=== PATIENT | female | born 1985 | race African-American/Black ===

== ENCOUNTER 2017-05-08 10:54 | Inpatient (IN) | payer OTHER ==
[2017-05-08] MEDS ORDERED: PEPCID 20 MG IV PREMIX* 20 MG/50 ML BAG IV PRN (12:32)
[2017-05-08 13:01] VITALS: BMI 29.4
[2017-05-08] MEDS: NS 1000 ML 1,000 ML IV SCH ×2 (13:01→23:57)
[2017-05-08] MEDS: DILAUDID INJ IVP PRN ×3 (13:02→21:11)
[2017-05-08] MEDS: PHENERGAN INJ 25 MG IVP PRN ×2 (13:03→23:53)
[2017-05-08 13:16] LABS: BASOPHILS # (AUTO) 0.1 X10^3/uL (0.0-0.1); BASOPHILS % (AUTO) 0.4 % (0.2-1.0); EOSINOPHILS # (AUTO) 0.1 x10^3/uL (0.0-0.2); EOSINOPHILS % (AUTO) 0.9 % (0.9-2.9); HEMATOCRIT 30.3 % (36.0-47.0); HEMOGLOBIN 9.7 g/dL (12.0-16.0); LYMPHOCYTES # (AUTO) 1.9 X10^3/uL (1.3-2.9); LYMPHOCYTES % (AUTO) 13.8 % (21.0-51.0); MEAN CORPUSCULAR HEMOGLOBIN 24.9 pg (27.0-34.0); MEAN CORPUSCULAR HGB CONC 32.1 g/dL (33.0-35.0); MEAN CORPUSCULAR VOLUME 77.5 fL (80.0-100.0); MEAN PLATELET VOLUME 8.8 fL (7.4-11.0); MONOCYTES # (AUTO) 1.8 x10^3/uL (0.3-0.8); MONOCYTES % (AUTO) 13.1 % (0.0-13.0); NEUTROPHILS # (AUTO) 9.8 x10^3/uL (2.2-4.8); NEUTROPHILS % (AUTO) 71.8 % (42.0-75.0); PLATELET COUNT 314 X10^3/uL (150.0-450.0); RED BLOOD COUNT 3.91 X10^6/uL (3.5-5.4); RED CELL DISTRIBUTION WIDTH 16.2 % (11.6-16.5); WHITE BLOOD COUNT 13.6 X10^3/uL (3.6-10.0)
[2017-05-08 13:24] LABS: ALBUMIN 1.8 g/dL (3.4-5.0); CALCIUM 8.5 mg/dL (8.5-10.1); COR CA(FOR HYPOALB) 10.3 mg/dL (8.5-10.1); CREATININE 1.39 mg/dL (0.55-1.02); TOTAL PROTEIN 7.1 g/dL (6.4-8.2)
[2017-05-08 14:06] LABS: PLATELET MORPHOLOGY COMMENT NORMAL (NORMAL)
[2017-05-08] MEDS ORDERED: K-DUR TAB 20 MEQ PO PRN (15:37)
[2017-05-08] MEDS ORDERED: K-RIDER 10 MEQ/NS 100 ML 10 MEQ/100 ML BAG IV PRN (15:37)
[2017-05-08] MEDS ORDERED: POTASSIUM CHLORIDE LIQ 20 MEQ UDC PO PRN (15:37)
[2017-05-08] MEDS ORDERED: K-LYTE EFFERVESCENT PO PRN (15:37)
[2017-05-08] MEDS ORDERED: NS 100 ML IV 100 ML IV ONE (16:06)
[2017-05-08] MEDS ORDERED: LEVSIN/MAALOX/LIDOC VISC PO PRN (16:22)
[2017-05-08] MEDS ORDERED: ZOFRAN TAB 4 MG PO PRN (16:22)
[2017-05-08] MEDS ORDERED: APRESOLINE INJ 20 MG VIAL IVP PRN (16:22)
[2017-05-08] MEDS ORDERED: VISTARIL PO PRN (16:22)
[2017-05-08] MEDS ORDERED: CATAPRES TAB 0.1 MG PO PRN (16:22)
[2017-05-08] MEDS ORDERED: IMITREX TAB PO PRN (16:22)
[2017-05-08] MEDS ORDERED: ELAVIL ONE (17:14)
[2017-05-08] MEDS: ZOFRAN INJ 4 MG VIAL IVP PRN (17:20)
[2017-05-08] MEDS: ATIVAN TAB 0.5 MG PO PRN (17:21)
[2017-05-08] MEDS: COREG TAB 12.5 MG PO SCH (17:22)
[2017-05-08] MEDS: CARAFATE SUSP 1 GM/10 ML PO SCH ×2 (18:20→21:10)
[2017-05-08] MEDS: REGLAN TAB 10 MG PO SCH ×2 (18:20→21:10)
--- NOTE | 2017-05-08 18:42 | CT ---
CT abdomen without and with contrast Indication: Epigastric pain, pancreatitis Comparison: None Technique: CT images of the abdomen and pelvis were obtained before and after IV contrast administrat ion; arterial, portal venous, and delayed phases were obtained. Oral contrast was also given. Automat ic exposure control was utilized. Findings: There is small left pleural effusion with minimal bibasilar atelectasis. No dense infiltrat e or large pleural effusion. No acute skeletal abnormality is seen. Precontrast images demonstrate no evidence for renal or ureteral stone. The gallbladder is absent. There is marked peripancreatic common diffusely, although most significantly adjacent to the pancreat ic body. The pancreas enhances fairly homogeneously. No discrete peripancreatic or pancreatic collect ion or hemorrhage identified. The splenic vein and artery appear grossly patent. The liver, spleen, stomach, duodenum, adrenals, and kidneys are unremarkable. Shotty periaortic and m esenteric lymph nodes are noted, possibly reactive. No bulky adenopathy. The visualized lower GI trac t is unremarkable. Impression: Acute pancreatitis without evidence for necrosis, hemorrhage, or acute pancreatic collection. Small left pleural effusion. Reported By:
[2017-05-08] MEDS ORDERED: MAALOX or MYLANTA PO PRN (20:51)
[2017-05-08] MEDS ORDERED: ZANTAC PO SCH (21:00)
[2017-05-08] MEDS: FLEXERIL TAB 10 MG PO SCH (21:10)
[2017-05-08] MEDS: ELAVIL PO SCH (21:10)
[2017-05-08] MEDS: COMPAZINE PO SCH (21:10)
[2017-05-08] MEDS: PROTONIX TAB 40 MG PO SCH (21:10)
[2017-05-08] MEDS: HumuLIN R SUBCUT PRN (22:06)
[2017-05-09 00:29] LABS: BILIRUBIN,URINE NEGATIVE (NEGATIVE); BLOOD/HEMOGLOBIN,URINE 3+ (NEGATIVE); GLUCOSE, URINE 4+ (NEGATIVE); KETONES,URINE NEGATIVE (NEGATIVE); LEUKOCYTE ESTERASE ,URINE NEGATIVE (NEGATIVE); NITRITES,URINE NEGATIVE (NEGATIVE); PROTEIN,URINE 4+ (NEGATIVE); UROBILINOGEN,URINE NORMAL (NORMAL)
[2017-05-09 00:37] LABS: APPEARANCE,URINE CLEAR (CLEAR); BACTERIA,URINE TRACE /HPF (NEGATIVE); COLOR,URINE YELLOW (YELLOW); SQUAMOUS EPITHELIAL CELL,UR RARE /HPF (NEGATIVE)
[2017-05-09] MEDS: DILAUDID INJ IVP PRN ×4 (04:12→20:38)
[2017-05-09] MEDS: ZOFRAN INJ 4 MG VIAL IVP PRN (04:13)
[2017-05-09] MEDS: COMPAZINE PO SCH ×3 (05:44→21:16)
[2017-05-09] MEDS: CARAFATE SUSP 1 GM/10 ML PO SCH ×4 (05:45→20:38)
[2017-05-09] MEDS: FLEXERIL TAB 10 MG PO SCH ×3 (05:45→21:16)
[2017-05-09] MEDS: REGLAN TAB 10 MG PO SCH ×4 (05:45→20:38)
[2017-05-09] MEDS: HumuLIN R SUBCUT PRN ×2 (05:45→12:26)
[2017-05-09 06:14] LABS: BASOPHILS # (AUTO) 0.1 X10^3/uL (0.0-0.1); BASOPHILS % (AUTO) 0.6 % (0.2-1.0); EOSINOPHILS # (AUTO) 0.1 x10^3/uL (0.0-0.2); EOSINOPHILS % (AUTO) 1.2 % (0.9-2.9); HEMATOCRIT 31.4 % (36.0-47.0); HEMOGLOBIN 10.1 g/dL (12.0-16.0); LYMPHOCYTES % (AUTO) 18.6 % (21.0-51.0); MEAN CORPUSCULAR HEMOGLOBIN 24.9 pg (27.0-34.0); MEAN CORPUSCULAR HGB CONC 32.3 g/dL (33.0-35.0); MEAN CORPUSCULAR VOLUME 77.2 fL (80.0-100.0); MEAN PLATELET VOLUME 8.3 fL (7.4-11.0); MONOCYTES # (AUTO) 1.5 x10^3/uL (0.3-0.8); MONOCYTES % (AUTO) 14.1 % (0.0-13.0); NEUTROPHILS % (AUTO) 65.5 % (42.0-75.0); PLATELET COUNT 170 X10^3/uL (150.0-450.0); RED BLOOD COUNT 4.07 X10^6/uL (3.5-5.4); RED CELL DISTRIBUTION WIDTH 16.5 % (11.6-16.5); WHITE BLOOD COUNT 10.7 X10^3/uL (3.6-10.0)
[2017-05-09 06:23] LABS: ALANINE AMINOTRANSFERASE 16 Units/L (12-78); ALBUMIN 1.6 g/dL (3.4-5.0); ALKALINE PHOSPHATASE 124 Units/L (46-116); AMYLASE 36 Units/L (25-115); ASPARTATE AMINO TRANSFERASE 26 Units/L (15-37); BLOOD UREA NITROGEN 5 mg/dL (7-18); CALCIUM 8.1 mg/dL (8.5-10.1); CARBON DIOXIDE 29.4 mmol/L (21-32); CHLORIDE 104 mmol/L (98-107); COR NA(FOR HYPERGLY) 143 mmol/L (136-145); CREATININE 1.15 mg/dL (0.55-1.02); GLUCOSE 267 mg/dL (65-99); LIPASE 400 Units/L (73-393); PLATELET MORPHOLOGY COMMENT NORMAL (NORMAL); SODIUM 139 mmol/L (136-145); TOTAL PROTEIN 6.7 g/dL (6.4-8.2); eGFR BLACK RACES > 60 (>60); eGFR NON BLACK RACES 58 (>60)
[2017-05-09] MEDS: PROTONIX TAB 40 MG PO SCH ×2 (08:14→20:38)
[2017-05-09] MEDS: COREG TAB 12.5 MG PO SCH ×2 (08:14→17:18)
[2017-05-09] MEDS: PHENERGAN TAB 25 MG PO PRN (08:14)
[2017-05-09] MEDS: NORVASC TAB 10 MG PO SCH (08:15)
[2017-05-09] MEDS: CELEXA PO SCH (08:15)
[2017-05-09] MEDS: AMARYL TAB 4 MG PO SCH (08:15)
[2017-05-09] MEDS: ZESTRIL TAB 40 MG PO SCH (08:15)
[2017-05-09] MEDS: PEPCID 20 MG IV PREMIX* 20 MG/50 ML BAG IV SCH (08:17)
[2017-05-09] MEDS: NS 1000 ML 1,000 ML IV SCH ×2 (08:17→21:16)
[2017-05-09] MEDS: PRAVACHOL PO SCH (08:54)
--- NOTE | 2017-05-09 09:20 | DR.H&P ---
H&P - History & Physical for Day of: H&P Date: 05/08/17 - Chief Complaint Chief Complaint: luq and llq abdominal pain, n/v - Allergies Allergies/Adverse Reactions: Allergies Allergy/AdvReac Type Severity Reaction Status Date / Time Penicillins Allergy Verified 05/08/17 11:41 morphine AdvReac Verified 05/08/17 11:41 - History of Present Illness History of Present Illness: Ms. Delaney is a 31-year-old black female who was a direct admit from Dr. Wynne's [place] office. Her complaints were upper abdominal pain, left upper quadrant and left lower quadrant. With the nausea and vomiting. Patient had a CT scan of her abdomen one week ago without contrast with similar complaints. Patient has a history of noncompliant diabetes as well as gastroparesis. Patient states her last EGD was less than 1 year ago. Patient admitted for further evaluation of abdominal pain. CT with contrast ordered on admission as well as admission labs CBC CMP amylase and lipase we will keep patient nothing by mouth and continue blood sugar control. - Past Medical History Past Medical History: Diabetes, GERD, Hypertension - Past Surgical History Surgical History: , Cholecystectomy, Hysterectomy - Family History Family Medical History: Diabetes Mellitus, Cancer, Hypertension - Social History Does patient currently use any type of tobacco product: Yes Have you used tobacco products in the last 12 months: Yes Type of Tobacco Use: Cigarettes How many years tobacco product used: 12 Does any household member use tobacco: Yes Alcohol Use: None Drug Use: Prescription Drugs - Medications Home Medications: Amitriptyline HCl 50 mg PO HS 05/08/17 [History Confirmed 05/08/17] Amlodipine Besylate 10 mg PO DAILY 05/08/17 [History Confirmed 05/08/17] Carvedilol 12.5 mg PO BIDWM 05/08/17 [History Confirmed 05/08/17] Citalopram Hydrobromide [Citalopram HBr] 20 mg PO DAILY 05/08/17 [History Confirmed 05/08/17] Clonidine HCl [Catapres Tab 0.1 mg] 0.1 mg PO QID PRN 05/08/17 [History Confirmed 05/08/17] Cyclobenzaprine HCl 10 mg PO TID 05/08/17 [History Confirmed 05/08/17] Fentanyl 50 Mcg/Hr [DURAGESIC 50 mcg/HR PATCH] 1 each TD Q72H 05/08/17 [History Confirmed 05/08/17] Gi Cocktail [Levsin/Maalox/Lidoc Visc] 30 ml PO QID PRN 05/08/17 [History Confirmed 05/08/17] Glimepiride [Amaryl Tab 4 mg] 8 mg PO DAILYWB 05/08/17 [History Confirmed ] Hydrocodone/Acetaminophen [Hydrocodone/Acetaminophen 5-325 mg] 1 tab PO BID PRN 05/08/17 [History Confirmed 05/08/17] Hydroxyzine Pamoate [Vistaril] 25 mg PO Q8H PRN 05/08/17 [History Confirmed ] Insulin Aspart Protamine & Asp [Novolog Mix 70/30] 10 units SC BIDWM PRN [History Confirmed 05/08/17] Lisinopril [ZESTRIL *] 40 mg PO DAILY 05/08/17 [History Confirmed 05/08/17] Lorazepam [Ativan Tab 0.5 mg] 0.5 tab PO BID PRN 05/08/17 [History Confirmed ] Metformin HCl [Glucophage] 1,000 mg PO BIDWM 05/08/17 [History Confirmed ] Metoclopramide HCl 10 mg PO ACHS 05/08/17 [History Confirmed 05/08/17] Ondansetron HCl [Zofran Tab 4 mg] 4 mg PO Q6HR PRN 05/08/17 [History Confirmed 05/08/17] Pantoprazole Sodium 40 mg [Protonix Tab 40 mg] 40 mg PO BID 05/08/17 [History Confirmed 05/08/17] Pravastatin Sodium 20 mg PO DAILY 05/08/17 [History Confirmed 05/08/17] Prochlorperazine Maleate [Compazine] 10 mg PO TID 05/08/17 [History Confirmed ] Promethazine HCl 25 mg PO Q6H PRN 05/08/17 [History Confirmed 05/08/17] Ranitidine HCl [Ranitidine [address]] 150 mg PO BID 05/08/17 [History Confirmed 05/08/17] Sucralfate [Carafate Susp 1 gm/10 ml] 1 gm PO ACHS 05/08/17 [History Confirmed 05/08/17] Sumatriptan Succinate 100 mg PO BID PRN 05/08/17 [History Confirmed 05/08/17] - Review of Systems Constitutional: denies: Fever Eyes: No Symptoms Reported, Vision Change Respiratory: No Symptoms Reported Cardiovascular: No Symptoms Reported Gastrointestinal: Nausea, Vomiting, Abdominal Pain Genitourinary: No Symptoms Reported Musculoskeletal: No Symptoms Reported Skin: No Symptoms Reported Neurological: No Symptoms Reported - Physical Exam Vital Signs: Temperature 98.1 F Pulse Rate [Left Brachial] 95 Pulse Rate [Right Brachial] 94 Respiratory Rate 18 Blood Pressure [Right Arm] 127/76 O2 Sat by Pulse Oximetry 94 Oriented: Normal Eyes: Normal Ear: Normal Nose: Normal Throat: Normal Respiratory: RLL Exp. Wheeze (mild), LLL Exp. Wheeze Cardiovascular: Normal : Normal Auscultation: Bowel Sounds: Normal Palpation: Normal Tenderness: LUQ, LLQ, Epigastric Skin: Normal Musculoskeletal: Normal Psychiatric: Normal Speech Pattern: Clear, Appropriate - Assessment/Plan (1) Abdominal pain Status: Acute Plan: admit, CT abdomen and pelvis with contrast, nausea and pain control, PPI therapy, blood sugar controlled, admission labs including amylase and lipase, npo (2) Uncontrolled diabetes mellitus Status: Acute (3) Gastroparesis due to DM Status: Acute
--- NOTE | 2017-05-09 09:21 | DR.H&P ---
H&P - History & Physical for Day of: H&P Date: 05/08/17 - Chief Complaint Chief Complaint: LUQ abd pain - Allergies Allergies/Adverse Reactions: Allergies Allergy/AdvReac Type Severity Reaction Status Date / Time Penicillins Allergy Verified 05/08/17 11:41 morphine AdvReac Verified 05/08/17 11:41 - History of Present Illness History of Present Illness: The patient is a 31-year-old black female who presents to the clinic with complaint of left upper quadrant abdominal pain. States that she was discharged on Sunday from [facility] secondary to pancreatitis. Patient states that she was in the unit on insulin drip. Patient is diabetes mellitus type 1. Patient states that she was unable to tolerate food prior to discharge. Patient states she is not shaded that has not been eating or drinking. Denies any diarrhea. Does have a history of cholecystectomy. - Past Medical History Past Medical History: Anxiety, Diabetes, Dyslipidemia, GERD Additional Medical History: Pancreatitis, Gastroparesis - Past Surgical History Surgical History: , Cholecystectomy, Hysterectomy - Family History Family Medical History: Diabetes Mellitus, Cancer, Hypertension - Social History Does patient currently use any type of tobacco product: Yes Have you used tobacco products in the last 12 months: Yes Type of Tobacco Use: Cigarettes How many years tobacco product used: 12 Does any household member use tobacco: Yes Alcohol Use: None Drug Use: Prescription Drugs - Medications Home Medications: Amitriptyline HCl 50 mg PO HS 05/08/17 [History Confirmed 05/08/17] Amlodipine Besylate 10 mg PO DAILY 05/08/17 [History Confirmed 05/08/17] Carvedilol 12.5 mg PO BIDWM 05/08/17 [History Confirmed 05/08/17] Citalopram Hydrobromide [Citalopram HBr] 20 mg PO DAILY 05/08/17 [History Confirmed 05/08/17] Clonidine HCl [Catapres Tab 0.1 mg] 0.1 mg PO QID PRN 05/08/17 [History Confirmed 05/08/17] Cyclobenzaprine HCl 10 mg PO TID 05/08/17 [History Confirmed 05/08/17] Fentanyl 50 Mcg/Hr [DURAGESIC 50 mcg/HR PATCH] 1 each TD Q72H 05/08/17 [History Confirmed 05/08/17] Gi Cocktail [Levsin/Maalox/Lidoc Visc] 30 ml PO QID PRN 05/08/17 [History Confirmed 05/08/17] Glimepiride [Amaryl Tab 4 mg] 8 mg PO DAILYWB 05/08/17 [History Confirmed ] Hydrocodone/Acetaminophen [Hydrocodone/Acetaminophen 5-325 mg] 1 tab PO BID PRN 05/08/17 [History Confirmed 05/08/17] Hydroxyzine Pamoate [Vistaril] 25 mg PO Q8H PRN 05/08/17 [History Confirmed ] Insulin Aspart Protamine & Asp [Novolog Mix 70/30] 10 units SC BIDWM PRN [History Confirmed 05/08/17] Lisinopril [ZESTRIL *] 40 mg PO DAILY 05/08/17 [History Confirmed 05/08/17] Lorazepam [Ativan Tab 0.5 mg] 0.5 tab PO BID PRN 05/08/17 [History Confirmed ] Metformin HCl [Glucophage] 1,000 mg PO BIDWM 05/08/17 [History Confirmed ] Metoclopramide HCl 10 mg PO ACHS 05/08/17 [History Confirmed 05/08/17] Ondansetron HCl [Zofran Tab 4 mg] 4 mg PO Q6HR PRN 05/08/17 [History Confirmed 05/08/17] Pantoprazole Sodium 40 mg [Protonix Tab 40 mg] 40 mg PO BID 05/08/17 [History Confirmed 05/08/17] Pravastatin Sodium 20 mg PO DAILY 05/08/17 [History Confirmed 05/08/17] Prochlorperazine Maleate [Compazine] 10 mg PO TID 05/08/17 [History Confirmed ] Promethazine HCl 25 mg PO Q6H PRN 05/08/17 [History Confirmed 05/08/17] Ranitidine HCl [Ranitidine [address]] 150 mg PO BID 05/08/17 [History Confirmed 05/08/17] Sucralfate [Carafate Susp 1 gm/10 ml] 1 gm PO ACHS 05/08/17 [History Confirmed 05/08/17] Sumatriptan Succinate 100 mg PO BID PRN 05/08/17 [History Confirmed 05/08/17] - Review of Systems Constitutional: Weakness, Malaise Eyes: No Symptoms Reported ENT: No Symptoms Reported Respiratory: No Symptoms Reported Cardiovascular: No Symptoms Reported Gastrointestinal: Nausea, Abdominal Pain Genitourinary: No Symptoms Reported Musculoskeletal: No Symptoms Reported Skin: No Symptoms Reported Neurological: No Symptoms Reported - Physical Exam Vital Signs: Temperature 98.1 F Pulse Rate [Left Brachial] 95 Pulse Rate [Right Brachial] 94 Respiratory Rate 18 Blood Pressure [Right Arm] 127/76 O2 Sat by Pulse Oximetry 94 Oriented: Normal Eyes: Normal Ear: Normal Nose: Normal Throat: Normal Respiratory: Clear Throughout Cardiovascular: Normal : Normal Auscultation: Bowel Sounds: Normal Palpation: Normal Tenderness: LUQ, Moderate Skin: Normal Musculoskeletal: Normal Psychiatric: Normal Mood Description: Calm Affect: Normal Speech Pattern: Clear
[2017-05-09] MEDS: NORCO 5/325 MG TAB PO PRN (12:26)
[2017-05-09] MEDS: ELAVIL PO SCH (20:37)
[2017-05-09] MEDS: ATIVAN TAB 0.5 MG PO PRN (20:38)
[2017-05-09] MEDS: SNACK - Diabetic Appropriate PO SCH (21:16)
[2017-05-10] MEDS: NORCO 5/325 MG TAB PO PRN ×5 (00:14→18:59)
[2017-05-10] MEDS: PHENERGAN TAB 25 MG PO PRN (00:14)
[2017-05-10] MEDS: NS 1000 ML 1,000 ML IV SCH ×4 (00:14→21:46)
[2017-05-10] MEDS: ZOFRAN INJ 4 MG VIAL IVP PRN (03:52)
[2017-05-10] MEDS: DILAUDID INJ IVP PRN (03:52)
[2017-05-10 05:32] LABS: BASOPHILS % (AUTO) 0.4 % (0.2-1.0); EOSINOPHILS # (AUTO) 0.1 x10^3/uL (0.0-0.2); EOSINOPHILS % (AUTO) 1.4 % (0.9-2.9); HEMOGLOBIN 8.9 g/dL (12.0-16.0); LYMPHOCYTES # (AUTO) 2.5 X10^3/uL (1.3-2.9); LYMPHOCYTES % (AUTO) 22.9 % (21.0-51.0); MEAN CORPUSCULAR HEMOGLOBIN 24.9 pg (27.0-34.0); MEAN CORPUSCULAR HGB CONC 31.9 g/dL (33.0-35.0); MEAN CORPUSCULAR VOLUME 78.1 fL (80.0-100.0); MEAN PLATELET VOLUME 8.8 fL (7.4-11.0); MONOCYTES % (AUTO) 8.8 % (0.0-13.0); NEUTROPHILS # (AUTO) 7.2 x10^3/uL (2.2-4.8); NEUTROPHILS % (AUTO) 66.5 % (42.0-75.0); PLATELET COUNT 285 X10^3/uL (150.0-450.0); RED BLOOD COUNT 3.59 X10^6/uL (3.5-5.4); RED CELL DISTRIBUTION WIDTH 15.9 % (11.6-16.5); WHITE BLOOD COUNT 10.8 X10^3/uL (3.6-10.0)
[2017-05-10] MEDS: CARAFATE SUSP 1 GM/10 ML PO SCH ×4 (05:38→21:08)
[2017-05-10] MEDS: REGLAN TAB 10 MG PO SCH ×4 (05:38→21:09)
[2017-05-10 05:39] LABS: ALANINE AMINOTRANSFERASE 20 Units/L (12-78); ALBUMIN 1.5 g/dL (3.4-5.0); ALKALINE PHOSPHATASE 121 Units/L (46-116); AMYLASE 35 Units/L (25-115); ASPARTATE AMINO TRANSFERASE 39 Units/L (15-37); BLOOD UREA NITROGEN 6 mg/dL (7-18); CALCIUM 8.1 mg/dL (8.5-10.1); CARBON DIOXIDE 26.4 mmol/L (21-32); CHLORIDE 104 mmol/L (98-107); COR CA(FOR HYPOALB) 10.1 mg/dL (8.5-10.1); COR NA(FOR HYPERGLY) 139 mmol/L (136-145); CREATININE 1.18 mg/dL (0.55-1.02); GLUCOSE 203 mg/dL (65-99); LIPASE 375 Units/L (73-393); SODIUM 137 mmol/L (136-145); TOTAL PROTEIN 6.1 g/dL (6.4-8.2); eGFR BLACK RACES > 60 (>60); eGFR NON BLACK RACES 56 (>60)
[2017-05-10] MEDS: COMPAZINE PO SCH ×3 (05:39→21:09)
[2017-05-10] MEDS: FLEXERIL TAB 10 MG PO SCH ×3 (05:39→21:09)
[2017-05-10 05:54] LABS: PLATELET MORPHOLOGY COMMENT NORMAL (NORMAL)
[2017-05-10] MEDS: CELEXA PO SCH (08:28)
[2017-05-10] MEDS: COREG TAB 12.5 MG PO SCH ×2 (08:28→16:17)
[2017-05-10] MEDS: AMARYL TAB 4 MG PO SCH (08:28)
[2017-05-10] MEDS: PEPCID 20 MG IV PREMIX* 20 MG/50 ML BAG IV SCH (08:29)
[2017-05-10] MEDS: PRAVACHOL PO SCH (08:29)
[2017-05-10] MEDS: NORVASC TAB 10 MG PO SCH (08:29)
[2017-05-10] MEDS: ZESTRIL TAB 40 MG PO SCH (08:29)
[2017-05-10] MEDS: PROTONIX TAB 40 MG PO SCH ×2 (08:29→21:09)
[2017-05-10] MEDS: PHENERGAN INJ 25 MG IVP PRN (09:08)
[2017-05-10] MEDS: ATIVAN TAB 0.5 MG PO PRN (21:08)
[2017-05-10] MEDS: SNACK - Diabetic Appropriate PO SCH (21:08)
[2017-05-10] MEDS: ELAVIL PO SCH (21:09)
[2017-05-10] MEDS: HumuLIN R SUBCUT PRN (21:56)
[2017-05-11] MEDS: ZOFRAN INJ 4 MG VIAL IVP PRN (03:42)
[2017-05-11] MEDS: NORCO 5/325 MG TAB PO PRN ×2 (03:42→10:23)
[2017-05-11] MEDS: CARAFATE SUSP 1 GM/10 ML PO SCH ×2 (05:33→11:52)
[2017-05-11] MEDS: COMPAZINE PO SCH (05:33)
[2017-05-11] MEDS: REGLAN TAB 10 MG PO SCH ×2 (05:33→11:51)
[2017-05-11] MEDS: FLEXERIL TAB 10 MG PO SCH (05:33)
[2017-05-11 05:47] LABS: BASOPHILS % (AUTO) 0.4 % (0.2-1.0); EOSINOPHILS # (AUTO) 0.2 x10^3/uL (0.0-0.2); EOSINOPHILS % (AUTO) 1.8 % (0.9-2.9); HEMATOCRIT 27.1 % (36.0-47.0); HEMOGLOBIN 8.7 g/dL (12.0-16.0); LYMPHOCYTES # (AUTO) 2.4 X10^3/uL (1.3-2.9); MEAN CORPUSCULAR HEMOGLOBIN 24.5 pg (27.0-34.0); MEAN CORPUSCULAR VOLUME 76.7 fL (80.0-100.0); MEAN PLATELET VOLUME 8.5 fL (7.4-11.0); MONOCYTES # (AUTO) 0.9 x10^3/uL (0.3-0.8); MONOCYTES % (AUTO) 8.1 % (0.0-13.0); NEUTROPHILS # (AUTO) 7.8 x10^3/uL (2.2-4.8); NEUTROPHILS % (AUTO) 68.7 % (42.0-75.0); PLATELET COUNT 345 X10^3/uL (150.0-450.0); RED BLOOD COUNT 3.53 X10^6/uL (3.5-5.4); RED CELL DISTRIBUTION WIDTH 16.1 % (11.6-16.5); WHITE BLOOD COUNT 11.3 X10^3/uL (3.6-10.0)
[2017-05-11 05:59] LABS: ALANINE AMINOTRANSFERASE 18 Units/L (12-78); ALBUMIN 1.5 g/dL (3.4-5.0); ALKALINE PHOSPHATASE 123 Units/L (46-116); ASPARTATE AMINO TRANSFERASE 28 Units/L (15-37); BLOOD UREA NITROGEN 5 mg/dL (7-18); CALCIUM 8.1 mg/dL (8.5-10.1); CARBON DIOXIDE 27.5 mmol/L (21-32); CHLORIDE 107 mmol/L (98-107); COR CA(FOR HYPOALB) 10.1 mg/dL (8.5-10.1); COR NA(FOR HYPERGLY) 140 mmol/L (136-145); CREATININE 1.04 mg/dL (0.55-1.02); GLUCOSE 160 mg/dL (65-99); SODIUM 139 mmol/L (136-145); TOTAL PROTEIN 6.3 g/dL (6.4-8.2); eGFR BLACK RACES > 60 (>60); eGFR NON BLACK RACES > 60 (>60)
[2017-05-11] MEDS: COREG TAB 12.5 MG PO SCH (06:24)
[2017-05-11] MEDS: NS 1000 ML 1,000 ML IV SCH (06:24)
[2017-05-11] MEDS: AMARYL TAB 4 MG PO SCH (06:24)
[2017-05-11 06:45] LABS: HYPOCHROMASIA 1+; PLATELET MORPHOLOGY COMMENT NORMAL (NORMAL)
[2017-05-11] MEDS: CELEXA PO SCH (09:56)
[2017-05-11] MEDS: ZESTRIL TAB 40 MG PO SCH (09:56)
[2017-05-11] MEDS: NORVASC TAB 10 MG PO SCH (09:57)
[2017-05-11] MEDS: PRAVACHOL PO SCH (09:57)
[2017-05-11] MEDS: PEPCID 20 MG IV PREMIX* 20 MG/50 ML BAG IV SCH (09:57)
[2017-05-11] MEDS: PROTONIX TAB 40 MG PO SCH (09:57)
[2017-05-11] MEDS: PHENERGAN TAB 25 MG PO PRN (10:23)
[2017-05-11 11:53] VITALS: BP 156/87
== END 2017-05-11 12:00 | disposition home or self-care (01) | DRG 440 ==
LOC: OBSVTOIN 10:54 → MED/SURG 10:54
PROVIDERS: ADMIT Internal Medicine; ATTEND Internal Medicine
DX: K85.80 Other acute pancreatitis without necrosis or infection (principal); R10.32 Left lower quadrant pain; R10.12 Left upper quadrant pain; R11.2 Nausea with vomiting, unspecified; E10.65 Type 1 diabetes mellitus with hyperglycemia; K21.9 Gastro-esophageal reflux disease without esophagitis; I10 Essential (primary) hypertension; K31.84 Gastroparesis; F41.8 Other specified anxiety disorders; F17.210 Nicotine dependence, cigarettes, uncomplicated; E66.01 Morbid (severe) obesity due to excess calories; E78.2 Mixed hyperlipidemia; F45.42 Pain disorder with related psychological factors
CPT/HCPCS: 36415; 74022; 74170; 80053; 81001; 82150; 82947; 83690; 84132; 85025; A4222; Q0169; S0028; S0181; J1170; J1815; J2405; J2550

== ENCOUNTER 2017-07-09 10:18 | Inpatient (IN) | payer OTHER ==
[2017-07-09] MEDS ORDERED: ATIVAN INJ 2 MG VIAL IVP PRN (11:02)
[2017-07-09] MEDS ORDERED: PEPCID 20 MG IV PREMIX* 20 MG/50 ML BAG IV PRN (12:20)
[2017-07-09] MEDS: DILAUDID INJ IVP PRN ×3 (13:04→21:17)
[2017-07-09] MEDS: NS 1000 ML 1,000 ML IV SCH (13:04)
[2017-07-09] MEDS: PHENERGAN INJ 25 MG IVP PRN ×2 (13:04→21:18)
[2017-07-09 13:12] VITALS: BMI 37.5
[2017-07-09 13:16] LABS: BASOPHILS # (AUTO) 0.1 X10^3/uL (0.0-0.1); BASOPHILS % (AUTO) 0.9 % (0.2-1.0); EOSINOPHILS # (AUTO) 0.1 x10^3/uL (0.0-0.2); EOSINOPHILS % (AUTO) 0.6 % (0.9-2.9); HEMATOCRIT 34.2 % (36.0-47.0); HEMOGLOBIN 10.8 g/dL (12.0-16.0); LYMPHOCYTES # (AUTO) 2.5 X10^3/uL (1.3-2.9); LYMPHOCYTES % (AUTO) 24.9 % (21.0-51.0); MEAN CORPUSCULAR HEMOGLOBIN 24.5 pg (27.0-34.0); MEAN CORPUSCULAR HGB CONC 31.7 g/dL (33.0-35.0); MEAN CORPUSCULAR VOLUME 77.4 fL (80.0-100.0); MEAN PLATELET VOLUME 9.2 fL (7.4-11.0); MONOCYTES # (AUTO) 0.7 x10^3/uL (0.3-0.8); MONOCYTES % (AUTO) 7.1 % (0.0-13.0); NEUTROPHILS # (AUTO) 6.6 x10^3/uL (2.2-4.8); NEUTROPHILS % (AUTO) 66.5 % (42.0-75.0); PLATELET COUNT 288 X10^3/uL (150.0-450.0); RED BLOOD COUNT 4.42 X10^6/uL (3.5-5.4); WHITE BLOOD COUNT 9.9 X10^3/uL (3.6-10.0)
[2017-07-09 13:26] LABS: SERUM ACETONE NEGATIVE (NEGATIVE)
[2017-07-09 13:31] LABS: BLOOD UREA NITROGEN 9 mg/dL (7-18); CARBON DIOXIDE 28.1 mmol/L (21-32); CHLORIDE 102 mmol/L (98-107); COR NA(FOR HYPERGLY) 140 mmol/L (136-145); CREATININE 1.37 mg/dL (0.55-1.02); SODIUM 137 mmol/L (136-145); eGFR BLACK RACES 57 (>60); eGFR NON BLACK RACES 47 (>60)
[2017-07-09 13:32] LABS: ALANINE AMINOTRANSFERASE 11 Units/L (12-78); ALBUMIN 2.4 g/dL (3.4-5.0); ALKALINE PHOSPHATASE 89 Units/L (46-116); AMYLASE 35 Units/L (25-115); ASPARTATE AMINO TRANSFERASE 16 Units/L (15-37); COR CA(FOR HYPOALB) 10.3 mg/dL (8.5-10.1); LIPASE 79 Units/L (73-393); TOTAL PROTEIN 7.5 g/dL (6.4-8.2)
[2017-07-09 13:42] LABS: HYPOCHROMASIA SLIGHT; MICROCYTOSIS SLIGHT; PLATELET MORPHOLOGY COMMENT NORMAL (NORMAL)
--- NOTE | 2017-07-09 15:48 | CT ---
History: Acute gastroparesis Study: CT of the abdomen without contrast. Comparison: None Findings: The stomach is nondistended and unremarkable without wall thickening. The gallbladder surgi cesar absent. There is no biliary dilatation. The liver and spleen and pancreas and kidneys and adren al glands are unremarkable. There is no ascites or adenopathy or bowel distention. The visualized pasha g bases are clear. Impression: Negative Reported By:
--- NOTE | 2017-07-09 18:07 | DR.H&P ---
H&P - History & Physical for Day of: H&P Date: 07/09/17 - Chief Complaint Chief Complaint: Abd pain with nausea and vomiting - Allergies Allergies/Adverse Reactions: Allergies Allergy/AdvReac Type Severity Reaction Status Date / Time Penicillins Allergy Verified 05/08/17 11:41 morphine AdvReac Verified 05/08/17 11:41 - History of Present Illness History of Present Illness: The patient is a 32-year-old black female who presents to the clinic with a three-day history of abdominal pain with nausea vomiting. Patient does have diabetes mellitus and gastroparesis. Patient denies diarrhea. Days that she's not been able to keep anything down of the last several days and is progressing in nature. States she has taken anti- emetics without improvement. States blood sugar has been in the 200 range. States blood pressure has been elevated. States she is having difficulty keeping her medications down. - Past Medical History Past Medical History: Anxiety, Diabetes, Dyslipidemia, GERD Additional Medical History: Pancreatitis, Gastroparesis - Past Surgical History Surgical History: , Cholecystectomy, Hysterectomy - Family History Family Medical History: Diabetes Mellitus, Cancer, Hypertension - Social History Does patient currently use any type of tobacco product: Yes Have you used tobacco products in the last 12 months: Yes Type of Tobacco Use: Cigarettes How many years tobacco product used: 12 Does any household member use tobacco: Yes Alcohol Use: None Drug Use: Prescription Drugs - Review of Systems Constitutional: Weakness Eyes: No Symptoms Reported ENT: No Symptoms Reported Respiratory: No Symptoms Reported Cardiovascular: No Symptoms Reported Gastrointestinal: See HPI, Nausea, Vomiting, Abdominal Pain Genitourinary: No Symptoms Reported Musculoskeletal: No Symptoms Reported Skin: No Symptoms Reported Neurological: No Symptoms Reported - Physical Exam Vital Signs: Temperature 98.1 F Pulse Rate [Left] 92 Respiratory Rate 18 Blood Pressure [Right Arm] 200/100 Blood Pressure 156/87 O2 Sat by Pulse Oximetry 98 Oriented: Normal Eyes: Normal Ear: Normal Nose: Normal Throat: Normal Respiratory: Clear Throughout Cardiovascular: Normal : Normal Auscultation: Bowel Sounds: Normal Palpation: Normal Tenderness: RUQ, LUQ, Epigastric Skin: Normal Musculoskeletal: Normal Psychiatric: Normal Mood Description: Calm Affect: Quiet Speech Pattern: Clear - Assessment/Plan (1) Hypertension Qualifiers: Hypertension type: essential hypertension Qualified Code(s): I10 - Essential (primary) hypertension Status: Acute Plan: monitor blood pressure and administer antihypertensives as needed (2) Abdominal pain Qualifiers: Abdominal location: epigastric Qualified Code(s): R10.13 - Epigastric pain Status: Acute Plan: Pepcid IV, anti-emetics, IV Dilaudid (3) Gastroparesis due to DM Status: Acute Plan: IV anti-emetics, Pepcid, Ativan, Dilaudid, CBC, CMP (4) Uncontrolled diabetes mellitus Qualifiers: Diabetes mellitus type: type 1 Status: Acute Plan: fingerstick blood sugars with sliding scale regular insulin, Acetone, NS IV
[2017-07-09] MEDS: CATAPRES TAB 0.1 MG PO PRN (21:17)
[2017-07-09 23:07] LABS: BILIRUBIN,URINE NEGATIVE (NEGATIVE); BLOOD/HEMOGLOBIN,URINE 2+ (NEGATIVE); GLUCOSE, URINE NEGATIVE (NEGATIVE); KETONES,URINE NEGATIVE (NEGATIVE); LEUKOCYTE ESTERASE ,URINE NEGATIVE (NEGATIVE); NITRITES,URINE NEGATIVE (NEGATIVE); PROTEIN,URINE 4+ (NEGATIVE); UROBILINOGEN,URINE NORMAL (NORMAL)
[2017-07-09 23:15] LABS: APPEARANCE,URINE CLEAR (CLEAR); BACTERIA,URINE TRACE /HPF (NEGATIVE); COLOR,URINE YELLOW (YELLOW); SQUAMOUS EPITHELIAL CELL,UR RARE /HPF (NEGATIVE)
[2017-07-10] MEDS: NS 1000 ML 1,000 ML IV SCH ×3 (02:30→23:17)
[2017-07-10] MEDS: DILAUDID INJ IVP PRN ×6 (02:34→23:17)
[2017-07-10] MEDS: PHENERGAN INJ 25 MG IVP PRN ×2 (04:06→10:37)
[2017-07-10 05:34] LABS: ALANINE AMINOTRANSFERASE 9 Units/L (12-78); ALKALINE PHOSPHATASE 77 Units/L (46-116); ASPARTATE AMINO TRANSFERASE 18 Units/L (15-37); BLOOD UREA NITROGEN 6 mg/dL (7-18); CALCIUM 8.6 mg/dL (8.5-10.1); CHLORIDE 105 mmol/L (98-107); COR CA(FOR HYPOALB) 10.2 mg/dL (8.5-10.1); COR NA(FOR HYPERGLY) 141 mmol/L (136-145); CREATININE 1.04 mg/dL (0.55-1.02); SODIUM 139 mmol/L (136-145); TOTAL PROTEIN 6.4 g/dL (6.4-8.2); eGFR BLACK RACES > 60 (>60); eGFR NON BLACK RACES > 60 (>60)
[2017-07-10 06:19] LABS: BASOPHILS % (AUTO) 0.2 % (0.2-1.0); EOSINOPHILS # (AUTO) 0.1 x10^3/uL (0.0-0.2); EOSINOPHILS % (AUTO) 2.1 % (0.9-2.9); HEMATOCRIT 31.3 % (36.0-47.0); HEMOGLOBIN 9.7 g/dL (12.0-16.0); LYMPHOCYTES # (AUTO) 2.8 X10^3/uL (1.3-2.9); LYMPHOCYTES % (AUTO) 42.3 % (21.0-51.0); MEAN CORPUSCULAR HEMOGLOBIN 24.5 pg (27.0-34.0); MEAN CORPUSCULAR HGB CONC 31.2 g/dL (33.0-35.0); MEAN CORPUSCULAR VOLUME 78.6 fL (80.0-100.0); MEAN PLATELET VOLUME 9.3 fL (7.4-11.0); MONOCYTES # (AUTO) 0.6 x10^3/uL (0.3-0.8); MONOCYTES % (AUTO) 8.3 % (0.0-13.0); NEUTROPHILS # (AUTO) 3.1 x10^3/uL (2.2-4.8); NEUTROPHILS % (AUTO) 47.1 % (42.0-75.0); PLATELET COUNT 279 X10^3/uL (150.0-450.0); RED BLOOD COUNT 3.98 X10^6/uL (3.5-5.4); WHITE BLOOD COUNT 6.7 X10^3/uL (3.6-10.0)
[2017-07-10] MEDS: HumuLIN R SUBCUT PRN (06:40)
[2017-07-10 07:21] LABS: PLATELET MORPHOLOGY COMMENT NORMAL (NORMAL)
[2017-07-10] MEDS: CATAPRES TAB 0.1 MG PO PRN (09:17)
[2017-07-10] MEDS: ZOFRAN INJ 4 MG VIAL IVP PRN ×2 (09:18→15:12)
[2017-07-10] MEDS: SNACK - Diabetic Appropriate PO SCH ×2 (11:48→22:40)
[2017-07-10] MEDS: ATIVAN INJ 2 MG VIAL IVP PRN (15:12)
[2017-07-10] MEDS: REGLAN TAB 10 MG PO SCH ×2 (21:37→22:40)
[2017-07-11] MEDS: CATAPRES TAB 0.1 MG PO PRN ×2 (00:02→12:34)
[2017-07-11] MEDS: DILAUDID INJ IVP PRN ×4 (04:06→20:18)
[2017-07-11] MEDS: ATIVAN INJ 2 MG VIAL IVP PRN ×2 (04:07→12:44)
[2017-07-11] MEDS: ZOFRAN INJ 4 MG VIAL IVP PRN (04:07)
[2017-07-11 05:53] LABS: BASOPHILS % (AUTO) 0.5 % (0.2-1.0); EOSINOPHILS # (AUTO) 0.1 x10^3/uL (0.0-0.2); EOSINOPHILS % (AUTO) 2.1 % (0.9-2.9); HEMATOCRIT 31.1 % (36.0-47.0); LYMPHOCYTES # (AUTO) 2.6 X10^3/uL (1.3-2.9); LYMPHOCYTES % (AUTO) 36.4 % (21.0-51.0); MEAN CORPUSCULAR HGB CONC 32.2 g/dL (33.0-35.0); MEAN CORPUSCULAR VOLUME 77.6 fL (80.0-100.0); MEAN PLATELET VOLUME 9.2 fL (7.4-11.0); MONOCYTES # (AUTO) 0.6 x10^3/uL (0.3-0.8); MONOCYTES % (AUTO) 8.2 % (0.0-13.0); NEUTROPHILS # (AUTO) 3.8 x10^3/uL (2.2-4.8); NEUTROPHILS % (AUTO) 52.8 % (42.0-75.0); PLATELET COUNT 253 X10^3/uL (150.0-450.0); RED BLOOD COUNT 4.02 X10^6/uL (3.5-5.4); RED CELL DISTRIBUTION WIDTH 15.7 % (11.6-16.5); WHITE BLOOD COUNT 7.1 X10^3/uL (3.6-10.0)
[2017-07-11] MEDS: REGLAN TAB 10 MG PO SCH ×4 (06:14→20:11)
[2017-07-11 06:17] LABS: ALANINE AMINOTRANSFERASE 12 Units/L (12-78); ALBUMIN 1.9 g/dL (3.4-5.0); ALKALINE PHOSPHATASE 73 Units/L (46-116); ASPARTATE AMINO TRANSFERASE 18 Units/L (15-37); BLOOD UREA NITROGEN 4 mg/dL (7-18); CALCIUM 8.4 mg/dL (8.5-10.1); CARBON DIOXIDE 28.6 mmol/L (21-32); CHLORIDE 106 mmol/L (98-107); COR CA(FOR HYPOALB) 10.1 mg/dL (8.5-10.1); COR NA(FOR HYPERGLY) 142 mmol/L (136-145); CREATININE 0.99 mg/dL (0.55-1.02); SODIUM 140 mmol/L (136-145); TOTAL PROTEIN 6.2 g/dL (6.4-8.2); eGFR BLACK RACES > 60 (>60); eGFR NON BLACK RACES > 60 (>60)
[2017-07-11 06:48] LABS: PLATELET MORPHOLOGY COMMENT NORMAL (NORMAL)
[2017-07-11] MEDS: NORVASC TAB 10 MG PO SCH (09:30)
[2017-07-11] MEDS: ZESTRIL TAB 40 MG PO SCH (09:30)
[2017-07-11] MEDS: CELEXA PO SCH (09:30)
[2017-07-11] MEDS: PHENERGAN INJ 25 MG IVP PRN (09:30)
[2017-07-11] MEDS: ZITHROMAX INJ 500 MG VIAL 500 MG in NS 250 ML IV 250 ML IV SCH (10:09)
--- NOTE | 2017-07-11 11:19 | RAD ---
Examination: Abdomen series with PA chest History: Pain and constipation Findings: PA chest: The heart is normal in size and the lungs are clear. There is no evidence for pne umoperitoneum or pleural fluid. A right subclavian injection port is present, the tip near the juncti on of the subclavian vein and SVC. Abdomen: Supine and upright views demonstrate normal gas pattern. There is no evidence for obstructio n, ascites or mass formation. A single gas distended loop of jejunum is present in the epigastric are a. There are surgical clips in the right upper quadrant. Impression: 1. Nonspecific isolated loop of distended jejunum in upper abdomen. No obstruction or perforation stanley ntified. 2. Postsurgical findings right upper abdomen. 3. No acute abnormality on PA chest. See above description of injection port catheter position. Reported By:
[2017-07-11] MEDS: HumuLIN R SUBCUT PRN ×2 (11:46→20:30)
[2017-07-11] MEDS: NS 1000 ML 1,000 ML IV SCH (12:45)
[2017-07-11] MEDS ORDERED: GLUCOPHAGE ONE (16:32)
[2017-07-11] MEDS: GLUCOPHAGE PO SCH (16:39)
[2017-07-11] MEDS: COREG TAB 12.5 MG PO SCH (16:39)
[2017-07-11] MEDS ORDERED: METFORMIN HCL 1000 MG PO SCH (17:00)
[2017-07-11] MEDS ORDERED: FLEXERIL TAB 10 MG PO PRN (17:31)
[2017-07-11] MEDS ORDERED: VISTARIL PO PRN (17:31)
[2017-07-11] MEDS ORDERED: CATAPRES TAB 0.1 MG PO PRN (17:31)
[2017-07-11] MEDS ORDERED: ZOFRAN TAB 4 MG PO PRN (17:31)
[2017-07-11] MEDS: NORCO 5/325 MG TAB PO PRN (17:45)
[2017-07-11] MEDS: SNACK - Diabetic Appropriate PO SCH (20:10)
[2017-07-11] MEDS: CARAFATE SUSP 1 GM/10 ML PO SCH (20:10)
[2017-07-11] MEDS: ZANTAC PO SCH (20:11)
[2017-07-11] MEDS: ELAVIL PO SCH (20:11)
[2017-07-11] MEDS: ATIVAN TAB 0.5 MG PO PRN (20:30)
[2017-07-11] MEDS ORDERED: REGLAN TAB 10 MG PO SCH (21:00)
[2017-07-11] MEDS ORDERED: AMITRIPTYLINE HCL 50 MG PO SCH (21:00)
[2017-07-12] MEDS: DILAUDID INJ IVP PRN ×5 (00:24→20:08)
[2017-07-12] MEDS: PHENERGAN INJ 25 MG IVP PRN ×3 (00:24→20:08)
[2017-07-12] MEDS: NS 1000 ML 1,000 ML IV SCH ×2 (00:30→21:46)
[2017-07-12] MEDS: ZOFRAN INJ 4 MG VIAL IVP PRN (03:31)
[2017-07-12] MEDS: NORCO 5/325 MG TAB PO PRN ×2 (03:32→08:47)
[2017-07-12 05:24] LABS: BASOPHILS % (AUTO) 0.5 % (0.2-1.0); EOSINOPHILS # (AUTO) 0.2 x10^3/uL (0.0-0.2); EOSINOPHILS % (AUTO) 2.8 % (0.9-2.9); HEMATOCRIT 31.6 % (36.0-47.0); LYMPHOCYTES # (AUTO) 2.6 X10^3/uL (1.3-2.9); LYMPHOCYTES % (AUTO) 39.3 % (21.0-51.0); MEAN CORPUSCULAR HEMOGLOBIN 24.5 pg (27.0-34.0); MEAN CORPUSCULAR HGB CONC 31.7 g/dL (33.0-35.0); MEAN CORPUSCULAR VOLUME 77.3 fL (80.0-100.0); MEAN PLATELET VOLUME 9.4 fL (7.4-11.0); MONOCYTES # (AUTO) 0.7 x10^3/uL (0.3-0.8); MONOCYTES % (AUTO) 10.1 % (0.0-13.0); NEUTROPHILS # (AUTO) 3.1 x10^3/uL (2.2-4.8); NEUTROPHILS % (AUTO) 47.3 % (42.0-75.0); PLATELET COUNT 277 X10^3/uL (150.0-450.0); RED BLOOD COUNT 4.09 X10^6/uL (3.5-5.4); RED CELL DISTRIBUTION WIDTH 15.4 % (11.6-16.5); WHITE BLOOD COUNT 6.6 X10^3/uL (3.6-10.0)
[2017-07-12] MEDS: REGLAN TAB 10 MG PO SCH ×4 (05:31→20:08)
[2017-07-12] MEDS: CARAFATE SUSP 1 GM/10 ML PO SCH ×4 (05:31→20:08)
[2017-07-12 05:41] LABS: ALANINE AMINOTRANSFERASE 8 Units/L (12-78); ALKALINE PHOSPHATASE 73 Units/L (46-116); ASPARTATE AMINO TRANSFERASE 18 Units/L (15-37); BLOOD UREA NITROGEN 4 mg/dL (7-18); CALCIUM 8.6 mg/dL (8.5-10.1); CARBON DIOXIDE 27.6 mmol/L (21-32); CHLORIDE 107 mmol/L (98-107); COR CA(FOR HYPOALB) 10.2 mg/dL (8.5-10.1); SODIUM 141 mmol/L (136-145); TOTAL PROTEIN 6.4 g/dL (6.4-8.2); eGFR BLACK RACES > 60 (>60); eGFR NON BLACK RACES > 60 (>60)
[2017-07-12 06:45] LABS: HYPOCHROMASIA SLIGHT; PLATELET MORPHOLOGY COMMENT NORMAL (NORMAL)
[2017-07-12] MEDS ORDERED: AMARYL TAB 4 MG PO SCH (07:00)
[2017-07-12] MEDS ORDERED: GLUCOPHAGE ONE ×2 (08:08→15:57)
[2017-07-12] MEDS: ZITHROMAX INJ 500 MG VIAL 500 MG in NS 250 ML IV 250 ML IV SCH (08:45)
[2017-07-12] MEDS: PRAVACHOL PO SCH (08:45)
[2017-07-12] MEDS: GLUCOPHAGE PO SCH ×2 (08:46→16:05)
[2017-07-12] MEDS: COREG TAB 12.5 MG PO SCH ×2 (08:46→16:05)
[2017-07-12] MEDS: ZANTAC PO SCH ×2 (08:46→20:07)
[2017-07-12] MEDS: NORVASC TAB 10 MG PO SCH (08:46)
[2017-07-12] MEDS: ZESTRIL TAB 40 MG PO SCH (08:46)
[2017-07-12] MEDS: CELEXA PO SCH (08:46)
[2017-07-12] MEDS: ATIVAN TAB 0.5 MG PO PRN (16:14)
[2017-07-12] MEDS: SNACK - Diabetic Appropriate PO SCH (20:07)
[2017-07-12] MEDS: ELAVIL PO SCH (20:08)
[2017-07-12] MEDS: HumuLIN R SUBCUT PRN (21:46)
[2017-07-13] MEDS: DILAUDID INJ IVP PRN ×4 (00:38→13:50)
[2017-07-13] MEDS: CATAPRES TAB 0.1 MG PO PRN (00:38)
[2017-07-13] MEDS: PHENERGAN INJ 25 MG IVP PRN (03:40)
[2017-07-13] MEDS: CARAFATE SUSP 1 GM/10 ML PO SCH ×2 (05:56→12:32)
[2017-07-13] MEDS: REGLAN TAB 10 MG PO SCH ×2 (05:56→12:32)
[2017-07-13] MEDS ORDERED: GLUCOPHAGE ONE (08:04)
[2017-07-13] MEDS: PRAVACHOL PO SCH (08:26)
[2017-07-13] MEDS: NORVASC TAB 10 MG PO SCH (08:27)
[2017-07-13] MEDS: ZESTRIL TAB 40 MG PO SCH (08:27)
[2017-07-13] MEDS: ZITHROMAX INJ 500 MG VIAL 500 MG in NS 250 ML IV 250 ML IV SCH (08:28)
[2017-07-13] MEDS: CELEXA PO SCH (08:28)
[2017-07-13] MEDS: ZANTAC PO SCH (08:28)
[2017-07-13] MEDS: COREG TAB 12.5 MG PO SCH (08:28)
[2017-07-13] MEDS: GLUCOPHAGE PO SCH (08:35)
[2017-07-13 13:52] VITALS: BP 125/82
== END 2017-07-13 14:40 | disposition home or self-care (01) | DRG 74 ==
LOC: MED/SURG 10:18 → UNDOADMIN 10:18 → MED/SURG 11:53
PROVIDERS: ADMIT Internal Medicine; ATTEND Internal Medicine
DX: E10.43 Type 1 diabetes mellitus with diabetic autonomic (poly)neuropathy (principal); K31.84 Gastroparesis; E10.65 Type 1 diabetes mellitus with hyperglycemia; R10.12 Left upper quadrant pain; R11.2 Nausea with vomiting, unspecified; F41.8 Other specified anxiety disorders; E78.2 Mixed hyperlipidemia; K21.9 Gastro-esophageal reflux disease without esophagitis; R10.13 Epigastric pain; I10 Essential (primary) hypertension; Z91.14 Patient's other noncompliance with medication regimen; E66.01 Morbid (severe) obesity due to excess calories; M19.90 Unspecified osteoarthritis, unspecified site
CPT/HCPCS: 36415; 74022; 74150; 74176; 80048; 80053; 81001; 82009; 82150; 83690; 84703; 85025; 87070; 87205; 94640; 96365; 96374; 96375; 99284; A4216; A4222; S0028; S0181; G0378; J0456; J1170; J1200; J1815; J1885; J1956; J2060; J2405; J2550; J2765; J3490; J7620

== ENCOUNTER 2017-07-14 14:27 | Observation (INO) | payer OTHER ==
[2017-07-14] MEDS ORDERED: NS 1000 ML 1,000 ML ONE (14:34)
[2017-07-14] MEDS ORDERED: ZOFRAN INJ 4 MG VIAL IVP ONE (15:04)
[2017-07-14] MEDS ORDERED: ZOFRAN INJ 4 MG VIAL ONE (15:05)
[2017-07-14] MEDS ORDERED: NS 1000 ML 1,000 ML IV ONE (15:09)
[2017-07-14] MEDS ORDERED: TORADOL 30 MG VIAL IVP STA (15:11)
[2017-07-14] MEDS ORDERED: BENADRYL INJ 50 MG VIAL IVP STA (15:11)
[2017-07-14] MEDS ORDERED: REGLAN INJ 10 MG VIAL IVP STA (15:11)
[2017-07-14 15:12] LABS: BILIRUBIN,URINE NEGATIVE (NEGATIVE); BLOOD/HEMOGLOBIN,URINE 3+ (NEGATIVE); GLUCOSE, URINE 1+ (NEGATIVE); KETONES,URINE 1+ (NEGATIVE); LEUKOCYTE ESTERASE ,URINE 1+ (NEGATIVE); NITRITES,URINE NEGATIVE (NEGATIVE); PROTEIN,URINE 4+ (NEGATIVE); UROBILINOGEN,URINE NORMAL (NORMAL)
[2017-07-14 15:16] LABS: BASOPHILS # (AUTO) 0.1 X10^3/uL (0.0-0.1); BASOPHILS % (AUTO) 0.9 % (0.2-1.0); EOSINOPHILS # (AUTO) 0.1 x10^3/uL (0.0-0.2); EOSINOPHILS % (AUTO) 0.8 % (0.9-2.9); HEMATOCRIT 37.1 % (36.0-47.0); LYMPHOCYTES # (AUTO) 1.4 X10^3/uL (1.3-2.9); LYMPHOCYTES % (AUTO) 13.5 % (21.0-51.0); MEAN CORPUSCULAR HEMOGLOBIN 24.7 pg (27.0-34.0); MEAN CORPUSCULAR HGB CONC 32.3 g/dL (33.0-35.0); MEAN CORPUSCULAR VOLUME 76.6 fL (80.0-100.0); MONOCYTES # (AUTO) 0.4 x10^3/uL (0.3-0.8); MONOCYTES % (AUTO) 4.2 % (0.0-13.0); NEUTROPHILS # (AUTO) 8.5 x10^3/uL (2.2-4.8); NEUTROPHILS % (AUTO) 80.6 % (42.0-75.0); PLATELET COUNT 340 X10^3/uL (150.0-450.0); RED BLOOD COUNT 4.84 X10^6/uL (3.5-5.4); RED CELL DISTRIBUTION WIDTH 15.5 % (11.6-16.5); WHITE BLOOD COUNT 10.5 X10^3/uL (3.6-10.0)
[2017-07-14] MEDS ORDERED: BENADRYL INJ 50 MG VIAL ONE (15:16)
[2017-07-14] MEDS ORDERED: TORADOL 30 MG VIAL ONE (15:16)
[2017-07-14] MEDS ORDERED: REGLAN INJ 10 MG VIAL ONE (15:16)
--- NOTE | 2017-07-14 15:16 | DR.GENAD ---
HPI - PCP Primary Care Physician: kevin - Complaint/Symptoms Chief Complaint Doctors Comments: Patiet is complaining of LUQ abdominal pain with persistent vomiting for the past 24 hours and not being able to keep medicine or liquids down. Patient states she was recently dismissed from the hospital and has not been able to keep anything down or take her blood pressure pills today. States the pain is 10 of 10. She denies diarrhea, hematuria, fever or chills. States she is a patient of Dr. Wynne. She denies chest pain or SOB. Chief Complaint:: patient stated she has had upper left abd pain since last night. patient stated she vomited 7 times since last night Self Treatment fo Chief Complaint: she has a fentyal patch that dr rouse gives her for her abd pain - Nurses notes reviewed Nurses Notes Review: Yes - Source History Provided: Patient, Friend - Mode of Arrival Mode of Arrival: Ambulatory - Timing Onset of Chief Complaint: 07/13/17 Came on: Gradually - Duration Duration: Constant How lon Duration: Days - Location Location: LUQ - Severity Severity: Severe - Modifying Factors Worsens:: nothing Improves:: nothing PMH - PMH Past Medical History: Yes Past Medical History: Anxiety, Diabetes, Dyslipidemia, GERD Past Medical History Comment: gastropherisis Past Surgical History: Yes Surgical History: , Cholecystectomy, Hysterectomy - Family History History of Family Medical Conditions: Yes Family Medical History: Diabetes Mellitus, Cancer, Hypertension - Social History Does patient currently use any type of tobacco product: Yes Have you used tobacco products in the last 12 months: Yes Type of Tobacco Use: Cigarettes How many years tobacco product used: 4 Does any household member use tobacco: Yes Alcohol Use: None Do you use any recreational Drugs:: No Lives With: Family Lives Where: Home - infectious screening In the last 2 months have you had wt loss of >10#?: NO Have you had fever, night sweats or hemotysis?: No Have you traveled outside the country in the last 6 months?: No Isolation: Standard ROS - Review of Systems Constitutional: No Symptoms Reported, Loss of Appetite. negative: See HPI, Chills, Diaphoresis, Fever, Malaise, Weakness, Irritable, Fatigue, Other Eyes: No Symptoms Reported. negative: See HPI, Eye Pain, Blurred Vision, Tearing, Discharge, Photophobia, Diplopia, Other ENTM: No Symptoms Reported. negative: See HPI, Ear Pain, Ear Discharge, Pulling on Ears, Hearing Loss, Nose Pain, Nose Discharge, Epistaxis, Nose Congestion, Mouth Pain, Mouth Swelling, Loose Teeth, Drooling, Throat Pain, Throat Swelling, Ear Foreign Body Respiratoy: No Symptoms Reported. negative: See HPI, Productive Cough, Non- Productive Cough, Moist Cough, Dry Cough, Hacking Cough, Barking Cough, Brassy Cough, Orthopnea, Short of Breath, Stridor, Wheezing, Hemoptysis, Other Cardiovascular: No Symptoms Reported. negative: See HPI, Chest Pain, Edema, Palpitations, Syncope, Cyanosis, Skin Mottling, Other Gastrointestinal/Abdominal: No Symptoms Reported, Abdominal Pain, Nausea, Vomiting. negative: See HPI, Constipation, Diarrhea, Food Intolerance, Other Genitourinary: No Symptoms Reported. negative: See HPI, Discharge, Dysuria, Frequency, Hematuria, Pain, Bleeding, Other Neurological: No Symptoms Reported Musculoskeletal: No Symptoms Reported Integumentary: No Symptoms Reported. negative: See HPI, Change in Color, Change in Hair/Nails, Dryness, Lesions, Lumps, Rash, Itching, Wound, Bruises, Juandice, Other Hematologic/Lymphatic: No Symptoms Reported. negative: See HPI, Anemia, Blood Clots, Easy Bleeding, Easy Bruising, Swollen Glands, Lymphadenopathy, Other Endocrine: No Symptoms Reported Psychiatric: No Symptoms Reported PE - Vital Signs Vitals: Temperature 98.9 F Pulse Rate [Left Brachial] 90 Pulse Rate 109 Respiratory Rate 22 Blood Pressure [Left Arm] 208/105 Blood Pressure [Right Arm] 139/71 Blood Pressure 164/111 O2 Sat by Pulse Oximetry 94 - General Limitations: No Limitations General Appearance: Alert, In Distress (severe) - Head Head Exam: Normal Inspection, Atraumatic, Normocephalic - Eyes Eye exam: Normal Appearance, PERRL, EOMI. negative: Scleral Icterus, Conjunctival Injection, Nystagmus, Miosis, Mydrasis, Periorbital Swelling, Periorbital Tenderness, Other - ENT ENT Exam: Normal Exam, Normal Oropharynx, Normal External Ear Exam, Mucous Membranes Moist, TM's Normal Bilaterally External Ear Exam: Normal External Inspection TM/Canal Exam: Bilateral Normal Nose Exam: Normal Nose Exam Mouth Exam: Normal Inspection. negative: Drooling, Trismus, Lip Swelling, Tongue Elevation, Tongue Swelling, Laceration, Other Throat Exam: Normal Inspection - Neck Neck Exam: Normal Inspection, Full ROM, Trachea Midline. negative: Tenderness, Meningismus, Lymphadenopathy, Thyromegaly, Other - Chest Chest Inspection: Normal Inspection, Symmetric Chest Wall Rise. negative: Tenderness, Rash, Abscess, Other - Respiratory Respiratory Exam: Normal Lung Sounds Bilat Respiratory Exam: Bilateral Clear to Auscultation - Cardiovascular Cardiovascular Exam: Regular Rate, Normal Rhythm, Normal Heart Sounds. negative : Bradycardia, Tachycardia, Irregular Rhythm, Systolic Murmur, Diastolic Murmur , Rubs, Gallop, Clicks, JVD, +S1, +S2, +S3, +S4, Other - Abdominal Exam Abdominal Exam: Normal Inspection, Normal Bowel Sounds, Soft, Tenderness, Guarding, Dimnished Bowel Sounds Abdominal Tenderness: LUQ, Epigastrium, Moderate, Severe - Extremities Extremities Exam: Normal Inspection, Full ROM, Normal Capillary Refill. negative: Tenderness, Edema, Joint Swelling, Calf Tenderness, Other - Back Back Exam: Normal Inspection, Full ROM - Neurologic Neurological Exam: Alert, Oriented X3, CN II-XII Intact, Normal Gait, Reflexes Normal - Psychiatric Psychiatric Exam: Normal Affect, Normal Mood - Skin Skin Exam: Warm, Dry, Intact, Normal Color Course - Consultation Called: 18:39 Call Returned: 18:39 (Dr. Wynne to admit) - Education/Counseling Education/Counseling: Patient, Family Educated On: Treatment, Diagnosis, Needs for Follow Up ROR - Labs Reviewed Laboratory Results Reviewed?: Yes (all labs and x-ray results reviewed and discussed with patient) Result Diagrams: 07/14/17 15:11 07/14/17 15:11 Laboratory: WBC 10.5 X10^3/uL (3.6-10.0) H 07/14/17 15:11 RBC 4.84 X10^6/uL (3.5-5.4) 07/14/17 15:11 Hgb 12.0 g/dL (12.0-16.0) D 07/14/17 15:11 Hct 37.1 % (36.0-47.0) 07/14/17 15:11 MCV 76.6 fL (80.0-100.0) L 07/14/17 15:11 MCH 24.7 pg (27.0-34.0) L 07/14/17 15:11 MCHC 32.3 g/dL (33.0-35.0) L 07/14/17 15:11 RDW 15.5 % (11.6-16.5) 07/14/17 15:11 Plt Count 340 X10^3/uL (150.0-450.0) 07/14/17 15:11 Plt Count Comment Adequate (ADEQUATE) 07/14/17 15:11 MPV 9.0 fL (7.4-11.0) 07/14/17 15:11 Neut % 80.6 % (42.0-75.0) H 07/14/17 15:11 Lymph % 13.5 % (21.0-51.0) L 07/14/17 15:11 [place] % 4.2 % (0.0-13.0) 07/14/17 15:11 Eos % 0.8 % (0.9-2.9) L 07/14/17 15:11 Baso % 0.9 % (0.2-1.0) 07/14/17 15:11 Neut # 8.5 x10^3/uL (2.2-4.8) H 07/14/17 15:11 Lymph # 1.4 X10^3/uL (1.3-2.9) 07/14/17 15:11 [place] # 0.4 x10^3/uL (0.3-0.8) 07/14/17 15:11 Eos # 0.1 x10^3/uL (0.0-0.2) 07/14/17 15:11 Baso # 0.1 X10^3/uL (0.0-0.1) 07/14/17 15:11 Absolute Nucleated RBC 0.0 /100WBC 07/14/17 15:11 Plt Morphology Comment Normal (NORMAL) 07/14/17 15:11 RBC Morphology Normal (NORMAL) 07/14/17 15:11 Sodium 141 mmol/L (136-145) 07/14/17 15:11 Corrected Sodium 143 mmol/L (136-145) 07/14/17 15:11 Potassium 4.5 mmol/L (3.5-5.1) 07/14/17 15:11 Chloride 104 mmol/L (98-107) 07/14/17 15:11 Carbon Dioxide 27.0 mmol/L (21-32) 07/14/17 15:11 BUN 7 mg/dL (7-18) 07/14/17 15:11 Creatinine 1.18 mg/dL (0.55-1.02) H 07/14/17 15:11 Est GFR (MDRD) Af Amer > 60 (>60) 07/14/17 15:11 Est GFR (MDRD) Non-Af 56 (>60) L 07/14/17 15:11 Glucose 201 mg/dL (65-99) H 07/14/17 15:11 Calcium 9.7 mg/dL (8.5-10.1) 07/14/17 15:11 Corrected Calcium 10.8 mg/dL (8.5-10.1) H 07/14/17 15:11 Total Bilirubin 0.40 mg/dL (0.2-1.0) 07/14/17 15:11 AST 22 Units/L (15-37) 07/14/17 15:11 ALT 10 Units/L (12-78) L 07/14/17 15:11 Alkaline Phosphatase 92 Units/L (46-116) 07/14/17 15:11 Total Protein 8.2 g/dL (6.4-8.2) 07/14/17 15:11 Albumin 2.6 g/dL (3.4-5.0) L 07/14/17 15:11 Globulin 5.6 g/dL (2.5-4.5) H 07/14/17 15:11 Albumin/Globulin Ratio 0.5 Ratio (1.1-2.1) L 07/14/17 15:11 Amylase 34 Units/L (25-115) 07/14/17 15:11 Lipase 81 Units/L (73-393) 07/14/17 15:11 HCG, Qual Negative <10 mIU/mL 07/14/17 15:11 Specimen Type Clean catch urine 07/14/17 14:45 Urine Color Yellow (YELLOW) 07/14/17 14:45 Urine Appearance Slightly hazy (CLEAR) 07/14/17 14:45 Urine pH 7.0 (5.0 - 8.0) 07/14/17 14:45 Ur Specific [place] 1.010 (1.000-1.030) 07/14/17 14:45 Urine Protein 4+ (NEGATIVE) 07/14/17 14:45 Urine Glucose (UA) 1+ (NEGATIVE) 07/14/17 14:45 Urine Ketones 1+ (NEGATIVE) 07/14/17 14:45 Urine Occult Blood 3+ (NEGATIVE) 07/14/17 14:45 Urine Nitrite Negative (NEGATIVE) 07/14/17 14:45 Urine Bilirubin Negative (NEGATIVE) 07/14/17 14:45 Urine Urobilinogen Normal (NORMAL) 07/14/17 14:45 Ur Leukocyte Esterase 1+ (NEGATIVE) 07/14/17 14:45 Urine RBC 05 - 10 /HPF (NEGATIVE) 07/14/17 14:45 Urine WBC 03 - 06 /HPF (NEGATIVE) 07/14/17 14:45 Ur Squamous Epith Cells Moderate /HPF (NEGATIVE) 07/14/17 14:45 Amorphous Sediment Trace /HPF (NEGATIVE) 07/14/17 14:45 Urine Bacteria 1+ /HPF (NEGATIVE) 07/14/17 14:45 Urine Mucus Moderate /HPF (NEGATIVE) 07/14/17 14:45 Ur Culture Indicated? No/not indicated 07/14/17 14:45 - XRAY XRAY Interpreted by: Radiologist (CT abdomen: Haziness peripancreatic fat suggest mild acute pancreatitis.Ground-glass right lowe lobe ) - Diagnosis Discharge Problem: Intractable abdominal pain, Possible acute pancreatitis, Hypercalcemia, Diabetes mellitus, Accelerated hypertension, Chronic kidney disease, stage 3 - Discharge Plan Disposition: ADMITTED INPATIENT Condition: Stable - Follow ups/Referrals Follow ups/Referrals: SUE WYNNE [Primary Care Provider] - 3 days - Instructions
[2017-07-14 15:17] LABS: APPEARANCE,URINE SLIGHTLY HAZY (CLEAR); COLOR,URINE YELLOW (YELLOW)
[2017-07-14 15:27] LABS: SERUM PREGNANCY TEST, QUAL NEGATIVE <10 mIU/mL
[2017-07-14 15:27] LABS: AMORPHOUS SEDIMENT,UR TRACE /HPF (NEGATIVE); BACTERIA,URINE 1+ /HPF (NEGATIVE); MUCUS,URINE MODERATE /HPF (NEGATIVE); SQUAMOUS EPITHELIAL CELL,UR MODERATE /HPF (NEGATIVE)
[2017-07-14 15:29] LABS: ALANINE AMINOTRANSFERASE 10 Units/L (12-78); ALBUMIN 2.6 g/dL (3.4-5.0); ALKALINE PHOSPHATASE 92 Units/L (46-116); AMYLASE 34 Units/L (25-115); BLOOD UREA NITROGEN 7 mg/dL (7-18); CALCIUM 9.7 mg/dL (8.5-10.1); CHLORIDE 104 mmol/L (98-107); COR CA(FOR HYPOALB) 10.8 mg/dL (8.5-10.1); COR NA(FOR HYPERGLY) 143 mmol/L (136-145); CREATININE 1.18 mg/dL (0.55-1.02); LIPASE 81 Units/L (73-393); PLATELET MORPHOLOGY COMMENT NORMAL (NORMAL); SODIUM 141 mmol/L (136-145); TOTAL PROTEIN 8.2 g/dL (6.4-8.2); eGFR BLACK RACES > 60 (>60); eGFR NON BLACK RACES 56 (>60)
[2017-07-14 15:32] LABS: ASPARTATE AMINO TRANSFERASE 22 Units/L (15-37)
[2017-07-14] MEDS ORDERED: DILAUDID INJ IVP STA (15:34)
[2017-07-14] MEDS ORDERED: DILAUDID INJ ONE (15:36)
[2017-07-14] MEDS ORDERED: NORMODYNE INJ 100 MG VIAL IVP ONE (15:43)
[2017-07-14] MEDS ORDERED: NORMODYNE INJ 100 MG VIAL ONE (15:51)
[2017-07-14] MEDS ORDERED: CATAPRES TAB 0.2 MG PO ONE (16:16)
[2017-07-14] MEDS ORDERED: ATIVAN INJ 2 MG VIAL IVP STA (16:17)
[2017-07-14] MEDS ORDERED: ATIVAN INJ 2 MG VIAL ONE (16:19)
--- NOTE | 2017-07-14 18:09 | CT ---
HISTORY: Left upper quadrant abdominal pain with nausea and vomiting. Study: CT abdomen and pelvis without contrast Comparison: CT of the abdomen dated 07/09/2017 Technique: Multiple axial images of the abdomen and pelvis were obtained from the lung bases to the pubic symphy sis without the administration of IV contrast. Automated exposure control (AEC) was utilized to adju st the MA and/or kV according to patient size. Findings: Since previous CT there has been development of focal ground-glass opacification in the right lower l obe. Abdomen: Please note that the lack of intravenous contrast limits sensitivity for detection of parenchymal les ions. The liver appears homogeneous without contour deforming masses. Status post cholecystectomy. There i s no bile duct dilatation.. Spleen appears unremarkable. There is subtle haziness of the peripancrea tic fat near the tail of the pancreas. Correlation with pain times recommended to exclude pancreatiti s. Bilateral adrenal glands appear normal. Both kidneys are homogenous without contour deforming masses. No radiopaque calculi are noted. No hydronephrosis or perinephric fluid collection. The stomach is unremarkable. The small bowel and colon are nondistended. The appendix is of normal caliber without adjacent inflammatory changes. There is mild diverticulosis of the descending colon without adjacent inflammatory changes to suggest acute diverticulitis. The abdominal aorta is of normal caliber. There is no free fluid or free intraperitoneal air. Pelvis: The urinary bladder is grossly unremarkable. The rectum and sigmoid colon appear unremarkable. There is no free fluid in the pelvis. No acute osseous abnormalities are identified. IMPRESSION: 1. Subtle haziness of the peripancreatic fat adjacent to the tail of the pancreas. Mild acute pancre atitis cannot be excluded and correlation with pancreatic enzymes is recommended. No adjacent organiz ed fluid collections are seen. 2. Interval development of focal ground-glass opacity within the right lower lobe which is nonspecifi c. Considerations include focal pneumonitis/atypical pneumonia or dependent atelectatic changes. Clin ical correlation is required. A follow-up chest CT is recommended in 6 8 weeks to ensure resolution. 3. Other findings as above. Reported By:
[2017-07-14] MEDS ORDERED: PEPCID TAB 20 MG PO PRN (18:41)
[2017-07-14] MEDS: SNACK - Diabetic Appropriate PO SCH (20:00)
[2017-07-14] MEDS: DILAUDID INJ IVP PRN (20:45)
[2017-07-14] MEDS: PHENERGAN INJ 25 MG IVP PRN (20:46)
[2017-07-14 21:52] VITALS: BMI 38.0
[2017-07-15] MEDS: DILAUDID INJ IVP PRN ×5 (01:32→20:01)
[2017-07-15 06:17] LABS: BASOPHILS % (AUTO) 0.5 % (0.2-1.0); EOSINOPHILS # (AUTO) 0.1 x10^3/uL (0.0-0.2); EOSINOPHILS % (AUTO) 1.7 % (0.9-2.9); HEMATOCRIT 30.8 % (36.0-47.0); HEMOGLOBIN 9.9 g/dL (12.0-16.0); LYMPHOCYTES # (AUTO) 1.9 X10^3/uL (1.3-2.9); LYMPHOCYTES % (AUTO) 28.8 % (21.0-51.0); MEAN CORPUSCULAR HEMOGLOBIN 24.6 pg (27.0-34.0); MEAN CORPUSCULAR HGB CONC 32.1 g/dL (33.0-35.0); MEAN CORPUSCULAR VOLUME 76.6 fL (80.0-100.0); MEAN PLATELET VOLUME 9.2 fL (7.4-11.0); MONOCYTES # (AUTO) 0.6 x10^3/uL (0.3-0.8); MONOCYTES % (AUTO) 9.7 % (0.0-13.0); NEUTROPHILS # (AUTO) 3.9 x10^3/uL (2.2-4.8); NEUTROPHILS % (AUTO) 59.3 % (42.0-75.0); PLATELET COUNT 281 X10^3/uL (150.0-450.0); RED BLOOD COUNT 4.02 X10^6/uL (3.5-5.4); RED CELL DISTRIBUTION WIDTH 15.7 % (11.6-16.5); WHITE BLOOD COUNT 6.5 X10^3/uL (3.6-10.0)
[2017-07-15 06:32] LABS: AMYLASE 21 Units/L (25-115); BLOOD UREA NITROGEN 8 mg/dL (7-18); CALCIUM 8.6 mg/dL (8.5-10.1); CARBON DIOXIDE 28.6 mmol/L (21-32); CHLORIDE 107 mmol/L (98-107); CREATININE 1.15 mg/dL (0.55-1.02); LIPASE 62 Units/L (73-393); SODIUM 142 mmol/L (136-145); eGFR BLACK RACES > 60 (>60); eGFR NON BLACK RACES 58 (>60)
[2017-07-15] MEDS: ZOFRAN INJ 4 MG VIAL IVP PRN ×2 (06:35→16:53)
[2017-07-15 06:50] LABS: HYPOCHROMASIA SLIGHT; MICROCYTOSIS SLIGHT; PLATELET MORPHOLOGY COMMENT NORMAL (NORMAL)
[2017-07-15 07:03] LABS: BILIRUBIN,URINE NEGATIVE (NEGATIVE); BLOOD/HEMOGLOBIN,URINE 3+ (NEGATIVE); GLUCOSE, URINE 2+ (NEGATIVE); KETONES,URINE 1+ (NEGATIVE); LEUKOCYTE ESTERASE ,URINE 1+ (NEGATIVE); NITRITES,URINE NEGATIVE (NEGATIVE); PH,URINE 6.5 (5.0 - 8.0); PROTEIN,URINE 4+ (NEGATIVE); UROBILINOGEN,URINE NORMAL (NORMAL)
[2017-07-15 07:38] LABS: AMORPHOUS SEDIMENT,UR TRACE /HPF (NEGATIVE); APPEARANCE,URINE CLEAR (CLEAR); BACTERIA,URINE NEGATIVE /HPF (NEGATIVE); COLOR,URINE YELLOW (YELLOW); SQUAMOUS EPITHELIAL CELL,UR MODERATE /HPF (NEGATIVE)
[2017-07-15] MEDS: LEVAQUIN PREMIX IV 500 MG 500 MG/100 ML BAG IV SCH (09:06)
[2017-07-15] MEDS ORDERED: NS 500 ML IV 500 ML IV ONE (09:08)
[2017-07-15] MEDS: SNACK - Diabetic Appropriate PO SCH (20:00)
[2017-07-15] MEDS: PHENERGAN INJ 25 MG IVP PRN (20:01)
[2017-07-15] MEDS ORDERED: ATIVAN TAB 0.5 MG PO PRN (23:16)
[2017-07-15] MEDS ORDERED: CATAPRES TAB 0.1 MG PO PRN (23:16)
[2017-07-15] MEDS: ELAVIL PO SCH (23:45)
[2017-07-15] MEDS: NORVASC TAB 10 MG PO SCH (23:46)
[2017-07-15] MEDS: PRAVACHOL PO SCH (23:46)
[2017-07-15] MEDS: ZESTRIL TAB 40 MG PO SCH (23:46)
[2017-07-16] MEDS: ZOFRAN INJ 4 MG VIAL IVP PRN ×3 (01:42→18:31)
[2017-07-16] MEDS: DILAUDID INJ IVP PRN ×3 (01:42→10:29)
[2017-07-16 06:17] LABS: BASOPHILS # (AUTO) 0.1 X10^3/uL (0.0-0.1); BASOPHILS % (AUTO) 0.9 % (0.2-1.0); EOSINOPHILS # (AUTO) 0.1 x10^3/uL (0.0-0.2); EOSINOPHILS % (AUTO) 2.1 % (0.9-2.9); HEMATOCRIT 33.4 % (36.0-47.0); HEMOGLOBIN 10.7 g/dL (12.0-16.0); LYMPHOCYTES # (AUTO) 2.1 X10^3/uL (1.3-2.9); LYMPHOCYTES % (AUTO) 33.3 % (21.0-51.0); MEAN CORPUSCULAR HEMOGLOBIN 24.7 pg (27.0-34.0); MEAN CORPUSCULAR HGB CONC 32.1 g/dL (33.0-35.0); MEAN CORPUSCULAR VOLUME 76.8 fL (80.0-100.0); MEAN PLATELET VOLUME 9.1 fL (7.4-11.0); MONOCYTES # (AUTO) 0.7 x10^3/uL (0.3-0.8); MONOCYTES % (AUTO) 11.9 % (0.0-13.0); NEUTROPHILS # (AUTO) 3.2 x10^3/uL (2.2-4.8); NEUTROPHILS % (AUTO) 51.8 % (42.0-75.0); PLATELET COUNT 280 X10^3/uL (150.0-450.0); RED BLOOD COUNT 4.34 X10^6/uL (3.5-5.4); RED CELL DISTRIBUTION WIDTH 15.9 % (11.6-16.5); WHITE BLOOD COUNT 6.3 X10^3/uL (3.6-10.0)
[2017-07-16] MEDS: COREG TAB 12.5 MG PO SCH ×2 (06:25→16:06)
[2017-07-16] MEDS: CARAFATE SUSP 1 GM/10 ML PO SCH ×4 (06:25→20:56)
[2017-07-16] MEDS: REGLAN TAB 10 MG PO SCH ×4 (06:26→20:59)
[2017-07-16 06:39] LABS: ALANINE AMINOTRANSFERASE 13 Units/L (12-78); ALKALINE PHOSPHATASE 69 Units/L (46-116); ASPARTATE AMINO TRANSFERASE 28 Units/L (15-37); BLOOD UREA NITROGEN 5 mg/dL (7-18); CALCIUM 8.7 mg/dL (8.5-10.1); CARBON DIOXIDE 29.5 mmol/L (21-32); CHLORIDE 105 mmol/L (98-107); COR CA(FOR HYPOALB) 10.3 mg/dL (8.5-10.1); CREATININE 1.05 mg/dL (0.55-1.02); SODIUM 141 mmol/L (136-145); TOTAL PROTEIN 6.6 g/dL (6.4-8.2); eGFR BLACK RACES > 60 (>60); eGFR NON BLACK RACES > 60 (>60)
[2017-07-16 07:09] LABS: PLATELET MORPHOLOGY COMMENT NORMAL (NORMAL)
[2017-07-16] MEDS: CELEXA PO SCH (09:32)
[2017-07-16] MEDS: LEVAQUIN PREMIX IV 500 MG 500 MG/100 ML BAG IV SCH (09:32)
[2017-07-16] MEDS: ZESTRIL TAB 40 MG PO SCH (09:33)
[2017-07-16] MEDS: ZANTAC PO SCH ×3 (09:33→21:00)
[2017-07-16] MEDS: NORVASC TAB 10 MG PO SCH (09:33)
[2017-07-16] MEDS: PROTONIX TAB 40 MG PO SCH ×2 (09:33→20:57)
[2017-07-16] MEDS ORDERED: SALINE 3% 15 ML NEB TX NEB ONE (09:56)
[2017-07-16] MEDS: HumuLIN R SUBCUT PRN ×2 (11:21→21:07)
[2017-07-16] MEDS: DUONEB 0.5 MG/3 MG NEB SCH ×2 (11:59→16:54)
[2017-07-16] MEDS: PHENERGAN INJ 25 MG IVP PRN (13:41)
[2017-07-16] MEDS: ZITHROMAX INJ 500 MG VIAL 500 MG in NS 250 ML IV 250 ML IV SCH (14:07)
[2017-07-16] MEDS: NORCO 10/325 TAB PO PRN ×2 (15:50→21:01)
[2017-07-16] MEDS ORDERED: ATIVAN TAB 0.5 MG PO PRN (19:51)
[2017-07-16] MEDS: COLACE CAP 100 MG PO SCH ×2 (20:00→20:59)
[2017-07-16 20:43] LABS: AMYLASE 26 Units/L (25-115); LIPASE 71 Units/L (73-393)
[2017-07-16] MEDS: CHECK PATCH XX SCH (20:54)
[2017-07-16] MEDS: PRAVACHOL PO SCH (20:58)
[2017-07-16] MEDS ORDERED: REGLAN TAB 10 MG PO SCH (21:00)
[2017-07-16] MEDS ORDERED: LIPITOR TAB 10 MG PO SCH (21:00)
[2017-07-16] MEDS: ELAVIL PO SCH (21:00)
[2017-07-16] MEDS ORDERED: ELAVIL PO SCH (21:00)
[2017-07-16] MEDS ORDERED: PROTONIX TAB 40 MG PO SCH (21:00)
[2017-07-16] MEDS ORDERED: PRAVACHOL PO SCH (21:00)
[2017-07-16] MEDS: SNACK - Diabetic Appropriate PO SCH (21:20)
[2017-07-17] MEDS: ZOFRAN INJ 4 MG VIAL IVP PRN ×2 (00:45→09:25)
[2017-07-17] MEDS: NORCO 10/325 TAB PO PRN ×3 (03:37→14:56)
[2017-07-17] MEDS ORDERED: GLUCOPHAGE ONE (05:29)
[2017-07-17] MEDS: REGLAN TAB 10 MG PO SCH ×2 (06:17→10:44)
[2017-07-17] MEDS: CARAFATE SUSP 1 GM/10 ML PO SCH ×2 (06:17→10:44)
[2017-07-17] MEDS: COREG TAB 12.5 MG PO SCH (06:18)
[2017-07-17 06:28] LABS: AMYLASE 40 Units/L (25-115); LIPASE 68 Units/L (73-393)
[2017-07-17] MEDS ORDERED: GLUCOPHAGE PO SCH (07:00)
[2017-07-17] MEDS ORDERED: AMARYL TAB 4 MG PO SCH (07:00)
[2017-07-17] MEDS ORDERED: COREG TAB 12.5 MG PO SCH (07:00)
[2017-07-17 08:23] LABS: BASOPHILS % (AUTO) 0.4 % (0.2-1.0); EOSINOPHILS # (AUTO) 0.1 x10^3/uL (0.0-0.2); EOSINOPHILS % (AUTO) 2.5 % (0.9-2.9); HEMATOCRIT 32.6 % (36.0-47.0); HEMOGLOBIN 10.4 g/dL (12.0-16.0); LYMPHOCYTES % (AUTO) 38.8 % (21.0-51.0); MEAN CORPUSCULAR HEMOGLOBIN 24.7 pg (27.0-34.0); MEAN CORPUSCULAR VOLUME 77.2 fL (80.0-100.0); MEAN PLATELET VOLUME 8.8 fL (7.4-11.0); MONOCYTES # (AUTO) 0.6 x10^3/uL (0.3-0.8); MONOCYTES % (AUTO) 11.5 % (0.0-13.0); NEUTROPHILS # (AUTO) 2.4 x10^3/uL (2.2-4.8); NEUTROPHILS % (AUTO) 46.8 % (42.0-75.0); PLATELET COUNT 235 X10^3/uL (150.0-450.0); RED BLOOD COUNT 4.22 X10^6/uL (3.5-5.4); RED CELL DISTRIBUTION WIDTH 15.6 % (11.6-16.5); WHITE BLOOD COUNT 5.1 X10^3/uL (3.6-10.0)
[2017-07-17 08:30] LABS: ALANINE AMINOTRANSFERASE 12 Units/L (12-78); ALBUMIN 1.9 g/dL (3.4-5.0); ALKALINE PHOSPHATASE 71 Units/L (46-116); ASPARTATE AMINO TRANSFERASE 28 Units/L (15-37); BLOOD UREA NITROGEN 4 mg/dL (7-18); CALCIUM 8.7 mg/dL (8.5-10.1); CARBON DIOXIDE 26.3 mmol/L (21-32); CHLORIDE 106 mmol/L (98-107); COR CA(FOR HYPOALB) 10.4 mg/dL (8.5-10.1); CREATININE 1.08 mg/dL (0.55-1.02); SODIUM 141 mmol/L (136-145); TOTAL PROTEIN 6.7 g/dL (6.4-8.2); eGFR BLACK RACES > 60 (>60); eGFR NON BLACK RACES > 60 (>60)
[2017-07-17 08:33] LABS: PLATELET MORPHOLOGY COMMENT NORMAL (NORMAL)
[2017-07-17] MEDS ORDERED: ZESTRIL TAB 40 MG PO SCH (09:00)
[2017-07-17] MEDS ORDERED: NORVASC TAB 10 MG PO SCH (09:00)
[2017-07-17] MEDS ORDERED: CELEXA PO SCH (09:00)
[2017-07-17] MEDS: LEVAQUIN PREMIX IV 500 MG 500 MG/100 ML BAG IV SCH (09:26)
[2017-07-17] MEDS: ZESTRIL TAB 40 MG PO SCH (09:26)
[2017-07-17] MEDS: NORVASC TAB 10 MG PO SCH (09:26)
[2017-07-17] MEDS: ZANTAC PO SCH (09:26)
[2017-07-17] MEDS: CELEXA PO SCH (09:26)
[2017-07-17] MEDS: PROTONIX TAB 40 MG PO SCH (09:26)
[2017-07-17] MEDS: DUONEB 0.5 MG/3 MG NEB SCH ×2 (09:29→12:39)
[2017-07-17] MEDS: CHECK PATCH XX SCH (09:29)
[2017-07-17] MEDS: ZITHROMAX INJ 500 MG VIAL 500 MG in NS 250 ML IV 250 ML IV SCH (10:40)
[2017-07-17] MEDS: HumuLIN R SUBCUT PRN (10:57)
[2017-07-17] MEDS ORDERED: BENADRYL INJ 50 MG VIAL IVP ONE (11:39)
[2017-07-17 15:26] VITALS: BP 146/71
[2017-07-17] MEDS ORDERED: ELAVIL PO SCH (21:00)
== END 2017-07-17 16:35 | disposition home or self-care (01) ==
LOC: ER 14:27 → ICU 18:39
PROVIDERS: ADMIT Internal Medicine; ATTEND Internal Medicine
DX: E10.43 Type 1 diabetes mellitus with diabetic autonomic (poly)neuropathy (principal); K31.84 Gastroparesis; E10.65 Type 1 diabetes mellitus with hyperglycemia; R11.2 Nausea with vomiting, unspecified; R10.12 Left upper quadrant pain; F41.8 Other specified anxiety disorders; K21.9 Gastro-esophageal reflux disease without esophagitis; R10.13 Epigastric pain; I10 Essential (primary) hypertension; Z91.14 Patient's other noncompliance with medication regimen; E66.01 Morbid (severe) obesity due to excess calories; M19.90 Unspecified osteoarthritis, unspecified site; F32.89 Other specified depressive episodes; B95.62 Methicillin resistant Staphylococcus aureus infection as the cause of diseases classified elsewhere; N18.3 Chronic kidney disease, stage 3 (moderate); E83.52 Hypercalcemia
CPT/HCPCS: 36415; 74176; 80048; 80053; 81001; 82150; 83690; 84703; 85025; 87070; 87205; 94640; 96374; 96375; 99284; A4216; A4222; G0378; J0456; J1170; J1200; J1815; J1885; J1956; J2060; J2405; J2550; J2765; J3490; J7620

== ENCOUNTER 2017-07-30 12:13 | Emergency (ER) | payer OTHER ==
[2017-07-30] MEDS ORDERED: ZOFRAN INJ 4 MG VIAL IVP ONE (12:37)
[2017-07-30] MEDS ORDERED: DEMEROL INJ IVP ONE (12:37)
[2017-07-30] MEDS ORDERED: PEPCID 20 MG IV PREMIX* 20 MG/50 ML BAG IV ONE ×2 (12:37→12:39)
--- NOTE | 2017-07-30 12:37 | ED.ABDFE ---
HPI - Time seen Time seen: 12:15 - HPI Comment HPI Comment: PATIENT SAID SHE HAS DIABETIC GASTROPARESIS. SHE IS NAUSEATED AND VOMITING. NO FEVER. GLUCOSE SLIGHTLY HIGH TODAY. - Complaint Chief Complaint Doctors Comments: EPIGASTRIC AND UPPER ABDOMINAL PAIN SINCE 02: 00AM TODAY. - Nurses notes reviewed Nurses Notes Review: Yes - Source History Provided: Patient, Family Member - Mode of arrival Mode of Arrival: Wheelchair - Timing Came on: Suddenly - Duration Duration: Constant Duration: Hours - Location Location: Diffuse, Epigastric - Severity Severity: Moderate - Quality Quality: Sharp - Context Onset: Suddenly History of: Similar pain (dx) - Modifying Worsening Factors: Nothing Improving Factors: Nothing - Associated signs and symptoms Associated Signs and Symptoms: Nausea, Vomiting PMH - PMH Past Medical History: Anxiety, Diabetes, Dyslipidemia, GERD Past Surgical History: Yes Surgical History: , Cholecystectomy, Hysterectomy - Family History Family Medical History: Diabetes Mellitus, Cancer, Hypertension - Social History Do you use any recreational Drugs:: No ROS - Review of Systems Constitutional: No Symptoms Reported, Weakness, Fatigue, Loss of Appetite Eyes: No Symptoms Reported ENTM: No Symptoms Reported Respiratoy: No Symptoms Reported Cardiovascular: No Symptoms Reported Gastrointestinal/Abdominal: Abdominal Pain, Nausea, Vomiting. negative: Diarrhea Genitourinary: No Symptoms Reported Neurological: No Symptoms Reported Musculoskeletal: No Symptoms Reported Integumentary: No Symptoms Reported Hematologic/Lymphatic: No Symptoms Reported Endocrine: No Symptoms Reported, Increased Thirst, Increased Urine. negative: Flushing All Other Systems: Reviewed and Negative PE - Vital Signs Vitals: Pulse Rate [Left] 115 Pulse Rate 136 Respiratory Rate 22 Blood Pressure [Left Arm] 240/147 Blood Pressure [Right Arm] 236/115 Blood Pressure 146/71 O2 Sat by Pulse Oximetry 100 - General Limitations: No Limitations General Appearance: Alert - Head Head Exam: Normal Inspection - Eyes Eye exam: Normal Appearance - ENT ENT Exam: Normal External Ear Exam - Neck Neck Exam: Normal Inspection - Chest Chest Inspection: Symmetric Chest Wall Rise - Respiratory Respiratory Exam: Normal Lung Sounds Bilat Respiratory Exam: Bilateral Clear to Auscultation - Cardiovascular Cardiovascular Exam: Regular Rate, Normal Rhythm, Normal Heart Sounds - Abdominal Exam Abdominal Exam: Normal Bowel Sounds, Soft, Distention Abdominal Tenderness: Epigastrium, Diffuse, Moderate - Rectal Rectal Exam: Deferred - Back Back Exam: Normal Inspection - Extremeties Extremities Exam: Normal Inspection - External Exam: Female: Deferred : Speculum Exam (Female): Deferred : Bimanual Exam (female): Deferred - Neurologic Neurological Exam: Alert, Oriented X3 - Psychiatric Psychiatric Exam: Anxious - Skin Skin Exam: Normal Color MDM - Additional Information Obtained From Additional information provided by: Family - Differential Diagnosis Differential Diagnosis- Considerations may include:: Bowel Obstruction, Esophagitis, Gastritus/PUD, Gastroenteritis, Pancreatitis, Urinary tract infection Course - Treatment Treatment: SEE ORDERS. MED FOR PAIN AND NAUSEA GIVEN IN ED. - Consultation Consultation Comments: DISCUSS PATIENT WITH DR. TAPIA. HE WILL ADMIT PATIENT. - Education/Counseling Education/Counseling: Patient, Family, Education Educated On: Treatment, Diagnosis, Needs for Follow Up ROR - Labs Reviewed Laboratory Results Reviewed?: Yes Result Diagrams: 07/30/17 12:45 07/30/17 12:45 Laboratory: WBC 14.2 X10^3/uL (3.6-10.0) H 07/30/17 12:45 RBC 4.81 X10^6/uL (3.5-5.4) 07/30/17 12:45 Hgb 11.7 g/dL (12.0-16.0) L 07/30/17 12:45 Hct 36.9 % (36.0-47.0) 07/30/17 12:45 MCV 76.8 fL (80.0-100.0) L 07/30/17 12:45 MCH 24.4 pg (27.0-34.0) L 07/30/17 12:45 MCHC 31.8 g/dL (33.0-35.0) L 07/30/17 12:45 RDW 15.9 % (11.6-16.5) 07/30/17 12:45 Plt Count 299 X10^3/uL (150.0-450.0) 07/30/17 12:45 Plt Count Comment Adequate (ADEQUATE) 07/30/17 12:45 MPV 9.0 fL (7.4-11.0) 07/30/17 12:45 Neut % 82.8 % (42.0-75.0) H 07/30/17 12:45 Lymph % 12.0 % (21.0-51.0) L 07/30/17 12:45 [place] % 4.3 % (0.0-13.0) 07/30/17 12:45 Eos % 0.2 % (0.9-2.9) L 07/30/17 12:45 Baso % 0.7 % (0.2-1.0) 07/30/17 12:45 Neut # 11.8 x10^3/uL (2.2-4.8) H 07/30/17 12:45 Lymph # 1.7 X10^3/uL (1.3-2.9) 07/30/17 12:45 [place] # 0.6 x10^3/uL (0.3-0.8) 07/30/17 12:45 Eos # 0.0 x10^3/uL (0.0-0.2) 07/30/17 12:45 Baso # 0.1 X10^3/uL (0.0-0.1) 07/30/17 12:45 Absolute Nucleated RBC 0.0 /100WBC 07/30/17 12:45 Plt Morphology Comment Normal (NORMAL) 07/30/17 12:45 RBC Morphology Normal (NORMAL) 07/30/17 12:45 Sodium 141 mmol/L (136-145) 07/30/17 12:45 Corrected Sodium 145 mmol/L (136-145) 07/30/17 12:45 Potassium 5.6 mmol/L (3.5-5.1) H 07/30/17 12:45 Chloride 106 mmol/L (98-107) 07/30/17 12:45 Carbon Dioxide 26.9 mmol/L (21-32) 07/30/17 12:45 BUN 12 mg/dL (7-18) 07/30/17 12:45 Creatinine 1.53 mg/dL (0.55-1.02) H 07/30/17 12:45 Est GFR (MDRD) Af Amer 50 (>60) L 07/30/17 12:45 Est GFR (MDRD) Non-Af 42 (>60) L 07/30/17 12:45 Glucose 249 mg/dL (65-99) H 07/30/17 12:45 POC Glucose (mg/dL) 218 mg/dL (65-99) H 07/30/17 12:16 Calcium 9.7 mg/dL (8.5-10.1) 07/30/17 12:45 Corrected Calcium 10.5 mg/dL (8.5-10.1) H 07/30/17 12:45 Total Bilirubin 0.20 mg/dL (0.2-1.0) 07/30/17 12:45 AST 22 Units/L (15-37) 07/30/17 12:45 ALT 17 Units/L (12-78) 07/30/17 12:45 Alkaline Phosphatase 108 Units/L (46-116) 07/30/17 12:45 Total Protein 8.7 g/dL (6.4-8.2) H 07/30/17 12:45 Albumin 3.0 g/dL (3.4-5.0) L 07/30/17 12:45 Globulin 5.7 g/dL (2.5-4.5) H 07/30/17 12:45 Albumin/Globulin Ratio 0.5 Ratio (1.1-2.1) L 07/30/17 12:45 Amylase 68 Units/L (25-115) 07/30/17 12:45 Lipase 56 Units/L (73-393) L 07/30/17 12:45 - XRAY XRAY Interpreted by: Radiologist XRAY Findings: REPORT NOTED - Diagnosis Discharge Problem: Diabetic gastroparesis, Intractable abdominal pain Abdominal pain Qualifiers: Abdominal location: epigastric Qualified Code(s): R10.13 - Epigastric pain - Discharge Plan Disposition: ADMITTED INPATIENT Condition: Stable - Follow ups/Referrals - Instructions
[2017-07-30] MEDS ORDERED: DEMEROL INJ ONE (12:40)
[2017-07-30] MEDS ORDERED: ZOFRAN INJ 4 MG VIAL ONE (12:40)
[2017-07-30] MEDS: NS 1000 ML 1,000 ML IV SCH ×2 (12:47→22:19)
[2017-07-30 12:54] LABS: BASOPHILS # (AUTO) 0.1 X10^3/uL (0.0-0.1); BASOPHILS % (AUTO) 0.7 % (0.2-1.0); EOSINOPHILS % (AUTO) 0.2 % (0.9-2.9); HEMATOCRIT 36.9 % (36.0-47.0); HEMOGLOBIN 11.7 g/dL (12.0-16.0); LYMPHOCYTES # (AUTO) 1.7 X10^3/uL (1.3-2.9); MEAN CORPUSCULAR HEMOGLOBIN 24.4 pg (27.0-34.0); MEAN CORPUSCULAR HGB CONC 31.8 g/dL (33.0-35.0); MEAN CORPUSCULAR VOLUME 76.8 fL (80.0-100.0); MONOCYTES # (AUTO) 0.6 x10^3/uL (0.3-0.8); MONOCYTES % (AUTO) 4.3 % (0.0-13.0); NEUTROPHILS # (AUTO) 11.8 x10^3/uL (2.2-4.8); NEUTROPHILS % (AUTO) 82.8 % (42.0-75.0); PLATELET COUNT 299 X10^3/uL (150.0-450.0); RED BLOOD COUNT 4.81 X10^6/uL (3.5-5.4); RED CELL DISTRIBUTION WIDTH 15.9 % (11.6-16.5); WHITE BLOOD COUNT 14.2 X10^3/uL (3.6-10.0)
[2017-07-30 13:03] LABS: CALCIUM 9.7 mg/dL (8.5-10.1); CARBON DIOXIDE 26.9 mmol/L (21-32); COR CA(FOR HYPOALB) 10.5 mg/dL (8.5-10.1); CREATININE 1.53 mg/dL (0.55-1.02); TOTAL PROTEIN 8.7 g/dL (6.4-8.2)
[2017-07-30 13:08] LABS: PLATELET MORPHOLOGY COMMENT NORMAL (NORMAL)
[2017-07-30] MEDS ORDERED: TORADOL 30 MG VIAL IVP ONE (13:12)
[2017-07-30] MEDS ORDERED: TORADOL 30 MG VIAL ONE (13:14)
[2017-07-30] MEDS ORDERED: PHENERGAN INJ 25 MG ONE (13:17)
[2017-07-30] MEDS ORDERED: PHENERGAN INJ 25 MG IVP ONE (13:20)
[2017-07-30] MEDS ORDERED: DILAUDID INJ IVP ONE (14:35)
[2017-07-30] MEDS ORDERED: DILAUDID INJ ONE (14:44)
[2017-07-30] MEDS ORDERED: PEPCID 20 MG IV PREMIX* 20 MG/50 ML BAG IV PRN (15:45)
[2017-07-30] MEDS ORDERED: CATAPRES-TTS-3 TD SCH (16:00)
--- NOTE | 2017-07-30 17:00 | CT ---
HISTORY: Upper abdominal pain, gastroparesis Study: CT abdomen and pelvis without contrast Comparison: 07/14/2017 Technique: Multiple axial images of the abdomen and pelvis were obtained without IV contrast. Dose reduction t echniques including Automated Exposure Control (AEC) and adjustment of mA and kV were utilized. Findings: Please note evaluation is limited without use of IV contrast. The visualized lung bases are clear. The liver, spleen, pancreas, kidneys, and adrenal glands are un remarkable in their unenhanced CT appearance. The gallbladder is removed. No renal calculi or obstruc tive uropathy identified. No free intraperitoneal air. No evidence of intestinal obstruction or inflammation. The appendix is n ormal. No free fluid identified. The soft tissues and osseous structures are unremarkable. The vascular structures are unremarkable. N o pathologically enlarged lymph nodes are identified. The uterus is removed. Unremarkable urinary stephanie dder. IMPRESSION: 1.Negative noncontrast CT of the abdomen and pelvis. Reported By:
[2017-07-30 17:04] LABS: BILIRUBIN,URINE NEGATIVE (NEGATIVE); BLOOD/HEMOGLOBIN,URINE 3+ (NEGATIVE); GLUCOSE, URINE 3+ (NEGATIVE); KETONES,URINE 1+ (NEGATIVE); LEUKOCYTE ESTERASE ,URINE NEGATIVE (NEGATIVE); NITRITES,URINE NEGATIVE (NEGATIVE); PROTEIN,URINE 4+ (NEGATIVE); UROBILINOGEN,URINE NORMAL (NORMAL)
[2017-07-30 17:28] LABS: APPEARANCE,URINE SLIGHTLY HAZY (CLEAR); BACTERIA,URINE NEGATIVE /HPF (NEGATIVE); COLOR,URINE YELLOW (YELLOW); SQUAMOUS EPITHELIAL CELL,UR FEW /HPF (NEGATIVE)
[2017-07-30] MEDS: ATIVAN INJ 2 MG VIAL IVP SCH ×2 (17:37→21:28)
[2017-07-30] MEDS: ZOFRAN INJ 4 MG VIAL IVP PRN (17:38)
[2017-07-30] MEDS: DEMEROL INJ IVP PRN ×2 (17:38→21:35)
[2017-07-30] MEDS ORDERED: FLUVIRIN IM ONE (18:16)
[2017-07-30] MEDS ORDERED: PREVNAR 13 IM ONE (18:16)
[2017-07-30] MEDS: PHENERGAN INJ 25 MG IVP PRN (19:45)
[2017-07-30] MEDS ORDERED: APRESOLINE INJ 20 MG VIAL IVP ONE (23:47)
[2017-07-31] MEDS ORDERED: ZOFRAN INJ 4 MG VIAL 16 MG, ATIVAN INJ 2 MG VIAL 1 MG, DECADRON INJ 10 MG in NS 50 ML I... IV ONE (00:35)
[2017-07-31] MEDS ORDERED: NS 50 ML IV 50 ML IV ONE (00:38)
[2017-07-31] MEDS ORDERED: DECADRON INJ PRESERVATIVE-FREE IM ONE (00:39)
[2017-07-31] MEDS: HumuLIN R SUBCUT PRN ×3 (01:08→16:22)
[2017-07-31] MEDS: DEMEROL INJ IVP PRN ×4 (01:32→21:01)
[2017-07-31] MEDS: PHENERGAN INJ 25 MG IVP PRN ×3 (01:46→21:01)
[2017-07-31] MEDS: ZOFRAN INJ 4 MG VIAL IVP PRN (02:51)
[2017-07-31] MEDS: ATIVAN INJ 2 MG VIAL IVP SCH ×3 (05:21→21:02)
[2017-07-31 06:01] LABS: ALBUMIN 2.9 g/dL (3.4-5.0); CALCIUM 9.7 mg/dL (8.5-10.1); COR CA(FOR HYPOALB) 10.6 mg/dL (8.5-10.1); CREATININE 1.67 mg/dL (0.55-1.02)
[2017-07-31 06:07] LABS: BASOPHILS % (AUTO) 0.3 % (0.2-1.0); HEMATOCRIT 39.7 % (36.0-47.0); HEMOGLOBIN 12.6 g/dL (12.0-16.0); LYMPHOCYTES # (AUTO) 1.2 X10^3/uL (1.3-2.9); LYMPHOCYTES % (AUTO) 7.3 % (21.0-51.0); MEAN CORPUSCULAR HEMOGLOBIN 24.7 pg (27.0-34.0); MEAN CORPUSCULAR HGB CONC 31.6 g/dL (33.0-35.0); MEAN CORPUSCULAR VOLUME 77.9 fL (80.0-100.0); MEAN PLATELET VOLUME 9.6 fL (7.4-11.0); MONOCYTES # (AUTO) 0.2 x10^3/uL (0.3-0.8); MONOCYTES % (AUTO) 1.5 % (0.0-13.0); NEUTROPHILS # (AUTO) 14.7 x10^3/uL (2.2-4.8); NEUTROPHILS % (AUTO) 90.9 % (42.0-75.0); PLATELET COUNT 313 X10^3/uL (150.0-450.0); RED BLOOD COUNT 5.09 X10^6/uL (3.5-5.4); RED CELL DISTRIBUTION WIDTH 16.3 % (11.6-16.5); WHITE BLOOD COUNT 16.2 X10^3/uL (3.6-10.0)
[2017-07-31] MEDS: NS 1000 ML 1,000 ML IV SCH ×3 (06:25→23:22)
[2017-07-31 06:49] LABS: BAND NEUTROPHILS % 4 % (0-10)
[2017-07-31 06:50] LABS: PLATELET MORPHOLOGY COMMENT NORMAL (NORMAL)
[2017-07-31] MEDS ORDERED: CATAPRES TAB 0.1 MG PO ONE (08:22)
[2017-07-31] MEDS ORDERED: APRESOLINE INJ 20 MG VIAL IVP PRN (08:53)
[2017-07-31] MEDS: NORVASC TAB 10 MG PO SCH (09:37)
[2017-07-31] MEDS: ZESTRIL TAB 40 MG PO SCH (09:37)
[2017-07-31] MEDS: CHECK PATCH XX SCH ×2 (09:38→21:15)
[2017-07-31 09:52] VITALS: BMI 37.7
--- NOTE | 2017-07-31 13:45 | DR.H&P ---
H&P - History & Physical for Day of: H&P Date: 07/30/17 - Chief Complaint Chief Complaint: ABDOMINAL PAIN, N/V - Allergies Allergies/Adverse Reactions: Allergies Allergy/AdvReac Type Severity Reaction Status Date / Time Penicillins Allergy Verified 07/14/17 14:28 morphine AdvReac Verified 07/14/17 14:28 - History of Present Illness History of Present Illness: patient is a 32-year-old black female who is an ER admission after presenting with complaints of abdominal pain, nausea vomiting and P patient has a history of GERD as well as uncontrolled diabetes and gastroparesis. Patient was recently treated in the [facility] with similar symptoms. Patient was noted to have elevated blood pressure on admission. . Patient does have a past medical history of hypertension states she's been able to keep the medication down.CT of abdomen and pelvis performed in the emergency room. Plan to admit patient for further evaluation of abdominal pain, management of hypertension, pain and nausea control. - Past Medical History Past Medical History: Anxiety, Diabetes, Dyslipidemia, GERD Additional Medical History: Pancreatitis, Gastroparesis - Past Surgical History Surgical History: , Cholecystectomy, Hysterectomy - Family History Family Medical History: Diabetes Mellitus, Cancer, Hypertension - Social History Does patient currently use any type of tobacco product: Yes Have you used tobacco products in the last 12 months: Yes Type of Tobacco Use: Cigarettes How many years tobacco product used: 1 Does any household member use tobacco: Yes Alcohol Use: None Drug Use: Prescription Drugs - Review of Systems Eyes: No Symptoms Reported ENT: No Symptoms Reported Respiratory: No Symptoms Reported Cardiovascular: No Symptoms Reported Gastrointestinal: Nausea, Vomiting, Abdominal Pain Genitourinary: No Symptoms Reported Musculoskeletal: No Symptoms Reported Skin: No Symptoms Reported Neurological: No Symptoms Reported - Physical Exam Vital Signs: Temperature 98.2 F Pulse Rate [Left] 120 Pulse Rate 136 Respiratory Rate 21 Blood Pressure [Left Arm] 190/100 Blood Pressure [Right Arm] 236/115 Blood Pressure 146/71 O2 Sat by Pulse Oximetry 98 Oriented: Normal Eyes: Normal Ear: Normal Nose: Normal Throat: Normal Respiratory: RLL Diminished, LLL Diminished Cardiovascular: Normal Auscultation: Bowel Sounds: Increased Tenderness: RUQ, LUQ, Epigastric Skin: Normal Musculoskeletal: Back:Lumbar Psychiatric: Anxiety Affect: Anxious Speech Pattern: Clear - Assessment/Plan (1) Abdominal pain Qualifiers: Abdominal location: left upper quadrant Qualified Code(s): R10.12 - Left upper quadrant pain Status: Acute Plan: ADMIT, PAIN AND NAUSEA CONTROL. GENTLE IV HYDRATION. NPO EXCEPT FOR ANTIHYPERTENSIVE MEDS TOLERATED. NG TUBE FOR INTRACTABLE VOMITING. BLOOD SUGAR CONTROL (2) Diabetic gastroparesis Status: Acute (3) Accelerated hypertension Status: Acute Plan: BP MONITORING, HYDRALAZINE IV. RESUME HOME MEDS (4) Diabetes mellitus Qualifiers: Diabetes mellitus type: type 1 Status: Acute (5) Hypertension Qualifiers: Hypertension type: essential hypertension Qualified Code(s): I10 - Essential (primary) hypertension Status: Chronic
[2017-07-31] MEDS ORDERED: CATAPRES TAB 0.1 MG PO PRN (13:48)
[2017-07-31 14:43] LABS: FREE T4 (FREE THYROXINE) 0.82 ng/dL (0.76-1.46); PHOSPHORUS 4.1 mg/dL (2.6-4.7); TSH (3RD GENERATION) 1.646 uIU/mL (0.358-3.74)
--- NOTE | 2017-07-31 14:52 | RAD ---
HISTORY: Diabetes Study: Chest AP portable Comparison: None Findings: There is a poor present on the right. The heart is upper limits normal in size. The adam are normal. The lung perrin are clear. The bony thorax is unremarkable. IMPRESSION: No significant abnormality identified Reported By:
[2017-07-31] MEDS: COREG TAB 12.5 MG PO SCH (16:20)
[2017-07-31] MEDS: SNACK - Diabetic Appropriate PO SCH (20:00)
[2017-07-31] MEDS ORDERED: AMITRIPTYLINE HCL 50 MG PO SCH (21:00)
[2017-07-31] MEDS: ELAVIL PO SCH (21:00)
[2017-08-01] MEDS: PHENERGAN INJ 25 MG IVP PRN ×3 (05:24→19:46)
[2017-08-01] MEDS: DEMEROL INJ IVP PRN ×3 (05:24→19:46)
[2017-08-01] MEDS: ATIVAN INJ 2 MG VIAL IVP SCH ×3 (05:26→21:08)
[2017-08-01] MEDS: NS 1000 ML 1,000 ML IV SCH ×2 (05:44→16:06)
[2017-08-01 05:45] LABS: BASOPHILS # (AUTO) 0.1 X10^3/uL (0.0-0.1); BASOPHILS % (AUTO) 0.7 % (0.2-1.0); EOSINOPHILS % (AUTO) 0.2 % (0.9-2.9); HEMATOCRIT 30.3 % (36.0-47.0); HEMOGLOBIN 9.6 g/dL (12.0-16.0); LYMPHOCYTES # (AUTO) 2.7 X10^3/uL (1.3-2.9); LYMPHOCYTES % (AUTO) 21.3 % (21.0-51.0); MEAN CORPUSCULAR HEMOGLOBIN 24.6 pg (27.0-34.0); MEAN CORPUSCULAR HGB CONC 31.8 g/dL (33.0-35.0); MEAN CORPUSCULAR VOLUME 77.5 fL (80.0-100.0); MONOCYTES # (AUTO) 0.8 x10^3/uL (0.3-0.8); MONOCYTES % (AUTO) 6.1 % (0.0-13.0); NEUTROPHILS % (AUTO) 71.7 % (42.0-75.0); PLATELET COUNT 224 X10^3/uL (150.0-450.0); RED BLOOD COUNT 3.91 X10^6/uL (3.5-5.4); RED CELL DISTRIBUTION WIDTH 16.5 % (11.6-16.5); WHITE BLOOD COUNT 12.6 X10^3/uL (3.6-10.0)
[2017-08-01] MEDS: COREG TAB 12.5 MG PO SCH ×2 (06:01→16:06)
[2017-08-01 06:44] LABS: PLATELET MORPHOLOGY COMMENT NORMAL (NORMAL)
[2017-08-01 06:51] LABS: ALBUMIN 2.3 g/dL (3.4-5.0); CALCIUM 8.4 mg/dL (8.5-10.1); CARBON DIOXIDE 23.6 mmol/L (21-32); COR CA(FOR HYPOALB) 9.8 mg/dL (8.5-10.1); CREATININE 1.4 mg/dL (0.55-1.02); TOTAL PROTEIN 6.4 g/dL (6.4-8.2)
[2017-08-01] MEDS: NORVASC TAB 10 MG PO SCH (10:16)
[2017-08-01] MEDS: CHECK PATCH XX SCH ×2 (10:16→21:08)
[2017-08-01] MEDS: ZESTRIL TAB 40 MG PO SCH (10:16)
[2017-08-01] MEDS: NORCO 5/325 MG TAB PO PRN (10:16)
[2017-08-01] MEDS: HumuLIN R SUBCUT PRN (13:20)
[2017-08-01] MEDS: SNACK - Diabetic Appropriate PO SCH (21:05)
[2017-08-01] MEDS: ELAVIL PO SCH (21:08)
[2017-08-02] MEDS: NS 1000 ML 1,000 ML IV SCH ×3 (00:17→13:08)
[2017-08-02] MEDS: PHENERGAN INJ 25 MG IVP PRN ×2 (02:03→08:10)
[2017-08-02] MEDS: DEMEROL INJ IVP PRN ×2 (02:04→08:10)
[2017-08-02] MEDS: COREG TAB 12.5 MG PO SCH (05:59)
[2017-08-02 06:13] LABS: BASOPHILS % (AUTO) 0.4 % (0.2-1.0); EOSINOPHILS # (AUTO) 0.1 x10^3/uL (0.0-0.2); EOSINOPHILS % (AUTO) 0.9 % (0.9-2.9); HEMOGLOBIN 9.3 g/dL (12.0-16.0); LYMPHOCYTES # (AUTO) 3.1 X10^3/uL (1.3-2.9); MEAN CORPUSCULAR HEMOGLOBIN 24.6 pg (27.0-34.0); MEAN CORPUSCULAR VOLUME 76.9 fL (80.0-100.0); MEAN PLATELET VOLUME 9.6 fL (7.4-11.0); MONOCYTES # (AUTO) 0.5 x10^3/uL (0.3-0.8); MONOCYTES % (AUTO) 7.2 % (0.0-13.0); NEUTROPHILS # (AUTO) 3.8 x10^3/uL (2.2-4.8); NEUTROPHILS % (AUTO) 50.5 % (42.0-75.0); PLATELET COUNT 222 X10^3/uL (150.0-450.0); RED BLOOD COUNT 3.77 X10^6/uL (3.5-5.4); RED CELL DISTRIBUTION WIDTH 15.8 % (11.6-16.5); WHITE BLOOD COUNT 7.6 X10^3/uL (3.6-10.0)
[2017-08-02] MEDS: ATIVAN INJ 2 MG VIAL IVP SCH ×2 (06:13→13:09)
[2017-08-02 06:27] LABS: ALANINE AMINOTRANSFERASE 12 Units/L (12-78); ALKALINE PHOSPHATASE 61 Units/L (46-116); ASPARTATE AMINO TRANSFERASE 25 Units/L (15-37); BLOOD UREA NITROGEN 8 mg/dL (7-18); CALCIUM 8.4 mg/dL (8.5-10.1); CARBON DIOXIDE 23.8 mmol/L (21-32); CHLORIDE 107 mmol/L (98-107); COR NA(FOR HYPERGLY) 142 mmol/L (136-145); CREATININE 1.04 mg/dL (0.55-1.02); SODIUM 141 mmol/L (136-145); eGFR BLACK RACES > 60 (>60); eGFR NON BLACK RACES > 60 (>60)
[2017-08-02 06:57] LABS: HYPOCHROMASIA 1+; PLATELET MORPHOLOGY COMMENT NORMAL (NORMAL)
[2017-08-02] MEDS: CHECK PATCH XX SCH (08:10)
[2017-08-02] MEDS: NORVASC TAB 10 MG PO SCH (08:10)
[2017-08-02] MEDS: ZESTRIL TAB 40 MG PO SCH (08:10)
[2017-08-02] MEDS: NORCO 5/325 MG TAB PO PRN ×2 (10:15→11:15)
[2017-08-02 12:03] VITALS: BP 120/74
== END 2017-08-02 15:05 | disposition home or self-care (01) ==
LOC: ER 12:21 → MED/SURG 16:40
PROVIDERS: ADMIT Internal Medicine; ATTEND Internal Medicine
DX: R10.12 Left upper quadrant pain (principal); K31.84 Gastroparesis; I10 Essential (primary) hypertension; E10.21 Type 1 diabetes mellitus with diabetic nephropathy; R10.13 Epigastric pain; R11.2 Nausea with vomiting, unspecified
CPT/HCPCS: 36415; 71010; 74176; 80053; 81001; 82150; 83690; 83735; 83970; 84100; 84439; 84443; 85025; 87040; 94760; 96365; 96367; 96374; 96375; 99284; A4222; S0028; G0378; J0360; J1100; J1170; J1815; J1885; J2060; J2175; J2405; J2550

== ENCOUNTER 2017-08-03 17:22 | Emergency (ER) | payer OTHER ==
[2017-08-03 17:27] VITALS: BMI 37.5
--- NOTE | 2017-08-03 20:10 | DR.GENAD ---
HPI - PCP Primary Care Physician: Ricci - Complaint/Symptoms Chief Complaint:: "Since last night my stomach has been hurting and I have been throwing up. I was here yesterday for the same thing. I was also here a week before that for the same thing." - Nurses notes reviewed Nurses Notes Review: Yes - Source History Provided: Patient - Mode of Arrival Mode of Arrival: Ambulatory - Timing Onset of Chief Complaint: 08/02/17 Came on: Suddenly - Duration Duration: Constant Duration: Days - Severity Severity: Moderate PMH - PMH Past Medical History: Yes Past Medical History: Anxiety, Diabetes, Dyslipidemia, GERD Past Surgical History: Yes Surgical History: , Cholecystectomy, Hysterectomy - Family History History of Family Medical Conditions: Yes Family Medical History: Diabetes Mellitus, Cancer, Hypertension - Social History Does patient currently use any type of tobacco product: Yes Have you used tobacco products in the last 12 months: Yes Type of Tobacco Use: Cigarettes Does any household member use tobacco: No Alcohol Use: None Do you use any recreational Drugs:: No Lives With: Family Lives Where: Home - infectious screening In the last 2 months have you had wt loss of >10#?: NO Have you had fever, night sweats or hemotysis?: No Have you traveled outside the country in the last 6 months?: No Isolation: Standard PE - Vital Signs Vitals: Temperature 99.4 F Pulse Rate [Left] 123 Pulse Rate 121 Respiratory Rate 16 Blood Pressure [Left Arm] 120/74 Blood Pressure [Right Arm] 127/73 Blood Pressure 182/119 O2 Sat by Pulse Oximetry 100 ROR - Labs Reviewed Result Diagrams: 08/03/17 21:15 08/03/17 21:15 Laboratory: WBC 12.7 X10^3/uL (3.6-10.0) H 08/03/17 21:15 RBC 4.76 X10^6/uL (3.5-5.4) 08/03/17 21:15 Hgb 11.6 g/dL (12.0-16.0) L D 08/03/17 21:15 Hct 36.7 % (36.0-47.0) 08/03/17 21:15 MCV 77.1 fL (80.0-100.0) L 08/03/17 21:15 MCH 24.4 pg (27.0-34.0) L 08/03/17 21:15 MCHC 31.6 g/dL (33.0-35.0) L 08/03/17 21:15 RDW 15.6 % (11.6-16.5) 08/03/17 21:15 Plt Count 308 X10^3/uL (150.0-450.0) 08/03/17 21:15 Plt Count Comment Adequate (ADEQUATE) 08/03/17 21:15 MPV 8.8 fL (7.4-11.0) 08/03/17 21:15 Neut % 68.5 % (42.0-75.0) 08/03/17 21:15 Lymph % 23.2 % (21.0-51.0) 08/03/17 21:15 Iron % 7.3 % (0.0-13.0) 08/03/17 21:15 Eos % 0.5 % (0.9-2.9) L 08/03/17 21:15 Baso % 0.5 % (0.2-1.0) 08/03/17 21:15 Neut # 8.7 x10^3/uL (2.2-4.8) H 08/03/17 21:15 Lymph # 3.0 X10^3/uL (1.3-2.9) H 08/03/17 21:15 Iron # 0.9 x10^3/uL (0.3-0.8) H 08/03/17 21:15 Eos # 0.1 x10^3/uL (0.0-0.2) 08/03/17 21:15 Baso # 0.1 X10^3/uL (0.0-0.1) 08/03/17 21:15 Absolute Nucleated RBC 0.0 /100WBC 08/03/17 21:15 Plt Morphology Comment Normal (NORMAL) 08/03/17 21:15 RBC Morphology Abnormal (NORMAL) A 08/03/17 21:15 Poikilocytosis Slight A 08/03/17 21:15 Sodium 141 mmol/L (136-145) 08/03/17 21:15 Corrected Sodium 142 mmol/L (136-145) 08/03/17 21:15 Potassium 3.7 mmol/L (3.5-5.1) 08/03/17 21:15 Chloride 105 mmol/L (98-107) 08/03/17 21:15 Carbon Dioxide 26.5 mmol/L (21-32) 08/03/17 21:15 BUN 9 mg/dL (7-18) 08/03/17 21:15 Creatinine 1.22 mg/dL (0.55-1.02) H 08/03/17 21:15 Est GFR (MDRD) Af Amer > 60 (>60) 08/03/17 21:15 Est GFR (MDRD) Non-Af 54 (>60) L 08/03/17 21:15 Glucose 127 mg/dL (65-99) H 08/03/17 21:15 Calcium 8.8 mg/dL (8.5-10.1) 08/03/17 21:15 Corrected Calcium 9.6 mg/dL (8.5-10.1) 08/03/17 21:15 Total Bilirubin 0.20 mg/dL (0.2-1.0) 08/03/17 21:15 AST 17 Units/L (15-37) 08/03/17 21:15 ALT 13 Units/L (12-78) 08/03/17 21:15 Alkaline Phosphatase 85 Units/L (46-116) 08/03/17 21:15 Total Protein 8.0 g/dL (6.4-8.2) 08/03/17 21:15 Albumin 3.0 g/dL (3.4-5.0) L 08/03/17 21:15 Globulin 5.0 g/dL (2.5-4.5) H 08/03/17 21:15 Albumin/Globulin Ratio 0.6 Ratio (1.1-2.1) L 08/03/17 21:15 Amylase 59 Units/L (25-115) 08/03/17 21:15 Lipase 58 Units/L (73-393) L 08/03/17 21:15 - Discharge Plan Condition: Stable - Follow ups/Referrals Follow ups/Referrals: SUE TAPIA [Primary Care Provider] - 08/06/17 - Instructions Instructions: Abdominal Pain, Adult, [id number], Nausea and Vomiting, Adult, [id number], Gastroparesis, Constipation, Adult, [id number] Additional Instructions: RETURN TO ED IF WORSE,
[2017-08-03] MEDS ORDERED: DILAUDID INJ IM ONE (21:01)
[2017-08-03] MEDS ORDERED: NS 1000 ML 1,000 ML IV ONE (21:01)
[2017-08-03] MEDS ORDERED: PHENERGAN INJ 25 MG IVP ONE (21:01)
[2017-08-03] MEDS ORDERED: NS 1000 ML 1,000 ML ONE (21:06)
[2017-08-03] MEDS ORDERED: PHENERGAN INJ 25 MG ONE (21:06)
[2017-08-03] MEDS ORDERED: DILAUDID INJ ONE (21:07)
[2017-08-03 21:26] LABS: BASOPHILS # (AUTO) 0.1 X10^3/uL (0.0-0.1); BASOPHILS % (AUTO) 0.5 % (0.2-1.0); EOSINOPHILS # (AUTO) 0.1 x10^3/uL (0.0-0.2); EOSINOPHILS % (AUTO) 0.5 % (0.9-2.9); HEMATOCRIT 36.7 % (36.0-47.0); HEMOGLOBIN 11.6 g/dL (12.0-16.0); LYMPHOCYTES % (AUTO) 23.2 % (21.0-51.0); MEAN CORPUSCULAR HEMOGLOBIN 24.4 pg (27.0-34.0); MEAN CORPUSCULAR HGB CONC 31.6 g/dL (33.0-35.0); MEAN CORPUSCULAR VOLUME 77.1 fL (80.0-100.0); MEAN PLATELET VOLUME 8.8 fL (7.4-11.0); MONOCYTES # (AUTO) 0.9 x10^3/uL (0.3-0.8); MONOCYTES % (AUTO) 7.3 % (0.0-13.0); NEUTROPHILS # (AUTO) 8.7 x10^3/uL (2.2-4.8); NEUTROPHILS % (AUTO) 68.5 % (42.0-75.0); PLATELET COUNT 308 X10^3/uL (150.0-450.0); RED BLOOD COUNT 4.76 X10^6/uL (3.5-5.4); RED CELL DISTRIBUTION WIDTH 15.6 % (11.6-16.5); WHITE BLOOD COUNT 12.7 X10^3/uL (3.6-10.0)
[2017-08-03 21:47] LABS: ALANINE AMINOTRANSFERASE 13 Units/L (12-78); ALKALINE PHOSPHATASE 85 Units/L (46-116); ASPARTATE AMINO TRANSFERASE 17 Units/L (15-37); BLOOD UREA NITROGEN 9 mg/dL (7-18); CALCIUM 8.8 mg/dL (8.5-10.1); CARBON DIOXIDE 26.5 mmol/L (21-32); CHLORIDE 105 mmol/L (98-107); COR CA(FOR HYPOALB) 9.6 mg/dL (8.5-10.1); COR NA(FOR HYPERGLY) 142 mmol/L (136-145); CREATININE 1.22 mg/dL (0.55-1.02); PLATELET MORPHOLOGY COMMENT NORMAL (NORMAL); POIKILOCYTOSIS SLIGHT; SODIUM 141 mmol/L (136-145); eGFR BLACK RACES > 60 (>60); eGFR NON BLACK RACES 54 (>60)
--- NOTE | 2017-08-03 21:51 | RAD ---
Acute abdominal series Indication: Left upper quadrant pain with persistent vomiting, gastroparesis Comparison: 07/11/2017 Findings: The trachea is midline. The cardiac silhouette is unremarkable. The lungs are clear without focal i nfiltrate or effusion. The bony thorax is unremarkable. There is stable positioning of right chest wall MediPort with the tip terminating within the suspected right subclavian vein. Flat and upright evaluation of the abdomen demonstrates an increased amount of fecal material within the colon.. No pathological soft tissue mass or calcification can be observed. The bony structures are grossly intact. Prior cholecystectomy is noted. IMPRESSION: 1. No acute cardiopulmonary disease. 2. Mild constipation. Reported By:
[2017-08-03 21:56] LABS: AMYLASE 59 Units/L (25-115); LIPASE 58 Units/L (73-393)
[2017-08-03 22:48] VITALS: BP 196/94
== END 2017-08-03 23:00 | disposition home or self-care (01) ==
LOC: ER 17:29
DX: R10.84 Generalized abdominal pain (principal); R11.2 Nausea with vomiting, unspecified; K31.84 Gastroparesis; K59.09 Other constipation
CPT/HCPCS: 36415; 74022; 80053; 82150; 83690; 85025; 96365; 96367; 96374; 96375; 99282; 99283; A4222; J1170; J2550

== ENCOUNTER 2017-08-10 11:04 | Observation (INO) | payer OTHER ==
[2017-08-10] MEDS ORDERED: MORPHINE SULFATE INJ 2 MG INJ IVP PRN (15:52)
[2017-08-10] MEDS ORDERED: ZOFRAN INJ 4 MG VIAL IVP PRN (15:52)
[2017-08-10] MEDS ORDERED: PEPCID 20 MG IV PREMIX* 20 MG/50 ML BAG IV PRN (15:52)
[2017-08-10] MEDS ORDERED: HumuLIN R SUBCUT PRN (15:54)
--- NOTE | 2017-08-10 16:03 | DR.H&P ---
H&P - History & Physical for Day of: H&P Date: 08/10/17 - Chief Complaint Chief Complaint: Abd pain with N/V - Allergies Allergies/Adverse Reactions: Allergies Allergy/AdvReac Type Severity Reaction Status Date / Time Penicillins Allergy Verified 07/14/17 14:28 morphine AdvReac Verified 07/14/17 14:28 - History of Present Illness History of Present Illness: The patient is a 32-year-old black female who presents to the [facility] with complaint of upper abdominal pain with nausea and vomiting. Patient does have a history of pancreatitis and gastroparesis. The patient complains of pain to the upper left quadrant and epigastric region. Patient was discharged from inpatient hospital stay thirsty 1 week ago. States she's been to the emergency room at [facility] on Sunday and Sunday of this week. States she did get IV fluids. Patient states that she's not able to keep her medications down. Blood pressure is noted to be markedly elevated 176/126. Patient is to see gastroenterology on Sunday with a endoscopy scheduled 08/29/2017 in [place]. 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 - Family History Family Medical History: Diabetes Mellitus, Hypertension - Social History Does patient currently use any type of tobacco product: Yes Have you used tobacco products in the last 12 months: Yes Type of Tobacco Use: None How many years tobacco product used: 4 Does any household member use tobacco: Yes Alcohol Use: None Drug Use: None - Review of Systems Constitutional: Weakness Eyes: No Symptoms Reported ENT: No Symptoms Reported Respiratory: No Symptoms Reported Cardiovascular: No Symptoms Reported Gastrointestinal: See HPI, Nausea, Vomiting Genitourinary: No Symptoms Reported Musculoskeletal: No Symptoms Reported Skin: No Symptoms Reported Neurological: No Symptoms Reported - Physical Exam Vital Signs: Temperature 99.3 F Pulse Rate [Left Brachial] 119 Respiratory Rate 20 Blood Pressure [Left Arm] 172/93 Blood Pressure [Right Arm] 127/73 Blood Pressure 196/94 O2 Sat by Pulse Oximetry 96 Oriented: Normal Eyes: Normal Ear: Normal Nose: Normal Throat: Normal Respiratory: Clear Throughout Cardiovascular: Normal : Normal Auscultation: Bowel Sounds: Normal Palpation: Normal Tenderness: LUQ, Epigastric Skin: Normal Musculoskeletal: Normal Psychiatric: Anxiety Mood Description: Anxious Affect: Anxious Speech Pattern: Clear - Assessment/Plan (1) Abdominal pain Qualifiers: Abdominal location: left upper quadrant Qualified Code(s): R10.12 - Left upper quadrant pain Status: Acute Plan: KUB (2) Accelerated hypertension Status: Acute Plan: Monitor BP. (3) Diabetes mellitus Qualifiers: Diabetes mellitus type: type 1 Status: Acute Plan: Monitor BS. FSBS with SS (4) Diabetic gastroparesis Status: Acute Plan: IV anti-emetics, cbc, cmp
[2017-08-10 16:22] LABS: BASOPHILS % (AUTO) 0.4 % (0.2-1.0); EOSINOPHILS # (AUTO) 0.1 x10^3/uL (0.0-0.2); EOSINOPHILS % (AUTO) 1.2 % (0.9-2.9); HEMATOCRIT 35.1 % (36.0-47.0); HEMOGLOBIN 11.2 g/dL (12.0-16.0); LYMPHOCYTES # (AUTO) 3.5 X10^3/uL (1.3-2.9); LYMPHOCYTES % (AUTO) 34.2 % (21.0-51.0); MEAN CORPUSCULAR HEMOGLOBIN 24.8 pg (27.0-34.0); MEAN CORPUSCULAR HGB CONC 31.9 g/dL (33.0-35.0); MEAN CORPUSCULAR VOLUME 77.8 fL (80.0-100.0); MEAN PLATELET VOLUME 8.9 fL (7.4-11.0); MONOCYTES # (AUTO) 0.9 x10^3/uL (0.3-0.8); MONOCYTES % (AUTO) 8.5 % (0.0-13.0); NEUTROPHILS # (AUTO) 5.7 x10^3/uL (2.2-4.8); NEUTROPHILS % (AUTO) 55.7 % (42.0-75.0); PLATELET COUNT 250 X10^3/uL (150.0-450.0); RED BLOOD COUNT 4.52 X10^6/uL (3.5-5.4); RED CELL DISTRIBUTION WIDTH 16.6 % (11.6-16.5); WHITE BLOOD COUNT 10.3 X10^3/uL (3.6-10.0)
[2017-08-10 16:29] LABS: ALANINE AMINOTRANSFERASE 10 Units/L (12-78); ALBUMIN 2.3 g/dL (3.4-5.0); ALKALINE PHOSPHATASE 72 Units/L (46-116); AMYLASE 25 Units/L (25-115); ASPARTATE AMINO TRANSFERASE 16 Units/L (15-37); BLOOD UREA NITROGEN 6 mg/dL (7-18); CALCIUM 8.4 mg/dL (8.5-10.1); CARBON DIOXIDE 28.4 mmol/L (21-32); CHLORIDE 103 mmol/L (98-107); COR CA(FOR HYPOALB) 9.8 mg/dL (8.5-10.1); COR NA(FOR HYPERGLY) 140 mmol/L (136-145); CREATININE 1.24 mg/dL (0.55-1.02); LIPASE 67 Units/L (73-393); SODIUM 139 mmol/L (136-145); TOTAL PROTEIN 6.4 g/dL (6.4-8.2); eGFR BLACK RACES > 60 (>60); eGFR NON BLACK RACES 53 (>60)
[2017-08-10 16:37] LABS: ANISOCYTOSIS SLIGHT; MICROCYTOSIS SLIGHT; PLATELET MORPHOLOGY COMMENT NORMAL (NORMAL)
[2017-08-10] MEDS: DEMEROL INJ IVP PRN ×2 (17:23→22:47)
[2017-08-10] MEDS: PHENERGAN INJ 25 MG IVP PRN (17:24)
[2017-08-10] MEDS: NS 1000 ML 1,000 ML IV SCH (18:03)
[2017-08-10] MEDS ORDERED: REGLAN TAB 10 MG PO PRN (21:05)
[2017-08-10] MEDS ORDERED: ZOFRAN TAB 4 MG PO PRN (21:05)
[2017-08-10] MEDS ORDERED: HALDOL PO PRN (21:05)
[2017-08-10] MEDS ORDERED: CATAPRES TAB 0.1 MG PO PRN (21:05)
[2017-08-10] MEDS ORDERED: ULTRAM PO PRN (21:05)
[2017-08-11] MEDS: PHENERGAN INJ 25 MG IVP PRN ×4 (00:02→20:51)
[2017-08-11] MEDS: NORCO 5/325 MG TAB PO PRN ×2 (01:47→07:00)
[2017-08-11] MEDS: ATIVAN TAB 0.5 MG PO PRN ×2 (01:48→10:10)
[2017-08-11] MEDS: DEMEROL INJ IVP PRN ×5 (03:36→20:50)
--- NOTE | 2017-08-11 04:34 | RAD ---
Abdominal series with single view chest Indication: Upper abdominal pain Comparison: 08/03/2017. Findings: Single view of the chest demonstrates normal heart size and clear lungs. No significant ple ural abnormality. Right subclavian approach Port-A-Cath is unchanged. The bowel gas pattern is nonobstructed. No free air or suspicious calcifications identified. Cholecys tectomy clips overlie the right upper quadrant. Impression: No evidence for acute abdominal or chest pathology. Reported By:
[2017-08-11] MEDS: NS 1000 ML 1,000 ML IV SCH ×2 (05:30→15:42)
[2017-08-11] MEDS: COREG TAB 12.5 MG PO SCH ×2 (07:57→17:54)
[2017-08-11] MEDS: AMARYL TAB 4 MG PO SCH (07:57)
[2017-08-11] MEDS: NORMODYNE INJ 20 MG VIAL IVP PRN ×2 (07:58→12:08)
[2017-08-11] MEDS ORDERED: PRAVASTATIN SODIUM 20 MG PO SCH (09:00)
[2017-08-11 09:26] VITALS: BMI 37.2
[2017-08-11] MEDS: ZESTRIL TAB 40 MG PO SCH (10:10)
[2017-08-11] MEDS: NORVASC TAB 10 MG PO SCH (10:10)
[2017-08-11] MEDS: CELEXA PO SCH (11:47)
[2017-08-11] MEDS: ZANTAC PO SCH ×2 (11:48→20:52)
[2017-08-11] MEDS: VISTARIL PO PRN ×2 (12:09→20:51)
[2017-08-11] MEDS ORDERED: DILAUDID INJ IVP ONE (13:22)
--- NOTE | 2017-08-11 13:34 | RAD ---
HISTORY: 32-year-old female for NG tube placement. Study: 2 frontal views of the abdomen. Comparison: Acute abdominal series [id number] Findings: Enteric tube with distal tip overlying the left upper quadrant region of the stomach in apparent good position. No other significant interval change. IMPRESSION: 1. Enteric tube in apparent good position as above. Reported By:
[2017-08-11] MEDS: ELAVIL PO SCH (20:51)
[2017-08-11] MEDS: FLEXERIL TAB 10 MG PO PRN (20:52)
[2017-08-11] MEDS: PRAVACHOL PO SCH (20:52)
[2017-08-11] MEDS ORDERED: AMITRIPTYLINE HCL 50 MG PO SCH (21:00)
[2017-08-12] MEDS: NS 1000 ML 1,000 ML IV SCH ×4 (00:49→21:39)
[2017-08-12] MEDS: NORCO 5/325 MG TAB PO PRN ×2 (05:45→16:57)
[2017-08-12] MEDS: AMARYL TAB 4 MG PO SCH (06:07)
[2017-08-12] MEDS: COREG TAB 12.5 MG PO SCH ×2 (06:07→16:57)
[2017-08-12 07:18] LABS: BASOPHILS # (AUTO) 0.1 X10^3/uL (0.0-0.1); BASOPHILS % (AUTO) 0.8 % (0.2-1.0); EOSINOPHILS # (AUTO) 0.1 x10^3/uL (0.0-0.2); HEMATOCRIT 30.8 % (36.0-47.0); HEMOGLOBIN 9.9 g/dL (12.0-16.0); LYMPHOCYTES # (AUTO) 2.6 X10^3/uL (1.3-2.9); LYMPHOCYTES % (AUTO) 32.7 % (21.0-51.0); MEAN CORPUSCULAR HEMOGLOBIN 25.1 pg (27.0-34.0); MEAN CORPUSCULAR HGB CONC 32.2 g/dL (33.0-35.0); MEAN CORPUSCULAR VOLUME 78.1 fL (80.0-100.0); MEAN PLATELET VOLUME 9.1 fL (7.4-11.0); MONOCYTES # (AUTO) 0.6 x10^3/uL (0.3-0.8); MONOCYTES % (AUTO) 7.9 % (0.0-13.0); NEUTROPHILS # (AUTO) 4.5 x10^3/uL (2.2-4.8); NEUTROPHILS % (AUTO) 57.6 % (42.0-75.0); PLATELET COUNT 235 X10^3/uL (150.0-450.0); RED BLOOD COUNT 3.94 X10^6/uL (3.5-5.4); RED CELL DISTRIBUTION WIDTH 16.3 % (11.6-16.5); WHITE BLOOD COUNT 7.8 X10^3/uL (3.6-10.0)
[2017-08-12 07:33] LABS: HYPOCHROMASIA SLIGHT; PLATELET MORPHOLOGY COMMENT NORMAL (NORMAL)
[2017-08-12 07:43] LABS: ALANINE AMINOTRANSFERASE 9 Units/L (12-78); ALKALINE PHOSPHATASE 65 Units/L (46-116); ASPARTATE AMINO TRANSFERASE 19 Units/L (15-37); BLOOD UREA NITROGEN 7 mg/dL (7-18); CALCIUM 8.1 mg/dL (8.5-10.1); CARBON DIOXIDE 27.3 mmol/L (21-32); CHLORIDE 106 mmol/L (98-107); COR CA(FOR HYPOALB) 9.7 mg/dL (8.5-10.1); COR NA(FOR HYPERGLY) 142 mmol/L (136-145); CREATININE 1.08 mg/dL (0.55-1.02); SODIUM 141 mmol/L (136-145); TOTAL PROTEIN 5.9 g/dL (6.4-8.2); eGFR BLACK RACES > 60 (>60); eGFR NON BLACK RACES > 60 (>60)
[2017-08-12] MEDS: CELEXA PO SCH (10:21)
[2017-08-12] MEDS: ZESTRIL TAB 40 MG PO SCH (10:21)
[2017-08-12] MEDS: ZANTAC PO SCH ×2 (10:21→21:40)
[2017-08-12] MEDS: NORVASC TAB 10 MG PO SCH (10:24)
[2017-08-12] MEDS: PHENERGAN INJ 25 MG IVP PRN (10:40)
[2017-08-12 19:23] LABS: BASOPHILS # (AUTO) 0.1 X10^3/uL (0.0-0.1); BASOPHILS % (AUTO) 0.6 % (0.2-1.0); EOSINOPHILS # (AUTO) 0.1 x10^3/uL (0.0-0.2); EOSINOPHILS % (AUTO) 1.4 % (0.9-2.9); HEMATOCRIT 30.9 % (36.0-47.0); HEMOGLOBIN 9.9 g/dL (12.0-16.0); LYMPHOCYTES % (AUTO) 32.5 % (21.0-51.0); MEAN CORPUSCULAR HGB CONC 32.1 g/dL (33.0-35.0); MEAN PLATELET VOLUME 9.2 fL (7.4-11.0); MONOCYTES # (AUTO) 0.7 x10^3/uL (0.3-0.8); MONOCYTES % (AUTO) 7.8 % (0.0-13.0); NEUTROPHILS # (AUTO) 5.3 x10^3/uL (2.2-4.8); NEUTROPHILS % (AUTO) 57.7 % (42.0-75.0); PLATELET COUNT 227 X10^3/uL (150.0-450.0); RED BLOOD COUNT 3.97 X10^6/uL (3.5-5.4); WHITE BLOOD COUNT 9.2 X10^3/uL (3.6-10.0)
[2017-08-12 19:37] LABS: PLATELET MORPHOLOGY COMMENT NORMAL (NORMAL)
[2017-08-12] MEDS: FLEXERIL TAB 10 MG PO PRN (21:39)
[2017-08-12] MEDS: VISTARIL PO PRN (21:39)
[2017-08-12] MEDS: PRAVACHOL PO SCH (21:39)
[2017-08-12] MEDS: ELAVIL PO SCH (21:40)
[2017-08-13] MEDS: NORCO 5/325 MG TAB PO PRN (05:28)
[2017-08-13] MEDS: NS 1000 ML 1,000 ML IV SCH ×2 (06:10→13:36)
[2017-08-13] MEDS: COREG TAB 12.5 MG PO SCH (06:10)
[2017-08-13] MEDS: AMARYL TAB 4 MG PO SCH (06:10)
[2017-08-13 06:58] LABS: ALANINE AMINOTRANSFERASE 8 Units/L (12-78); ALBUMIN 1.9 g/dL (3.4-5.0); ALKALINE PHOSPHATASE 64 Units/L (46-116); ASPARTATE AMINO TRANSFERASE 22 Units/L (15-37); BLOOD UREA NITROGEN 4 mg/dL (7-18); CALCIUM 8.4 mg/dL (8.5-10.1); CARBON DIOXIDE 23.6 mmol/L (21-32); CHLORIDE 107 mmol/L (98-107); COR CA(FOR HYPOALB) 10.1 mg/dL (8.5-10.1); CREATININE 0.95 mg/dL (0.55-1.02); SODIUM 140 mmol/L (136-145); TOTAL PROTEIN 5.9 g/dL (6.4-8.2); eGFR BLACK RACES > 60 (>60); eGFR NON BLACK RACES > 60 (>60)
--- NOTE | 2017-08-13 07:18 | RAD ---
HISTORY: Abdominal pain Study: KUB Comparison: 08/11/2017 Findings: There is nasogastric tube with its tip and side hole within the stomach. The abdominal gas pattern is nonspecific and nonobstructive. No abnormal masses or abnormal calcifications are identified. IMPRESSION: Unremarkable KUB Reported By:
[2017-08-13] MEDS: CELEXA PO SCH (09:47)
[2017-08-13] MEDS: NORVASC TAB 10 MG PO SCH (09:47)
[2017-08-13] MEDS: ZESTRIL TAB 40 MG PO SCH (09:48)
[2017-08-13] MEDS: ZANTAC PO SCH (09:48)
[2017-08-13] MEDS: DEMEROL INJ IVP PRN (10:03)
[2017-08-13 12:27] VITALS: BP 135/82
[2017-08-13] MEDS: PHENERGAN INJ 25 MG IVP PRN (13:39)
== END 2017-08-13 15:05 | disposition home or self-care (01) ==
LOC: MED/SURG 11:04
PROVIDERS: ADMIT Internal Medicine; ATTEND Internal Medicine
DX: K31.84 Gastroparesis (principal); E10.43 Type 1 diabetes mellitus with diabetic autonomic (poly)neuropathy; R10.12 Left upper quadrant pain; R10.84 Generalized abdominal pain; K21.9 Gastro-esophageal reflux disease without esophagitis; R11.2 Nausea with vomiting, unspecified; F41.8 Other specified anxiety disorders; E10.65 Type 1 diabetes mellitus with hyperglycemia; E78.2 Mixed hyperlipidemia
CPT/HCPCS: 36415; 74000; 74022; 80053; 82150; 83690; 85025; 93005; 93010; A4216; A4222; Q0177; S0028; S0181; G0378; J1170; J1815; J2175; J2405; J2550; J3490

== ENCOUNTER 2017-09-24 11:41 | Observation (INO) | payer OTHER ==
[2017-09-24] MEDS ORDERED: PEPCID 20 MG IV PREMIX* 20 MG/50 ML BAG IV PRN (12:41)
[2017-09-24] MEDS ORDERED: HumuLIN R SUBCUT PRN (12:45)
[2017-09-24 13:40] LABS: BASOPHILS % (AUTO) 0.5 % (0.2-1.0); EOSINOPHILS # (AUTO) 0.1 x10^3/uL (0.0-0.2); EOSINOPHILS % (AUTO) 0.8 % (0.9-2.9); HEMATOCRIT 35.8 % (36.0-47.0); HEMOGLOBIN 11.4 g/dL (12.0-16.0); LYMPHOCYTES # (AUTO) 2.2 X10^3/uL (1.3-2.9); LYMPHOCYTES % (AUTO) 27.9 % (21.0-51.0); MEAN CORPUSCULAR HEMOGLOBIN 25.2 pg (27.0-34.0); MEAN CORPUSCULAR VOLUME 78.9 fL (80.0-100.0); MEAN PLATELET VOLUME 8.8 fL (7.4-11.0); MONOCYTES # (AUTO) 0.6 x10^3/uL (0.3-0.8); MONOCYTES % (AUTO) 7.2 % (0.0-13.0); NEUTROPHILS # (AUTO) 4.9 x10^3/uL (2.2-4.8); NEUTROPHILS % (AUTO) 63.6 % (42.0-75.0); PLATELET COUNT 332 X10^3/uL (150.0-450.0); RED BLOOD COUNT 4.54 X10^6/uL (3.5-5.4); RED CELL DISTRIBUTION WIDTH 15.8 % (11.6-16.5); WHITE BLOOD COUNT 7.8 X10^3/uL (3.6-10.0)
[2017-09-24 13:53] LABS: PLATELET MORPHOLOGY COMMENT NORMAL (NORMAL); POIKILOCYTOSIS SLIGHT
[2017-09-24 13:57] LABS: ALBUMIN 2.2 g/dL (3.4-5.0); CALCIUM 8.6 mg/dL (8.5-10.1); CARBON DIOXIDE 30.1 mmol/L (21-32); CREATININE 1.92 mg/dL (0.55-1.02); TOTAL PROTEIN 6.8 g/dL (6.4-8.2)
[2017-09-24] MEDS: NS 1000 ML 1,000 ML IV SCH ×3 (14:39→23:56)
[2017-09-24] MEDS: DILAUDID INJ IVP PRN ×2 (14:39→21:30)
[2017-09-24] MEDS: PHENERGAN INJ 25 MG IV PRN ×2 (14:40→21:30)
[2017-09-24 16:57] VITALS: BMI 36.0
--- NOTE | 2017-09-24 21:22 | RAD ---
ACUTE ABDOMINAL SERIES CLINICAL HISTORY: 32-year-old female with abdominal pain. COMPARISON: Abdominal radiograph 08/13/2017, acute abdominal series 08/11/2017. FINDINGS: Right chest wall chemo port is stable. PA chest radiograph demonstrates normal cardiopericardial silhouette. There is no focal consolidation , pleural effusion or pneumothorax. Pulmonary vascularity is normal. Abdominal radiographs demonstrate a nonobstructive bowel gas pattern. Gas and stool are seen througho ut the colon. There is no small bowel distention. There is no radiographic evidence of pneumoperitone um. Imaged osseous structures are intact. Soft tissues are unremarkable. IMPRESSION: 1. No acute cardiopulmonary process. 2. Nonobstructive bowel gas pattern without radiographic evidence of pneumoperitoneum. Reported By:
[2017-09-25] MEDS: ZOFRAN INJ 4 MG VIAL IVP PRN ×2 (02:57→21:19)
[2017-09-25] MEDS: DILAUDID INJ IVP PRN ×5 (03:10→21:18)
[2017-09-25 04:21] LABS: BILIRUBIN,URINE NEGATIVE (NEGATIVE); BLOOD/HEMOGLOBIN,URINE 1+ (NEGATIVE); GLUCOSE, URINE NEGATIVE (NEGATIVE); KETONES,URINE NEGATIVE (NEGATIVE); LEUKOCYTE ESTERASE ,URINE NEGATIVE (NEGATIVE); NITRITES,URINE NEGATIVE (NEGATIVE); PROTEIN,URINE 4+ (NEGATIVE); UROBILINOGEN,URINE NORMAL (NORMAL)
[2017-09-25 04:37] LABS: APPEARANCE,URINE CLEAR (CLEAR); BACTERIA,URINE TRACE /HPF (NEGATIVE); COLOR,URINE YELLOW (YELLOW); MUCUS,URINE FEW /HPF (NEGATIVE); RBC,URINE 0-3 /HPF (NEGATIVE); SQUAMOUS EPITHELIAL CELL,UR FEW /HPF (NEGATIVE)
[2017-09-25] MEDS: PHENERGAN INJ 25 MG IV PRN ×2 (05:54→17:26)
[2017-09-25] MEDS ORDERED: COLACE CAP 100 MG PO PRN (06:00)
[2017-09-25] MEDS ORDERED: MILK OF MAGNESIA PO PRN (06:00)
[2017-09-25 06:28] LABS: BASOPHILS % (AUTO) 0.2 % (0.2-1.0); EOSINOPHILS # (AUTO) 0.1 x10^3/uL (0.0-0.2); EOSINOPHILS % (AUTO) 1.7 % (0.9-2.9); HEMATOCRIT 32.3 % (36.0-47.0); HEMOGLOBIN 10.2 g/dL (12.0-16.0); LYMPHOCYTES # (AUTO) 1.8 X10^3/uL (1.3-2.9); LYMPHOCYTES % (AUTO) 32.7 % (21.0-51.0); MEAN CORPUSCULAR HEMOGLOBIN 25.4 pg (27.0-34.0); MEAN CORPUSCULAR HGB CONC 31.7 g/dL (33.0-35.0); MEAN PLATELET VOLUME 9.1 fL (7.4-11.0); MONOCYTES # (AUTO) 0.5 x10^3/uL (0.3-0.8); MONOCYTES % (AUTO) 9.5 % (0.0-13.0); NEUTROPHILS % (AUTO) 55.9 % (42.0-75.0); PLATELET COUNT 291 X10^3/uL (150.0-450.0); RED BLOOD COUNT 4.04 X10^6/uL (3.5-5.4); RED CELL DISTRIBUTION WIDTH 15.6 % (11.6-16.5); WHITE BLOOD COUNT 5.4 X10^3/uL (3.6-10.0)
[2017-09-25 06:45] LABS: ALBUMIN 1.8 g/dL (3.4-5.0); CALCIUM 8.2 mg/dL (8.5-10.1); CARBON DIOXIDE 30.7 mmol/L (21-32); CREATININE 1.32 mg/dL (0.55-1.02); TOTAL PROTEIN 5.7 g/dL (6.4-8.2)
[2017-09-25 06:46] LABS: HYPOCHROMASIA SLIGHT; PLATELET MORPHOLOGY COMMENT NORMAL (NORMAL)
[2017-09-25] MEDS: NS 1000 ML 1,000 ML IV SCH (08:23)
--- NOTE | 2017-09-25 08:58 | DR.H&P ---
H&P - History & Physical for Day of: H&P Date: 09/24/17 - Chief Complaint Chief Complaint: Abdominal pain with nausea and vomiting - Allergies Allergies/Adverse Reactions: Allergies Allergy/AdvReac Type Severity Reaction Status Date / Time Penicillins Allergy Verified 07/14/17 14:28 morphine AdvReac Verified 07/14/17 14:28 - History of Present Illness History of Present Illness: The patient is a 32-year-old black female who presents to the [facility] care clinic with complaint of abdominal pain with nausea vomiting 1 week. Patient has a history of gastroparesis. States that she's been to the emergency room and was given injections 2. States that she still unable to keep any food down. Does complain of epigastric and left upper quadrant pain. Patient does have a previous history of pancreatitis. Patient does state that she feels weak with no energy. States she is lightheaded. - Past Medical History Past Medical History: Anxiety, Diabetes, Dyslipidemia, GERD Additional Medical History: Pancreatitis, Gastroparesis - Past Surgical History Surgical History: Cholecystectomy, PANMAN Surgery, Hysterectomy, Other - Family History Family Medical History: Diabetes Mellitus, Hypertension - Social History Does patient currently use any type of tobacco product: Yes Have you used tobacco products in the last 12 months: Yes Type of Tobacco Use: Cigarettes How many years tobacco product used: 4 Does any household member use tobacco: Yes Alcohol Use: None Drug Use: Prescription Drugs - Medications Home Medications: Hydrocodone-Acet 7.5 mg/325 mg [[place] 7.5/325 mg Tab] 1 tab PO BID 09/24/17 [ History Confirmed 09/24/17] Lipase/Protease/Amylase [[place] 96061 Unit] 1 cap PO PRN PRN 09/24/17 [History Confirmed 09/24/17] Lipase/Protease/Amylase [Creon] 2 cap PO TIDWM 09/24/17 [History Confirmed 09/24] RX: Prochlorperazine Maleate 10 mg PO TID 09/24/17 [History Confirmed 09/24/17] - Review of Systems Constitutional: Weakness, Malaise Eyes: No Symptoms Reported ENT: No Symptoms Reported Respiratory: No Symptoms Reported Gastrointestinal: Nausea, Vomiting, Abdominal Pain Genitourinary: No Symptoms Reported Musculoskeletal: No Symptoms Reported Skin: No Symptoms Reported Neurological: No Symptoms Reported - Physical Exam Vital Signs: Temperature 98.5 F Pulse Rate [Left Brachial] 101 Respiratory Rate 20 Blood Pressure [Left Arm] 164/93 Blood Pressure [Right Arm] 168/110 Blood Pressure 135/82 O2 Sat by Pulse Oximetry 94 Oriented: Normal Eyes: Normal Ear: Normal Nose: Normal Throat: Normal Respiratory: Clear Throughout Cardiovascular: Normal : Normal Auscultation: Bowel Sounds: Normal Palpation: Normal Tenderness: LUQ, Epigastric Skin: Normal Musculoskeletal: Normal Psychiatric: Normal Mood Description: Calm Affect: Quiet Speech Pattern: Clear - Assessment/Plan (1) Nausea & vomiting Status: Acute Plan: IVF HYDRATION, LABS, ANTIEMETICS, PAIN MGMT (2) Abdominal pain Qualifiers: Status: Acute Plan: LABS, KUB, PAIN MGMT, ANTIEMTICS (3) Diabetic gastroparesis Status: Acute Plan: ABOVE (4) Acute on chronic kidney failure Status: Acute Plan: IV HYDRATION, MONITOR LABS
[2017-09-25] MEDS ORDERED: VISTARIL PO PRN (09:04)
[2017-09-25] MEDS ORDERED: PROTEASE PO PRN (09:04)
[2017-09-25] MEDS ORDERED: ATIVAN TAB 0.5 MG PO PRN (09:04)
[2017-09-25] MEDS ORDERED: AMYLASE PO PRN (09:04)
[2017-09-25] MEDS ORDERED: LIPASE PO PRN (09:04)
[2017-09-25] MEDS ORDERED: CATAPRES TAB 0.1 MG PO PRN (09:04)
[2017-09-25] MEDS ORDERED: [UNRECOGNIZED DRUG - OTHER] PO PRN (09:04)
[2017-09-25] MEDS ORDERED: FLEXERIL TAB 10 MG PO PRN (09:04)
[2017-09-25] MEDS ORDERED: APRESOLINE INJ 20 MG VIAL IVP PRN (09:21)
[2017-09-25] MEDS ORDERED: REGLAN INJ 10 MG VIAL IVP PRN (09:21)
[2017-09-25] MEDS ORDERED: IMITREX TAB PO PRN (11:18)
[2017-09-25] MEDS ORDERED: REGLAN TAB 10 MG PO SCH (11:30)
[2017-09-25] MEDS: CREON PO SCH ×2 (12:40→17:20)
[2017-09-25] MEDS: COMPAZINE PO SCH ×3 (12:40→21:18)
[2017-09-25] MEDS: ELAVIL PO SCH ×2 (12:41→21:18)
[2017-09-25] MEDS: D5 1/2 NS 1000 ML 1,000 ML IV SCH (12:47)
[2017-09-25] MEDS ORDERED: DULCOLAX SUPPOSITORY 10 MG RECTAL ONE (13:40)
--- NOTE | 2017-09-25 13:40 | PCM.PROG ---
Progress Note - Progress Note for Day of Date: 09/25/17 - Subjective Subjective: patient is a 32-year-old black female who was admitted one day ago with intractable abdominal pain nausea and vomiting and hypertensive urgency. Patient had been unable to keep by mouth medications down. This morning on exam patient was awake and alert she had had an episode of vomiting this a.m. Continued with elevated blood pressure, ordered IV hydralazine and continue nothing by mouth status until nausea and vomiting improves. We did change patient's IV fluids to D5 half normal saline at [facility] due to history of diabetes with low sugars during the night. - Past Medical Family Social History Past Med/Fam/Surg Hx: No changes since H&P Allergies: Allergies Penicillins Allergy (Verified 07/14/17 14:28) morphine Adverse Reaction (Verified 07/14/17 14:28) - Review of Systems ROS: No change since H&P - Vital Signs and I&O's Vital Signs: Temperature 98.5 F Pulse Rate [Left Brachial] 101 Respiratory Rate 20 Blood Pressure [Left Arm] 164/93 Blood Pressure [Right Arm] 168/110 Blood Pressure 135/82 O2 Sat by Pulse Oximetry 94 Intake and Output: Intake & Output 09/23/17 09/24/17 09/25/17 09/26/17 11:59 11:59 11:59 11:59 Intake Total 800 Output Total 800 Balance 0 - Physical Exam Oriented: Normal Eyes: Normal Ear: Normal Nose: Normal Throat: Normal Respiratory: Diminished Cardiovascular: Normal : Normal Auscultation: Bowel Sounds: Normal, Decreased Tenderness: LUQ, LLQ, Epigastric Skin: Normal Musculoskeletal: Normal Psychiatric: Normal Mood Description: Calm Affect: Quiet Speech Pattern: Clear - Laboratory and Diagnostics Result Diagrams: 09/25/17 04:59 09/25/17 04:59 Labs: Laboratory WBC 5.4 X10^3/uL (3.6-10.0) 09/25/17 04:59 RBC 4.04 X10^6/uL (3.5-5.4) 09/25/17 04:59 Hgb 10.2 g/dL (12.0-16.0) L 09/25/17 04:59 Hct 32.3 % (36.0-47.0) L 09/25/17 04:59 MCV 80.0 fL (80.0-100.0) 09/25/17 04:59 MCH 25.4 pg (27.0-34.0) L 09/25/17 04:59 MCHC 31.7 g/dL (33.0-35.0) L 09/25/17 04:59 RDW 15.6 % (11.6-16.5) 09/25/17 04:59 Plt Count 291 X10^3/uL (150.0-450.0) 09/25/17 04:59 Plt Count Comment Adequate (ADEQUATE) 09/25/17 04:59 MPV 9.1 fL (7.4-11.0) 09/25/17 04:59 Neut % 55.9 % (42.0-75.0) 09/25/17 04:59 Lymph % 32.7 % (21.0-51.0) 09/25/17 04:59 [place] % 9.5 % (0.0-13.0) 09/25/17 04:59 Eos % 1.7 % (0.9-2.9) 09/25/17 04:59 Baso % 0.2 % (0.2-1.0) 09/25/17 04:59 Neut # 3.0 x10^3/uL (2.2-4.8) 09/25/17 04:59 Lymph # 1.8 X10^3/uL (1.3-2.9) 09/25/17 04:59 [place] # 0.5 x10^3/uL (0.3-0.8) 09/25/17 04:59 Eos # 0.1 x10^3/uL (0.0-0.2) 09/25/17 04:59 Baso # 0.0 X10^3/uL (0.0-0.1) 09/25/17 04:59 Absolute Nucleated RBC 0.1 /100WBC 09/25/17 04:59 Plt Morphology Comment Normal (NORMAL) 09/25/17 04:59 RBC Morphology Abnormal (NORMAL) A 09/25/17 04:59 Hypochromasia Slight A 09/25/17 04:59 Poikilocytosis Slight A 09/24/17 13:20 Sodium 143 mmol/L (136-145) 09/25/17 04:59 Corrected Sodium 143 mmol/L (136-145) 09/25/17 04:59 Potassium 3.4 mmol/L (3.5-5.1) L 09/25/17 04:59 Chloride 108 mmol/L (98-107) H 09/25/17 04:59 Carbon Dioxide 30.7 mmol/L (21-32) 09/25/17 04:59 BUN 6 mg/dL (7-18) L 09/25/17 04:59 Creatinine 1.32 mg/dL (0.55-1.02) H 09/25/17 04:59 Est GFR (MDRD) Af Amer 60 (>60) 09/25/17 04:59 Est GFR (MDRD) Non-Af 49 (>60) L 09/25/17 04:59 Glucose 120 mg/dL (65-99) H 09/25/17 04:59 POC Glucose (mg/dL) 92 mg/dL (65-99) 09/25/17 11:43 Calcium 8.2 mg/dL (8.5-10.1) L 09/25/17 04:59 Corrected Calcium 10.0 mg/dL (8.5-10.1) 09/25/17 04:59 Total Bilirubin 0.20 mg/dL (0.2-1.0) 09/25/17 04:59 AST 20 Units/L (15-37) 09/25/17 04:59 ALT 14 Units/L (12-78) 09/25/17 04:59 Alkaline Phosphatase 52 Units/L (46-116) 09/25/17 04:59 Total Protein 5.7 g/dL (6.4-8.2) L 09/25/17 04:59 Albumin 1.8 g/dL (3.4-5.0) L 09/25/17 04:59 Globulin 3.9 g/dL (2.5-4.5) 09/25/17 04:59 Albumin/Globulin Ratio 0.5 Ratio (1.1-2.1) L 09/25/17 04:59 Amylase 35 Units/L (25-115) 09/24/17 13:20 Lipase 60 Units/L (73-393) L 09/24/17 13:20 Specimen Type Clean catch urine 09/25/17 03:10 Urine Color Yellow (YELLOW) 09/25/17 03:10 Urine Appearance Clear (CLEAR) 09/25/17 03:10 Urine pH 7.0 (5.0 - 8.0) 09/25/17 03:10 Ur Specific [place] 1.010 (1.000-1.030) 09/25/17 03:10 Urine Protein 4+ (NEGATIVE) 09/25/17 03:10 Urine Glucose (UA) Negative (NEGATIVE) 09/25/17 03:10 Urine Ketones Negative (NEGATIVE) 09/25/17 03:10 Urine Occult Blood 1+ (NEGATIVE) 09/25/17 03:10 Urine Nitrite Negative (NEGATIVE) 09/25/17 03:10 Urine Bilirubin Negative (NEGATIVE) 09/25/17 03:10 Urine Urobilinogen Normal (NORMAL) 09/25/17 03:10 Ur Leukocyte Esterase Negative (NEGATIVE) 09/25/17 03:10 Urine RBC 0-3 /HPF (NEGATIVE) 09/25/17 03:10 Urine WBC 0-3 /HPF (NEGATIVE) 09/25/17 03:10 Ur Squamous Epith Cells Few /HPF (NEGATIVE) 09/25/17 03:10 Urine Bacteria Trace /HPF (NEGATIVE) 09/25/17 03:10 Urine Mucus Few /HPF (NEGATIVE) 09/25/17 03:10 Ur Culture Indicated? No/not indicated 09/25/17 03:10 - Plan (1) Accelerated hypertension Status: Acute Plan: resume home meds, iv hydralazine prn. bp monitoring (2) Acute on chronic kidney failure Status: Acute Plan: IV HYDRATION, MONITOR LABS (3) Nausea & vomiting Status: Acute Plan: IVF HYDRATION, LABS, ANTIEMETICS, PAIN MGMT (4) Abdominal pain Status: Acute Qualifiers: Plan: LABS, KUB, PAIN MGMT, ANTIEMTICS (5) Diabetic gastroparesis Status: Acute Plan: ABOVE (6) Diabetes mellitus Status: Chronic Qualifiers: Diabetes mellitus type: type 1
[2017-09-25] MEDS ORDERED: DULCOLAX SUPPOSITORY 10 MG ONE (17:14)
[2017-09-25] MEDS: COREG TAB 12.5 MG PO SCH (17:17)
[2017-09-25] MEDS ORDERED: ZANTAC PO SCH (21:00)
[2017-09-25] MEDS: PROTONIX TAB 40 MG PO SCH (21:18)
[2017-09-25] MEDS: NORCO 7.5/325 MG TAB PO SCH (21:18)
[2017-09-26] MEDS: PHENERGAN INJ 25 MG IV PRN ×2 (02:01→18:13)
[2017-09-26] MEDS: DILAUDID INJ IVP PRN ×5 (02:01→22:33)
[2017-09-26] MEDS: COREG TAB 12.5 MG PO SCH ×2 (06:07→18:12)
[2017-09-26] MEDS: COMPAZINE PO SCH ×4 (06:07→21:08)
[2017-09-26] MEDS: ZOFRAN INJ 4 MG VIAL IVP PRN (06:08)
[2017-09-26 06:14] LABS: ALANINE AMINOTRANSFERASE 10 Units/L (12-78); ALBUMIN 1.7 g/dL (3.4-5.0); ALKALINE PHOSPHATASE 48 Units/L (46-116); ASPARTATE AMINO TRANSFERASE 12 Units/L (15-37); BLOOD UREA NITROGEN 6 mg/dL (7-18); CALCIUM 8.3 mg/dL (8.5-10.1); CARBON DIOXIDE 30.4 mmol/L (21-32); CHLORIDE 106 mmol/L (98-107); COR CA(FOR HYPOALB) 10.1 mg/dL (8.5-10.1); CREATININE 1.33 mg/dL (0.55-1.02); SODIUM 140 mmol/L (136-145); TOTAL PROTEIN 5.4 g/dL (6.4-8.2); eGFR BLACK RACES 59 (>60); eGFR NON BLACK RACES 49 (>60)
[2017-09-26] MEDS: AMARYL TAB 4 MG PO SCH (06:16)
[2017-09-26 06:21] LABS: BASOPHILS % (AUTO) 0.2 % (0.2-1.0); EOSINOPHILS # (AUTO) 0.1 x10^3/uL (0.0-0.2); EOSINOPHILS % (AUTO) 1.9 % (0.9-2.9); HEMATOCRIT 30.2 % (36.0-47.0); HEMOGLOBIN 9.6 g/dL (12.0-16.0); LYMPHOCYTES # (AUTO) 2.6 X10^3/uL (1.3-2.9); LYMPHOCYTES % (AUTO) 50.8 % (21.0-51.0); MEAN CORPUSCULAR HEMOGLOBIN 25.4 pg (27.0-34.0); MEAN CORPUSCULAR HGB CONC 31.9 g/dL (33.0-35.0); MEAN CORPUSCULAR VOLUME 79.6 fL (80.0-100.0); MEAN PLATELET VOLUME 9.1 fL (7.4-11.0); MONOCYTES # (AUTO) 0.4 x10^3/uL (0.3-0.8); MONOCYTES % (AUTO) 8.2 % (0.0-13.0); NEUTROPHILS % (AUTO) 38.9 % (42.0-75.0); PLATELET COUNT 282 X10^3/uL (150.0-450.0); RED CELL DISTRIBUTION WIDTH 15.3 % (11.6-16.5); WHITE BLOOD COUNT 5.1 X10^3/uL (3.6-10.0)
[2017-09-26 07:15] LABS: PLATELET MORPHOLOGY COMMENT NORMAL (NORMAL)
[2017-09-26] MEDS: PRAVACHOL PO SCH (08:32)
[2017-09-26] MEDS: PROTONIX TAB 40 MG PO SCH ×2 (08:32→21:09)
[2017-09-26] MEDS: ZESTRIL TAB 40 MG PO SCH (08:33)
[2017-09-26] MEDS: NORVASC TAB 10 MG PO SCH (08:33)
[2017-09-26] MEDS: CELEXA PO SCH (08:34)
[2017-09-26] MEDS: NORCO 7.5/325 MG TAB PO SCH ×2 (08:34→21:09)
[2017-09-26] MEDS: CREON PO SCH ×3 (08:35→18:13)
[2017-09-26] MEDS: D5 1/2 NS 1000 ML 1,000 ML IV SCH (12:37)
--- NOTE | 2017-09-26 14:00 | PCM.PROG ---
Progress Note - Progress Note for Day of Date: 09/26/17 - Subjective Subjective: patient is a 32-year-old black female who was admitted one day ago with intractable abdominal pain nausea and vomiting and hypertensive urgency. Patient had been unable to keep by mouth medications down. This morning on exam patient was awake and alert she denies any vomiting this am. Plan to advance diet as tolerated, Reviewed diagnostic test results and labs with pt - Past Medical Family Social History Past Med/Fam/Surg Hx: No changes since H&P Allergies: Allergies Penicillins Allergy (Verified 07/14/17 14:28) morphine Adverse Reaction (Verified 07/14/17 14:28) - Review of Systems ROS: No change since H&P - Vital Signs and I&O's Vital Signs: Temperature 98.4 F Pulse Rate [Left Brachial] 88 Respiratory Rate 16 Blood Pressure [Left Arm] 141/85 Blood Pressure [Right Arm] 182/118 Blood Pressure 135/82 O2 Sat by Pulse Oximetry 96 Intake and Output: Intake & Output 09/24/17 09/25/17 09/26/17 09/27/17 11:59 11:59 11:59 11:59 Intake Total 800 382 Output Total 800 Balance 0 382 - Physical Exam Oriented: Normal Eyes: Normal Ear: Normal Nose: Normal Throat: Normal Respiratory: Diminished Cardiovascular: Normal : Normal Auscultation: Bowel Sounds: Normal, Decreased Tenderness: LUQ, LLQ, Epigastric Skin: Normal Musculoskeletal: Normal Psychiatric: Normal Mood Description: Calm Affect: Quiet Speech Pattern: Clear, Appropriate - Laboratory and Diagnostics Result Diagrams: 09/26/17 05:15 09/26/17 05:15 Labs: Laboratory WBC 5.1 X10^3/uL (3.6-10.0) 09/26/17 05:15 RBC 3.80 X10^6/uL (3.5-5.4) 09/26/17 05:15 Hgb 9.6 g/dL (12.0-16.0) L 09/26/17 05:15 Hct 30.2 % (36.0-47.0) L 09/26/17 05:15 MCV 79.6 fL (80.0-100.0) L 09/26/17 05:15 MCH 25.4 pg (27.0-34.0) L 09/26/17 05:15 MCHC 31.9 g/dL (33.0-35.0) L 09/26/17 05:15 RDW 15.3 % (11.6-16.5) 09/26/17 05:15 Plt Count 282 X10^3/uL (150.0-450.0) 09/26/17 05:15 Plt Count Comment Adequate (ADEQUATE) 09/26/17 05:15 MPV 9.1 fL (7.4-11.0) 09/26/17 05:15 Neut % 38.9 % (42.0-75.0) L 09/26/17 05:15 Lymph % 50.8 % (21.0-51.0) 09/26/17 05:15 [place] % 8.2 % (0.0-13.0) 09/26/17 05:15 Eos % 1.9 % (0.9-2.9) 09/26/17 05:15 Baso % 0.2 % (0.2-1.0) 09/26/17 05:15 Neut # 2.0 x10^3/uL (2.2-4.8) L 09/26/17 05:15 Lymph # 2.6 X10^3/uL (1.3-2.9) 09/26/17 05:15 [place] # 0.4 x10^3/uL (0.3-0.8) 09/26/17 05:15 Eos # 0.1 x10^3/uL (0.0-0.2) 09/26/17 05:15 Baso # 0.0 X10^3/uL (0.0-0.1) 09/26/17 05:15 Absolute Nucleated RBC 0.2 /100WBC 09/26/17 05:15 Plt Morphology Comment Normal (NORMAL) 09/26/17 05:15 RBC Morphology Normal (NORMAL) 09/26/17 05:15 Hypochromasia Slight A 09/25/17 04:59 Poikilocytosis Slight A 09/24/17 13:20 Sodium 140 mmol/L (136-145) 09/26/17 05:15 Corrected Sodium TNP 09/26/17 05:15 Potassium 3.5 mmol/L (3.5-5.1) 09/26/17 05:15 Chloride 106 mmol/L (98-107) 09/26/17 05:15 Carbon Dioxide 30.4 mmol/L (21-32) 09/26/17 05:15 BUN 6 mg/dL (7-18) L 09/26/17 05:15 Creatinine 1.33 mg/dL (0.55-1.02) H 09/26/17 05:15 Est GFR (MDRD) Af Amer 59 (>60) 09/26/17 05:15 Est GFR (MDRD) Non-Af 49 (>60) L 09/26/17 05:15 Glucose 84 mg/dL (65-99) 09/26/17 05:15 POC Glucose (mg/dL) 137 mg/dL (65-99) H 09/26/17 11:08 Calcium 8.3 mg/dL (8.5-10.1) L 09/26/17 05:15 Corrected Calcium 10.1 mg/dL (8.5-10.1) 09/26/17 05:15 Total Bilirubin 0.20 mg/dL (0.2-1.0) 09/26/17 05:15 AST 12 Units/L (15-37) L 09/26/17 05:15 ALT 10 Units/L (12-78) L 09/26/17 05:15 Alkaline Phosphatase 48 Units/L (46-116) 09/26/17 05:15 Total Protein 5.4 g/dL (6.4-8.2) L 09/26/17 05:15 Albumin 1.7 g/dL (3.4-5.0) L 09/26/17 05:15 Globulin 3.7 g/dL (2.5-4.5) 09/26/17 05:15 Albumin/Globulin Ratio 0.5 Ratio (1.1-2.1) L 09/26/17 05:15 Amylase 35 Units/L (25-115) 09/24/17 13:20 Lipase 60 Units/L (73-393) L 09/24/17 13:20 Specimen Type Clean catch urine 09/25/17 03:10 Urine Color Yellow (YELLOW) 09/25/17 03:10 Urine Appearance Clear (CLEAR) 09/25/17 03:10 Urine pH 7.0 (5.0 - 8.0) 09/25/17 03:10 Ur Specific [place] 1.010 (1.000-1.030) 09/25/17 03:10 Urine Protein 4+ (NEGATIVE) 09/25/17 03:10 Urine Glucose (UA) Negative (NEGATIVE) 09/25/17 03:10 Urine Ketones Negative (NEGATIVE) 09/25/17 03:10 Urine Occult Blood 1+ (NEGATIVE) 09/25/17 03:10 Urine Nitrite Negative (NEGATIVE) 09/25/17 03:10 Urine Bilirubin Negative (NEGATIVE) 09/25/17 03:10 Urine Urobilinogen Normal (NORMAL) 09/25/17 03:10 Ur Leukocyte Esterase Negative (NEGATIVE) 09/25/17 03:10 Urine RBC 0-3 /HPF (NEGATIVE) 09/25/17 03:10 Urine WBC 0-3 /HPF (NEGATIVE) 09/25/17 03:10 Ur Squamous Epith Cells Few /HPF (NEGATIVE) 09/25/17 03:10 Urine Bacteria Trace /HPF (NEGATIVE) 09/25/17 03:10 Urine Mucus Few /HPF (NEGATIVE) 09/25/17 03:10 Ur Culture Indicated? No/not indicated 09/25/17 03:10 - Plan (1) Accelerated hypertension Status: Inactive Plan: resume home meds, iv hydralazine prn. bp monitoring (2) Acute on chronic kidney failure Status: Acute Plan: IV HYDRATION, MONITOR LABS (3) Nausea & vomiting Status: Acute Plan: IVF HYDRATION, LABS, ANTIEMETICS, PAIN MGMT (4) Abdominal pain Status: Acute Qualifiers: Plan: LABS, KUB, PAIN MGMT, ANTIEMTICS (5) Diabetic gastroparesis Status: Inactive Plan: ABOVE (6) Diabetes mellitus Status: Chronic Qualifiers: Diabetes mellitus type: type 1
[2017-09-26] MEDS: ELAVIL PO SCH (21:08)
[2017-09-27] MEDS: ZOFRAN INJ 4 MG VIAL IVP PRN ×2 (04:44→11:31)
[2017-09-27] MEDS: DILAUDID INJ IVP PRN ×2 (04:44→11:31)
[2017-09-27 05:59] LABS: BASOPHILS % (AUTO) 0.4 % (0.2-1.0); EOSINOPHILS # (AUTO) 0.1 x10^3/uL (0.0-0.2); EOSINOPHILS % (AUTO) 2.5 % (0.9-2.9); HEMATOCRIT 31.6 % (36.0-47.0); HEMOGLOBIN 9.9 g/dL (12.0-16.0); LYMPHOCYTES # (AUTO) 2.4 X10^3/uL (1.3-2.9); LYMPHOCYTES % (AUTO) 47.6 % (21.0-51.0); MEAN CORPUSCULAR HEMOGLOBIN 24.9 pg (27.0-34.0); MEAN CORPUSCULAR HGB CONC 31.3 g/dL (33.0-35.0); MEAN CORPUSCULAR VOLUME 79.6 fL (80.0-100.0); MONOCYTES # (AUTO) 0.5 x10^3/uL (0.3-0.8); MONOCYTES % (AUTO) 9.1 % (0.0-13.0); NEUTROPHILS # (AUTO) 2.1 x10^3/uL (2.2-4.8); NEUTROPHILS % (AUTO) 40.4 % (42.0-75.0); PLATELET COUNT 293 X10^3/uL (150.0-450.0); RED BLOOD COUNT 3.97 X10^6/uL (3.5-5.4); RED CELL DISTRIBUTION WIDTH 15.2 % (11.6-16.5); WHITE BLOOD COUNT 5.1 X10^3/uL (3.6-10.0)
[2017-09-27 06:06] LABS: ALANINE AMINOTRANSFERASE 12 Units/L (12-78); ALBUMIN 1.8 g/dL (3.4-5.0); ALKALINE PHOSPHATASE 52 Units/L (46-116); ASPARTATE AMINO TRANSFERASE 16 Units/L (15-37); BLOOD UREA NITROGEN 7 mg/dL (7-18); CALCIUM 8.3 mg/dL (8.5-10.1); CARBON DIOXIDE 29.2 mmol/L (21-32); CHLORIDE 105 mmol/L (98-107); COR CA(FOR HYPOALB) 10.1 mg/dL (8.5-10.1); CREATININE 1.41 mg/dL (0.55-1.02); SODIUM 138 mmol/L (136-145); TOTAL PROTEIN 5.6 g/dL (6.4-8.2); eGFR BLACK RACES 55 (>60); eGFR NON BLACK RACES 46 (>60)
[2017-09-27] MEDS: COMPAZINE PO SCH ×2 (06:10→06:12)
[2017-09-27] MEDS: COREG TAB 12.5 MG PO SCH (06:12)
[2017-09-27] MEDS: CREON PO SCH ×2 (06:12→11:24)
[2017-09-27 06:35] LABS: HYPOCHROMASIA SLIGHT; PLATELET MORPHOLOGY COMMENT NORMAL (NORMAL)
[2017-09-27 08:14] VITALS: BP 101/64
[2017-09-27] MEDS: CELEXA PO SCH (09:03)
[2017-09-27] MEDS: NORVASC TAB 10 MG PO SCH (09:03)
[2017-09-27] MEDS: NORCO 7.5/325 MG TAB PO SCH (09:04)
[2017-09-27] MEDS: PROTONIX TAB 40 MG PO SCH (09:05)
[2017-09-27] MEDS: ZESTRIL TAB 40 MG PO SCH (09:05)
[2017-09-27] MEDS: PRAVACHOL PO SCH (09:05)
[2017-09-27] MEDS: AMARYL TAB 4 MG PO SCH (09:06)
[2017-09-27] MEDS: D5 1/2 NS 1000 ML 1,000 ML IV SCH (10:40)
[2017-09-27] MEDS ORDERED: SNACK - Diabetic Appropriate PO SCH (11:30)
== END 2017-09-27 13:00 | disposition home or self-care (01) | DRG 305 ==
LOC: UNDOADMOB 11:41 → MED/SURG 11:41
PROVIDERS: ADMIT Internal Medicine; ATTEND Internal Medicine
DX: I16.0 Hypertensive urgency (principal); N17.8 Other acute kidney failure; K31.84 Gastroparesis; E10.65 Type 1 diabetes mellitus with hyperglycemia; R11.2 Nausea with vomiting, unspecified; K21.9 Gastro-esophageal reflux disease without esophagitis; R10.84 Generalized abdominal pain; Z87.898 Personal history of other specified conditions; N18.9 Chronic kidney disease, unspecified
CPT/HCPCS: 36415; 74022; 80053; 81001; 82150; 83690; 85025; A4222; S0028; G0378; J0360; J1170; J2405; J2550; J2765; J7042

== ENCOUNTER 2017-10-15 15:43 | Observation (INO) | payer OTHER ==
[2017-10-15] MEDS ORDERED: NS 1000 ML 1,000 ML IV SCH (17:00)
[2017-10-15] MEDS ORDERED: DILAUDID INJ IVP SCH ×2 (17:00→18:35)
[2017-10-15] MEDS ORDERED: NS 1000 ML 1,000 ML IV ONE (18:35)
[2017-10-15 18:58] LABS: BASOPHILS # (AUTO) 0.1 X10^3/uL (0.0-0.1); BASOPHILS % (AUTO) 0.8 % (0.2-1.0); EOSINOPHILS # (AUTO) 0.1 x10^3/uL (0.0-0.2); EOSINOPHILS % (AUTO) 0.8 % (0.9-2.9); HEMATOCRIT 33.8 % (36.0-47.0); HEMOGLOBIN 10.9 g/dL (12.0-16.0); LYMPHOCYTES # (AUTO) 2.5 X10^3/uL (1.3-2.9); MEAN CORPUSCULAR HEMOGLOBIN 25.1 pg (27.0-34.0); MEAN CORPUSCULAR HGB CONC 32.3 g/dL (33.0-35.0); MEAN CORPUSCULAR VOLUME 77.7 fL (80.0-100.0); MEAN PLATELET VOLUME 9.4 fL (7.4-11.0); MONOCYTES # (AUTO) 0.8 x10^3/uL (0.3-0.8); MONOCYTES % (AUTO) 7.9 % (0.0-13.0); NEUTROPHILS # (AUTO) 6.5 x10^3/uL (2.2-4.8); NEUTROPHILS % (AUTO) 65.5 % (42.0-75.0); PLATELET COUNT 303 X10^3/uL (150.0-450.0); RED BLOOD COUNT 4.35 X10^6/uL (3.5-5.4); RED CELL DISTRIBUTION WIDTH 15.4 % (11.6-16.5)
[2017-10-15 19:07] LABS: ALBUMIN 2.1 g/dL (3.4-5.0); CALCIUM 8.5 mg/dL (8.5-10.1); CARBON DIOXIDE 28.7 mmol/L (21-32); CREATININE 1.33 mg/dL (0.55-1.02); HYPOCHROMASIA SLIGHT; PLATELET MORPHOLOGY COMMENT NORMAL (NORMAL); TOTAL PROTEIN 6.7 g/dL (6.4-8.2)
[2017-10-15] MEDS ORDERED: HumuLIN R SC PRN (19:07)
[2017-10-15 19:09] LABS: MICROCYTOSIS SLIGHT
[2017-10-15] MEDS: PROTONIX INJ 40 MG VIAL IVP SCH ×2 (19:28→22:05)
[2017-10-15] MEDS: PHENERGAN INJ 25 MG IV PRN (19:28)
--- NOTE | 2017-10-15 19:33 | RAD ---
Abdominal series. Indication: Abdominal pain gastroparesis. Findings/conclusion: There is a moderate amount of air and stool within the colon. No evidence of obs truction seen. There are several loops of distended but not dilated small bowel within the left lower quadrant. This is nonspecific. Reported By:
[2017-10-15] MEDS ORDERED: CATAPRES TAB 0.1 MG PO PRN (20:49)
[2017-10-15] MEDS: SNACK - Diabetic Appropriate PO SCH (20:58)
[2017-10-15] MEDS ORDERED: K-LYTE EFFERVESCENT PO PRN (21:03)
[2017-10-15] MEDS ORDERED: MAGNESIUM SULFATE 1 GM/100 mL PREMIX 1 GM/100 ML BAG IV PRN (21:03)
[2017-10-15] MEDS ORDERED: POTASSIUM CHLORIDE LIQ 20 MEQ UDC PO PRN (21:03)
[2017-10-15] MEDS ORDERED: POTASSIUM CHL 60 MEQ/NS 0.45% 500 ML IV PRN (21:03)
[2017-10-15] MEDS ORDERED: K-RIDER 10 MEQ/NS 100 ML 10 MEQ/100 ML BAG IV PRN (21:03)
[2017-10-15] MEDS ORDERED: POTASSIUM CHL 40 MEQ/NS 0.45% 500 ML IV PRN (21:03)
[2017-10-15] MEDS: MAG-OX TAB PO PRN (21:42)
[2017-10-15] MEDS: ZESTRIL TAB 40 MG PO SCH (21:42)
[2017-10-15] MEDS: COREG TAB 12.5 MG PO SCH (21:42)
[2017-10-15 22:00] LABS: BILIRUBIN,URINE NEGATIVE (NEGATIVE); BLOOD/HEMOGLOBIN,URINE 2+ (NEGATIVE); GLUCOSE, URINE NEGATIVE (NEGATIVE); KETONES,URINE NEGATIVE (NEGATIVE); LEUKOCYTE ESTERASE ,URINE NEGATIVE (NEGATIVE); NITRITES,URINE NEGATIVE (NEGATIVE); PROTEIN,URINE 4+ (NEGATIVE); UROBILINOGEN,URINE NORMAL (NORMAL)
[2017-10-15] MEDS: NORVASC TAB 10 MG PO SCH (22:04)
[2017-10-15 22:15] LABS: APPEARANCE,URINE SLIGHTLY HAZY (CLEAR); COLOR,URINE YELLOW (YELLOW)
[2017-10-15 22:16] LABS: AMORPHOUS SEDIMENT,UR 1+ /HPF (NEGATIVE); BACTERIA,URINE 1+ /HPF (NEGATIVE); FINE GRANULAR CASTS,URINE FEW /LPF (NEGATIVE); SQUAMOUS EPITHELIAL CELL,UR MODERATE /HPF (NEGATIVE)
[2017-10-16] MEDS: ZOFRAN INJ 4 MG VIAL IVP PRN ×2 (00:09→09:19)
[2017-10-16] MEDS: DILAUDID INJ IVP PRN ×5 (00:16→20:15)
[2017-10-16] MEDS: MAG-OX TAB PO PRN (01:45)
[2017-10-16 05:25] LABS: BASOPHILS % (AUTO) 0.5 % (0.2-1.0); EOSINOPHILS # (AUTO) 0.1 x10^3/uL (0.0-0.2); EOSINOPHILS % (AUTO) 1.6 % (0.9-2.9); HEMATOCRIT 30.2 % (36.0-47.0); HEMOGLOBIN 9.5 g/dL (12.0-16.0); LYMPHOCYTES # (AUTO) 2.4 X10^3/uL (1.3-2.9); LYMPHOCYTES % (AUTO) 31.5 % (21.0-51.0); MEAN CORPUSCULAR HGB CONC 31.6 g/dL (33.0-35.0); MEAN CORPUSCULAR VOLUME 79.1 fL (80.0-100.0); MEAN PLATELET VOLUME 9.4 fL (7.4-11.0); MONOCYTES # (AUTO) 0.7 x10^3/uL (0.3-0.8); MONOCYTES % (AUTO) 9.4 % (0.0-13.0); NEUTROPHILS # (AUTO) 4.3 x10^3/uL (2.2-4.8); PLATELET COUNT 251 X10^3/uL (150.0-450.0); RED BLOOD COUNT 3.82 X10^6/uL (3.5-5.4); RED CELL DISTRIBUTION WIDTH 14.8 % (11.6-16.5); WHITE BLOOD COUNT 7.5 X10^3/uL (3.6-10.0)
[2017-10-16] MEDS: PHENERGAN INJ 25 MG IV PRN ×3 (05:42→20:14)
[2017-10-16 05:44] LABS: ALANINE AMINOTRANSFERASE 9 Units/L (12-78); ALBUMIN 1.7 g/dL (3.4-5.0); ALKALINE PHOSPHATASE 59 Units/L (46-116); ASPARTATE AMINO TRANSFERASE 17 Units/L (15-37); BLOOD UREA NITROGEN 9 mg/dL (7-18); CALCIUM 8.2 mg/dL (8.5-10.1); CARBON DIOXIDE 29.2 mmol/L (21-32); CHLORIDE 106 mmol/L (98-107); COR NA(FOR HYPERGLY) 139 mmol/L (136-145); CREATININE 1.19 mg/dL (0.55-1.02); MAGNESIUM 1.6 mg/dL (1.7-2.9); SODIUM 139 mmol/L (136-145); TOTAL PROTEIN 5.7 g/dL (6.4-8.2); eGFR BLACK RACES > 60 (>60); eGFR NON BLACK RACES 56 (>60)
[2017-10-16 05:46] LABS: HYPOCHROMASIA SLIGHT; PLATELET MORPHOLOGY COMMENT NORMAL (NORMAL)
[2017-10-16] MEDS: PROTONIX INJ 40 MG VIAL IVP SCH ×2 (09:19→20:14)
[2017-10-16] MEDS: NORVASC TAB 10 MG PO SCH (09:19)
[2017-10-16] MEDS: ZESTRIL TAB 40 MG PO SCH (09:20)
[2017-10-16] MEDS: COREG TAB 12.5 MG PO SCH ×2 (09:20→20:15)
[2017-10-16] MEDS: NS 1000 ML 1,000 ML IV SCH ×2 (09:21→21:08)
[2017-10-16] MEDS: MILK OF MAGNESIA PO SCH ×2 (10:51→20:14)
--- NOTE | 2017-10-16 13:46 | DR.H&P ---
H&P - History & Physical for Day of: H&P Date: 10/15/17 - Chief Complaint Chief Complaint: ABDOMINAL PAIN, N/V - Allergies Allergies/Adverse Reactions: Allergies Allergy/AdvReac Type Severity Reaction Status Date / Time Penicillins Allergy Verified 07/14/17 14:28 morphine AdvReac Verified 07/14/17 14:28 - History of Present Illness History of Present Illness: PT 32 [address] ADMITTED FROM DR DARLING OFFICE WITH CO UPPER ABDOMINAL PAIN, WORSE ON LEFT UPPER ABDOMEN. PT CO N/V. PT HAS PMH OF DM, HTN, GERD. PT STATES SHE WAS SEEN BY SECRETARY TO [employer] [facility] [employer] DR GARNETT IN [place] AND IS CURRENTLY AWAITING DIAGNOSITIC TESTING ON 10/26. PT STATES SHE HAS BEEN UNABLE TO KEEP FOOD OR LIQUIDS DOWN. PT ADMITTED FOR EVALUATION AND TREATMENT OF ABDMONIAL PAIN, N/V. 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, Other - Family History Family Medical History: Diabetes Mellitus, Hypertension - Social History Does patient currently use any type of tobacco product: Yes Have you used tobacco products in the last 12 months: Yes Type of Tobacco Use: Cigarettes How many years tobacco product used: 4 Does any household member use tobacco: Yes Alcohol Use: None Drug Use: Prescription Drugs - Review of Systems Constitutional: Weakness Eyes: No Symptoms Reported ENT: No Symptoms Reported Respiratory: No Symptoms Reported Cardiovascular: No Symptoms Reported Gastrointestinal: Nausea, Vomiting, Abdominal Pain Genitourinary: Frequency Musculoskeletal: Back Pain Skin: No Symptoms Reported Neurological: No Symptoms Reported - Physical Exam Vital Signs: Temperature 98 F Pulse Rate [Left Brachial] 83 Respiratory Rate 20 Blood Pressure [Left Arm] 123/63 Blood Pressure [Right Arm] 101/64 Blood Pressure 101/64 O2 Sat by Pulse Oximetry 98 Oriented: Normal Eyes: Normal Ear: Normal Nose: Normal Throat: Normal Respiratory: RLL Diminished, LLL Diminished Cardiovascular: Normal : Normal Auscultation: Bowel Sounds: Normal Palpation: Normal Tenderness: LUQ, Epigastric Musculoskeletal: Back:Lumbar Psychiatric: Depression Affect: Depressed Speech Pattern: Clear, Appropriate - Assessment/Plan (1) Abdominal pain Qualifiers: Status: Acute Plan: ADMIT. ABD SERIES ON ADMISSION, PAIN AND NAUSEA CONTROL. RESUME HOME MEDS. BLOOD SUGAR MONITORING, UA. BP MONITORING, PPI, REGLAN (2) Nausea & vomiting Status: Acute (3) Hypokalemia Status: Acute (4) Diabetes mellitus Qualifiers: Diabetes mellitus type: type 1 Status: Chronic (5) Hypertension Qualifiers: Hypertension type: essential hypertension Qualified Code(s): I10 - Essential (primary) hypertension Status: Chronic
[2017-10-16] MEDS: REGLAN TAB 10 MG PO SCH ×3 (14:17→20:15)
[2017-10-16] MEDS: SNACK - Diabetic Appropriate PO SCH (21:08)
[2017-10-17] MEDS: PHENERGAN INJ 25 MG IV PRN ×3 (02:18→19:32)
[2017-10-17] MEDS: DILAUDID INJ IVP PRN ×4 (02:18→19:32)
[2017-10-17] MEDS: REGLAN TAB 10 MG PO SCH ×4 (05:34→21:13)
[2017-10-17 07:01] VITALS: BMI 38.6
[2017-10-17] MEDS: ZOFRAN INJ 4 MG VIAL IVP PRN ×2 (08:51→17:11)
[2017-10-17] MEDS: ZESTRIL TAB 40 MG PO SCH (08:52)
[2017-10-17] MEDS: PROTONIX INJ 40 MG VIAL IVP SCH ×2 (08:52→21:13)
[2017-10-17] MEDS: COREG TAB 12.5 MG PO SCH ×2 (08:52→21:13)
[2017-10-17] MEDS: NORVASC TAB 10 MG PO SCH (08:52)
[2017-10-17] MEDS ORDERED: LEVSIN/MAALOX/LIDOC VISC PO PRN (09:17)
--- NOTE | 2017-10-17 13:33 | PCM.PROG ---
Progress Note - Progress Note for Day of Date: 10/16/17 - Subjective Subjective: patient is a 32-year-old black female who complains of upper abdominal pain nausea and vomiting. Patient has a history of chronic GERD as well as uncontrolled blood sugar and abdominal pain. pt is under the care of Dr soriano in [place] for gastroenterology. pt has been npo since admission with little improvement of pain, continue ppi therapy, add reglan ac and hs - Past Medical Family Social History Past Med/Fam/Surg Hx: No changes since H&P Allergies: Allergies Penicillins Allergy (Verified 07/14/17 14:28) morphine Adverse Reaction (Verified 07/14/17 14:28) - Review of Systems ROS: No change since H&P - Vital Signs and I&O's Vital Signs: Temperature 98.1 F Pulse Rate [Left Brachial] 80 Respiratory Rate 20 Blood Pressure [Left Arm] 173/90 Blood Pressure [Right Arm] 101/64 Blood Pressure 101/64 O2 Sat by Pulse Oximetry 99 Intake and Output: Intake & Output 10/15/17 10/16/17 10/17/17 10/18/17 11:59 11:59 11:59 11:59 Intake Total 1800 1300 Balance 1800 1300 - Physical Exam Oriented: Normal Eyes: Normal Ear: Normal Nose: Normal Throat: Normal Cardiovascular: Normal : Normal Auscultation: Bowel Sounds: Normal Tenderness: LUQ, Epigastric Musculoskeletal: Back:Lumbar Psychiatric: Depression Affect: Depressed Speech Pattern: Clear, Appropriate - Laboratory and Diagnostics Result Diagrams: 10/16/17 04:55 10/16/17 04:55 Labs: 10/15/17 21:53 Urine,Clean Catch Urine Culture - Final Laboratory WBC 7.5 X10^3/uL (3.6-10.0) 10/16/17 04:55 RBC 3.82 X10^6/uL (3.5-5.4) 10/16/17 04:55 Hgb 9.5 g/dL (12.0-16.0) L 10/16/17 04:55 Hct 30.2 % (36.0-47.0) L 10/16/17 04:55 MCV 79.1 fL (80.0-100.0) L 10/16/17 04:55 MCH 25.0 pg (27.0-34.0) L 10/16/17 04:55 MCHC 31.6 g/dL (33.0-35.0) L 10/16/17 04:55 RDW 14.8 % (11.6-16.5) 10/16/17 04:55 Plt Count 251 X10^3/uL (150.0-450.0) 10/16/17 04:55 Plt Count Comment Adequate (ADEQUATE) 10/16/17 04:55 MPV 9.4 fL (7.4-11.0) 10/16/17 04:55 Neut % 57.0 % (42.0-75.0) 10/16/17 04:55 Lymph % 31.5 % (21.0-51.0) 10/16/17 04:55 [place] % 9.4 % (0.0-13.0) 10/16/17 04:55 Eos % 1.6 % (0.9-2.9) 10/16/17 04:55 Baso % 0.5 % (0.2-1.0) 10/16/17 04:55 Neut # 4.3 x10^3/uL (2.2-4.8) 10/16/17 04:55 Lymph # 2.4 X10^3/uL (1.3-2.9) 10/16/17 04:55 [place] # 0.7 x10^3/uL (0.3-0.8) 10/16/17 04:55 Eos # 0.1 x10^3/uL (0.0-0.2) 10/16/17 04:55 Baso # 0.0 X10^3/uL (0.0-0.1) 10/16/17 04:55 Absolute Nucleated RBC 0.0 /100WBC 10/16/17 04:55 Plt Morphology Comment Normal (NORMAL) 10/16/17 04:55 RBC Morphology Abnormal (NORMAL) A 10/16/17 04:55 Hypochromasia Slight A 10/16/17 04:55 Microcytosis Slight A 10/15/17 18:45 Sodium 139 mmol/L (136-145) 10/16/17 04:55 Corrected Sodium 139 mmol/L (136-145) 10/16/17 04:55 Potassium 4.2 mmol/L (3.5-5.1) 10/16/17 04:55 Chloride 106 mmol/L (98-107) 10/16/17 04:55 Carbon Dioxide 29.2 mmol/L (21-32) 10/16/17 04:55 BUN 9 mg/dL (7-18) 10/16/17 04:55 Creatinine 1.19 mg/dL (0.55-1.02) H 10/16/17 04:55 Est GFR (MDRD) Af Amer > 60 (>60) 10/16/17 04:55 Est GFR (MDRD) Non-Af 56 (>60) L 10/16/17 04:55 Glucose 114 mg/dL (65-99) H 10/16/17 04:55 POC Glucose (mg/dL) 137 mg/dL (65-99) H 10/17/17 11:19 Calcium 8.2 mg/dL (8.5-10.1) L 10/16/17 04:55 Corrected Calcium 10.0 mg/dL (8.5-10.1) 10/16/17 04:55 Magnesium 1.6 mg/dL (1.7-2.9) L 10/16/17 04:55 Total Bilirubin 0.20 mg/dL (0.2-1.0) 10/16/17 04:55 AST 17 Units/L (15-37) 10/16/17 04:55 ALT 9 Units/L (12-78) L 10/16/17 04:55 Alkaline Phosphatase 59 Units/L (46-116) 10/16/17 04:55 Total Protein 5.7 g/dL (6.4-8.2) L 10/16/17 04:55 Albumin 1.7 g/dL (3.4-5.0) L 10/16/17 04:55 Globulin 4.0 g/dL (2.5-4.5) 10/16/17 04:55 Albumin/Globulin Ratio 0.4 Ratio (1.1-2.1) L 10/16/17 04:55 Amylase 34 Units/L (25-115) 10/15/17 18:45 Lipase 53 Units/L (73-393) L 10/15/17 18:45 Specimen Type Clean catch urine 10/15/17 21:53 Urine Color Yellow (YELLOW) 10/15/17 21:53 Urine Appearance Slightly hazy (CLEAR) 10/15/17 21:53 Urine pH 8.0 (5.0 - 8.0) 10/15/17 21:53 Ur Specific [place] 1.015 (1.000-1.030) 10/15/17 21:53 Urine Protein 4+ (NEGATIVE) 10/15/17 21:53 Urine Glucose (UA) Negative (NEGATIVE) 10/15/17 21:53 Urine Ketones Negative (NEGATIVE) 10/15/17 21:53 Urine Occult Blood 2+ (NEGATIVE) 10/15/17 21:53 Urine Nitrite Negative (NEGATIVE) 10/15/17 21:53 Urine Bilirubin Negative (NEGATIVE) 10/15/17 21:53 Urine Urobilinogen Normal (NORMAL) 10/15/17 21:53 Ur Leukocyte Esterase Negative (NEGATIVE) 10/15/17 21:53 Urine RBC 3-5 /HPF (NEGATIVE) 10/15/17 21:53 Urine WBC 2-4 /HPF (NEGATIVE) 10/15/17 21:53 Ur Squamous Epith Cells Moderate /HPF (NEGATIVE) 10/15/17 21:53 Amorphous Sediment 1+ /HPF (NEGATIVE) 10/15/17 21:53 Urine Bacteria 1+ /HPF (NEGATIVE) 10/15/17 21:53 Fine Granular Casts Few /LPF (NEGATIVE) 10/15/17 21:53 Ur Culture Indicated? Yes/culture set up 10/15/17 21:53 Stool Description 10g liquid brn stool 10/17/17 11:30 Stl Occult Blood (IFOB) Negative (NEGATIVE) 10/17/17 11:30 - Plan (1) Abdominal pain Status: Acute Qualifiers: Plan: ABD SERIES ON ADMISSION, PAIN AND NAUSEA CONTROL. RESUME HOME MEDS. BLOOD SUGAR MONITORING, UA. BP MONITORING, PPI, REGLAN (2) Nausea & vomiting Status: Acute (3) Hypokalemia Status: Acute (4) Diabetes mellitus Status: Chronic Qualifiers: Diabetes mellitus type: type 1 Plan: ssi (5) Hypertension Status: Chronic Qualifiers: Hypertension type: essential hypertension Qualified Code(s): I10 - Essential (primary) hypertension
--- NOTE | 2017-10-17 13:35 | PCM.PROG ---
Progress Note - Progress Note for Day of Date: 10/17/17 - Subjective Subjective: patient is a 32-year-old black female who complains of upper abdominal pain nausea improving, no vomiting or diarrhea. pt has been npo, will start on clear liquid diet and advance as tolerated. pt given GI cocktail. bp control, repeat am labs - Past Medical Family Social History Past Med/Fam/Surg Hx: No changes since H&P Allergies: Allergies Penicillins Allergy (Verified 07/14/17 14:28) morphine Adverse Reaction (Verified 07/14/17 14:28) - Review of Systems ROS: No change since H&P - Vital Signs and I&O's Vital Signs: Temperature 98.1 F Pulse Rate [Left Brachial] 80 Respiratory Rate 20 Blood Pressure [Left Arm] 173/90 Blood Pressure [Right Arm] 101/64 Blood Pressure 101/64 O2 Sat by Pulse Oximetry 99 Intake and Output: Intake & Output 10/15/17 10/16/17 10/17/17 10/18/17 11:59 11:59 11:59 11:59 Intake Total 1800 1300 Balance 1800 1300 - Physical Exam Oriented: Normal Eyes: Normal Ear: Normal Nose: Normal Throat: Normal Cardiovascular: Normal : Normal Auscultation: Bowel Sounds: Normal Tenderness: LUQ, Epigastric Musculoskeletal: Back:Lumbar Psychiatric: Depression Affect: Depressed Speech Pattern: Clear, Appropriate - Laboratory and Diagnostics Result Diagrams: 10/16/17 04:55 10/16/17 04:55 Labs: 10/15/17 21:53 Urine,Clean Catch Urine Culture - Final Laboratory WBC 7.5 X10^3/uL (3.6-10.0) 10/16/17 04:55 RBC 3.82 X10^6/uL (3.5-5.4) 10/16/17 04:55 Hgb 9.5 g/dL (12.0-16.0) L 10/16/17 04:55 Hct 30.2 % (36.0-47.0) L 10/16/17 04:55 MCV 79.1 fL (80.0-100.0) L 10/16/17 04:55 MCH 25.0 pg (27.0-34.0) L 10/16/17 04:55 MCHC 31.6 g/dL (33.0-35.0) L 10/16/17 04:55 RDW 14.8 % (11.6-16.5) 10/16/17 04:55 Plt Count 251 X10^3/uL (150.0-450.0) 10/16/17 04:55 Plt Count Comment Adequate (ADEQUATE) 10/16/17 04:55 MPV 9.4 fL (7.4-11.0) 10/16/17 04:55 Neut % 57.0 % (42.0-75.0) 10/16/17 04:55 Lymph % 31.5 % (21.0-51.0) 10/16/17 04:55 [place] % 9.4 % (0.0-13.0) 10/16/17 04:55 Eos % 1.6 % (0.9-2.9) 10/16/17 04:55 Baso % 0.5 % (0.2-1.0) 10/16/17 04:55 Neut # 4.3 x10^3/uL (2.2-4.8) 10/16/17 04:55 Lymph # 2.4 X10^3/uL (1.3-2.9) 10/16/17 04:55 [place] # 0.7 x10^3/uL (0.3-0.8) 10/16/17 04:55 Eos # 0.1 x10^3/uL (0.0-0.2) 10/16/17 04:55 Baso # 0.0 X10^3/uL (0.0-0.1) 10/16/17 04:55 Absolute Nucleated RBC 0.0 /100WBC 10/16/17 04:55 Plt Morphology Comment Normal (NORMAL) 10/16/17 04:55 RBC Morphology Abnormal (NORMAL) A 10/16/17 04:55 Hypochromasia Slight A 10/16/17 04:55 Microcytosis Slight A 10/15/17 18:45 Sodium 139 mmol/L (136-145) 10/16/17 04:55 Corrected Sodium 139 mmol/L (136-145) 10/16/17 04:55 Potassium 4.2 mmol/L (3.5-5.1) 10/16/17 04:55 Chloride 106 mmol/L (98-107) 10/16/17 04:55 Carbon Dioxide 29.2 mmol/L (21-32) 10/16/17 04:55 BUN 9 mg/dL (7-18) 10/16/17 04:55 Creatinine 1.19 mg/dL (0.55-1.02) H 10/16/17 04:55 Est GFR (MDRD) Af Amer > 60 (>60) 10/16/17 04:55 Est GFR (MDRD) Non-Af 56 (>60) L 10/16/17 04:55 Glucose 114 mg/dL (65-99) H 10/16/17 04:55 POC Glucose (mg/dL) 137 mg/dL (65-99) H 10/17/17 11:19 Calcium 8.2 mg/dL (8.5-10.1) L 10/16/17 04:55 Corrected Calcium 10.0 mg/dL (8.5-10.1) 10/16/17 04:55 Magnesium 1.6 mg/dL (1.7-2.9) L 10/16/17 04:55 Total Bilirubin 0.20 mg/dL (0.2-1.0) 10/16/17 04:55 AST 17 Units/L (15-37) 10/16/17 04:55 ALT 9 Units/L (12-78) L 10/16/17 04:55 Alkaline Phosphatase 59 Units/L (46-116) 10/16/17 04:55 Total Protein 5.7 g/dL (6.4-8.2) L 10/16/17 04:55 Albumin 1.7 g/dL (3.4-5.0) L 10/16/17 04:55 Globulin 4.0 g/dL (2.5-4.5) 10/16/17 04:55 Albumin/Globulin Ratio 0.4 Ratio (1.1-2.1) L 10/16/17 04:55 Amylase 34 Units/L (25-115) 10/15/17 18:45 Lipase 53 Units/L (73-393) L 10/15/17 18:45 Specimen Type Clean catch urine 10/15/17 21:53 Urine Color Yellow (YELLOW) 10/15/17 21:53 Urine Appearance Slightly hazy (CLEAR) 10/15/17 21:53 Urine pH 8.0 (5.0 - 8.0) 10/15/17 21:53 Ur Specific [place] 1.015 (1.000-1.030) 10/15/17 21:53 Urine Protein 4+ (NEGATIVE) 10/15/17 21:53 Urine Glucose (UA) Negative (NEGATIVE) 10/15/17 21:53 Urine Ketones Negative (NEGATIVE) 10/15/17 21:53 Urine Occult Blood 2+ (NEGATIVE) 10/15/17 21:53 Urine Nitrite Negative (NEGATIVE) 10/15/17 21:53 Urine Bilirubin Negative (NEGATIVE) 10/15/17 21:53 Urine Urobilinogen Normal (NORMAL) 10/15/17 21:53 Ur Leukocyte Esterase Negative (NEGATIVE) 10/15/17 21:53 Urine RBC 3-5 /HPF (NEGATIVE) 10/15/17 21:53 Urine WBC 2-4 /HPF (NEGATIVE) 10/15/17 21:53 Ur Squamous Epith Cells Moderate /HPF (NEGATIVE) 10/15/17 21:53 Amorphous Sediment 1+ /HPF (NEGATIVE) 10/15/17 21:53 Urine Bacteria 1+ /HPF (NEGATIVE) 10/15/17 21:53 Fine Granular Casts Few /LPF (NEGATIVE) 10/15/17 21:53 Ur Culture Indicated? Yes/culture set up 10/15/17 21:53 Stool Description 10g liquid brn stool 10/17/17 11:30 Stl Occult Blood (IFOB) Negative (NEGATIVE) 10/17/17 11:30 - Plan (1) Abdominal pain Status: Acute Qualifiers: Plan: ABD SERIES ON ADMISSION, PAIN AND NAUSEA CONTROL. RESUME HOME MEDS. BLOOD SUGAR MONITORING, UA. BP MONITORING, PPI, REGLAN (2) Nausea & vomiting Status: Acute (3) Hypokalemia Status: Acute (4) Diabetes mellitus Status: Chronic Qualifiers: Diabetes mellitus type: type 1 Plan: ssi (5) Hypertension Status: Chronic Qualifiers: Hypertension type: essential hypertension Qualified Code(s): I10 - Essential (primary) hypertension
[2017-10-17] MEDS: NS 1000 ML 1,000 ML IV SCH (16:11)
[2017-10-17] MEDS: SNACK - Diabetic Appropriate PO SCH (20:30)
[2017-10-18] MEDS: DILAUDID INJ IVP PRN ×2 (02:18→08:57)
[2017-10-18] MEDS: PHENERGAN INJ 25 MG IV PRN ×2 (02:20→08:58)
[2017-10-18 05:15] LABS: BASOPHILS % (AUTO) 0.4 % (0.2-1.0); EOSINOPHILS # (AUTO) 0.1 x10^3/uL (0.0-0.2); EOSINOPHILS % (AUTO) 1.8 % (0.9-2.9); HEMATOCRIT 29.9 % (36.0-47.0); HEMOGLOBIN 9.6 g/dL (12.0-16.0); LYMPHOCYTES # (AUTO) 1.8 X10^3/uL (1.3-2.9); LYMPHOCYTES % (AUTO) 28.6 % (21.0-51.0); MEAN CORPUSCULAR HEMOGLOBIN 25.1 pg (27.0-34.0); MEAN CORPUSCULAR VOLUME 78.6 fL (80.0-100.0); MEAN PLATELET VOLUME 9.7 fL (7.4-11.0); MONOCYTES # (AUTO) 0.5 x10^3/uL (0.3-0.8); MONOCYTES % (AUTO) 8.1 % (0.0-13.0); NEUTROPHILS # (AUTO) 3.8 x10^3/uL (2.2-4.8); NEUTROPHILS % (AUTO) 61.1 % (42.0-75.0); PLATELET COUNT 254 X10^3/uL (150.0-450.0); RED CELL DISTRIBUTION WIDTH 15.1 % (11.6-16.5); WHITE BLOOD COUNT 6.3 X10^3/uL (3.6-10.0)
[2017-10-18 05:23] LABS: ALANINE AMINOTRANSFERASE 8 Units/L (12-78); ALBUMIN 1.7 g/dL (3.4-5.0); ALKALINE PHOSPHATASE 74 Units/L (46-116); ASPARTATE AMINO TRANSFERASE 13 Units/L (15-37); BLOOD UREA NITROGEN 7 mg/dL (7-18); CALCIUM 8.2 mg/dL (8.5-10.1); CARBON DIOXIDE 30.4 mmol/L (21-32); CHLORIDE 107 mmol/L (98-107); COR NA(FOR HYPERGLY) 141 mmol/L (136-145); CREATININE 1.11 mg/dL (0.55-1.02); SODIUM 140 mmol/L (136-145); TOTAL PROTEIN 5.8 g/dL (6.4-8.2); eGFR BLACK RACES > 60 (>60); eGFR NON BLACK RACES > 60 (>60)
[2017-10-18 05:31] LABS: HYPOCHROMASIA SLIGHT; PLATELET MORPHOLOGY COMMENT NORMAL (NORMAL)
[2017-10-18] MEDS: NS 1000 ML 1,000 ML IV SCH (05:48)
[2017-10-18] MEDS: REGLAN TAB 10 MG PO SCH ×2 (05:48→12:10)
[2017-10-18] MEDS: NORVASC TAB 10 MG PO SCH (08:57)
[2017-10-18] MEDS: ZESTRIL TAB 40 MG PO SCH (08:58)
[2017-10-18] MEDS: COREG TAB 12.5 MG PO SCH (08:58)
[2017-10-18] MEDS: PROTONIX INJ 40 MG VIAL IVP SCH (08:58)
[2017-10-18 12:18] VITALS: BP 139/83
== END 2017-10-18 14:05 | disposition home or self-care (01) ==
LOC: MED/SURG 15:43
PROVIDERS: ADMIT Internal Medicine; ATTEND Internal Medicine
DX: R10.32 Left lower quadrant pain (principal); R11.2 Nausea with vomiting, unspecified; I10 Essential (primary) hypertension; E10.43 Type 1 diabetes mellitus with diabetic autonomic (poly)neuropathy; E87.6 Hypokalemia; K31.84 Gastroparesis; K59.09 Other constipation; E66.01 Morbid (severe) obesity due to excess calories; K21.9 Gastro-esophageal reflux disease without esophagitis; R63.4 Abnormal weight loss
CPT/HCPCS: 36415; 74022; 80053; 81001; 82150; 82270; 83690; 83735; 85025; 87086; C9113; G0378; J1170; J1815; J2405; J2550

== ENCOUNTER 2017-10-22 14:57 | Observation (INO) | payer OTHER ==
[2017-10-22 15:02] VITALS: BMI 36.6
[2017-10-22] MEDS ORDERED: DILAUDID INJ IVP ONE (15:14)
[2017-10-22] MEDS ORDERED: PHENERGAN INJ 25 MG IM ONE (15:18)
[2017-10-22] MEDS ORDERED: NS 1000 ML 1,000 ML IV ONE (15:19)
[2017-10-22] MEDS ORDERED: DILAUDID INJ ONE ×2 (16:10→16:39)
[2017-10-22] MEDS ORDERED: NS 1000 ML 1,000 ML ONE (16:10)
[2017-10-22] MEDS ORDERED: PHENERGAN INJ 25 MG ONE (16:11)
[2017-10-22 16:27] LABS: BASOPHILS % (AUTO) 0.4 % (0.2-1.0); EOSINOPHILS # (AUTO) 0.1 x10^3/uL (0.0-0.2); EOSINOPHILS % (AUTO) 0.7 % (0.9-2.9); HEMATOCRIT 37.4 % (36.0-47.0); LYMPHOCYTES # (AUTO) 1.7 X10^3/uL (1.3-2.9); LYMPHOCYTES % (AUTO) 15.9 % (21.0-51.0); MEAN CORPUSCULAR HEMOGLOBIN 25.1 pg (27.0-34.0); MEAN CORPUSCULAR HGB CONC 32.2 g/dL (33.0-35.0); MEAN PLATELET VOLUME 9.3 fL (7.4-11.0); MONOCYTES # (AUTO) 0.7 x10^3/uL (0.3-0.8); MONOCYTES % (AUTO) 6.6 % (0.0-13.0); NEUTROPHILS # (AUTO) 8.2 x10^3/uL (2.2-4.8); NEUTROPHILS % (AUTO) 76.4 % (42.0-75.0); PLATELET COUNT 361 X10^3/uL (150.0-450.0); RED BLOOD COUNT 4.79 X10^6/uL (3.5-5.4); RED CELL DISTRIBUTION WIDTH 15.2 % (11.6-16.5); WHITE BLOOD COUNT 10.8 X10^3/uL (3.6-10.0)
[2017-10-22 16:34] LABS: ALBUMIN 2.4 g/dL (3.4-5.0); CALCIUM 9.1 mg/dL (8.5-10.1); COR CA(FOR HYPOALB) 10.4 mg/dL (8.5-10.1); CREATININE 1.35 mg/dL (0.55-1.02); TOTAL PROTEIN 7.8 g/dL (6.4-8.2)
[2017-10-22 16:38] LABS: PLATELET MORPHOLOGY COMMENT NORMAL (NORMAL)
--- NOTE | 2017-10-22 16:38 | DR.GENAD ---
HPI - PCP Primary Care Physician: kevin - Complaint/Symptoms Chief Complaint:: pt has been having abd pain since sunday night with vomiting. Self Treatment fo Chief Complaint: went to PCP office today and got toradol which did not help. Pt with abd pain x 3 days with NV, complains primarily of pain. 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, Other - Family History History of Family Medical Conditions: Yes Family Medical History: Diabetes Mellitus, Hypertension - Social History Does patient currently use any type of tobacco product: Yes Have you used tobacco products in the last 12 months: Yes Type of Tobacco Use: Cigarettes How many years tobacco product used: 6 Does any household member use tobacco: No Alcohol Use: None Do you use any recreational Drugs:: No Lives With: Family Lives Where: Home - infectious screening In the last 2 months have you had wt loss of >10#?: NO Have you had fever, night sweats or hemotysis?: No Have you traveled outside the country in the last 6 months?: No Isolation: Standard ROS - Review of Systems Constitutional: See HPI, Loss of Appetite Eyes: No Symptoms Reported ENTM: No Symptoms Reported Respiratoy: No Symptoms Reported Cardiovascular: No Symptoms Reported Gastrointestinal/Abdominal: Abdominal Pain, Nausea, Vomiting Genitourinary: No Symptoms Reported Neurological: No Symptoms Reported Musculoskeletal: No Symptoms Reported Integumentary: No Symptoms Reported Hematologic/Lymphatic: No Symptoms Reported Endocrine: No Symptoms Reported Psychiatric: No Symptoms Reported All Other Systems: Reviewed and Negative PE - Vital Signs Vitals: Temperature 98.7 F Pulse Rate 130 Respiratory Rate 16 Blood Pressure [Left Arm] 139/83 Blood Pressure [Right Arm] 129/66 Blood Pressure 171/132 O2 Sat by Pulse Oximetry 100 - General Limitations: No Limitations General Appearance: Alert, In No Apparent Distress (in pain but NAD) - Head Head Exam: Normal Inspection - Eyes Eye exam: Normal Appearance - ENT ENT Exam: Normal Exam Throat Exam: Normal Inspection - Neck Neck Exam: Normal Inspection, Trachea Midline. negative: Tenderness, Meningismus, Lymphadenopathy - Respiratory Respiratory Exam: Normal Lung Sounds Bilat. negative: Accessory Muscle Use Respiratory Exam: Bilateral Clear to Auscultation - Cardiovascular Cardiovascular Exam: Regular Rate, Normal Rhythm. negative: Systolic Murmur, Diastolic Murmur - Abdominal Exam Abdominal Exam: Normal Bowel Sounds, Soft, Tenderness, Guarding (exam difficult due to pt guarding). negative: Rebound, Rigidity, Dimnished Bowel Sounds, Hyperactive Bowel Sounds Abdominal Tenderness: Diffuse - Extremities Extremities Exam: Normal Inspection, Full ROM, Tenderness - Neurologic Neurological Exam: Alert, Oriented X3 - Psychiatric Psychiatric Exam: Agitated, Anxious - Skin Skin Exam: Warm, Dry, Intact, Normal Color ROR - Labs Reviewed Result Diagrams: 10/25/17 05:25 10/25/17 05:25 Laboratory: WBC 10.8 X10^3/uL (3.6-10.0) H 10/22/17 16:08 RBC 4.79 X10^6/uL (3.5-5.4) 10/22/17 16:08 Hgb 12.0 g/dL (12.0-16.0) 10/22/17 16:08 Hct 37.4 % (36.0-47.0) 10/22/17 16:08 MCV 78.0 fL (80.0-100.0) L 10/22/17 16:08 MCH 25.1 pg (27.0-34.0) L 10/22/17 16:08 MCHC 32.2 g/dL (33.0-35.0) L 10/22/17 16:08 RDW 15.2 % (11.6-16.5) 10/22/17 16:08 Plt Count 361 X10^3/uL (150.0-450.0) 10/22/17 16:08 MPV 9.3 fL (7.4-11.0) 10/22/17 16:08 Neut % 76.4 % (42.0-75.0) H 10/22/17 16:08 Lymph % 15.9 % (21.0-51.0) L 10/22/17 16:08 [place] % 6.6 % (0.0-13.0) 10/22/17 16:08 Eos % 0.7 % (0.9-2.9) L 10/22/17 16:08 Baso % 0.4 % (0.2-1.0) 10/22/17 16:08 Neut # 8.2 x10^3/uL (2.2-4.8) H 10/22/17 16:08 Lymph # 1.7 X10^3/uL (1.3-2.9) 10/22/17 16:08 [place] # 0.7 x10^3/uL (0.3-0.8) 10/22/17 16:08 Eos # 0.1 x10^3/uL (0.0-0.2) 10/22/17 16:08 Baso # 0.0 X10^3/uL (0.0-0.1) 10/22/17 16:08 Absolute Nucleated RBC 0.0 /100WBC 10/22/17 16:08 - Diagnosis Discharge Problem: Gastroparesis Abdominal pain Qualifiers: Abdominal location: generalized Qualified Code(s): R10.84 - Generalized abdominal pain - Discharge Plan Disposition: ADMITTED INPATIENT Condition: Stable - Follow ups/Referrals - Instructions
[2017-10-22 16:39] LABS: HYPOCHROMASIA SLIGHT
--- NOTE | 2017-10-22 17:05 | CT ---
HISTORY: Abdominal pain Study: CT abdomen and pelvis without contrast Comparison: 07/30/2017 Technique: Multiple axial images of the abdomen and pelvis were obtained without IV contrast. Dose reduction t echniques including Automated Exposure Control (AEC) and adjustment of mA and kV were utilized. Findings: Please note evaluation is limited without use of IV contrast. The visualized lung bases are clear. The liver, spleen, pancreas, kidneys, and adrenal glands are un remarkable in their unenhanced CT appearance. The gallbladder is removed. No renal calculi or obstruc tive uropathy identified. The ureters are normal. No free intraperitoneal air. No evidence of intestinal obstruction or inflammation. The appendix is n ormal. No ascites is seen. The soft tissues and osseous structures are unremarkable. Limited evaluation of vascular structures d ue to lack of contrast. No pathologically enlarged lymph nodes are identified. The uterus is removed. Unremarkable urinary bladder. IMPRESSION: 1.Negative noncontrast CT of the abdomen and pelvis. Reported By:
[2017-10-22] MEDS: NS 1000 ML 1,000 ML IV SCH ×2 (18:21→22:00)
[2017-10-22] MEDS ORDERED: CATAPRES TAB 0.1 MG PO PRN (19:28)
[2017-10-22] MEDS ORDERED: VISTARIL PO PRN (19:28)
[2017-10-22] MEDS ORDERED: FLEXERIL TAB 10 MG PO PRN (19:28)
[2017-10-22] MEDS: ELAVIL PO SCH (21:23)
[2017-10-22] MEDS: REGLAN TAB 10 MG PO SCH (21:23)
[2017-10-22] MEDS: DILAUDID INJ IVP PRN (21:29)
[2017-10-23] MEDS: NS 1000 ML 1,000 ML IV SCH ×3 (03:39→18:14)
[2017-10-23] MEDS: DILAUDID INJ IVP PRN ×5 (03:40→21:38)
[2017-10-23 06:23] LABS: BASOPHILS % (AUTO) 0.5 % (0.2-1.0); EOSINOPHILS # (AUTO) 0.1 x10^3/uL (0.0-0.2); EOSINOPHILS % (AUTO) 1.4 % (0.9-2.9); LYMPHOCYTES # (AUTO) 2.4 X10^3/uL (1.3-2.9); LYMPHOCYTES % (AUTO) 29.8 % (21.0-51.0); MEAN CORPUSCULAR HEMOGLOBIN 25.2 pg (27.0-34.0); MEAN CORPUSCULAR HGB CONC 32.3 g/dL (33.0-35.0); MEAN PLATELET VOLUME 9.3 fL (7.4-11.0); MONOCYTES # (AUTO) 0.7 x10^3/uL (0.3-0.8); MONOCYTES % (AUTO) 8.7 % (0.0-13.0); NEUTROPHILS # (AUTO) 4.7 x10^3/uL (2.2-4.8); NEUTROPHILS % (AUTO) 59.6 % (42.0-75.0); PLATELET COUNT 265 X10^3/uL (150.0-450.0); RED BLOOD COUNT 3.98 X10^6/uL (3.5-5.4); RED CELL DISTRIBUTION WIDTH 15.5 % (11.6-16.5); WHITE BLOOD COUNT 7.9 X10^3/uL (3.6-10.0)
[2017-10-23] MEDS: REGLAN TAB 10 MG PO SCH ×4 (06:23→20:45)
[2017-10-23] MEDS: COREG TAB 12.5 MG PO SCH ×2 (06:24→17:00)
[2017-10-23] MEDS: ZOFRAN INJ 4 MG VIAL IVP PRN ×2 (06:26→17:50)
[2017-10-23 06:40] LABS: HYPOCHROMASIA SLIGHT; PLATELET MORPHOLOGY COMMENT NORMAL (NORMAL)
[2017-10-23 06:42] LABS: ALANINE AMINOTRANSFERASE 7 Units/L (12-78); ALBUMIN 1.8 g/dL (3.4-5.0); ALKALINE PHOSPHATASE 66 Units/L (46-116); ASPARTATE AMINO TRANSFERASE 16 Units/L (15-37); BLOOD UREA NITROGEN 9 mg/dL (7-18); CALCIUM 8.4 mg/dL (8.5-10.1); CARBON DIOXIDE 25.8 mmol/L (21-32); CHLORIDE 108 mmol/L (98-107); COR CA(FOR HYPOALB) 10.2 mg/dL (8.5-10.1); CREATININE 1.09 mg/dL (0.55-1.02); LIPASE 42 Units/L (73-393); SODIUM 141 mmol/L (136-145); TOTAL PROTEIN 6.2 g/dL (6.4-8.2); eGFR BLACK RACES > 60 (>60); eGFR NON BLACK RACES > 60 (>60)
[2017-10-23] MEDS: CELEXA PO SCH (08:23)
[2017-10-23] MEDS: ATIVAN TAB 0.5 MG PO PRN (08:23)
[2017-10-23] MEDS: NORVASC TAB 10 MG PO SCH (08:23)
[2017-10-23] MEDS: ZESTRIL TAB 40 MG PO SCH (08:23)
[2017-10-23] MEDS: PRAVACHOL PO SCH (08:24)
[2017-10-23 09:12] LABS: BILIRUBIN,URINE NEGATIVE (NEGATIVE); BLOOD/HEMOGLOBIN,URINE 1+ (NEGATIVE); GLUCOSE, URINE NEGATIVE (NEGATIVE); KETONES,URINE NEGATIVE (NEGATIVE); LEUKOCYTE ESTERASE ,URINE NEGATIVE (NEGATIVE); NITRITES,URINE NEGATIVE (NEGATIVE); PROTEIN,URINE 4+ (NEGATIVE); UROBILINOGEN,URINE NORMAL (NORMAL)
[2017-10-23 09:21] LABS: APPEARANCE,URINE CLEAR (CLEAR); BACTERIA,URINE NEGATIVE /HPF (NEGATIVE); COLOR,URINE YELLOW (YELLOW); SQUAMOUS EPITHELIAL CELL,UR FEW /HPF (NEGATIVE)
[2017-10-23] MEDS: LIPASE PO SCH ×3 (09:42→18:14)
[2017-10-23] MEDS: PROTEASE PO SCH ×3 (09:42→18:14)
[2017-10-23] MEDS: AMYLASE PO SCH ×3 (09:42→18:14)
[2017-10-23] MEDS: [UNRECOGNIZED DRUG - OTHER] PO SCH ×3 (09:42→18:14)
--- NOTE | 2017-10-23 13:01 | DR.H&P ---
H&P - History & Physical for Day of: H&P Date: 10/22/17 - Chief Complaint Chief Complaint: severe abdominal pain, n/v - Allergies Allergies/Adverse Reactions: Allergies Allergy/AdvReac Type Severity Reaction Status Date / Time Penicillins Allergy Verified 10/22/17 14:58 morphine AdvReac Verified 10/22/17 14:58 - History of Present Illness History of Present Illness: 32BF ER ADMISSION AFTER PRESENTING WITH CO INTRACTABLE LUQ PAIN. PT STATES SHE HAD GASTRIC EMPTYING STUDY IN [place] THIS AM PER DR GARNETT AND HAS HAD CONSTANT PAIN WITHOUT RELIEF AND N/V. PT HAD CT ABD /PELVIS IN ED. PT HAD PMH OF CHRONIC ABDOMINAL PAIN, GERD, DM, HTN. PT ADMITTED FOT EVALUATION AND TREATMENT OF ABDOMINAL PAIN N/V - Past Medical History Past Medical History: Anxiety, Diabetes, Dyslipidemia, GERD Additional Medical History: Pancreatitis, Gastroparesis - Past Surgical History Surgical History: Cholecystectomy, Other - Family History Family Medical History: Diabetes Mellitus, Hypertension - Social History Does patient currently use any type of tobacco product: Yes Have you used tobacco products in the last 12 months: Yes Type of Tobacco Use: Cigarettes How many years tobacco product used: 4 Does any household member use tobacco: Yes Alcohol Use: None Drug Use: Prescription Drugs - Review of Systems Constitutional: Weakness Eyes: No Symptoms Reported ENT: No Symptoms Reported Respiratory: No Symptoms Reported Cardiovascular: No Symptoms Reported Gastrointestinal: Nausea, Vomiting, Abdominal Pain Genitourinary: No Symptoms Reported Musculoskeletal: Back Pain Skin: No Symptoms Reported Neurological: No Symptoms Reported - Physical Exam Vital Signs: Temperature 97.7 F Pulse Rate [Left Brachial] 93 Pulse Rate 130 Respiratory Rate 20 Blood Pressure [Left Arm] 160/62 Blood Pressure [Right Arm] 129/66 Blood Pressure 171/132 O2 Sat by Pulse Oximetry 94 Oriented: Normal Eyes: Normal Ear: Normal Nose: Normal Throat: Normal Respiratory: RLL Diminished, LLL Diminished Cardiovascular: Tachycardia. negative: Edema : Normal Auscultation: Bowel Sounds: Increased Tenderness: LUQ, Epigastric Skin: Normal Musculoskeletal: Normal Psychiatric: Depression Affect: Depressed Speech Pattern: Clear, Appropriate - Assessment/Plan (1) Abdominal pain Qualifiers: Status: Acute Plan: ADMIT, NPO. BLOOD SUGAR AND BLOOD PRESSURE CONTROL. RESUME HOME MEDS, IV HYDRATION, REPEAT AM LABS. IV PAIN AND NAUSEA CONTROL (2) Gastroparesis Status: Acute (3) Chronic kidney disease, stage 3 Status: Chronic (4) Diabetes mellitus Qualifiers: Diabetes mellitus type: type 1 Status: Chronic (5) Hypertension Qualifiers: Hypertension type: essential hypertension Qualified Code(s): I10 - Essential (primary) hypertension Status: Chronic
--- NOTE | 2017-10-23 13:06 | PCM.PROG ---
Progress Note - Progress Note for Day of Date: 10/23/17 - Subjective Subjective: LUQ PAIN, PT NPO THIS AM, STATES NO VOMITING. CONTINUED NAUSEA, CONTINUE NPO DIET - Past Medical Family Social History Past Med/Fam/Surg Hx: No changes since H&P Allergies: Allergies Penicillins Allergy (Verified 10/22/17 14:58) morphine Adverse Reaction (Verified 10/22/17 14:58) - Review of Systems ROS: No change since H&P - Vital Signs and I&O's Vital Signs: Temperature 97.7 F Pulse Rate [Left Brachial] 93 Pulse Rate 130 Respiratory Rate 20 Blood Pressure [Left Arm] 160/62 Blood Pressure [Right Arm] 129/66 Blood Pressure 171/132 O2 Sat by Pulse Oximetry 94 Intake and Output: Intake & Output 10/21/17 10/22/17 10/23/17 10/24/17 11:59 11:59 11:59 11:59 Intake Total 1201 Balance 1201 - Physical Exam Oriented: Normal Eyes: Normal Ear: Normal Nose: Normal Throat: Normal Respiratory: Wheezes (MILD LOWER EXP WHEEZES) Cardiovascular: Tachycardia. negative: Edema : Normal Auscultation: Bowel Sounds: Increased Tenderness: LUQ, Epigastric Skin: Normal Musculoskeletal: Normal Psychiatric: Depression Affect: Depressed Speech Pattern: Clear, Appropriate - Laboratory and Diagnostics Result Diagrams: 10/23/17 05:50 10/23/17 05:50 Labs: Laboratory WBC 7.9 X10^3/uL (3.6-10.0) 10/23/17 05:50 RBC 3.98 X10^6/uL (3.5-5.4) 10/23/17 05:50 Hgb 10.0 g/dL (12.0-16.0) L D 10/23/17 05:50 Hct 31.0 % (36.0-47.0) L 10/23/17 05:50 MCV 78.0 fL (80.0-100.0) L 10/23/17 05:50 MCH 25.2 pg (27.0-34.0) L 10/23/17 05:50 MCHC 32.3 g/dL (33.0-35.0) L 10/23/17 05:50 RDW 15.5 % (11.6-16.5) 10/23/17 05:50 Plt Count 265 X10^3/uL (150.0-450.0) 10/23/17 05:50 Plt Count Comment Adequate (ADEQUATE) 10/23/17 05:50 MPV 9.3 fL (7.4-11.0) 10/23/17 05:50 Neut % 59.6 % (42.0-75.0) 10/23/17 05:50 Lymph % 29.8 % (21.0-51.0) 10/23/17 05:50 [place] % 8.7 % (0.0-13.0) 10/23/17 05:50 Eos % 1.4 % (0.9-2.9) 10/23/17 05:50 Baso % 0.5 % (0.2-1.0) 10/23/17 05:50 Neut # 4.7 x10^3/uL (2.2-4.8) 10/23/17 05:50 Lymph # 2.4 X10^3/uL (1.3-2.9) 10/23/17 05:50 [place] # 0.7 x10^3/uL (0.3-0.8) 10/23/17 05:50 Eos # 0.1 x10^3/uL (0.0-0.2) 10/23/17 05:50 Baso # 0.0 X10^3/uL (0.0-0.1) 10/23/17 05:50 Absolute Nucleated RBC 0.0 /100WBC 10/23/17 05:50 Plt Morphology Comment Normal (NORMAL) 10/23/17 05:50 RBC Morphology Abnormal (NORMAL) A 10/23/17 05:50 Hypochromasia Slight A 10/23/17 05:50 Sodium 141 mmol/L (136-145) 10/23/17 05:50 Corrected Sodium TNP 10/23/17 05:50 Potassium 4.2 mmol/L (3.5-5.1) 10/23/17 05:50 Chloride 108 mmol/L (98-107) H 10/23/17 05:50 Carbon Dioxide 25.8 mmol/L (21-32) 10/23/17 05:50 BUN 9 mg/dL (7-18) 10/23/17 05:50 Creatinine 1.09 mg/dL (0.55-1.02) H 10/23/17 05:50 Est GFR (MDRD) Af Amer > 60 (>60) 10/23/17 05:50 Est GFR (MDRD) Non-Af > 60 (>60) 10/23/17 05:50 Glucose 97 mg/dL (65-99) 10/23/17 05:50 POC Glucose (mg/dL) 100 mg/dL (65-99) H 10/23/17 12:12 Calcium 8.4 mg/dL (8.5-10.1) L 10/23/17 05:50 Corrected Calcium 10.2 mg/dL (8.5-10.1) H 10/23/17 05:50 Total Bilirubin 0.20 mg/dL (0.2-1.0) 10/23/17 05:50 AST 16 Units/L (15-37) 10/23/17 05:50 ALT 7 Units/L (12-78) L 10/23/17 05:50 Alkaline Phosphatase 66 Units/L (46-116) 10/23/17 05:50 Total Protein 6.2 g/dL (6.4-8.2) L 10/23/17 05:50 Albumin 1.8 g/dL (3.4-5.0) L 10/23/17 05:50 Globulin 4.4 g/dL (2.5-4.5) 10/23/17 05:50 Albumin/Globulin Ratio 0.4 Ratio (1.1-2.1) L 10/23/17 05:50 Amylase 45 Units/L (25-115) 10/22/17 16:08 Lipase 42 Units/L (73-393) L 10/23/17 05:50 Specimen Type Clean catch urine 10/23/17 08:39 Urine Color Yellow (YELLOW) 10/23/17 08:39 Urine Appearance Clear (CLEAR) 10/23/17 08:39 Urine pH 6.0 (5.0 - 8.0) 10/23/17 08:39 Ur Specific [place] 1.015 (1.000-1.030) 10/23/17 08:39 Urine Protein 4+ (NEGATIVE) 10/23/17 08:39 Urine Glucose (UA) Negative (NEGATIVE) 10/23/17 08:39 Urine Ketones Negative (NEGATIVE) 10/23/17 08:39 Urine Occult Blood 1+ (NEGATIVE) 10/23/17 08:39 Urine Nitrite Negative (NEGATIVE) 10/23/17 08:39 Urine Bilirubin Negative (NEGATIVE) 10/23/17 08:39 Urine Urobilinogen Normal (NORMAL) 10/23/17 08:39 Ur Leukocyte Esterase Negative (NEGATIVE) 10/23/17 08:39 Urine RBC 1-2 /HPF (NEGATIVE) 10/23/17 08:39 Urine WBC None seen /HPF (NEGATIVE) 10/23/17 08:39 Ur Squamous Epith Cells Few /HPF (NEGATIVE) 10/23/17 08:39 Urine Bacteria Negative /HPF (NEGATIVE) 10/23/17 08:39 Ur Culture Indicated? No/not indicated 10/23/17 08:39 - Plan (1) Abdominal pain Status: Acute Qualifiers: Plan: NPO. BLOOD SUGAR AND BLOOD PRESSURE CONTROL. RESUME HOME MEDS, IV HYDRATION, REPEAT AM LABS. IV PAIN AND NAUSEA CONTROL (2) Gastroparesis Status: Acute (3) Chronic kidney disease, stage 3 Status: Chronic (4) Diabetes mellitus Status: Chronic Qualifiers: Diabetes mellitus type: type 1 (5) Hypertension Status: Chronic Qualifiers: Hypertension type: essential hypertension Qualified Code(s): I10 - Essential (primary) hypertension
[2017-10-23] MEDS: ELAVIL PO SCH (20:44)
[2017-10-23] MEDS: NORCO 7.5/325 MG TAB PO PRN (20:45)
[2017-10-24] MEDS: DILAUDID INJ IVP PRN ×5 (01:36→18:44)
[2017-10-24] MEDS: ZOFRAN INJ 4 MG VIAL IVP PRN ×3 (01:36→18:44)
[2017-10-24] MEDS: NS 1000 ML 1,000 ML IV SCH ×3 (02:36→17:22)
[2017-10-24] MEDS: REGLAN TAB 10 MG PO SCH ×4 (05:41→20:57)
[2017-10-24] MEDS: COREG TAB 12.5 MG PO SCH ×2 (06:05→17:20)
[2017-10-24] MEDS: AMYLASE PO SCH (06:06)
[2017-10-24] MEDS: [UNRECOGNIZED DRUG - OTHER] PO SCH (06:06)
[2017-10-24] MEDS: LIPASE PO SCH (06:06)
[2017-10-24] MEDS: PROTEASE PO SCH (06:06)
[2017-10-24 06:15] LABS: BASOPHILS % (AUTO) 0.5 % (0.2-1.0); EOSINOPHILS # (AUTO) 0.1 x10^3/uL (0.0-0.2); HEMATOCRIT 28.9 % (36.0-47.0); HEMOGLOBIN 9.5 g/dL (12.0-16.0); LYMPHOCYTES # (AUTO) 2.2 X10^3/uL (1.3-2.9); LYMPHOCYTES % (AUTO) 29.8 % (21.0-51.0); MEAN CORPUSCULAR HEMOGLOBIN 25.8 pg (27.0-34.0); MEAN CORPUSCULAR VOLUME 78.3 fL (80.0-100.0); MEAN PLATELET VOLUME 9.2 fL (7.4-11.0); MONOCYTES # (AUTO) 0.6 x10^3/uL (0.3-0.8); MONOCYTES % (AUTO) 8.1 % (0.0-13.0); NEUTROPHILS # (AUTO) 4.4 x10^3/uL (2.2-4.8); NEUTROPHILS % (AUTO) 59.6 % (42.0-75.0); PLATELET COUNT 254 X10^3/uL (150.0-450.0); RED BLOOD COUNT 3.69 X10^6/uL (3.5-5.4); RED CELL DISTRIBUTION WIDTH 15.2 % (11.6-16.5); WHITE BLOOD COUNT 7.4 X10^3/uL (3.6-10.0)
[2017-10-24 06:27] LABS: ALANINE AMINOTRANSFERASE 8 Units/L (12-78); ALBUMIN 1.7 g/dL (3.4-5.0); ALKALINE PHOSPHATASE 64 Units/L (46-116); ASPARTATE AMINO TRANSFERASE 15 Units/L (15-37); BLOOD UREA NITROGEN 7 mg/dL (7-18); CALCIUM 8.3 mg/dL (8.5-10.1); CARBON DIOXIDE 27.7 mmol/L (21-32); CHLORIDE 107 mmol/L (98-107); COR CA(FOR HYPOALB) 10.1 mg/dL (8.5-10.1); COR NA(FOR HYPERGLY) 139 mmol/L (136-145); CREATININE 0.97 mg/dL (0.55-1.02); SODIUM 139 mmol/L (136-145); TOTAL PROTEIN 5.9 g/dL (6.4-8.2); eGFR BLACK RACES > 60 (>60); eGFR NON BLACK RACES > 60 (>60)
[2017-10-24 07:20] LABS: PLATELET MORPHOLOGY COMMENT NORMAL (NORMAL)
[2017-10-24 07:21] LABS: HYPOCHROMASIA 1+; MICROCYTOSIS 1+
[2017-10-24] MEDS: NORCO 7.5/325 MG TAB PO PRN (08:48)
[2017-10-24] MEDS: ZESTRIL TAB 40 MG PO SCH (08:48)
[2017-10-24] MEDS: NORVASC TAB 10 MG PO SCH (08:48)
[2017-10-24] MEDS: PRAVACHOL PO SCH (08:48)
[2017-10-24] MEDS: CELEXA PO SCH (08:48)
[2017-10-24] MEDS: ATIVAN TAB 0.5 MG PO PRN (14:37)
[2017-10-24] MEDS: CREON PO SCH (17:21)
[2017-10-24] MEDS: ELAVIL PO SCH (20:57)
[2017-10-25] MEDS: NORCO 7.5/325 MG TAB PO PRN ×2 (00:47→11:55)
[2017-10-25] MEDS: NS 1000 ML 1,000 ML IV SCH (01:25)
[2017-10-25] MEDS: DILAUDID INJ IVP PRN ×2 (03:05→07:59)
[2017-10-25] MEDS: REGLAN TAB 10 MG PO SCH ×2 (05:55→11:55)
[2017-10-25 06:16] LABS: ALANINE AMINOTRANSFERASE 7 Units/L (12-78); ALBUMIN 1.8 g/dL (3.4-5.0); ALKALINE PHOSPHATASE 63 Units/L (46-116); ASPARTATE AMINO TRANSFERASE 13 Units/L (15-37); BLOOD UREA NITROGEN 5 mg/dL (7-18); CALCIUM 8.6 mg/dL (8.5-10.1); CARBON DIOXIDE 25.1 mmol/L (21-32); CHLORIDE 108 mmol/L (98-107); COR CA(FOR HYPOALB) 10.4 mg/dL (8.5-10.1); CREATININE 0.95 mg/dL (0.55-1.02); SODIUM 140 mmol/L (136-145); eGFR BLACK RACES > 60 (>60); eGFR NON BLACK RACES > 60 (>60)
[2017-10-25] MEDS: CREON PO SCH ×2 (06:17→14:25)
[2017-10-25] MEDS: COREG TAB 12.5 MG PO SCH (06:17)
[2017-10-25 06:18] LABS: BASOPHILS % (AUTO) 0.6 % (0.2-1.0); EOSINOPHILS # (AUTO) 0.1 x10^3/uL (0.0-0.2); EOSINOPHILS % (AUTO) 1.7 % (0.9-2.9); HEMATOCRIT 30.1 % (36.0-47.0); HEMOGLOBIN 9.7 g/dL (12.0-16.0); LYMPHOCYTES # (AUTO) 2.1 X10^3/uL (1.3-2.9); LYMPHOCYTES % (AUTO) 29.4 % (21.0-51.0); MEAN CORPUSCULAR HEMOGLOBIN 25.3 pg (27.0-34.0); MEAN CORPUSCULAR HGB CONC 32.1 g/dL (33.0-35.0); MEAN CORPUSCULAR VOLUME 78.6 fL (80.0-100.0); MEAN PLATELET VOLUME 9.4 fL (7.4-11.0); MONOCYTES # (AUTO) 0.6 x10^3/uL (0.3-0.8); MONOCYTES % (AUTO) 7.8 % (0.0-13.0); NEUTROPHILS # (AUTO) 4.3 x10^3/uL (2.2-4.8); NEUTROPHILS % (AUTO) 60.5 % (42.0-75.0); PLATELET COUNT 254 X10^3/uL (150.0-450.0); RED BLOOD COUNT 3.83 X10^6/uL (3.5-5.4); RED CELL DISTRIBUTION WIDTH 14.8 % (11.6-16.5); WHITE BLOOD COUNT 7.1 X10^3/uL (3.6-10.0)
[2017-10-25 07:08] LABS: PLATELET MORPHOLOGY COMMENT NORMAL (NORMAL)
[2017-10-25] MEDS: ZOFRAN INJ 4 MG VIAL IVP PRN (07:57)
[2017-10-25] MEDS: NORVASC TAB 10 MG PO SCH (08:01)
[2017-10-25] MEDS: PRAVACHOL PO SCH (08:01)
[2017-10-25] MEDS: CELEXA PO SCH (08:01)
[2017-10-25] MEDS: ZESTRIL TAB 40 MG PO SCH (08:01)
[2017-10-25 12:07] VITALS: BP 168/90
== END 2017-10-25 14:05 | disposition home or self-care (01) | DRG 392 ==
LOC: ER 15:08 → ICU 17:00 → MED/SURG 10-23 15:17
PROVIDERS: ADMIT Internal Medicine; ATTEND Internal Medicine
DX: R10.84 Generalized abdominal pain (principal); R10.12 Left upper quadrant pain; K31.84 Gastroparesis; E10.43 Type 1 diabetes mellitus with diabetic autonomic (poly)neuropathy; R11.2 Nausea with vomiting, unspecified; K21.9 Gastro-esophageal reflux disease without esophagitis; E10.65 Type 1 diabetes mellitus with hyperglycemia; N18.3 Chronic kidney disease, stage 3 (moderate); F41.8 Other specified anxiety disorders; E78.2 Mixed hyperlipidemia
CPT/HCPCS: 36415; 74176; 80053; 81001; 82150; 83690; 85025; 96365; 96372; 96374; 99284; A4216; G0378; J1170; J2405; J2550

== ENCOUNTER 2017-10-29 16:15 | Emergency (ER) | payer OTHER ==
[2017-10-29 16:24] VITALS: BMI 36.8
[2017-10-29] MEDS ORDERED: PEPCID 20 MG IV PREMIX* 20 MG/50 ML BAG IV ONE ×2 (16:43→17:04)
[2017-10-29] MEDS ORDERED: ZOFRAN INJ 4 MG VIAL IVP ONE (16:43)
[2017-10-29] MEDS ORDERED: DILAUDID INJ IVP ONE ×2 (16:44→18:34)
--- NOTE | 2017-10-29 16:44 | ED.ABDFE ---
HPI - Time seen Time seen: 16:40 - PCP Primary Care Physician: REGINA PENDLETON - HPI Comment HPI Comment: NO FEVER OR DYSURIA. PATIENT IS NOT HOLDING DOWN HER MEDICATIONS OR FLUID. - Complaint Chief Complaint Doctors Comments: ABDOMINAL PAIN, N/V. AWAITING HER MONTHLY PAIN MED FROM HER DOCTORS OFFICE. Chief Complaint:: PT C/O NOT BEING ABLE TO KEEP ANYTHING DOWN SINCE SUNDAY .. PT D/C FROM [facility] ON SUNDAY PT STATES " MY DOCTOR HAS NOT FILLED MY PAIN MEDS " .PT IS TEARFUL .. NO N/V NOTED AT THIS TIME. - Nurses notes reviewed Nurses Notes Review: Yes - Source History Provided: Patient - Mode of arrival Mode of Arrival: Ambulatory - Timing Onset of Chief Complaint: 11/02/17 Came on: Gradually - Duration Duration: Constant Duration: Days - Location Location: RUQ, LUQ, Epigastric - Severity Severity: Severe - Quality Quality: Sharp - Context Onset: Gradually - Modifying Worsening Factors: Nothing Improving Factors: Nothing - Associated signs and symptoms Associated Signs and Symptoms: Nausea, Vomiting PMH - PMH Past Medical History: Yes Past Medical History: Anxiety, Diabetes, Dyslipidemia, GERD Past Surgical History: Yes Surgical History: Cholecystectomy, Hysterectomy, Other Past Surgical History Comment: C-EDITA, PAC - Family History History of Family Medical Conditions: Yes Family Medical History: Diabetes Mellitus, Hypertension - Social History Does patient currently use any type of tobacco product: Yes Have you used tobacco products in the last 12 months: Yes Type of Tobacco Use: Cigarettes How many years tobacco product used: 4 Does any household member use tobacco: No Alcohol Use: Rarely Do you use any recreational Drugs:: No Lives With: Family Lives Where: Home - infectious screening In the last 2 months have you had wt loss of >10#?: NO Have you had fever, night sweats or hemotysis?: No Have you traveled outside the country in the last 6 months?: No Isolation: Standard ROS - Review of Systems Constitutional: No Symptoms Reported Eyes: No Symptoms Reported ENTM: No Symptoms Reported. negative: Ear Pain, Nose Discharge, Nose Congestion , Throat Pain Respiratoy: No Symptoms Reported Cardiovascular: No Symptoms Reported Gastrointestinal/Abdominal: Abdominal Pain, Nausea, Vomiting. negative: Diarrhea Genitourinary: No Symptoms Reported Neurological: No Symptoms Reported Musculoskeletal: No Symptoms Reported Integumentary: No Symptoms Reported Hematologic/Lymphatic: No Symptoms Reported Endocrine: No Symptoms Reported All Other Systems: Reviewed and Negative PE - Vital Signs Vitals: Temperature 98.0 F Pulse Rate [Left Brachial] 107 Pulse Rate 113 Respiratory Rate 16 Blood Pressure [Left Arm] 149/76 Blood Pressure [Right Arm] 129/66 Blood Pressure 183/135 O2 Sat by Pulse Oximetry 99 - General Limitations: No Limitations General Appearance: Alert - Head Head Exam: Normal Inspection - Eyes Eye exam: Normal Appearance - ENT ENT Exam: Normal External Ear Exam - Neck Neck Exam: Normal Inspection - Chest Chest Inspection: Symmetric Chest Wall Rise - Respiratory Respiratory Exam: Normal Lung Sounds Bilat Respiratory Exam: Bilateral Clear to Auscultation - Cardiovascular Cardiovascular Exam: Regular Rate, Normal Rhythm, Normal Heart Sounds - Abdominal Exam Abdominal Exam: Normal Bowel Sounds, Soft, Tenderness Abdominal Tenderness: RUQ, LUQ, Suprapubic, Moderate - Rectal Rectal Exam: Deferred - Back Back Exam: Normal Inspection - Extremeties Extremities Exam: Normal Inspection - External Exam: Female: Deferred : Speculum Exam (Female): Deferred : Bimanual Exam (female): Deferred - Neurologic Neurological Exam: Alert, Oriented X3 - Psychiatric Psychiatric Exam: Normal Affect, Normal Mood - Skin Skin Exam: Normal Color MDM - Differential Diagnosis Differential Diagnosis- Considerations may include:: Bowel Obstruction, Cholcystitis, Cholelethiasis, Diverticular disease, Gastritus/PUD, Gastroenteritis, Urinary tract infection, Urolithiasis Course - Treatment Treatment: SEE ORDERS. - Education/Counseling Education/Counseling: Patient, Education Educated On: Treatment, Diagnosis ROR - Labs Reviewed Laboratory Results Reviewed?: Yes Result Diagrams: 10/29/17 16:57 10/29/17 16:57 Laboratory: WBC 10.2 X10^3/uL (3.6-10.0) H 10/29/17 16:57 RBC 4.66 X10^6/uL (3.5-5.4) 10/29/17 16:57 Hgb 11.7 g/dL (12.0-16.0) L 10/29/17 16:57 Hct 36.1 % (36.0-47.0) 10/29/17 16:57 MCV 77.6 fL (80.0-100.0) L 10/29/17 16:57 MCH 25.1 pg (27.0-34.0) L 10/29/17 16:57 MCHC 32.4 g/dL (33.0-35.0) L 10/29/17 16:57 RDW 15.3 % (11.6-16.5) 10/29/17 16:57 Plt Count 355 X10^3/uL (150.0-450.0) 10/29/17 16:57 Plt Count Comment Adequate (ADEQUATE) 10/29/17 16:57 MPV 8.9 fL (7.4-11.0) 10/29/17 16:57 Neut % 67.9 % (42.0-75.0) 10/29/17 16:57 Lymph % 23.9 % (21.0-51.0) 10/29/17 16:57 [place] % 7.0 % (0.0-13.0) 10/29/17 16:57 Eos % 0.5 % (0.9-2.9) L 10/29/17 16:57 Baso % 0.7 % (0.2-1.0) 10/29/17 16:57 Neut # 6.9 x10^3/uL (2.2-4.8) H 10/29/17 16:57 Lymph # 2.4 X10^3/uL (1.3-2.9) 10/29/17 16:57 [place] # 0.7 x10^3/uL (0.3-0.8) 10/29/17 16:57 Eos # 0.1 x10^3/uL (0.0-0.2) 10/29/17 16:57 Baso # 0.1 X10^3/uL (0.0-0.1) 10/29/17 16:57 Absolute Nucleated RBC 0.0 /100WBC 10/29/17 16:57 Plt Morphology Comment Normal (NORMAL) 10/29/17 16:57 RBC Morphology Abnormal (NORMAL) A 10/29/17 16:57 Hypochromasia Slight A 10/29/17 16:57 Microcytosis Slight A 10/29/17 16:57 Sodium 139 mmol/L (136-145) 10/29/17 16:57 Corrected Sodium 140 mmol/L (136-145) 10/29/17 16:57 Potassium 4.1 mmol/L (3.5-5.1) 10/29/17 16:57 Chloride 103 mmol/L (98-107) 10/29/17 16:57 Carbon Dioxide 27.4 mmol/L (21-32) 10/29/17 16:57 BUN 9 mg/dL (7-18) 10/29/17 16:57 Creatinine 1.33 mg/dL (0.55-1.02) H 10/29/17 16:57 Est GFR (MDRD) Af Amer 59 (>60) 10/29/17 16:57 Est GFR (MDRD) Non-Af 49 (>60) L 10/29/17 16:57 Glucose 136 mg/dL (65-99) H 10/29/17 16:57 Calcium 8.9 mg/dL (8.5-10.1) 10/29/17 16:57 Corrected Calcium 10.3 mg/dL (8.5-10.1) H 10/29/17 16:57 Total Bilirubin 0.20 mg/dL (0.2-1.0) 10/29/17 16:57 AST 16 Units/L (15-37) 10/29/17 16:57 ALT 9 Units/L (12-78) L 10/29/17 16:57 Alkaline Phosphatase 72 Units/L (46-116) 10/29/17 16:57 Total Protein 7.4 g/dL (6.4-8.2) 10/29/17 16:57 Albumin 2.2 g/dL (3.4-5.0) L 10/29/17 16:57 Globulin 5.2 g/dL (2.5-4.5) H 10/29/17 16:57 Albumin/Globulin Ratio 0.4 Ratio (1.1-2.1) L 10/29/17 16:57 Amylase 35 Units/L (25-115) 10/29/17 16:57 Lipase 41 Units/L (73-393) L 10/29/17 16:57 - XRAY XRAY Findings: REPORT DISCUSS WITH PATIENT. - Diagnosis Discharge Problem: Gastroparesis Abdominal pain Qualifiers: Abdominal location: generalized Qualified Code(s): R10.84 - Generalized abdominal pain Nausea & vomiting Qualifiers: Vomiting type: bilious vomiting Qualified Code(s): R11.14 - Bilious vomiting - Discharge Plan Disposition: HOME, SELF-CARE Condition: Stable - Follow ups/Referrals Follow ups/Referrals: Gustavo PICKARD [Primary Care Provider] - 10/30/17 SUE TAPIA [STAFF PHYSICIAN] - 10/30/17 - Instructions Instructions: Nausea and Vomiting, Adult, [id number], Abdominal Pain, Adult, [id number], Gastroparesis Additional Instructions: RETURN TO ED IF WORSE.
[2017-10-29 17:02] LABS: BASOPHILS # (AUTO) 0.1 X10^3/uL (0.0-0.1); BASOPHILS % (AUTO) 0.7 % (0.2-1.0); EOSINOPHILS # (AUTO) 0.1 x10^3/uL (0.0-0.2); EOSINOPHILS % (AUTO) 0.5 % (0.9-2.9); HEMATOCRIT 36.1 % (36.0-47.0); HEMOGLOBIN 11.7 g/dL (12.0-16.0); LYMPHOCYTES # (AUTO) 2.4 X10^3/uL (1.3-2.9); LYMPHOCYTES % (AUTO) 23.9 % (21.0-51.0); MEAN CORPUSCULAR HEMOGLOBIN 25.1 pg (27.0-34.0); MEAN CORPUSCULAR HGB CONC 32.4 g/dL (33.0-35.0); MEAN CORPUSCULAR VOLUME 77.6 fL (80.0-100.0); MEAN PLATELET VOLUME 8.9 fL (7.4-11.0); MONOCYTES # (AUTO) 0.7 x10^3/uL (0.3-0.8); NEUTROPHILS # (AUTO) 6.9 x10^3/uL (2.2-4.8); NEUTROPHILS % (AUTO) 67.9 % (42.0-75.0); PLATELET COUNT 355 X10^3/uL (150.0-450.0); RED BLOOD COUNT 4.66 X10^6/uL (3.5-5.4); RED CELL DISTRIBUTION WIDTH 15.3 % (11.6-16.5); WHITE BLOOD COUNT 10.2 X10^3/uL (3.6-10.0)
[2017-10-29] MEDS ORDERED: DILAUDID INJ ONE ×2 (17:04→18:36)
[2017-10-29] MEDS ORDERED: ZOFRAN INJ 4 MG VIAL ONE (17:04)
[2017-10-29 17:14] LABS: ALBUMIN 2.2 g/dL (3.4-5.0); CALCIUM 8.9 mg/dL (8.5-10.1); CARBON DIOXIDE 27.4 mmol/L (21-32); COR CA(FOR HYPOALB) 10.3 mg/dL (8.5-10.1); CREATININE 1.33 mg/dL (0.55-1.02); TOTAL PROTEIN 7.4 g/dL (6.4-8.2)
[2017-10-29 17:22] LABS: HYPOCHROMASIA SLIGHT; MICROCYTOSIS SLIGHT; PLATELET MORPHOLOGY COMMENT NORMAL (NORMAL)
--- NOTE | 2017-10-29 17:46 | RAD ---
HISTORY: Abdominal pain, gastroparesis Study: Acute abdominal series, four views were obtained Comparison: October 22, 2017 Findings: Chest: A right-sided Port-A-Cath is noted terminating in the SVC. The heart is normal. The lungs are clear. Additional tubing projects over the right ion thorax which is likely external to the patient. There is no effusion or pneumothorax. Osseous structures are intact. Abdomen: Cholecystectomy clips are noted. There is no pneumoperitoneum. There is a normal bowel gas p attern. No pathologic soft tissue calcifications are seen. Osseous structures are intact. IMPRESSION: No acute finding within the chest or abdomen. Reported By:
[2017-10-29] MEDS ORDERED: PHENERGAN INJ 25 MG IV ONE (18:11)
[2017-10-29] MEDS ORDERED: PHENERGAN INJ 25 MG ONE (18:13)
[2017-10-29] MEDS ORDERED: NORCO 10/325 TAB PO ONE (19:34)
[2017-10-29] MEDS ORDERED: NORCO 10/325 TAB ONE ×2 (19:39)
[2017-10-29 19:56] VITALS: BP 149/76
== END 2017-10-29 19:56 | disposition home or self-care (01) ==
LOC: ER 16:27
DX: K31.84 Gastroparesis (principal); R10.84 Generalized abdominal pain; R11.14 Bilious vomiting
CPT/HCPCS: 36415; 36591; 74022; 80053; 82150; 83690; 85025; 96365; 96374; 96375; 99282; 99283; A4222; S0028; J2405; J2550

== ENCOUNTER 2017-11-04 14:25 | Emergency (ER) | payer OTHER ==
[2017-11-04 14:30] VITALS: BP 193/91; BMI 36.8
[2017-11-04] MEDS ORDERED: NS 1000 ML 1,000 ML IV ONE (15:05)
[2017-11-04] MEDS ORDERED: COMPAZINE INJ IVP ONE (15:06)
[2017-11-04] MEDS ORDERED: DEMEROL INJ IVP ONE ×2 (15:07→16:00)
--- NOTE | 2017-11-04 15:08 | DR.GENAD ---
HPI - PCP Primary Care Physician: REGINA - Complaint/Symptoms Chief Complaint Doctors Comments: Patient presents with complaint of vomiting and stomach pain for one day. She admits to a pain level of 4 or 5 usually mediated with hydrocodone 7.5 and fentyl 50mcg. She states that if her pain persist then she increase to hydrocodone twice daily. She denies fever. PMH: HTN and DM. Chief Complaint:: PT C/O ABD PAIN AND VOMITTING THAT STARTED YESTERDAY. PT STATES SHE HAS NOT BEEN ABLE TO HOLD DOWN HER PAIN MEDICATIONS FOR THE PAIN. PT STATES SHE [facility] VOMITTED X 6 TIMES IN [facility] 24 HOURS. - Source History Provided: Patient - Mode of Arrival Mode of Arrival: Ambulatory - Timing Onset of Chief Complaint: 11/03/17 PMH - PMH Past Medical History: Yes Past Medical History: Anxiety, Diabetes, Dyslipidemia, GERD Past Medical History Comment: GASTROPARESIS Past Surgical History: Yes Surgical History: , Cholecystectomy, Hysterectomy, Other Past Surgical History Comment: PORT A CATH - Family History History of Family Medical Conditions: Yes Family Medical History: Diabetes Mellitus, Hypertension - Social History Does patient currently use any type of tobacco product: Yes Have you used tobacco products in the last 12 months: Yes Type of Tobacco Use: Cigarettes Does any household member use tobacco: Yes Alcohol Use: None Do you use any recreational Drugs:: No Lives With: Family Lives Where: Home - infectious screening In the last 2 months have you had wt loss of >10#?: NO Have you had fever, night sweats or hemotysis?: No Have you traveled outside the country in the last 6 months?: No Isolation: Standard ROS - Review of Systems Eyes: No Symptoms Reported ENTM: No Symptoms Reported Respiratoy: No Symptoms Reported Cardiovascular: No Symptoms Reported Gastrointestinal/Abdominal: No Symptoms Reported Genitourinary: No Symptoms Reported Neurological: No Symptoms Reported Musculoskeletal: No Symptoms Reported Integumentary: No Symptoms Reported Hematologic/Lymphatic: No Symptoms Reported Endocrine: No Symptoms Reported Psychiatric: No Symptoms Reported All Other Systems: Reviewed and Negative PE - Vital Signs Vitals: Temperature 97.4 F Pulse Rate 116 Respiratory Rate 18 Blood Pressure [Left Arm] 149/76 Blood Pressure [Right Arm] 129/66 Blood Pressure 193/91 O2 Sat by Pulse Oximetry 100 - General General Appearance: Alert, Anxious - Head Head Exam: Normal Inspection, Atraumatic - Eyes Eye exam: Normal Appearance, PERRL, EOMI - ENT ENT Exam: Normal Exam External Ear Exam: Normal External Inspection TM/Canal Exam: Bilateral Normal Nose Exam: Normal Nose Exam Mouth Exam: Normal Inspection Throat Exam: Normal Inspection - Neck Neck Exam: Normal Inspection - Chest Chest Inspection: Normal Inspection - Respiratory Respiratory Exam: Normal Lung Sounds Bilat Respiratory Exam: Bilateral Clear to Auscultation - Cardiovascular Cardiovascular Exam: Regular Rate, Normal Rhythm - Abdominal Exam Abdominal Exam: Normal Inspection, Normal Bowel Sounds Abdominal Tenderness: Epigastrium - Extremities Extremities Exam: Normal Inspection - Back Back Exam: Normal Inspection - Neurologic Neurological Exam: Alert, Oriented X3, CN II-XII Intact - Psychiatric Psychiatric Exam: Normal Affect - Skin Skin Exam: Warm, Dry, Intact Course - Reevaluation 1st: Improved ROR - Labs Reviewed Result Diagrams: 11/04/17 15:30 11/04/17 15:30 Laboratory: WBC 11.0 X10^3/uL (3.6-10.0) H 11/04/17 15:30 RBC 4.53 X10^6/uL (3.5-5.4) 11/04/17 15:30 Hgb 11.5 g/dL (12.0-16.0) L 11/04/17 15:30 Hct 35.4 % (36.0-47.0) L 11/04/17 15: MCV 78.1 fL (80.0-100.0) L 11/04/17 15:30 MCH 25.4 pg (27.0-34.0) L 11/04/17 15:30 MCHC 32.5 g/dL (33.0-35.0) L 11/04/17 15:30 RDW 15.3 % (11.6-16.5) 11/04/17 15:30 Plt Count 374 X10^3/uL (150.0-450.0) 11/04/17 15:30 Plt Count Comment Adequate (ADEQUATE) 11/04/17 15: MPV 9.2 fL (7.4-11.0) 11/04/17 15:30 Neut % 69.5 % (42.0-75.0) 11/04/17 15: Lymph % 22.2 % (21.0-51.0) 11/04/17 15:30 [place] % 7.4 % (0.0-13.0) 11/04/17 15:30 Eos % 0.3 % (0.9-2.9) L 11/04/17 15:30 Baso % 0.6 % (0.2-1.0) 11/04/17 15:30 Neut # 7.6 x10^3/uL (2.2-4.8) H 11/04/17 15:30 Lymph # 2.4 X10^3/uL (1.3-2.9) 11/04/17 15:30 [place] # 0.8 x10^3/uL (0.3-0.8) 11/04/17 15: Eos # 0.0 x10^3/uL (0.0-0.2) 11/04/17 15:30 Baso # 0.1 X10^3/uL (0.0-0.1) 11/04/17 15:30 Absolute Nucleated RBC 0.0 /100WBC 11/04/17 15:30 Plt Morphology Comment Normal (NORMAL) 11/04/17 15:30 RBC Morphology Abnormal (NORMAL) A 11/04/17 15:30 Hypochromasia Slight A 11/04/17 15:30 Microcytosis Slight A 11/04/17 15:30 Sodium 139 mmol/L (136-145) 11/04/17 15:30 Corrected Sodium 139 mmol/L (136-145) 11/04/17 15:30 Potassium 3.7 mmol/L (3.5-5.1) 11/04/17 15:30 Chloride 103 mmol/L (98-107) 11/04/17 15:30 Carbon Dioxide 27.3 mmol/L (21-32) 11/04/17 15:30 BUN 7 mg/dL (7-18) 11/04/17 15:30 Creatinine 1.30 mg/dL (0.55-1.02) H 11/04/17 15:30 Est GFR (MDRD) Af Amer > 60 (>60) 11/04/17 15:30 Est GFR (MDRD) Non-Af 50 (>60) L 11/04/17 15:30 Glucose 118 mg/dL (65-99) H 11/04/17 15:30 Calcium 9.1 mg/dL (8.5-10.1) 11/04/17 15:30 Corrected Calcium 10.5 mg/dL (8.5-10.1) H 11/04/17 15:30 Total Bilirubin 0.20 mg/dL (0.2-1.0) 11/04/17 15:30 AST 18 Units/L (15-37) 11/04/17 15:30 ALT 10 Units/L (12-78) L 11/04/17 15:30 Alkaline Phosphatase 73 Units/L (46-116) 11/04/17 15:30 C-Reactive Protein 0.80 mg/L (0-3.0) 11/04/17 15:30 Total Protein 7.3 g/dL (6.4-8.2) 11/04/17 15:30 Albumin 2.3 g/dL (3.4-5.0) L 11/04/17 15:30 Globulin 5.0 g/dL (2.5-4.5) H 11/04/17 15:30 Albumin/Globulin Ratio 0.5 Ratio (1.1-2.1) L 11/04/17 15:30 Amylase 34 Units/L (25-115) 11/04/17 15:30 Lipase 42 Units/L (73-393) L 11/04/17 15:30 Specimen Type Clean catch urine 11/04/17 15:22 Urine Color Yellow (YELLOW) 11/04/17 15:22 Urine Appearance Clear (CLEAR) 11/04/17 15:22 Urine pH 8.0 (5.0 - 8.0) 11/04/17 15:22 Ur Specific [place] 1.010 (1.000-1.030) 11/04/17 15:22 Urine Protein 4+ (NEGATIVE) 11/04/17 15:22 Urine Glucose (UA) Negative (NEGATIVE) 11/04/17:22 Urine Ketones Negative (NEGATIVE) 11/04/17: Urine Occult Blood 2+ (NEGATIVE) 11/04/17 15:22 Urine Nitrite Negative (NEGATIVE) 11/04/17 15:22 Urine Bilirubin Negative (NEGATIVE) 11/04/17 15:22 Urine Urobilinogen Normal (NORMAL) 11/04/17 15:22 Ur Leukocyte Esterase Negative (NEGATIVE) 11/04/17 15:22 Urine RBC 3-5 /HPF (NONE SEEN) 11/04/17 15:22 Urine WBC None seen /HPF (NONE SEEN) 11/04/17 15:22 Ur Squamous Epith Cells Few /HPF (NEGATIVE) 11/04/17 15:22 Urine Bacteria Trace /HPF (NEGATIVE) 11/04/17 15:22 Ur Culture Indicated? No/not indicated 11/04/17 15:22 - XRAY XRAY Interpreted by: Radiologist (Chest:Normal heart size, clear lungs. Right subclavian injection port. No pleural fluid or subdiaphragmatic air. Additonal supine and upright views of abdomen demonstrate normal gas pattern without evidence for obstruction, ileus, mass formation or phathologic calcification. There are surgical clips in the right upper quadrant. Impression: No acute process. Postsurgical findings consistent with cholecystectomy.) - Diagnosis Discharge Problem: Gastroparesis Nausea & vomiting Qualifiers: Vomiting type: unspecified Vomiting Intractability: non-intractable Qualified Code(s): R11.2 - Nausea with vomiting, unspecified - Discharge Plan Condition: Stable - Follow ups/Referrals Follow ups/Referrals: SUE TAPIA [Primary Care Provider] - 3 days - Instructions
[2017-11-04 15:24] LABS: BILIRUBIN,URINE NEGATIVE (NEGATIVE); BLOOD/HEMOGLOBIN,URINE 2+ (NEGATIVE); GLUCOSE, URINE NEGATIVE (NEGATIVE); KETONES,URINE NEGATIVE (NEGATIVE); LEUKOCYTE ESTERASE ,URINE NEGATIVE (NEGATIVE); NITRITES,URINE NEGATIVE (NEGATIVE); PROTEIN,URINE 4+ (NEGATIVE); UROBILINOGEN,URINE NORMAL (NORMAL)
[2017-11-04] MEDS ORDERED: COMPAZINE INJ ONE (15:29)
[2017-11-04] MEDS ORDERED: NS 1000 ML 1,000 ML ONE (15:29)
[2017-11-04] MEDS ORDERED: DEMEROL INJ ONE ×2 (15:30→16:04)
[2017-11-04] MEDS ORDERED: NS 100 ML IV 100 ML IV ONE (15:31)
[2017-11-04 15:33] LABS: APPEARANCE,URINE CLEAR (CLEAR); BACTERIA,URINE TRACE /HPF (NEGATIVE); COLOR,URINE YELLOW (YELLOW); SQUAMOUS EPITHELIAL CELL,UR FEW /HPF (NEGATIVE)
[2017-11-04 15:40] LABS: BASOPHILS # (AUTO) 0.1 X10^3/uL (0.0-0.1); BASOPHILS % (AUTO) 0.6 % (0.2-1.0); EOSINOPHILS % (AUTO) 0.3 % (0.9-2.9); HEMATOCRIT 35.4 % (36.0-47.0); HEMOGLOBIN 11.5 g/dL (12.0-16.0); LYMPHOCYTES # (AUTO) 2.4 X10^3/uL (1.3-2.9); LYMPHOCYTES % (AUTO) 22.2 % (21.0-51.0); MEAN CORPUSCULAR HEMOGLOBIN 25.4 pg (27.0-34.0); MEAN CORPUSCULAR HGB CONC 32.5 g/dL (33.0-35.0); MEAN CORPUSCULAR VOLUME 78.1 fL (80.0-100.0); MEAN PLATELET VOLUME 9.2 fL (7.4-11.0); MONOCYTES # (AUTO) 0.8 x10^3/uL (0.3-0.8); MONOCYTES % (AUTO) 7.4 % (0.0-13.0); NEUTROPHILS # (AUTO) 7.6 x10^3/uL (2.2-4.8); NEUTROPHILS % (AUTO) 69.5 % (42.0-75.0); PLATELET COUNT 374 X10^3/uL (150.0-450.0); RED BLOOD COUNT 4.53 X10^6/uL (3.5-5.4); RED CELL DISTRIBUTION WIDTH 15.3 % (11.6-16.5)
[2017-11-04 15:43] LABS: PLATELET MORPHOLOGY COMMENT NORMAL (NORMAL)
[2017-11-04 15:44] LABS: HYPOCHROMASIA SLIGHT; MICROCYTOSIS SLIGHT
[2017-11-04 15:51] LABS: ALANINE AMINOTRANSFERASE 10 Units/L (12-78); ALBUMIN 2.3 g/dL (3.4-5.0); ALKALINE PHOSPHATASE 73 Units/L (46-116); AMYLASE 34 Units/L (25-115); ASPARTATE AMINO TRANSFERASE 18 Units/L (15-37); BLOOD UREA NITROGEN 7 mg/dL (7-18); CALCIUM 9.1 mg/dL (8.5-10.1); CARBON DIOXIDE 27.3 mmol/L (21-32); CHLORIDE 103 mmol/L (98-107); COR CA(FOR HYPOALB) 10.5 mg/dL (8.5-10.1); COR NA(FOR HYPERGLY) 139 mmol/L (136-145); LIPASE 42 Units/L (73-393); SODIUM 139 mmol/L (136-145); TOTAL PROTEIN 7.3 g/dL (6.4-8.2); eGFR BLACK RACES > 60 (>60); eGFR NON BLACK RACES 50 (>60)
--- NOTE | 2017-11-04 15:56 | RAD ---
Examination: Abdomen series with PA chest History: Abdominal pain, gastroparesis Comparison reference 10/29/2017 Findings: Normal heart size, clear lungs. Right subclavian injection port. No pleural fluid or subdia phragmatic air. Additional supine and upright views of abdomen demonstrate normal gas pattern without evidence for ob struction, ileus, mass formation or pathologic calcification. There are surgical clips in the right u pper quadrant. Impression: No acute process. Postsurgical findings consistent with cholecystectomy. Reported By:
== END 2017-11-04 17:20 | disposition home or self-care (01) ==
LOC: ER 14:33
DX: K31.84 Gastroparesis (principal); R11.2 Nausea with vomiting, unspecified
CPT/HCPCS: 36415; 74022; 80053; 81001; 82150; 83690; 85025; 86140; 96365; 96374; 96375; 99283; J0780; J2175

== ENCOUNTER 2017-11-05 11:15 | Inpatient (IN) | payer OTHER ==
[2017-11-05] MEDS: NS 1000 ML 1,000 ML IV SCH ×2 (13:16→22:36)
[2017-11-05 13:20] LABS: BASOPHILS # (AUTO) 0.1 X10^3/uL (0.0-0.1); BASOPHILS % (AUTO) 0.7 % (0.2-1.0); EOSINOPHILS % (AUTO) 0.4 % (0.9-2.9); HEMATOCRIT 34.1 % (36.0-47.0); LYMPHOCYTES % (AUTO) 20.8 % (21.0-51.0); MEAN CORPUSCULAR HEMOGLOBIN 25.4 pg (27.0-34.0); MEAN CORPUSCULAR HGB CONC 32.3 g/dL (33.0-35.0); MEAN CORPUSCULAR VOLUME 78.7 fL (80.0-100.0); MONOCYTES # (AUTO) 0.8 x10^3/uL (0.3-0.8); MONOCYTES % (AUTO) 8.1 % (0.0-13.0); NEUTROPHILS # (AUTO) 6.9 x10^3/uL (2.2-4.8); PLATELET COUNT 344 X10^3/uL (150.0-450.0); RED BLOOD COUNT 4.33 X10^6/uL (3.5-5.4); RED CELL DISTRIBUTION WIDTH 15.5 % (11.6-16.5); WHITE BLOOD COUNT 9.8 X10^3/uL (3.6-10.0)
[2017-11-05 13:37] LABS: ALANINE AMINOTRANSFERASE 10 Units/L (12-78); ALBUMIN 2.2 g/dL (3.4-5.0); ALKALINE PHOSPHATASE 65 Units/L (46-116); AMYLASE 33 Units/L (25-115); ANISOCYTOSIS SLIGHT; ASPARTATE AMINO TRANSFERASE 16 Units/L (15-37); BLOOD UREA NITROGEN 6 mg/dL (7-18); CALCIUM 8.5 mg/dL (8.5-10.1); CARBON DIOXIDE 29.6 mmol/L (21-32); CHLORIDE 102 mmol/L (98-107); COR CA(FOR HYPOALB) 9.9 mg/dL (8.5-10.1); COR NA(FOR HYPERGLY) 140 mmol/L (136-145); CREATININE 1.23 mg/dL (0.55-1.02); LIPASE 37 Units/L (73-393); PLATELET MORPHOLOGY COMMENT NORMAL (NORMAL); SODIUM 138 mmol/L (136-145); TOTAL PROTEIN 6.8 g/dL (6.4-8.2); eGFR BLACK RACES > 60 (>60); eGFR NON BLACK RACES 53 (>60)
[2017-11-05 14:14] VITALS: BMI 36.6
[2017-11-05] MEDS: ZOFRAN INJ 4 MG VIAL IVP PRN (14:55)
[2017-11-05] MEDS ORDERED: DILAUDID INJ ONE ×2 (18:46→22:29)
[2017-11-05] MEDS: DILAUDID INJ IVP PRN ×2 (18:46→22:45)
[2017-11-05] MEDS: PHENERGAN INJ 25 MG IVP PRN (21:03)
[2017-11-05] MEDS: PEPCID 20 MG IV PREMIX* 20 MG/50 ML BAG IV PRN (21:03)
[2017-11-06] MEDS: ZOFRAN INJ 4 MG VIAL IVP PRN (00:52)
--- NOTE | 2017-11-06 01:54 | RAD ---
AP abdomen Indication: NG tube placement Comparison: 11/04/2017 Findings: The tip and distal side port of a gastric tube overlies the stomach, in satisfactory positi on. Visualized bowel gas pattern is unremarkable. No gross free air. Impression: NG tube in satisfactory position. Reported By:
[2017-11-06] MEDS: DILAUDID INJ IVP PRN ×4 (02:45→19:30)
[2017-11-06] MEDS: PHENERGAN INJ 25 MG IVP PRN ×2 (02:46→16:53)
[2017-11-06] MEDS: PEPCID 20 MG IV PREMIX* 20 MG/50 ML BAG IV PRN ×2 (05:19→18:41)
[2017-11-06 06:19] LABS: BASOPHILS # (AUTO) 0.1 X10^3/uL (0.0-0.1); BASOPHILS % (AUTO) 0.6 % (0.2-1.0); EOSINOPHILS % (AUTO) 0.1 % (0.9-2.9); HEMATOCRIT 33.5 % (36.0-47.0); HEMOGLOBIN 10.7 g/dL (12.0-16.0); LYMPHOCYTES # (AUTO) 1.4 X10^3/uL (1.3-2.9); LYMPHOCYTES % (AUTO) 12.6 % (21.0-51.0); MEAN CORPUSCULAR HEMOGLOBIN 25.1 pg (27.0-34.0); MEAN CORPUSCULAR VOLUME 78.6 fL (80.0-100.0); MEAN PLATELET VOLUME 9.3 fL (7.4-11.0); MONOCYTES # (AUTO) 0.6 x10^3/uL (0.3-0.8); NEUTROPHILS # (AUTO) 9.1 x10^3/uL (2.2-4.8); NEUTROPHILS % (AUTO) 81.7 % (42.0-75.0); PLATELET COUNT 336 X10^3/uL (150.0-450.0); RED BLOOD COUNT 4.26 X10^6/uL (3.5-5.4); RED CELL DISTRIBUTION WIDTH 15.5 % (11.6-16.5); WHITE BLOOD COUNT 11.2 X10^3/uL (3.6-10.0)
[2017-11-06] MEDS ORDERED: DILAUDID INJ ONE ×2 (06:20→19:05)
[2017-11-06 06:30] LABS: BILIRUBIN,URINE NEGATIVE (NEGATIVE); BLOOD/HEMOGLOBIN,URINE 3+ (NEGATIVE); GLUCOSE, URINE 1+ (NEGATIVE); KETONES,URINE 1+ (NEGATIVE); LEUKOCYTE ESTERASE ,URINE NEGATIVE (NEGATIVE); NITRITES,URINE NEGATIVE (NEGATIVE); PROTEIN,URINE 4+ (NEGATIVE); UROBILINOGEN,URINE NORMAL (NORMAL)
[2017-11-06 06:47] LABS: AMORPHOUS SEDIMENT,UR TRACE /HPF (NEGATIVE); APPEARANCE,URINE SLIGHTLY HAZY (CLEAR); BACTERIA,URINE TRACE /HPF (NEGATIVE); COLOR,URINE YELLOW (YELLOW); SQUAMOUS EPITHELIAL CELL,UR MANY /HPF (NEGATIVE)
[2017-11-06 07:03] LABS: MICROCYTOSIS SLIGHT; PLATELET MORPHOLOGY COMMENT NORMAL (NORMAL)
[2017-11-06 07:07] LABS: ALANINE AMINOTRANSFERASE 15 Units/L (12-78); ALBUMIN 2.1 g/dL (3.4-5.0); ALKALINE PHOSPHATASE 67 Units/L (46-116); ASPARTATE AMINO TRANSFERASE 17 Units/L (15-37); BLOOD UREA NITROGEN 5 mg/dL (7-18); CALCIUM 8.7 mg/dL (8.5-10.1); CHLORIDE 106 mmol/L (98-107); COR CA(FOR HYPOALB) 10.2 mg/dL (8.5-10.1); COR NA(FOR HYPERGLY) 141 mmol/L (136-145); CREATININE 1.15 mg/dL (0.55-1.02); MAGNESIUM 1.8 mg/dL (1.7-2.9); SODIUM 140 mmol/L (136-145); TOTAL PROTEIN 6.8 g/dL (6.4-8.2); eGFR BLACK RACES > 60 (>60); eGFR NON BLACK RACES 58 (>60)
--- NOTE | 2017-11-06 07:52 | DR.H&P ---
H&P - History & Physical for Day of: H&P Date: 11/05/17 - Chief Complaint Chief Complaint: Abdominal pain with nausea and vomiting - Allergies Allergies/Adverse Reactions: Allergies Allergy/AdvReac Type Severity Reaction Status Date / Time Penicillins Allergy Verified 10/29/17 16:19 morphine AdvReac Verified 10/29/17 16:19 - History of Present Illness History of Present Illness: The patient is a 32-year-old black female who presents to the clinic with complaints of a 3 week history of abdominal pain with nausea vomiting. Patient does state that she's been to the emergency room multiple times. Was hospitalized for 24 hours last week. States that she is having epigastric pain with nausea. States that she is taking the Carafate, Reglan, Phenergan and Zofran. States she has taken Zantac and Prilosec as well. Patient does see GI in [place]. Does state last scan did not reveal gastroparesis. Blood pressure is elevated today and states she was not able to keep her blood pressure medicine down. - Past Medical History Past Medical History: Anxiety, Diabetes, Dyslipidemia, GERD Additional Medical History: Pancreatitis, Gastroparesis - Past Surgical History Surgical History: , Cholecystectomy, Hysterectomy, Other - Family History Family Medical History: Diabetes Mellitus, Hypertension - Social History Does patient currently use any type of tobacco product: Yes Have you used tobacco products in the last 12 months: Yes Type of Tobacco Use: Cigarettes How many years tobacco product used: 4 Does any household member use tobacco: Yes Alcohol Use: None Drug Use: Prescription Drugs - Review of Systems Constitutional: No Symptoms Reported Eyes: No Symptoms Reported ENT: No Symptoms Reported Respiratory: No Symptoms Reported Cardiovascular: No Symptoms Reported Gastrointestinal: Nausea, Vomiting, Abdominal Pain Genitourinary: No Symptoms Reported Musculoskeletal: No Symptoms Reported Skin: No Symptoms Reported Neurological: No Symptoms Reported - Physical Exam Vital Signs: Temperature 98.8 F Pulse Rate [Left Brachial] 106 Respiratory Rate 16 Blood Pressure [Left Arm] 160/88 Blood Pressure [Right Arm] 129/66 Blood Pressure 193/91 O2 Sat by Pulse Oximetry 98 Oriented: Normal Eyes: Normal Ear: Normal Nose: Normal Throat: Normal Respiratory: Clear Throughout Cardiovascular: Normal : Normal Auscultation: Bowel Sounds: Normal Palpation: Normal Tenderness: Diffuse, Epigastric Skin: Normal Musculoskeletal: Normal Psychiatric: Anxiety Mood Description: Anxious Affect: Depressed Speech Pattern: Clear - Assessment/Plan (1) Abdominal pain Qualifiers: Status: Acute Plan: labs, iv zofran and phenergan (2) Nausea & vomiting Status: Acute Plan: labs, iv zofran and phenergan (3) Diabetes mellitus Status: Chronic Plan: FSBS with SSRI (4) Hypertension Qualifiers: Status: Chronic Plan: Monitor BP. Anti-hypertensives.
[2017-11-06] MEDS: NS 1000 ML 1,000 ML IV SCH ×2 (09:21→17:04)
[2017-11-06] MEDS ORDERED: REGLAN INJ 10 MG VIAL IVP PRN (13:04)
[2017-11-06] MEDS ORDERED: APRESOLINE INJ 20 MG VIAL IVP PRN (13:07)
[2017-11-06] MEDS: BENTYL I.M. INJ 10 MG IM SCH ×3 (16:52→21:01)
[2017-11-06] MEDS: COREG TAB 12.5 MG PO SCH (16:53)
[2017-11-07] MEDS: PHENERGAN INJ 25 MG IVP PRN ×2 (02:31→15:22)
[2017-11-07] MEDS: DILAUDID INJ IVP PRN ×4 (02:31→21:27)
[2017-11-07] MEDS: NS 1000 ML 1,000 ML IV SCH ×2 (05:31→17:22)
[2017-11-07] MEDS: COREG TAB 12.5 MG PO SCH ×3 (06:23→17:15)
[2017-11-07 06:50] LABS: BASOPHILS % (AUTO) 0.5 % (0.2-1.0); EOSINOPHILS # (AUTO) 0.1 x10^3/uL (0.0-0.2); EOSINOPHILS % (AUTO) 0.7 % (0.9-2.9); HEMATOCRIT 30.9 % (36.0-47.0); HEMOGLOBIN 9.9 g/dL (12.0-16.0); LYMPHOCYTES # (AUTO) 2.1 X10^3/uL (1.3-2.9); LYMPHOCYTES % (AUTO) 22.5 % (21.0-51.0); MEAN CORPUSCULAR HEMOGLOBIN 25.3 pg (27.0-34.0); MEAN CORPUSCULAR HGB CONC 32.1 g/dL (33.0-35.0); MEAN CORPUSCULAR VOLUME 78.7 fL (80.0-100.0); MEAN PLATELET VOLUME 9.7 fL (7.4-11.0); MONOCYTES # (AUTO) 0.7 x10^3/uL (0.3-0.8); MONOCYTES % (AUTO) 7.3 % (0.0-13.0); NEUTROPHILS # (AUTO) 6.3 x10^3/uL (2.2-4.8); PLATELET COUNT 298 X10^3/uL (150.0-450.0); RED BLOOD COUNT 3.93 X10^6/uL (3.5-5.4); RED CELL DISTRIBUTION WIDTH 15.2 % (11.6-16.5); WHITE BLOOD COUNT 9.2 X10^3/uL (3.6-10.0)
[2017-11-07 06:58] LABS: HYPOCHROMASIA SLIGHT; PLATELET MORPHOLOGY COMMENT NORMAL (NORMAL)
[2017-11-07 07:22] LABS: ALANINE AMINOTRANSFERASE 11 Units/L (12-78); ALBUMIN 1.7 g/dL (3.4-5.0); ALKALINE PHOSPHATASE 56 Units/L (46-116); ASPARTATE AMINO TRANSFERASE 15 Units/L (15-37); BLOOD UREA NITROGEN 7 mg/dL (7-18); CALCIUM 8.1 mg/dL (8.5-10.1); CARBON DIOXIDE 24.6 mmol/L (21-32); CHLORIDE 109 mmol/L (98-107); COR CA(FOR HYPOALB) 9.9 mg/dL (8.5-10.1); CREATININE 0.95 mg/dL (0.55-1.02); SODIUM 142 mmol/L (136-145); TOTAL PROTEIN 5.8 g/dL (6.4-8.2); eGFR BLACK RACES > 60 (>60); eGFR NON BLACK RACES > 60 (>60)
[2017-11-07] MEDS ORDERED: DILAUDID INJ ONE ×2 (08:45→21:23)
[2017-11-07] MEDS: NORVASC TAB 10 MG PO SCH (08:49)
[2017-11-07] MEDS: BENTYL I.M. INJ 10 MG IM SCH ×4 (08:52→21:28)
[2017-11-08] MEDS: NS 1000 ML 1,000 ML IV SCH ×3 (03:30→23:46)
[2017-11-08] MEDS: PHENERGAN INJ 25 MG IVP PRN ×4 (04:30→23:43)
[2017-11-08] MEDS: DILAUDID INJ IVP PRN ×4 (04:39→23:42)
[2017-11-08] MEDS: COREG TAB 12.5 MG PO SCH ×2 (06:06→16:54)
[2017-11-08 07:20] LABS: ALANINE AMINOTRANSFERASE 11 Units/L (12-78); ALBUMIN 1.6 g/dL (3.4-5.0); ALKALINE PHOSPHATASE 52 Units/L (46-116); ASPARTATE AMINO TRANSFERASE 16 Units/L (15-37); BLOOD UREA NITROGEN 5 mg/dL (7-18); CALCIUM 7.5 mg/dL (8.5-10.1); CARBON DIOXIDE 22.1 mmol/L (21-32); CHLORIDE 110 mmol/L (98-107); COR CA(FOR HYPOALB) 9.4 mg/dL (8.5-10.1); CREATININE 0.84 mg/dL (0.55-1.02); SODIUM 142 mmol/L (136-145); TOTAL PROTEIN 5.6 g/dL (6.4-8.2); eGFR BLACK RACES > 60 (>60); eGFR NON BLACK RACES > 60 (>60)
[2017-11-08 07:34] LABS: BASOPHILS % (AUTO) 0.4 % (0.2-1.0); EOSINOPHILS # (AUTO) 0.1 x10^3/uL (0.0-0.2); EOSINOPHILS % (AUTO) 1.2 % (0.9-2.9); HEMATOCRIT 30.7 % (36.0-47.0); HEMOGLOBIN 9.8 g/dL (12.0-16.0); LYMPHOCYTES # (AUTO) 1.7 X10^3/uL (1.3-2.9); LYMPHOCYTES % (AUTO) 22.7 % (21.0-51.0); MEAN CORPUSCULAR HEMOGLOBIN 25.4 pg (27.0-34.0); MEAN CORPUSCULAR HGB CONC 32.1 g/dL (33.0-35.0); MEAN CORPUSCULAR VOLUME 79.1 fL (80.0-100.0); MEAN PLATELET VOLUME 9.8 fL (7.4-11.0); MONOCYTES # (AUTO) 0.6 x10^3/uL (0.3-0.8); MONOCYTES % (AUTO) 8.1 % (0.0-13.0); NEUTROPHILS # (AUTO) 5.2 x10^3/uL (2.2-4.8); NEUTROPHILS % (AUTO) 67.6 % (42.0-75.0); PLATELET COUNT 228 X10^3/uL (150.0-450.0); RED BLOOD COUNT 3.88 X10^6/uL (3.5-5.4); RED CELL DISTRIBUTION WIDTH 15.4 % (11.6-16.5); WHITE BLOOD COUNT 7.7 X10^3/uL (3.6-10.0)
[2017-11-08 07:37] LABS: PLATELET MORPHOLOGY COMMENT NORMAL (NORMAL)
[2017-11-08] MEDS: BENTYL I.M. INJ 10 MG IM SCH ×4 (09:30→21:42)
[2017-11-08] MEDS: NORVASC TAB 10 MG PO SCH (09:30)
[2017-11-09] MEDS: DILAUDID INJ IVP PRN ×3 (05:58→15:59)
[2017-11-09] MEDS: PHENERGAN INJ 25 MG IVP PRN ×2 (05:59→17:44)
[2017-11-09] MEDS: COREG TAB 12.5 MG PO SCH ×2 (06:04→16:00)
[2017-11-09 07:35] LABS: BASOPHILS # (AUTO) 0.1 X10^3/uL (0.0-0.1); EOSINOPHILS # (AUTO) 0.1 x10^3/uL (0.0-0.2); EOSINOPHILS % (AUTO) 1.7 % (0.9-2.9); HEMATOCRIT 33.5 % (36.0-47.0); HEMOGLOBIN 10.8 g/dL (12.0-16.0); LYMPHOCYTES # (AUTO) 2.3 X10^3/uL (1.3-2.9); LYMPHOCYTES % (AUTO) 29.9 % (21.0-51.0); MEAN CORPUSCULAR HEMOGLOBIN 25.4 pg (27.0-34.0); MEAN CORPUSCULAR HGB CONC 32.1 g/dL (33.0-35.0); MEAN CORPUSCULAR VOLUME 79.1 fL (80.0-100.0); MONOCYTES # (AUTO) 0.6 x10^3/uL (0.3-0.8); MONOCYTES % (AUTO) 8.3 % (0.0-13.0); NEUTROPHILS # (AUTO) 4.5 x10^3/uL (2.2-4.8); NEUTROPHILS % (AUTO) 59.1 % (42.0-75.0); PLATELET COUNT 314 X10^3/uL (150.0-450.0); RED BLOOD COUNT 4.24 X10^6/uL (3.5-5.4); WHITE BLOOD COUNT 7.6 X10^3/uL (3.6-10.0)
[2017-11-09] MEDS: NS 1000 ML 1,000 ML IV SCH ×2 (07:45→10:50)
[2017-11-09 07:46] LABS: PLATELET MORPHOLOGY COMMENT NORMAL (NORMAL)
[2017-11-09 07:53] LABS: ALANINE AMINOTRANSFERASE 12 Units/L (12-78); ALBUMIN 1.9 g/dL (3.4-5.0); ALKALINE PHOSPHATASE 58 Units/L (46-116); ASPARTATE AMINO TRANSFERASE 15 Units/L (15-37); BLOOD UREA NITROGEN 4 mg/dL (7-18); CALCIUM 7.8 mg/dL (8.5-10.1); CARBON DIOXIDE 25.2 mmol/L (21-32); CHLORIDE 110 mmol/L (98-107); COR CA(FOR HYPOALB) 9.5 mg/dL (8.5-10.1); COR NA(FOR HYPERGLY) 145 mmol/L (136-145); CREATININE 0.88 mg/dL (0.55-1.02); SODIUM 144 mmol/L (136-145); TOTAL PROTEIN 6.2 g/dL (6.4-8.2); eGFR BLACK RACES > 60 (>60); eGFR NON BLACK RACES > 60 (>60)
[2017-11-09] MEDS ORDERED: K-RIDER 10 MEQ/NS 100 ML 10 MEQ/100 ML BAG IV PRN (07:57)
[2017-11-09] MEDS ORDERED: POTASSIUM CHL 40 MEQ/NS 0.45% 500 ML IV PRN (07:57)
[2017-11-09] MEDS ORDERED: POTASSIUM CHLORIDE LIQ 20 MEQ UDC PO PRN (07:57)
[2017-11-09] MEDS ORDERED: K-LYTE EFFERVESCENT PO PRN (07:57)
[2017-11-09] MEDS ORDERED: POTASSIUM CHL 60 MEQ/NS 0.45% 500 ML IV PRN (07:57)
[2017-11-09] MEDS: BENTYL I.M. INJ 10 MG IM SCH ×4 (08:20→20:59)
[2017-11-09] MEDS: PEPCID 20 MG IV PREMIX* 20 MG/50 ML BAG IV PRN (08:20)
[2017-11-09] MEDS ORDERED: DECADRON INJ PRESERVATIVE-FREE IM ONE ×2 (09:29→20:14)
[2017-11-09] MEDS ORDERED: NS 100 ML IV 100 ML IV ONE ×2 (09:29→20:14)
[2017-11-09] MEDS ORDERED: ATIVAN INJ 2 MG VIAL ONE ×2 (09:30→20:15)
[2017-11-09] MEDS: ZOFRAN INJ 4 MG VIAL 16 MG, ATIVAN INJ 2 MG VIAL 1 MG, DECADRON INJ 10 MG in NS 50 ML I... IV PRN ×2 (09:45→21:00)
[2017-11-09] MEDS: NORVASC TAB 10 MG PO SCH (09:52)
[2017-11-09] MEDS: NS 1000 ML 1,000 ML with POTASSIUM CHLORIDE INJ 20 MEQ VIAL 20 MEQ IV SCH ×2 (15:03)
[2017-11-09] MEDS ORDERED: MAGNESIUM SULFATE 1 GM/100 mL PREMIX 1 GM/100 ML BAG IV PRN (16:53)
[2017-11-10] MEDS: PHENERGAN INJ 25 MG IVP PRN ×2 (02:45→12:01)
[2017-11-10] MEDS: DILAUDID INJ IVP PRN ×3 (02:45→11:55)
[2017-11-10] MEDS: NS 1000 ML 1,000 ML with POTASSIUM CHLORIDE INJ 20 MEQ VIAL 20 MEQ IV SCH ×2 (03:40)
[2017-11-10 06:01] LABS: BASOPHILS % (AUTO) 0.2 % (0.2-1.0); HEMATOCRIT 32.1 % (36.0-47.0); HEMOGLOBIN 10.3 g/dL (12.0-16.0); LYMPHOCYTES # (AUTO) 0.9 X10^3/uL (1.3-2.9); LYMPHOCYTES % (AUTO) 13.6 % (21.0-51.0); MEAN CORPUSCULAR HEMOGLOBIN 25.1 pg (27.0-34.0); MEAN CORPUSCULAR HGB CONC 32.1 g/dL (33.0-35.0); MEAN CORPUSCULAR VOLUME 78.4 fL (80.0-100.0); MEAN PLATELET VOLUME 9.4 fL (7.4-11.0); MONOCYTES # (AUTO) 0.1 x10^3/uL (0.3-0.8); MONOCYTES % (AUTO) 1.9 % (0.0-13.0); NEUTROPHILS # (AUTO) 5.7 x10^3/uL (2.2-4.8); NEUTROPHILS % (AUTO) 84.3 % (42.0-75.0); PLATELET COUNT 289 X10^3/uL (150.0-450.0); RED CELL DISTRIBUTION WIDTH 15.5 % (11.6-16.5); WHITE BLOOD COUNT 6.7 X10^3/uL (3.6-10.0)
[2017-11-10 06:16] LABS: ALANINE AMINOTRANSFERASE 11 Units/L (12-78); ALBUMIN 1.7 g/dL (3.4-5.0); ALKALINE PHOSPHATASE 50 Units/L (46-116); ASPARTATE AMINO TRANSFERASE 10 Units/L (15-37); BLOOD UREA NITROGEN 6 mg/dL (7-18); CALCIUM 8.2 mg/dL (8.5-10.1); CARBON DIOXIDE 22.9 mmol/L (21-32); CHLORIDE 108 mmol/L (98-107); COR NA(FOR HYPERGLY) 143 mmol/L (136-145); CREATININE 0.93 mg/dL (0.55-1.02); SODIUM 140 mmol/L (136-145); eGFR BLACK RACES > 60 (>60); eGFR NON BLACK RACES > 60 (>60)
[2017-11-10] MEDS: COREG TAB 12.5 MG PO SCH ×2 (06:19→16:15)
[2017-11-10 06:29] LABS: PLATELET MORPHOLOGY COMMENT NORMAL (NORMAL)
[2017-11-10 06:30] LABS: ANISOCYTOSIS SLIGHT
[2017-11-10] MEDS: NS 1000 ML 1,000 ML IV SCH ×2 (07:42→16:21)
[2017-11-10] MEDS ORDERED: BENTYL I.M. INJ 10 MG IM ONE (08:10)
[2017-11-10] MEDS: BENTYL I.M. INJ 10 MG IM SCH ×3 (09:01→16:15)
[2017-11-10] MEDS: NORVASC TAB 10 MG PO SCH (09:02)
[2017-11-10 13:23] VITALS: BP 166/89
[2017-11-10] MEDS: ZOFRAN INJ 4 MG VIAL IVP PRN (16:15)
== END 2017-11-10 16:35 | disposition home or self-care (01) | DRG 392 ==
LOC: MED/SURG 11:15 → OBSVTOIN 11-08 09:00
PROVIDERS: ADMIT Internal Medicine; ATTEND Internal Medicine
PROC: 0D9670Z Drainage of Stomach with Drainage Device, Via Natural or Artificial Opening (ICD-10-PCS; principal; 2017-11-08)
DX: R10.84 Generalized abdominal pain (principal); R11.2 Nausea with vomiting, unspecified; F41.8 Other specified anxiety disorders; E78.2 Mixed hyperlipidemia; K21.9 Gastro-esophageal reflux disease without esophagitis; E11.65 Type 2 diabetes mellitus with hyperglycemia
CPT/HCPCS: 36415; 74018; 74022; 80053; 81001; 82150; 83516; 83690; 83735; 85025; A4222; S0028; G0378; J0360; J0500; J1100; J1170; J2060; J2405; J2550; J2765; J3480

== ENCOUNTER 2017-11-22 07:23 | Emergency (ER) | payer OTHER ==
[2017-11-22 07:27] VITALS: BMI 36.0
[2017-11-22] MEDS ORDERED: NS 1000 ML 1,000 ML IV ONE (08:18)
[2017-11-22] MEDS ORDERED: PHENERGAN INJ 25 MG IV ONE ×2 (08:18→10:02)
[2017-11-22] MEDS ORDERED: DILAUDID INJ IVP ONE (08:21)
[2017-11-22] MEDS ORDERED: PHENERGAN INJ 25 MG ONE (08:25)
[2017-11-22] MEDS ORDERED: NS 1000 ML 1,000 ML ONE (08:25)
[2017-11-22] MEDS ORDERED: NS 100 ML IV 100 ML IV ONE (08:26)
[2017-11-22] MEDS ORDERED: DILAUDID INJ ONE (08:26)
--- NOTE | 2017-11-22 08:40 | RAD ---
HISTORY: Persistent subacute nausea and vomiting Study: Acute abdominal series, four views were obtained Comparison: November 09, 2017 Findings: A right-sided Port-A-Cath is noted terminating at the junction of the subclavian and internal jugular vein. The heart is normal. The lungs are clear. There is no pneumoperitoneum. Cholecystectomy clips are noted. There is a nonspecific bowel gas pattern with a few air-fluid levels in the left upper thao drant without significant distension which could be seen with gastroenteritis. There are no findings of high-grade obstruction or ileus. Air and stool are noted throughout the colon. Osseous structures are intact. IMPRESSION: No acute cardiopulmonary disease. Nonspecific bowel gas pattern. Reported By:
[2017-11-22 09:17] LABS: BASOPHILS # (AUTO) 0.1 X10^3/uL (0.0-0.1); BASOPHILS % (AUTO) 0.7 % (0.2-1.0); EOSINOPHILS # (AUTO) 0.1 x10^3/uL (0.0-0.2); EOSINOPHILS % (AUTO) 0.4 % (0.9-2.9); HEMATOCRIT 34.3 % (36.0-47.0); HEMOGLOBIN 10.9 g/dL (12.0-16.0); LYMPHOCYTES # (AUTO) 2.8 X10^3/uL (1.3-2.9); LYMPHOCYTES % (AUTO) 22.3 % (21.0-51.0); MEAN CORPUSCULAR HGB CONC 31.6 g/dL (33.0-35.0); MEAN CORPUSCULAR VOLUME 79.1 fL (80.0-100.0); MEAN PLATELET VOLUME 9.9 fL (7.4-11.0); MONOCYTES # (AUTO) 0.6 x10^3/uL (0.3-0.8); MONOCYTES % (AUTO) 5.1 % (0.0-13.0); NEUTROPHILS # (AUTO) 9.1 x10^3/uL (2.2-4.8); NEUTROPHILS % (AUTO) 71.5 % (42.0-75.0); PLATELET COUNT 266 X10^3/uL (150.0-450.0); RED BLOOD COUNT 4.34 X10^6/uL (3.5-5.4); RED CELL DISTRIBUTION WIDTH 15.6 % (11.6-16.5); WHITE BLOOD COUNT 12.8 X10^3/uL (3.6-10.0)
[2017-11-22 09:28] LABS: ALANINE AMINOTRANSFERASE 13 Units/L (12-78); ALKALINE PHOSPHATASE 73 Units/L (46-116); AMYLASE 33 Units/L (25-115); ASPARTATE AMINO TRANSFERASE 18 Units/L (15-37); BLOOD UREA NITROGEN 7 mg/dL (7-18); CALCIUM 8.4 mg/dL (8.5-10.1); CARBON DIOXIDE 29.2 mmol/L (21-32); CHLORIDE 106 mmol/L (98-107); CREATININE 1.14 mg/dL (0.55-1.02); LIPASE 34 Units/L (73-393); SODIUM 141 mmol/L (136-145); TOTAL PROTEIN 6.4 g/dL (6.4-8.2); eGFR BLACK RACES > 60 (>60); eGFR NON BLACK RACES 58 (>60)
[2017-11-22 09:34] LABS: PLATELET MORPHOLOGY COMMENT NORMAL (NORMAL)
--- NOTE | 2017-11-22 10:04 | DR.NAUSEAF ---
HPI - Primary Care Physician Primary Care Physician: REGINA PENDLETON - Complaints Chief Complaint:: PT C/O N/V AND NOT BEING ABLE TO KEEP ANYTHING DOWN SINCE SUNDAY NIGHT.. Self Treatment fo Chief Complaint: DRAMIMINE, AND ZOFRAN WITH NO RELIEF,, - Source History Provided: Patient - Mode of Arrival Mode of Arrival: Ambulatory - Timing Onset of Chief Complaint: 11/19/17 PMH - PMH Past Medical History: Yes Past Medical History: Anxiety, Diabetes, Dyslipidemia, GERD Past Surgical History: Yes Surgical History: , Cholecystectomy, Hysterectomy, Other - Family History History of Family Medical Conditions: Yes Family Medical History: Diabetes Mellitus, Hypertension - Social History Does patient currently use any type of tobacco product: Yes Have you used tobacco products in the last 12 months: Yes Type of Tobacco Use: None How many years tobacco product used: 6 Does any household member use tobacco: No Alcohol Use: None Do you use any recreational Drugs:: No Lives With: Family Lives Where: Home - infectious screening In the last 2 months have you had wt loss of >10#?: NO Have you had fever, night sweats or hemotysis?: No Have you traveled outside the country in the last 6 months?: No Isolation: Standard PE - Vital Signs Vitals: Temperature 97.6 F Pulse Rate 104 Respiratory Rate 18 Blood Pressure [Left Arm] 166/89 Blood Pressure [Right Arm] 181/97 Blood Pressure 195/99 O2 Sat by Pulse Oximetry 98 ROR - Labs Reviewed Result Diagrams: 11/22/17 08:53 11/22/17 08:53 Laboratory: WBC 12.8 X10^3/uL (3.6-10.0) H 11/22/17 08:53 RBC 4.34 X10^6/uL (3.5-5.4) 11/22/17 08:53 Hgb 10.9 g/dL (12.0-16.0) L 11/22/17 08:53 Hct 34.3 % (36.0-47.0) L 11/22/17 08:53 MCV 79.1 fL (80.0-100.0) L 11/22/17 08:53 MCH 25.0 pg (27.0-34.0) L 11/22/17 08:53 MCHC 31.6 g/dL (33.0-35.0) L 11/22/17 08:53 RDW 15.6 % (11.6-16.5) 11/22/17 08:53 Plt Count 266 X10^3/uL (150.0-450.0) 11/22/17 08:53 Plt Count Comment Adequate (ADEQUATE) 11/22/17 08:53 MPV 9.9 fL (7.4-11.0) 11/22/17 08:53 Neut % (Auto) 71.5 % (42.0-75.0) 11/22/17 08:53 Lymph % (Auto) 22.3 % (21.0-51.0) 11/22/17 08:53 [place] % (Auto) 5.1 % (0.0-13.0) 11/22/17 08:53 Eos % (Auto) 0.4 % (0.9-2.9) L 11/22/17 08:53 Baso % (Auto) 0.7 % (0.2-1.0) 11/22/17 08:53 Neut # (Auto) 9.1 x10^3/uL (2.2-4.8) H 11/22/17 08:53 Lymph # (Auto) 2.8 X10^3/uL (1.3-2.9) 11/22/17 08:53 [place] # (Auto) 0.6 x10^3/uL (0.3-0.8) 11/22/17 08:53 Eos # (Auto) 0.1 x10^3/uL (0.0-0.2) 11/22/17 08:53 Baso # (Auto) 0.1 X10^3/uL (0.0-0.1) 11/22/17 08:53 Absolute Nucleated RBC 0.1 /100WBC 11/22/17 08:53 Plt Clumps, EDTA Rare 11/22/17 08:53 Plt Morphology Comment Normal (NORMAL) 11/22/17 08:53 RBC Morphology Normal (NORMAL) 11/22/17 08:53 Sodium 141 mmol/L (136-145) 11/22/17 08:53 Corrected Sodium TNP 11/22/17 08:53 Potassium 4.3 mmol/L (3.5-5.1) 11/22/17 08:53 Chloride 106 mmol/L (98-107) 11/22/17 08:53 Carbon Dioxide 29.2 mmol/L (21-32) 11/22/17 08:53 BUN 7 mg/dL (7-18) 11/22/17 08:53 Creatinine 1.14 mg/dL (0.55-1.02) H 11/22/17 08:53 Est GFR (MDRD) Af Amer > 60 (>60) 11/22/17 08:53 Est GFR (MDRD) Non-Af 58 (>60) L 11/22/17 08:53 Glucose 102 mg/dL (65-99) H 11/22/17 08:53 Calcium 8.4 mg/dL (8.5-10.1) L 11/22/17 08:53 Corrected Calcium 10.0 mg/dL (8.5-10.1) 11/22/17 08:53 Total Bilirubin 0.30 mg/dL (0.2-1.0) 11/22/17 08:53 AST 18 Units/L (15-37) 11/22/17 08:53 ALT 13 Units/L (12-78) 11/22/17 08:53 Alkaline Phosphatase 73 Units/L (46-116) 11/22/17 08:53 Total Protein 6.4 g/dL (6.4-8.2) 11/22/17 08:53 Albumin 2.0 g/dL (3.4-5.0) L 11/22/17 08:53 Globulin 4.4 g/dL (2.5-4.5) 11/22/17 08:53 Albumin/Globulin Ratio 0.5 Ratio (1.1-2.1) L 11/22/17 08:53 Amylase 33 Units/L (25-115) 11/22/17 08:53 Lipase 34 Units/L (73-393) L 11/22/17 08:53 - Discharge Plan Condition: Stable - Follow ups/Referrals Follow ups/Referrals: SUE TAPIA [Primary Care Provider] - 3 days - Instructions
--- NOTE | 2017-11-22 10:09 | ED.ABDFE ---
HPI - Time seen Time seen: 08:15 - PCP Primary Care Physician: REGINA PENDLETON - HPI Comment HPI Comment: PATIENT IS WEA. UNABLE TO HOLD DOWN HER MEDICATIONS. NO FEVER OR DYSURIA. DENIES CONSTIPATION OR DIARRHEA. - Complaint Chief Complaint Doctors Comments: ABDOMINAL PAIN WITH NAUSEA AND VOMITING TIMES 4 DAYS. Chief Complaint:: PT C/O N/V AND NOT BEING ABLE TO KEEP ANYTHING DOWN SINCE SUNDAY NIGHT.. - Nurses notes reviewed Nurses Notes Review: Yes - Source History Provided: Patient - Mode of arrival Mode of Arrival: Ambulatory - Timing Onset of Chief Complaint: 11/19/17 Came on: Gradually - Duration Duration: Constant Duration: Days - Severity Severity: Moderate - Quality Quality: Burning, Cramping - Context Onset: Gradually History of: Abdominal surgery - Modifying Worsening Factors: Nothing Improving Factors: Nothing - Associated signs and symptoms Associated Signs and Symptoms: Nausea, Vomiting PMH - PMH Past Medical History: Yes Past Medical History: Anxiety, Diabetes, Dyslipidemia, GERD Past Surgical History: Yes Surgical History: , Cholecystectomy, Hysterectomy, Other - Family History History of Family Medical Conditions: Yes Family Medical History: Diabetes Mellitus, Hypertension - Social History Does patient currently use any type of tobacco product: Yes Have you used tobacco products in the last 12 months: Yes Type of Tobacco Use: None How many years tobacco product used: 6 Does any household member use tobacco: No Alcohol Use: None Do you use any recreational Drugs:: No Lives With: Family Lives Where: Home - infectious screening In the last 2 months have you had wt loss of >10#?: NO Have you had fever, night sweats or hemotysis?: No Have you traveled outside the country in the last 6 months?: No Isolation: Standard ROS - Review of Systems Constitutional: Weakness, Fatigue. negative: Chills, Fever Eyes: No Symptoms Reported. negative: Eye Pain, Discharge ENTM: negative: Ear Pain, Nose Discharge, Nose Congestion, Throat Pain Respiratoy: Non-Productive Cough, Short of Breath. negative: Productive Cough, Wheezing, Hemoptysis Cardiovascular: No Symptoms Reported Gastrointestinal/Abdominal: Abdominal Pain, Nausea, Vomiting Genitourinary: No Symptoms Reported. negative: Dysuria, Frequency, Hematuria Neurological: Headache, Weakness, Dizziness Musculoskeletal: Muscle Pain Integumentary: Dryness. negative: Change in Color Endocrine: Increased Thirst. negative: Flushing, Increased Urine All Other Systems: Reviewed and Negative PE - Vital Signs Vitals: Temperature 97.6 F Pulse Rate 104 Respiratory Rate 18 Blood Pressure [Left Arm] 153/89 Blood Pressure [Right Arm] 181/97 Blood Pressure 195/99 O2 Sat by Pulse Oximetry 98 - General Limitations: No Limitations General Appearance: Alert - Head Head Exam: Normal Inspection - Eyes Eye exam: Normal Appearance - ENT ENT Exam: Normal External Ear Exam - Neck Neck Exam: Normal Inspection - Chest Chest Inspection: Symmetric Chest Wall Rise - Respiratory Respiratory Exam: Normal Lung Sounds Bilat Respiratory Exam: Bilateral Clear to Auscultation - Cardiovascular Cardiovascular Exam: Regular Rate, Normal Rhythm, Normal Heart Sounds - Abdominal Exam Abdominal Exam: Normal Bowel Sounds, Soft, Tenderness Abdominal Tenderness: Diffuse, Moderate - Rectal Rectal Exam: Deferred - Back Back Exam: Normal Inspection - Extremeties Extremities Exam: Normal Inspection - External Exam: Female: Deferred : Speculum Exam (Female): Deferred : Bimanual Exam (female): Deferred - Neurologic Neurological Exam: Alert, Oriented X3, CN II-XII Intact. negative: Motor Sensory Deficit - Psychiatric Psychiatric Exam: Normal Affect, Normal Mood - Skin Skin Exam: Normal Color MDM - Additional Information Obtained From Additional information provided by: Family - Differential Diagnosis Differential Diagnosis- Considerations may include:: Bowel Obstruction, Constipation, Diverticular disease, Gastritus/PUD, Urinary tract infection ( GASTROPARESIS) Course - Treatment Treatment: SEE ORDERS. - Reevaluation 1st: Improved (WITH IV PAIN AND NAUSEA MED.) - Education/Counseling Education/Counseling: Patient, Family, Education Educated On: Treatment, Diagnosis, Needs for Follow Up ROR - Labs Reviewed Result Diagrams: 11/22/17 08:53 11/22/17 08:53 Laboratory: WBC 12.8 X10^3/uL (3.6-10.0) H 11/22/17 08:53 RBC 4.34 X10^6/uL (3.5-5.4) 11/22/17 08:53 Hgb 10.9 g/dL (12.0-16.0) L 11/22/17 08:53 Hct 34.3 % (36.0-47.0) L 11/22/17 08:53 MCV 79.1 fL (80.0-100.0) L 11/22/17 08:53 MCH 25.0 pg (27.0-34.0) L 11/22/17 08:53 MCHC 31.6 g/dL (33.0-35.0) L 11/22/17 08:53 RDW 15.6 % (11.6-16.5) 11/22/17 08:53 Plt Count 266 X10^3/uL (150.0-450.0) 11/22/17 08:53 Plt Count Comment Adequate (ADEQUATE) 11/22/17 08:53 MPV 9.9 fL (7.4-11.0) 11/22/17 08:53 Neut % (Auto) 71.5 % (42.0-75.0) 11/22/17 08:53 Lymph % (Auto) 22.3 % (21.0-51.0) 11/22/17 08:53 [place] % (Auto) 5.1 % (0.0-13.0) 11/22/17 08:53 Eos % (Auto) 0.4 % (0.9-2.9) L 11/22/17 08:53 Baso % (Auto) 0.7 % (0.2-1.0) 11/22/17 08:53 Neut # (Auto) 9.1 x10^3/uL (2.2-4.8) H 11/22/17 08:53 Lymph # (Auto) 2.8 X10^3/uL (1.3-2.9) 11/22/17 08:53 [place] # (Auto) 0.6 x10^3/uL (0.3-0.8) 11/22/17 08:53 Eos # (Auto) 0.1 x10^3/uL (0.0-0.2) 11/22/17 08:53 Baso # (Auto) 0.1 X10^3/uL (0.0-0.1) 11/22/17 08:53 Absolute Nucleated RBC 0.1 /100WBC 11/22/17 08:53 Plt Clumps, EDTA Rare 11/22/17 08:53 Plt Morphology Comment Normal (NORMAL) 11/22/17 08:53 RBC Morphology Normal (NORMAL) 11/22/17 08:53 Sodium 141 mmol/L (136-145) 11/22/17 08:53 Corrected Sodium TNP 11/22/17 08:53 Potassium 4.3 mmol/L (3.5-5.1) 11/22/17 08:53 Chloride 106 mmol/L (98-107) 11/22/17 08:53 Carbon Dioxide 29.2 mmol/L (21-32) 11/22/17 08:53 BUN 7 mg/dL (7-18) 11/22/17 08:53 Creatinine 1.14 mg/dL (0.55-1.02) H 11/22/17 08:53 Est GFR (MDRD) Af Amer > 60 (>60) 11/22/17 08:53 Est GFR (MDRD) Non-Af 58 (>60) L 11/22/17 08:53 Glucose 102 mg/dL (65-99) H 11/22/17 08:53 Calcium 8.4 mg/dL (8.5-10.1) L 11/22/17 08:53 Corrected Calcium 10.0 mg/dL (8.5-10.1) 11/22/17 08:53 Total Bilirubin 0.30 mg/dL (0.2-1.0) 11/22/17 08:53 AST 18 Units/L (15-37) 11/22/17 08:53 ALT 13 Units/L (12-78) 11/22/17 08:53 Alkaline Phosphatase 73 Units/L (46-116) 11/22/17 08:53 Total Protein 6.4 g/dL (6.4-8.2) 11/22/17 08:53 Albumin 2.0 g/dL (3.4-5.0) L 11/22/17 08:53 Globulin 4.4 g/dL (2.5-4.5) 11/22/17 08:53 Albumin/Globulin Ratio 0.5 Ratio (1.1-2.1) L 11/22/17 08:53 Amylase 33 Units/L (25-115) 11/22/17 08:53 Lipase 34 Units/L (73-393) L 11/22/17 08:53 - XRAY XRAY Findings: REPORT DISCUSS WITH PATIENT. - Diagnosis Discharge Problem: Gastroparesis Abdominal pain Qualifiers: Abdominal location: generalized Qualified Code(s): R10.84 - Generalized abdominal pain Nausea & vomiting Qualifiers: Vomiting type: bilious vomiting Qualified Code(s): R11.14 - Bilious vomiting - Discharge Plan Disposition: 01 HOME, SELF-CARE Condition: Stable Prescriptions: Promethazine HCl [Phenergan Supp 25 mg] 25 mg RI Q8H PRN #12 supp.rect PRN Reason: Nausea/Vomiting - Follow ups/Referrals Follow ups/Referrals: SUE TAPIA [Primary Care Provider] - 11/23/17 - Instructions Instructions: Abdominal Pain, Adult, [id number] Additional Instructions: RETURN TO ED IF WORSE.
[2017-11-22 10:36] VITALS: BP 153/89
== END 2017-11-22 10:20 | disposition home or self-care (01) ==
LOC: ER 07:23
DX: R10.84 Generalized abdominal pain (principal); K31.84 Gastroparesis; R11.14 Bilious vomiting
CPT/HCPCS: 36415; 74022; 80053; 82150; 83690; 85025; 96365; 96374; 96375; 99283; 99285; J1170; J2550

== ENCOUNTER 2017-12-25 07:17 | Emergency (ER) | payer OTHER ==
[2017-12-25 07:22] VITALS: BP 186/109; BMI 38.0
[2017-12-25] MEDS ORDERED: COMPAZINE INJ IVP ONE (07:35)
[2017-12-25] MEDS ORDERED: NS 1000 ML 1,000 ML IV ONE (07:36)
[2017-12-25] MEDS ORDERED: DILAUDID INJ IVP ONE (07:38)
--- NOTE | 2017-12-25 07:42 | DR.NAUSEAF ---
HPI - Time Seen Time seen: 07:33 - Primary Care Physician Primary Care Physician: jeffyclar - Complaints Chief Complaint:: pt stated she has been vomiting and having stomach pain for 4 days. she stated she has a historu of gastrophresis Self Treatment fo Chief Complaint: pt stated she hasnt been able to keep her bp meds down due to the vomiting. no vomiting in triage - Source History Provided: Patient - Mode of Arrival Mode of Arrival: Ambulatory - Timing Onset of Chief Complaint: 12/21/17 <FADI MASON - Last Filed: 12/25/17 07:33> - Complaints Chief Complaint Doctors Comments: Patient with frequent ER visits due to abd pain - Reviewed Nurses Notes Reviewed: Yes - Context Onset: Spontaneous - Associated Signs and Symptoms Abdominal Pain Quality: Sharp Abdominal Pain Location: Diffuse Symptoms: Abdominal Pain <BAKARI ESCOBEDO - Last Filed: 12/25/17 11:38> PMH - PMH Past Medical History: Yes Past Medical History: Anxiety, Diabetes, Dyslipidemia, GERD Past Surgical History: Yes Surgical History: , Cholecystectomy, Hysterectomy, Other - Family History History of Family Medical Conditions: Yes Family Medical History: Diabetes Mellitus, Hypertension - Social History Does patient currently use any type of tobacco product: Yes Have you used tobacco products in the last 12 months: Yes Type of Tobacco Use: Cigarettes How many years tobacco product used: 6 Does any household member use tobacco: Yes Alcohol Use: None Do you use any recreational Drugs:: No Lives With: Family Lives Where: Home - infectious screening In the last 2 months have you had wt loss of >10#?: NO Have you had fever, night sweats or hemotysis?: No Have you traveled outside the country in the last 6 months?: No Isolation: Standard <FADI MASON - Last Filed: 12/25/17 07:33> - PM Past Medical History Comment: chronic episodic abd pain <BAKARI ESCOBEDO - Last Filed: 12/25/17 11:38> ROS - Review of Systems Gastrointestinal/Abdominal: See HPI, Abdominal Pain, Nausea, Vomiting All Other Systems: Reviewed and Negative <BAKARI ESCOBEDO - Last Filed: 12/25/17 11:38> PE - General Limitations: No Limitations General Appearance: Alert - Head Head Exam: Normal Inspection - Eyes Eye exam: Normal Appearance - ENT ENT Exam: Normal Exam - Chest Chest Inspection: Normal Inspection. negative: Tenderness - Respiratory Respiratory Exam: Normal Lung Sounds Bilat Respiratory Exam: Bilateral Clear to Auscultation - Cardiovascular Cardiovascular Exam: Regular Rate, Normal Rhythm <BAKARI ESCOBEDO - Last Filed: 12/25/17 11:38> - Vital Signs Vitals: Temperature 98.6 F Pulse Rate 109 Respiratory Rate 18 Blood Pressure [Left Arm] 153/89 Blood Pressure [Right Arm] 181/97 Blood Pressure 186/109 O2 Sat by Pulse Oximetry 96 ROR - Labs Reviewed Laboratory Results Reviewed?: Yes (reviewed w/pt--nothing acute) Result Diagrams: 12/25/17 08:00 12/25/17 08:00 - XRAY XRAY Interpreted by: Radiologist XRAY Findings: abd series nonacute <BAKARI ESCOBEDO - Last Filed: 12/25/17 11:38> - Labs Reviewed Laboratory: WBC 10.4 X10^3/uL (3.6-10.0) H 12/25/17 08:00 RBC 4.41 X10^6/uL (3.5-5.4) 12/25/17 08:00 Hgb 11.2 g/dL (12.0-16.0) L 12/25/17 08:00 Hct 34.5 % (36.0-47.0) L 12/25/17 08:00 MCV 78.2 fL (80.0-100.0) L 12/25/17 08:00 MCH 25.3 pg (27.0-34.0) L 12/25/17 08:00 MCHC 32.4 g/dL (33.0-35.0) L 12/25/17 08:00 RDW 15.8 % (11.6-16.5) 12/25/17 08:00 Plt Count 368 X10^3/uL (150.0-450.0) 12/25/17 08:00 Plt Count Comment Adequate (ADEQUATE) 12/25/17 08:00 MPV 9.4 fL (7.4-11.0) 12/25/17 08:00 Neut % (Auto) 72.3 % (42.0-75.0) 12/25/17 08:00 Lymph % (Auto) 19.8 % (21.0-51.0) L 12/25/17 08:00 [place] % (Auto) 6.4 % (0.0-13.0) 12/25/17 08:00 Eos % (Auto) 0.9 % (0.9-2.9) 12/25/17 08:00 Baso % (Auto) 0.6 % (0.2-1.0) 12/25/17 08:00 Neut # (Auto) 7.5 x10^3/uL (2.2-4.8) H 12/25/17 08:00 Lymph # (Auto) 2.1 X10^3/uL (1.3-2.9) 12/25/17 08:00 [place] # (Auto) 0.7 x10^3/uL (0.3-0.8) 12/25/17 08:00 Eos # (Auto) 0.1 x10^3/uL (0.0-0.2) 12/25/17 08:00 Baso # (Auto) 0.1 X10^3/uL (0.0-0.1) 12/25/17 08:00 Absolute Nucleated RBC 0.0 /100WBC 12/25/17 08:00 Plt Morphology Comment Normal (NORMAL) 12/25/17 08:00 RBC Morphology Normal (NORMAL) 12/25/17 08:00 Sodium 139 mmol/L (136-145) 12/25/17 08:00 Corrected Sodium 140 mmol/L (136-145) 12/25/17 08:00 Potassium 4.0 mmol/L (3.5-5.1) 12/25/17 08:00 Chloride 103 mmol/L (98-107) 12/25/17 08:00 Carbon Dioxide 27.7 mmol/L (21-32) 12/25/17 08:00 BUN 15 mg/dL (7-18) 12/25/17 08:00 Creatinine 1.70 mg/dL (0.55-1.02) H 12/25/17 08:00 Est GFR (MDRD) Af Amer 45 (>60) L 12/25/17 08:00 Est GFR (MDRD) Non-Af 37 (>60) L 12/25/17 08:00 Glucose 142 mg/dL (65-99) H 12/25/17 08:00 Calcium 8.9 mg/dL (8.5-10.1) 12/25/17 08:00 Corrected Calcium 10.4 mg/dL (8.5-10.1) H 12/25/17 08:00 Total Bilirubin 0.10 mg/dL (0.2-1.0) L 12/25/17 08:00 AST 17 Units/L (15-37) 12/25/17 08:00 ALT 12 Units/L (12-78) 12/25/17 08:00 Alkaline Phosphatase 86 Units/L (46-116) 12/25/17 08:00 C-Reactive Protein 3.80 mg/L (0-3.0) H 12/25/17 08:00 Total Protein 7.9 g/dL (6.4-8.2) 12/25/17 08:00 Albumin 2.1 g/dL (3.4-5.0) L 12/25/17 08:00 Globulin 5.8 g/dL (2.5-4.5) H 12/25/17 08:00 Albumin/Globulin Ratio 0.4 Ratio (1.1-2.1) L 12/25/17 08:00 Amylase 43 Units/L (25-115) 12/25/17 08:00 Lipase 64 Units/L (73-393) L 12/25/17 08:00 <FADI MASON - Last Filed: 12/25/17 07:33> <BAKARI ESCOBEDO - Last Filed: 12/25/17 11:38> - Diagnosis Discharge Problem: Abdominal pain, Gastroparesis - Discharge Plan Disposition: 01 HOME, SELF-CARE Condition: Stable - Follow ups/Referrals Follow ups/Referrals: SUE WYNNE [Primary Care Provider] - 3 days - Instructions Instructions: Gastroparesis Additional Notes - Additional Notes Additional Notes: pt's pain sig improved after IVF, pain meds. She feels better. I offered to jihan Wynne but pt wants to go home. <BAKARI ESCOBEDO - Last Filed: 12/25/17 11:38>
[2017-12-25] MEDS ORDERED: NS 1000 ML 1,000 ML ONE (07:50)
[2017-12-25] MEDS ORDERED: DILAUDID INJ ONE (07:51)
[2017-12-25] MEDS ORDERED: COMPAZINE INJ ONE (07:51)
[2017-12-25 08:07] LABS: BASOPHILS # (AUTO) 0.1 X10^3/uL (0.0-0.1); BASOPHILS % (AUTO) 0.6 % (0.2-1.0); EOSINOPHILS # (AUTO) 0.1 x10^3/uL (0.0-0.2); EOSINOPHILS % (AUTO) 0.9 % (0.9-2.9); HEMATOCRIT 34.5 % (36.0-47.0); HEMOGLOBIN 11.2 g/dL (12.0-16.0); LYMPHOCYTES # (AUTO) 2.1 X10^3/uL (1.3-2.9); LYMPHOCYTES % (AUTO) 19.8 % (21.0-51.0); MEAN CORPUSCULAR HEMOGLOBIN 25.3 pg (27.0-34.0); MEAN CORPUSCULAR HGB CONC 32.4 g/dL (33.0-35.0); MEAN CORPUSCULAR VOLUME 78.2 fL (80.0-100.0); MEAN PLATELET VOLUME 9.4 fL (7.4-11.0); MONOCYTES # (AUTO) 0.7 x10^3/uL (0.3-0.8); MONOCYTES % (AUTO) 6.4 % (0.0-13.0); NEUTROPHILS # (AUTO) 7.5 x10^3/uL (2.2-4.8); NEUTROPHILS % (AUTO) 72.3 % (42.0-75.0); PLATELET COUNT 368 X10^3/uL (150.0-450.0); RED BLOOD COUNT 4.41 X10^6/uL (3.5-5.4); RED CELL DISTRIBUTION WIDTH 15.8 % (11.6-16.5); WHITE BLOOD COUNT 10.4 X10^3/uL (3.6-10.0)
[2017-12-25 08:15] LABS: AMYLASE 43 Units/L (25-115); LIPASE 64 Units/L (73-393)
[2017-12-25 08:18] LABS: ALBUMIN 2.1 g/dL (3.4-5.0); C-REACTIVE PROTEIN 3.8 mg/L (0-3.0); CALCIUM 8.9 mg/dL (8.5-10.1); CARBON DIOXIDE 27.7 mmol/L (21-32); COR CA(FOR HYPOALB) 10.4 mg/dL (8.5-10.1); CREATININE 1.7 mg/dL (0.55-1.02); TOTAL PROTEIN 7.9 g/dL (6.4-8.2)
--- NOTE | 2017-12-25 08:34 | RAD ---
HISTORY: Abdominal pain. Gastroparesis Study: PA chest with supine and upright abdominal views Comparison: 11/22/2017 Findings: The lungs are clear. The heart size is normal. A right-sided Port-A-Cath is present. The tip appea rs to be in the region of the subclavian vein and the junction of the and internal jugular vein. The heart size is normal. No acute bony abnormalities are identified. Examination of the abdomen demonstrates scattered large am small bowel gas. I see no evidence of bow el obstruction or pneumoperitoneum. Surgical clips are present in the right upper abdominal quadrant consistent with prior cholecystectomy. No acute bony abnormalities are identified. IMPRESSION: 1. No radiographic evidence of acute cardiopulmonary disease or significant change is noted when com pared to the prior examination. 2. No evidence of bowel obstruction or pneumoperitoneum. Reported By:
[2017-12-25 08:46] LABS: PLATELET MORPHOLOGY COMMENT NORMAL (NORMAL)
== END 2017-12-25 10:17 | disposition home or self-care (01) ==
LOC: ER 07:25
DX: R10.84 Generalized abdominal pain (principal); K31.84 Gastroparesis
CPT/HCPCS: 36415; 74022; 80053; 82150; 83690; 85025; 86140; 96365; 96374; 96375; 99282; 99283; J0780; J1170

== ENCOUNTER 2017-12-28 07:25 | Emergency (ER) | payer OTHER ==
[2017-12-28 07:31] VITALS: BMI 38.0
[2017-12-28] MEDS ORDERED: NS 1000 ML 1,000 ML ONE (07:35)
[2017-12-28] MEDS ORDERED: NS 1000 ML 1,000 ML IV ONE (07:47)
[2017-12-28] MEDS ORDERED: REGLAN TAB 10 MG PO ONE (08:20)
[2017-12-28] MEDS ORDERED: PHENERGAN INJ 25 MG IVP ONE (08:20)
[2017-12-28] MEDS ORDERED: DILAUDID INJ IVP ONE (08:20)
[2017-12-28] MEDS ORDERED: PHENERGAN INJ 25 MG ONE (08:22)
[2017-12-28] MEDS ORDERED: NS 100 ML IV 100 ML IV ONE (08:22)
[2017-12-28] MEDS ORDERED: DILAUDID INJ ONE (08:23)
--- NOTE | 2017-12-28 08:33 | DR.GENAD ---
HPI - PCP Primary Care Physician: kevin - Complaint/Symptoms Chief Complaint Doctors Comments: She had presented here on 12/25/17 with siimilar symmptoms havings started the day before. She was treated and released kamini for s/s to recur that same evening and has been persistent since. Chief Complaint:: Patient c/o left sided abd pain with nausea since sunday night. Patent stated she was seen in ED sunday and recd some relief for a few hours and then the pain started back. Patient has a history of gastroparesis Self Treatment fo Chief Complaint: Patient stated she has been trying to take her percocet 5/325 at home but it wont stay down. - Nurses notes reviewed Nurses Notes Review: Yes - Source History Provided: Patient - Mode of Arrival Mode of Arrival: Ambulatory - Timing Onset of Chief Complaint: 12/25/17 PMH - PMH Past Medical History: Yes Past Medical History: Anxiety, Diabetes, Dyslipidemia, GERD Past Medical History Comment: gastroparesis Past Surgical History: Yes Surgical History: , Cholecystectomy, Hysterectomy, Other Past Surgical History Comment: right sided port a cath - Family History History of Family Medical Conditions: Yes Family Medical History: Diabetes Mellitus, Hypertension - Social History Does patient currently use any type of tobacco product: Yes Have you used tobacco products in the last 12 months: Yes Type of Tobacco Use: Cigarettes Does any household member use tobacco: No Alcohol Use: None Do you use any recreational Drugs:: No Lives With: Family Lives Where: Home - infectious screening In the last 2 months have you had wt loss of >10#?: NO Have you had fever, night sweats or hemotysis?: No Have you traveled outside the country in the last 6 months?: No Isolation: Standard ROS - Review of Systems Constitutional: No Symptoms Reported Eyes: No Symptoms Reported ENTM: No Symptoms Reported Respiratoy: No Symptoms Reported Cardiovascular: No Symptoms Reported Gastrointestinal/Abdominal: Abdominal Pain, Nausea, Vomiting Genitourinary: No Symptoms Reported Neurological: No Symptoms Reported Musculoskeletal: No Symptoms Reported Integumentary: No Symptoms Reported Hematologic/Lymphatic: No Symptoms Reported Endocrine: No Symptoms Reported Psychiatric: No Symptoms Reported All Other Systems: Reviewed and Negative PE - Vital Signs Vitals: Temperature 97.8 F Pulse Rate 114 Respiratory Rate 19 Blood Pressure [Left Arm] 183/94 Blood Pressure [Right Arm] 181/97 Blood Pressure 256/136 O2 Sat by Pulse Oximetry 98 - General Limitations: No Limitations General Appearance: Alert, In No Apparent Distress, Anxious, In Distress (pain related) - Head Head Exam: Normal Inspection - Eyes Eye exam: Normal Appearance - ENT ENT Exam: Normal Exam - Neck Neck Exam: Normal Inspection - Chest Chest Inspection: Normal Inspection - Respiratory Respiratory Exam: Normal Lung Sounds Bilat - Cardiovascular Cardiovascular Exam: Regular Rate, Normal Rhythm - Abdominal Exam Abdominal Exam: Normal Inspection, Normal Bowel Sounds, Soft - Extremities Extremities Exam: Normal Inspection - Back Back Exam: Normal Inspection - Neurologic Neurological Exam: Alert, Oriented X3 - Psychiatric Psychiatric Exam: Normal Affect, Normal Mood - Skin Skin Exam: Warm, Dry, Intact, Normal Color Course - Reevaluation 1st: Improved - Education/Counseling Education/Counseling: Patient, Family, Education, Counseling Educated On: Treatment, Diagnosis, Prognosis, Needs for Follow Up (I did review her presciption activity at the [facility] site. She should have fentanyl + percocoet 5/325 for home use from her PCP. She states that she had a stomach test for gastroparesis done at her PCPs and it was normal. ) ROR - Labs Reviewed Result Diagrams: 12/28/17 08:39 12/28/17 08:39 Laboratory: WBC 10.4 X10^3/uL (3.6-10.0) H 12/28/17 08:39 RBC 4.45 X10^6/uL (3.5-5.4) 12/28/17 08:39 Hgb 11.2 g/dL (12.0-16.0) L 12/28/17 08:39 Hct 34.7 % (36.0-47.0) L 12/28/17 08:39 MCV 78.1 fL (80.0-100.0) L 12/28/17 08:39 MCH 25.1 pg (27.0-34.0) L 12/28/17 08:39 MCHC 32.2 g/dL (33.0-35.0) L 12/28/17 08:39 RDW 15.9 % (11.6-16.5) 12/28/17 08:39 Plt Count 416 X10^3/uL (150.0-450.0) 12/28/17 08:39 Plt Count Comment Adequate (ADEQUATE) 12/28/17 08:39 MPV 9.2 fL (7.4-11.0) 12/28/17 08:39 Neut % (Auto) 76.4 % (42.0-75.0) H 12/28/17 08:39 Lymph % (Auto) 16.9 % (21.0-51.0) L 12/28/17 08:39 [place] % (Auto) 5.4 % (0.0-13.0) 12/28/17 08:39 Eos % (Auto) 0.7 % (0.9-2.9) L 12/28/17 08:39 Baso % (Auto) 0.6 % (0.2-1.0) 12/28/17 08:39 Neut # (Auto) 7.9 x10^3/uL (2.2-4.8) H 12/28/17 08:39 Lymph # (Auto) 1.7 X10^3/uL (1.3-2.9) 12/28/17 08:39 [place] # (Auto) 0.6 x10^3/uL (0.3-0.8) 12/28/17 08:39 Eos # (Auto) 0.1 x10^3/uL (0.0-0.2) 12/28/17 08:39 Baso # (Auto) 0.1 X10^3/uL (0.0-0.1) 12/28/17 08:39 Absolute Nucleated RBC 0.0 /100WBC 12/28/17 08:39 Plt Morphology Comment Normal (NORMAL) 12/28/17 08:39 RBC Morphology Normal (NORMAL) 12/28/17 08:39 Sodium 141 mmol/L (136-145) 12/28/17 08:39 Corrected Sodium 142 mmol/L (136-145) 12/28/17 08:39 Potassium 3.9 mmol/L (3.5-5.1) 12/28/17 08:39 Chloride 105 mmol/L (98-107) 12/28/17 08:39 Carbon Dioxide 27.0 mmol/L (21-32) 12/28/17 08:39 BUN 8 mg/dL (7-18) 12/28/17 08:39 Creatinine 1.27 mg/dL (0.55-1.02) H 12/28/17 08:39 Est GFR (MDRD) Af Amer > 60 (>60) 12/28/17 08:39 Est GFR (MDRD) Non-Af 52 (>60) L 12/28/17 08:39 Glucose 141 mg/dL (65-99) H 12/28/17 08:39 Calcium 8.8 mg/dL (8.5-10.1) 12/28/17 08:39 Corrected Calcium 10.2 mg/dL (8.5-10.1) H 12/28/17 08:39 Total Bilirubin 0.20 mg/dL (0.2-1.0) 12/28/17 08:39 AST 17 Units/L (15-37) 12/28/17 08:39 ALT 13 Units/L (12-78) 12/28/17 08:39 Alkaline Phosphatase 80 Units/L (46-116) 12/28/17 08:39 Total Protein 7.9 g/dL (6.4-8.2) 12/28/17 08:39 Albumin 2.2 g/dL (3.4-5.0) L 12/28/17 08:39 Globulin 5.7 g/dL (2.5-4.5) H 12/28/17 08:39 Albumin/Globulin Ratio 0.4 Ratio (1.1-2.1) L 12/28/17 08:39 Amylase 60 Units/L (25-115) 12/28/17 08:39 Lipase 53 Units/L (73-393) L 12/28/17 08:39 - Diagnosis Discharge Problem: Nausea & vomiting, Gastroparesis - Discharge Plan Disposition: 01 HOME, SELF-CARE Condition: Stable - Follow ups/Referrals Follow ups/Referrals: NFD,None [Primary Care Provider] - 3 days - Instructions Instructions: Nausea and Vomiting, Adult
[2017-12-28 08:58] LABS: BASOPHILS # (AUTO) 0.1 X10^3/uL (0.0-0.1); BASOPHILS % (AUTO) 0.6 % (0.2-1.0); EOSINOPHILS # (AUTO) 0.1 x10^3/uL (0.0-0.2); EOSINOPHILS % (AUTO) 0.7 % (0.9-2.9); HEMATOCRIT 34.7 % (36.0-47.0); HEMOGLOBIN 11.2 g/dL (12.0-16.0); LYMPHOCYTES # (AUTO) 1.7 X10^3/uL (1.3-2.9); LYMPHOCYTES % (AUTO) 16.9 % (21.0-51.0); MEAN CORPUSCULAR HEMOGLOBIN 25.1 pg (27.0-34.0); MEAN CORPUSCULAR HGB CONC 32.2 g/dL (33.0-35.0); MEAN CORPUSCULAR VOLUME 78.1 fL (80.0-100.0); MEAN PLATELET VOLUME 9.2 fL (7.4-11.0); MONOCYTES # (AUTO) 0.6 x10^3/uL (0.3-0.8); MONOCYTES % (AUTO) 5.4 % (0.0-13.0); NEUTROPHILS # (AUTO) 7.9 x10^3/uL (2.2-4.8); NEUTROPHILS % (AUTO) 76.4 % (42.0-75.0); PLATELET COUNT 416 X10^3/uL (150.0-450.0); RED BLOOD COUNT 4.45 X10^6/uL (3.5-5.4); RED CELL DISTRIBUTION WIDTH 15.9 % (11.6-16.5); WHITE BLOOD COUNT 10.4 X10^3/uL (3.6-10.0)
[2017-12-28 09:08] LABS: ALANINE AMINOTRANSFERASE 13 Units/L (12-78); ALBUMIN 2.2 g/dL (3.4-5.0); ALKALINE PHOSPHATASE 80 Units/L (46-116); AMYLASE 60 Units/L (25-115); ASPARTATE AMINO TRANSFERASE 17 Units/L (15-37); BLOOD UREA NITROGEN 8 mg/dL (7-18); CALCIUM 8.8 mg/dL (8.5-10.1); CHLORIDE 105 mmol/L (98-107); COR CA(FOR HYPOALB) 10.2 mg/dL (8.5-10.1); COR NA(FOR HYPERGLY) 142 mmol/L (136-145); CREATININE 1.27 mg/dL (0.55-1.02); LIPASE 53 Units/L (73-393); SODIUM 141 mmol/L (136-145); TOTAL PROTEIN 7.9 g/dL (6.4-8.2); eGFR BLACK RACES > 60 (>60); eGFR NON BLACK RACES 52 (>60)
[2017-12-28 09:22] VITALS: BP 183/94
[2017-12-28 09:24] LABS: PLATELET MORPHOLOGY COMMENT NORMAL (NORMAL)
== END 2017-12-28 09:58 | disposition home or self-care (01) ==
LOC: ER 07:35
DX: R11.2 Nausea with vomiting, unspecified (principal); K31.84 Gastroparesis
CPT/HCPCS: 36415; 80053; 82150; 83690; 85025; 96365; 96374; 96375; 99283; A4222; J1170; J2550

== ENCOUNTER 2017-12-31 13:23 | Emergency (ER) | payer OTHER ==
[2017-12-31 13:28] VITALS: BP 186/111; BMI 38.0
[2017-12-31] MEDS ORDERED: DILAUDID INJ IVP STA (14:00)
--- NOTE | 2017-12-31 14:00 | DR.GENAD ---
HPI - PCP Primary Care Physician: Dr. Wynne - Complaint/Symptoms Chief Complaint Doctors Comments: Patient presented with complaint of stomach pain not relieved by medication now taking. She was seen a few days prior. She denies vomiting at this time. Chief Complaint:: Pt is c/o stomach pain. she states she has been vomiting and having pain since sunday. She was seen in ER friend and has not gotten any better. - Source History Provided: Patient - Mode of Arrival Mode of Arrival: Ambulatory - Timing Onset of Chief Complaint: 12/28/17 PMH - PMH Past Medical History: Yes Past Medical History: Anxiety, Diabetes, Dyslipidemia, GERD, Hypertension Past Surgical History: Yes Surgical History: , Cholecystectomy, Hysterectomy, Other - Family History History of Family Medical Conditions: Yes Family Medical History: Diabetes Mellitus, Hypertension - Social History Does patient currently use any type of tobacco product: Yes Have you used tobacco products in the last 12 months: Yes Type of Tobacco Use: Cigarettes Does any household member use tobacco: Yes Alcohol Use: None Do you use any recreational Drugs:: No Lives With: Family Lives Where: Home - infectious screening In the last 2 months have you had wt loss of >10#?: NO Have you had fever, night sweats or hemotysis?: No Have you traveled outside the country in the last 6 months?: No Isolation: Standard ROS - Review of Systems Eyes: No Symptoms Reported ENTM: No Symptoms Reported Respiratoy: No Symptoms Reported, Moist Cough Gastrointestinal/Abdominal: Abdominal Pain Genitourinary: No Symptoms Reported Neurological: No Symptoms Reported Musculoskeletal: No Symptoms Reported Integumentary: No Symptoms Reported Hematologic/Lymphatic: No Symptoms Reported Endocrine: No Symptoms Reported Psychiatric: No Symptoms Reported All Other Systems: Reviewed and Negative PE - Vital Signs Vitals: Temperature 97.5 F Pulse Rate 97 Respiratory Rate 18 Blood Pressure [Left Arm] 183/94 Blood Pressure [Right Arm] 181/97 Blood Pressure 186/111 O2 Sat by Pulse Oximetry 98 - General Limitations: No Limitations General Appearance: Alert, In No Apparent Distress - Head Head Exam: Normal Inspection, Atraumatic - Eyes Eye exam: Normal Appearance, PERRL, EOMI - ENT ENT Exam: Normal Exam External Ear Exam: Normal External Inspection TM/Canal Exam: Bilateral Normal Nose Exam: Normal Nose Exam Mouth Exam: Normal Inspection Throat Exam: Normal Inspection - Neck Neck Exam: Normal Inspection, Full ROM - Chest Chest Inspection: Normal Inspection, Symmetric Chest Wall Rise - Respiratory Respiratory Exam: Normal Lung Sounds Bilat Respiratory Exam: Bilateral Clear to Auscultation - Cardiovascular Cardiovascular Exam: Regular Rate, Normal Rhythm - Abdominal Exam Abdominal Exam: Normal Inspection, Normal Bowel Sounds Abdominal Tenderness: negative: RUQ, RLQ, LUQ, LLQ, Epigastrium, Suprapubic, Diffuse, Mild, Moderate, Severe, Other - Extremities Extremities Exam: Normal Inspection, Full ROM - Back Back Exam: Normal Inspection, Full ROM - Neurologic Neurological Exam: Alert, Oriented X3, CN II-XII Intact - Psychiatric Psychiatric Exam: Normal Affect - Skin Skin Exam: Warm, Dry Course - Treatment Treatment: Dilaudid 1mg x 2. Pain resolved - Reevaluation 1st: Improved - Diagnosis Discharge Problem: Gastroparesis - Discharge Plan Condition: Stable - Follow ups/Referrals Follow ups/Referrals: SUE WYNNE [Primary Care Provider] - 3 days - Instructions
[2017-12-31] MEDS ORDERED: COMPAZINE INJ IVP ONE (14:01)
[2017-12-31] MEDS ORDERED: LR 1000 ML IV 1,000 ML IV ONE ×2 (14:02→14:04)
[2017-12-31] MEDS ORDERED: COMPAZINE INJ ONE (14:03)
[2017-12-31] MEDS ORDERED: DILAUDID INJ ONE ×2 (14:04→15:18)
[2017-12-31] MEDS: DILAUDID INJ IVP ONE ×2 (15:30)
== END 2017-12-31 16:55 | disposition home or self-care (01) ==
LOC: ER 13:31
DX: K31.84 Gastroparesis (principal)
CPT/HCPCS: 96365; 96374; 96375; 99282; 99283; J0780; J1170; J7120

== ENCOUNTER 2018-01-02 11:54 | Inpatient (IN) | payer OTHER ==
[2018-01-02] MEDS ORDERED: PEPCID 20 MG IV PREMIX* 20 MG/50 ML BAG IV PRN (14:02)
[2018-01-02] MEDS ORDERED: DILAUDID INJ IVP PRN (14:02)
--- NOTE | 2018-01-02 14:09 | DR.H&P ---
H&P - History & Physical for Day of: H&P Date: 01/02/18 - Chief Complaint Chief Complaint: Abdominal pain wit nausea and vomiting - Allergies Allergies/Adverse Reactions: Allergies Allergy/AdvReac Type Severity Reaction Status Date / Time Penicillins Allergy Verified 12/25/17 07:18 morphine AdvReac Verified 12/25/17 07:18 - History of Present Illness History of Present Illness: The patient is a 32-year-old black female who presents to the clinic with complaint of abdominal pain for 3 weeks. Does continue to complain of nausea vomiting. States been to the emergency room 3 times in the last week with symptoms. Does complain of feeling shaky and dizzy. Blood sugar noted to be 62 in office setting. Patient was given a glucose tablet. States that she has been taking her anti-emetics and PPIs. States does not feel like pancreatitis. Patient denies any diarrhea. Denies any fever. - Past Medical History Past Medical History: Anxiety, Diabetes, Dyslipidemia, GERD, Hypertension Additional Medical History: Pancreatitis, Gastroparesis - Past Surgical History Surgical History: , Cholecystectomy, Hysterectomy, Other - Family History Family Medical History: Diabetes Mellitus, Hypertension - Social History Does patient currently use any type of tobacco product: No Have you used tobacco products in the last 12 months: No Type of Tobacco Use: None Does any household member use tobacco: No Alcohol Use: None - Review of Systems Constitutional: Malaise Eyes: No Symptoms Reported ENT: No Symptoms Reported Respiratory: No Symptoms Reported Cardiovascular: No Symptoms Reported Gastrointestinal: Nausea, Vomiting, Abdominal Pain Genitourinary: No Symptoms Reported Musculoskeletal: No Symptoms Reported Skin: No Symptoms Reported Neurological: No Symptoms Reported - Physical Exam Vital Signs: Temperature 97.3 F Pulse Rate [Right Brachial] 114 Respiratory Rate 22 Blood Pressure [Left Arm] 172/114 Blood Pressure [Right Arm] 181/97 Blood Pressure 186/111 O2 Sat by Pulse Oximetry 97 Oriented: Normal Eyes: Normal Ear: Normal Nose: Normal Throat: Normal Respiratory: Clear Throughout Cardiovascular: Normal : Normal Auscultation: Bowel Sounds: Normal Palpation: Normal Tenderness: Epigastric Skin: Normal Musculoskeletal: Normal Psychiatric: Other (Crying) Mood Description: Sad Affect: Angry, Normal Speech Pattern: Clear - Assessment/Plan (1) Abdominal pain Qualifiers: Status: Acute Plan: KUB (2) Nausea & vomiting Status: Acute Plan: Labs, IV Fluids (3) Diabetes mellitus Status: Chronic Plan: Monitor BS (4) Hypertension Qualifiers: Hypertension type: essential hypertension Status: Chronic Plan: Monitor BP.
[2018-01-02 14:26] LABS: BASOPHILS % (AUTO) 0.4 % (0.2-1.0); EOSINOPHILS % (AUTO) 0.1 % (0.9-2.9); HEMATOCRIT 34.7 % (36.0-47.0); HEMOGLOBIN 11.1 g/dL (12.0-16.0); LYMPHOCYTES # (AUTO) 0.8 X10^3/uL (1.3-2.9); LYMPHOCYTES % (AUTO) 10.2 % (21.0-51.0); MEAN CORPUSCULAR HEMOGLOBIN 25.2 pg (27.0-34.0); MEAN CORPUSCULAR HGB CONC 32.1 g/dL (33.0-35.0); MEAN CORPUSCULAR VOLUME 78.7 fL (80.0-100.0); MONOCYTES # (AUTO) 0.4 x10^3/uL (0.3-0.8); MONOCYTES % (AUTO) 5.1 % (0.0-13.0); NEUTROPHILS % (AUTO) 84.2 % (42.0-75.0); PLATELET COUNT 338 X10^3/uL (150.0-450.0); RED BLOOD COUNT 4.41 X10^6/uL (3.5-5.4); RED CELL DISTRIBUTION WIDTH 16.1 % (11.6-16.5); WHITE BLOOD COUNT 8.3 X10^3/uL (3.6-10.0)
[2018-01-02] MEDS: DEMEROL INJ IVP PRN ×2 (14:33→20:42)
[2018-01-02] MEDS: ZOFRAN INJ 4 MG VIAL IVP PRN (14:34)
[2018-01-02] MEDS: NS 1000 ML 1,000 ML IV SCH (14:34)
[2018-01-02 14:38] LABS: CALCIUM 8.6 mg/dL (8.5-10.1); CARBON DIOXIDE 29.4 mmol/L (21-32); COR CA(FOR HYPOALB) 10.2 mg/dL (8.5-10.1); CREATININE 1.47 mg/dL (0.55-1.02)
[2018-01-02 14:42] LABS: HYPOCHROMASIA SLIGHT; PLATELET MORPHOLOGY COMMENT NORMAL (NORMAL)
[2018-01-02 14:56] VITALS: BMI 37.2
[2018-01-02] MEDS ORDERED: HumuLIN R SC PRN (16:30)
--- NOTE | 2018-01-02 20:03 | RAD ---
HISTORY: Subacute abdominal pain, nausea, vomiting, dizziness, tremors, hypoglycemia Study: Acute abdominal series, three views were obtained Comparison: December 25, 2017 Findings: A right-sided Port-A-Cath is noted. The heart is normal. The lungs are clear. There is no pneumoperit oneum. Cholecystectomy clips are noted. Moderate colonic fecal material is noted. There are no findin gs of obstruction or ileus. Osseous structures are intact. IMPRESSION: No acute finding within the chest or abdomen. Reported By:
[2018-01-02] MEDS: PROTONIX INJ 40 MG VIAL IVP SCH (20:38)
[2018-01-02] MEDS: PHENERGAN INJ 25 MG IVP PRN (20:42)
[2018-01-02 22:42] LABS: BILIRUBIN,URINE NEGATIVE (NEGATIVE); BLOOD/HEMOGLOBIN,URINE 2+ (NEGATIVE); GLUCOSE, URINE 1+ (NEGATIVE); KETONES,URINE NEGATIVE (NEGATIVE); LEUKOCYTE ESTERASE ,URINE NEGATIVE (NEGATIVE); NITRITES,URINE NEGATIVE (NEGATIVE); PROTEIN,URINE 4+ (NEGATIVE); UROBILINOGEN,URINE NORMAL (NORMAL)
[2018-01-02] MEDS ORDERED: CATAPRES TAB 0.1 MG PO PRN (22:42)
[2018-01-02 22:56] LABS: APPEARANCE,URINE SLIGHTLY HAZY (CLEAR); BACTERIA,URINE 2+ /HPF (NEGATIVE); COLOR,URINE YELLOW (YELLOW); SQUAMOUS EPITHELIAL CELL,UR MODERATE /HPF (NEGATIVE)
[2018-01-03] MEDS: NS 1000 ML 1,000 ML IV SCH ×3 (00:15→21:25)
[2018-01-03] MEDS: ZOFRAN INJ 4 MG VIAL IVP PRN ×4 (00:20→23:05)
[2018-01-03] MEDS: DEMEROL INJ IVP PRN ×7 (02:53→23:21)
[2018-01-03] MEDS: PHENERGAN INJ 25 MG IVP PRN ×2 (02:53→19:20)
[2018-01-03 06:03] LABS: BLOOD UREA NITROGEN 8 mg/dL (7-18); CALCIUM 8.1 mg/dL (8.5-10.1); CHLORIDE 109 mmol/L (98-107); CREATININE 1.26 mg/dL (0.55-1.02); SODIUM 144 mmol/L (136-145); eGFR BLACK RACES > 60 (>60); eGFR NON BLACK RACES 52 (>60)
[2018-01-03] MEDS: PROTONIX INJ 40 MG VIAL IVP SCH ×2 (08:43→22:01)
[2018-01-03] MEDS: COREG TAB 12.5 MG PO SCH ×2 (08:43→16:51)
[2018-01-03] MEDS: REGLAN TAB 10 MG PO SCH ×3 (08:43→16:51)
[2018-01-03] MEDS ORDERED: NORVASC TAB 10 MG PO SCH (09:00)
[2018-01-03] MEDS ORDERED: ZESTRIL TAB 40 MG PO SCH (09:00)
[2018-01-03] MEDS ORDERED: CATAPRES TAB 0.1 MG PO PRN (17:53)
[2018-01-03] MEDS ORDERED: ATIVAN TAB 0.5 MG PO PRN (17:53)
[2018-01-03] MEDS ORDERED: FLEXERIL TAB 10 MG PO PRN (17:53)
[2018-01-03] MEDS: PERCOCET TAB 5/325 MG PO PRN (21:26)
[2018-01-03] MEDS: ELAVIL PO SCH ×2 (21:52→22:02)
[2018-01-03] MEDS: VISTARIL PO SCH (22:01)
[2018-01-03] MEDS: PRAVACHOL PO SCH (22:01)
[2018-01-04] MEDS: PHENERGAN INJ 25 MG IVP PRN ×2 (02:58→22:55)
[2018-01-04] MEDS: DEMEROL INJ IVP PRN ×6 (03:01→22:55)
[2018-01-04 05:34] LABS: BASOPHILS % (AUTO) 0.4 % (0.2-1.0); EOSINOPHILS # (AUTO) 0.2 x10^3/uL (0.0-0.2); EOSINOPHILS % (AUTO) 2.2 % (0.9-2.9); HEMATOCRIT 30.6 % (36.0-47.0); HEMOGLOBIN 9.7 g/dL (12.0-16.0); LYMPHOCYTES # (AUTO) 2.4 X10^3/uL (1.3-2.9); LYMPHOCYTES % (AUTO) 33.1 % (21.0-51.0); MEAN CORPUSCULAR HEMOGLOBIN 25.2 pg (27.0-34.0); MEAN CORPUSCULAR HGB CONC 31.6 g/dL (33.0-35.0); MEAN CORPUSCULAR VOLUME 79.8 fL (80.0-100.0); MEAN PLATELET VOLUME 9.3 fL (7.4-11.0); MONOCYTES # (AUTO) 0.6 x10^3/uL (0.3-0.8); MONOCYTES % (AUTO) 7.6 % (0.0-13.0); NEUTROPHILS # (AUTO) 4.2 x10^3/uL (2.2-4.8); NEUTROPHILS % (AUTO) 56.7 % (42.0-75.0); PLATELET COUNT 272 X10^3/uL (150.0-450.0); RED BLOOD COUNT 3.84 X10^6/uL (3.5-5.4); RED CELL DISTRIBUTION WIDTH 16.4 % (11.6-16.5); WHITE BLOOD COUNT 7.4 X10^3/uL (3.6-10.0)
[2018-01-04] MEDS: VISTARIL PO SCH ×3 (05:43→21:20)
[2018-01-04 05:54] LABS: ALANINE AMINOTRANSFERASE 10 Units/L (12-78); ALBUMIN 1.6 g/dL (3.4-5.0); ALKALINE PHOSPHATASE 63 Units/L (46-116); ASPARTATE AMINO TRANSFERASE 14 Units/L (15-37); BLOOD UREA NITROGEN 6 mg/dL (7-18); CARBON DIOXIDE 26.6 mmol/L (21-32); CHLORIDE 108 mmol/L (98-107); COR CA(FOR HYPOALB) 9.9 mg/dL (8.5-10.1); SODIUM 141 mmol/L (136-145); TOTAL PROTEIN 5.7 g/dL (6.4-8.2); eGFR BLACK RACES > 60 (>60); eGFR NON BLACK RACES 55 (>60)
[2018-01-04] MEDS: COREG TAB 12.5 MG PO SCH ×2 (06:03→16:56)
[2018-01-04 06:07] LABS: HYPOCHROMASIA SLIGHT; PLATELET MORPHOLOGY COMMENT NORMAL (NORMAL)
[2018-01-04] MEDS ORDERED: REGLAN TAB 10 MG PO SCH (06:30)
[2018-01-04] MEDS: ZOFRAN INJ 4 MG VIAL IVP PRN (06:51)
[2018-01-04] MEDS: ZESTRIL TAB 40 MG PO SCH (08:42)
[2018-01-04] MEDS: NORVASC TAB 10 MG PO SCH (08:42)
[2018-01-04] MEDS: PERCOCET TAB 5/325 MG PO PRN (08:42)
[2018-01-04] MEDS: ZyrTEC TAB 10 MG PO SCH (08:42)
[2018-01-04] MEDS: PROTONIX INJ 40 MG VIAL IVP SCH ×2 (08:42→21:19)
[2018-01-04] MEDS: REGLAN INJ 10 MG VIAL IVP SCH ×4 (10:59→21:20)
--- NOTE | 2018-01-04 14:05 | PCM.PROG ---
Progress Note - Progress Note for Day of Date: 01/04/18 - Subjective Subjective: 32 BF ADMITTED ON 01/02 WITH INTRACTABLE ABDOMINAL PAIN, PT HAS BEEN UNDER THE CARE OF DR GARNETT FOR CHRONIC ABDOMINAL PAIN AND DIGESTIVE ISSUES. PT CURRENTLY AWAITING REFERRAL TO [facility]. PT HAS DM AND HTN UNCONTROLLED DUE TO UNABLE TO TAKE PO MEDICATION. PT CO CONTINUED LUQ PAIN, IMPROVING VOMITING, PT CONTINUES WITH NAUSEA. PLAN TO ADVANCE DIET, CONTINUE WITH PAIN CONTROL BP AND GLUCOSE MONITORING. - Past Medical Family Social History Past Med/Fam/Surg Hx: No changes since H&P Allergies: Allergies Penicillins Allergy (Verified 12/25/17 07:18) morphine Adverse Reaction (Verified 12/25/17 07:) - Review of Systems ROS: No change since H&P - Vital Signs and I&O's Vital Signs: Temperature 98.5 F Pulse Rate [Right Brachial] 78 Respiratory Rate 20 Blood Pressure [Left Arm] 132/70 Blood Pressure [Right Arm] 181/97 Blood Pressure 186/111 O2 Sat by Pulse Oximetry 98 Intake and Output: Intake & Output 01/02/18 01/03/18 01/04/18 01/05/18 11:59 11:59 11:59 11:59 Intake Total 1342 2700 Balance 1342 2700 - Physical Exam Oriented: Normal Eyes: Normal Ear: Normal Nose: Normal Throat: Normal Respiratory: Diminished Cardiovascular: Normal : Normal Auscultation: Bowel Sounds: Normal Tenderness: LUQ, Epigastric Skin: Normal Musculoskeletal: Normal Psychiatric: Other (Crying) Mood Description: Sad Affect: Angry, Normal Speech Pattern: Clear, Appropriate - Laboratory and Diagnostics Result Diagrams: 01/04/18 05:10 01/04/18 05:10 Labs: 01/02/18 22:19 Urine,Clean Catch Urine Culture - Final Laboratory WBC 7.4 X10^3/uL (3.6-10.0) 01/04/18 05:10 RBC 3.84 X10^6/uL (3.5-5.4) 01/04/18 05:10 Hgb 9.7 g/dL (12.0-16.0) L 01/04/18 05:10 Hct 30.6 % (36.0-47.0) L 01/04/18 05:10 MCV 79.8 fL (80.0-100.0) L 01/04/18 05:10 MCH 25.2 pg (27.0-34.0) L 01/04/18 05:10 MCHC 31.6 g/dL (33.0-35.0) L 01/04/18 05:10 RDW 16.4 % (11.6-16.5) 01/04/18 05:10 Plt Count 272 X10^3/uL (150.0-450.0) 01/04/18 05:10 Plt Count Comment Adequate (ADEQUATE) 01/04/18 05:10 MPV 9.3 fL (7.4-11.0) 01/04/18 05:10 Neut % (Auto) 56.7 % (42.0-75.0) 01/04/18 05:10 Lymph % (Auto) 33.1 % (21.0-51.0) 01/04/18 05:10 [place] % (Auto) 7.6 % (0.0-13.0) 01/04/18 05:10 Eos % (Auto) 2.2 % (0.9-2.9) 01/04/18 05:10 Baso % (Auto) 0.4 % (0.2-1.0) 01/04/18 05:10 Neut # (Auto) 4.2 x10^3/uL (2.2-4.8) 01/04/18 05:10 Lymph # (Auto) 2.4 X10^3/uL (1.3-2.9) 01/04/18 05:10 [place] # (Auto) 0.6 x10^3/uL (0.3-0.8) 01/04/18 05:10 Eos # (Auto) 0.2 x10^3/uL (0.0-0.2) 01/04/18 05:10 Baso # (Auto) 0.0 X10^3/uL (0.0-0.1) 01/04/18 05:10 Absolute Nucleated RBC 0.1 /100WBC 01/04/18 05:10 Plt Morphology Comment Normal (NORMAL) 01/04/18 05:10 RBC Morphology Abnormal (NORMAL) A 01/04/18 05:10 Hypochromasia Slight A 01/04/18 05:10 Sodium 141 mmol/L (136-145) 01/04/18 05:10 Corrected Sodium TNP 01/04/18 05:10 Potassium 3.6 mmol/L (3.5-5.1) 01/04/18 05:10 Chloride 108 mmol/L (98-107) H 01/04/18 05:10 Carbon Dioxide 26.6 mmol/L (21-32) 01/04/18 05:10 BUN 6 mg/dL (7-18) L 01/04/18 05:10 Creatinine 1.20 mg/dL (0.55-1.02) H 01/04/18 05:10 Est GFR (MDRD) Af Amer > 60 (>60) 01/04/18 05:10 Est GFR (MDRD) Non-Af 55 (>60) L 01/04/18 05:10 Glucose 85 mg/dL (65-99) 01/04/18 05:10 POC Glucose (mg/dL) 108 mg/dL (65-99) H 01/04/18 11:58 Calcium 8.0 mg/dL (8.5-10.1) L 01/04/18 05:10 Corrected Calcium 9.9 mg/dL (8.5-10.1) 01/04/18 05:10 Total Bilirubin 0.20 mg/dL (0.2-1.0) 01/04/18 05:10 AST 14 Units/L (15-37) L 01/04/18 05:10 ALT 10 Units/L (12-78) L 01/04/18 05:10 Alkaline Phosphatase 63 Units/L (46-116) 01/04/18 05:10 Total Protein 5.7 g/dL (6.4-8.2) L 01/04/18 05:10 Albumin 1.6 g/dL (3.4-5.0) L 01/04/18 05:10 Globulin 4.1 g/dL (2.5-4.5) 01/04/18 05:10 Albumin/Globulin Ratio 0.4 Ratio (1.1-2.1) L 01/04/18 05:10 Amylase 40 Units/L (25-115) 01/02/18 14:10 Lipase 47 Units/L (73-393) L 01/02/18 14:10 Specimen Type Clean catch urine 01/02/18 22:19 Urine Color Yellow (YELLOW) 01/02/18 22:19 Urine Appearance Slightly hazy (CLEAR) 01/02/18 22: Urine pH 7.0 (5.0 - 8.0) 01/02/18 22: Ur Specific [place] 1.010 (1.000-1.030) 01/02/18 22: Urine Protein 4+ (NEGATIVE) 01/02/18 22: Urine Glucose (UA) 1+ (NEGATIVE) 01/02/18 22: Urine Ketones Negative (NEGATIVE) 01/02/18 22: Urine Occult Blood 2+ (NEGATIVE) 01/02/18 22: Urine Nitrite Negative (NEGATIVE) 01/02/18: Urine Bilirubin Negative (NEGATIVE) 01/02/18 22: Urine Urobilinogen Normal (NORMAL) 01/02/18 22: Ur Leukocyte Esterase Negative (NEGATIVE) 01/02/18 22: Urine RBC 3-5 /HPF (NONE SEEN) 01/02/18 22: Urine WBC 5-10 /HPF (NONE SEEN) 01/02/18 22: Ur Squamous Epith Cells Moderate /HPF (NEGATIVE) 01/02/18 22: Urine Bacteria 2+ /HPF (NEGATIVE) 01/02/18 22:19 Ur Culture Indicated? Yes/culture set up 01/02/18 22:19 - Plan (1) Abdominal pain Status: Acute Qualifiers: Plan: CONTINUE IV REGLAN,PPI. PAIN AND ANITEMETICS. HYDRATION, ADVANCE DIET TOLERATED, CONTINUE WITH [facility] SPECIAL[facility] ON DC (2) Nausea & vomiting Status: Acute Plan: Labs, IV Fluids (3) Chronic kidney disease, stage 3 Status: Chronic (4) Diabetes mellitus Status: Chronic Plan: Monitor BS (5) Hypertension Status: Chronic Qualifiers: Hypertension type: essential hypertension Plan: Monitor BP.
[2018-01-04] MEDS: NS 1000 ML 1,000 ML IV SCH ×3 (14:44→21:19)
[2018-01-04] MEDS: PRAVACHOL PO SCH (21:20)
[2018-01-04] MEDS: ELAVIL PO SCH (21:20)
[2018-01-05] MEDS: NS 1000 ML 1,000 ML IV SCH ×3 (01:00→21:45)
[2018-01-05] MEDS: REGLAN INJ 10 MG VIAL IVP SCH ×6 (02:45→21:34)
[2018-01-05] MEDS: DEMEROL INJ IVP PRN ×5 (02:45→20:15)
[2018-01-05] MEDS: VISTARIL PO SCH ×3 (05:51→21:35)
[2018-01-05 06:15] LABS: BASOPHILS % (AUTO) 0.5 % (0.2-1.0); EOSINOPHILS # (AUTO) 0.1 x10^3/uL (0.0-0.2); EOSINOPHILS % (AUTO) 2.5 % (0.9-2.9); HEMATOCRIT 29.3 % (36.0-47.0); HEMOGLOBIN 9.3 g/dL (12.0-16.0); LYMPHOCYTES # (AUTO) 2.3 X10^3/uL (1.3-2.9); LYMPHOCYTES % (AUTO) 37.5 % (21.0-51.0); MEAN CORPUSCULAR HEMOGLOBIN 25.1 pg (27.0-34.0); MEAN CORPUSCULAR HGB CONC 31.8 g/dL (33.0-35.0); MEAN PLATELET VOLUME 9.5 fL (7.4-11.0); MONOCYTES # (AUTO) 0.6 x10^3/uL (0.3-0.8); MONOCYTES % (AUTO) 9.7 % (0.0-13.0); NEUTROPHILS % (AUTO) 49.8 % (42.0-75.0); PLATELET COUNT 257 X10^3/uL (150.0-450.0); RED BLOOD COUNT 3.71 X10^6/uL (3.5-5.4); RED CELL DISTRIBUTION WIDTH 16.2 % (11.6-16.5)
[2018-01-05 06:35] LABS: ALANINE AMINOTRANSFERASE 11 Units/L (12-78); ALBUMIN 1.6 g/dL (3.4-5.0); ALKALINE PHOSPHATASE 63 Units/L (46-116); ASPARTATE AMINO TRANSFERASE 13 Units/L (15-37); BLOOD UREA NITROGEN 5 mg/dL (7-18); CALCIUM 7.8 mg/dL (8.5-10.1); CARBON DIOXIDE 26.9 mmol/L (21-32); CHLORIDE 108 mmol/L (98-107); COR CA(FOR HYPOALB) 9.7 mg/dL (8.5-10.1); COR NA(FOR HYPERGLY) 139 mmol/L (136-145); CREATININE 1.23 mg/dL (0.55-1.02); SODIUM 139 mmol/L (136-145); TOTAL PROTEIN 5.7 g/dL (6.4-8.2); eGFR BLACK RACES > 60 (>60); eGFR NON BLACK RACES 53 (>60)
[2018-01-05] MEDS: COREG TAB 12.5 MG PO SCH ×2 (06:36→17:44)
[2018-01-05 07:08] LABS: ANISOCYTOSIS SLIGHT; PLATELET MORPHOLOGY COMMENT NORMAL (NORMAL)
[2018-01-05] MEDS ORDERED: ROCEPHIN 1 GM IV PREMIX 1 GM/50 ML IV.SOLN. IV SCH (09:00)
[2018-01-05] MEDS: CIPRO IV 400 MG PREMIX* 400 MG/200 ML IV.SOLN. IV SCH ×2 (10:17→21:35)
[2018-01-05] MEDS: NORVASC TAB 10 MG PO SCH (10:18)
[2018-01-05] MEDS: ZyrTEC TAB 10 MG PO SCH (10:18)
[2018-01-05] MEDS: PROTONIX INJ 40 MG VIAL IVP SCH ×2 (10:18→21:34)
[2018-01-05] MEDS: ZESTRIL TAB 40 MG PO SCH (10:18)
[2018-01-05] MEDS: PHENERGAN INJ 25 MG IVP PRN ×3 (10:23→21:36)
--- NOTE | 2018-01-05 17:14 | PCM.PROG ---
Progress Note - Subjective Subjective: IS BEING TREATED FOR ABDOMINAL PAIN, NAUSEA/VOMITING, AND HYPERTENSION. TODAY, SHE IS LYING IN BED WITH EYES CLOSED ON MORNING ROUNDS. SHE AWAKENS AND RESPONDS TO VERBAL STIMULI. SHE CONTINUES WITH COMPLAINTS OF ABDOMINAL PAIN AND NAUSEA. ON EXAMINATION, SHE IS NOTED WITH MILD SUPRAPUBIC TENDERNESS TO PALPATION. HER VITALS THIS MORNING ARE 98.0-74-18-97%-109/71. SHE IS HEMODYNAMICALLY STABLE TODAY. URINALYSIS DID REVEAL 5-10 WBC, 2+ BACTERIA. TODAY WE WILL START CIPRO 400MG IV Q12H. OTHERWISE, WE WILL CONTINUE WITH CURRENT PLAN OF CARE. WE PLAN TO FOLLOW UP WITH AM LABS AND CONTINUE TO MONITOR PATIENT. CONTINUE WITH PAIN CONTROL BP AND GLUCOSE MONITORING. - Past Medical Family Social History Past Med/Fam/Surg Hx: No changes since H&P Allergies: Allergies Penicillins Allergy (Verified 12/25/17 07:18) morphine Adverse Reaction (Verified 12/25/17 07:18) - Review of Systems ROS: No change since H&P - Vital Signs and I&O's Vital Signs: Temperature 98.8 F Pulse Rate [Right Brachial] 93 Respiratory Rate 20 Blood Pressure [Left Arm] 164/98 Blood Pressure [Right Arm] 181/97 Blood Pressure 186/111 O2 Sat by Pulse Oximetry 96 Intake and Output: Intake & Output 01/03/18 01/04/18 01/05/18 01/06/18 11:59 11:59 11:59 11:59 Intake Total 1342 2700 2110 240 Balance 1342 2700 2110 240 - Physical Exam Oriented: Normal Eyes: Normal Ear: Normal Nose: Normal Throat: Normal Respiratory: Diminished Cardiovascular: Normal : Normal Auscultation: Bowel Sounds: Normal Tenderness: LUQ, Epigastric, Suprapubic Skin: Normal Musculoskeletal: Normal Psychiatric: Other (Crying) Mood Description: Sad Affect: Angry, Normal Speech Pattern: Clear, Appropriate - Laboratory and Diagnostics Result Diagrams: 01/05/18 05:18 01/05/18 05:18 Labs: 01/02/18 22:19 Urine,Clean Catch Urine Culture - Final Laboratory WBC 6.0 X10^3/uL (3.6-10.0) 01/05/18 05:18 RBC 3.71 X10^6/uL (3.5-5.4) 01/05/18 05:18 Hgb 9.3 g/dL (12.0-16.0) L 01/05/18 05:18 Hct 29.3 % (36.0-47.0) L 01/05/18 05:18 MCV 79.0 fL (80.0-100.0) L 01/05/18 05:18 MCH 25.1 pg (27.0-34.0) L 01/05/18 05:18 MCHC 31.8 g/dL (33.0-35.0) L 01/05/18 05:18 RDW 16.2 % (11.6-16.5) 01/05/18 05:18 Plt Count 257 X10^3/uL (150.0-450.0) 01/05/18 05:18 Plt Count Comment Adequate (ADEQUATE) 01/05/18 05:18 MPV 9.5 fL (7.4-11.0) 01/05/18 05:18 Neut % (Auto) 49.8 % (42.0-75.0) 01/05/18 05:18 Lymph % (Auto) 37.5 % (21.0-51.0) 01/05/18 05:18 [place] % (Auto) 9.7 % (0.0-13.0) 01/05/18 05:18 Eos % (Auto) 2.5 % (0.9-2.9) 01/05/18 05:18 Baso % (Auto) 0.5 % (0.2-1.0) 01/05/18 05:18 Neut # (Auto) 3.0 x10^3/uL (2.2-4.8) 01/05/18 05:18 Lymph # (Auto) 2.3 X10^3/uL (1.3-2.9) 01/05/18 05:18 [place] # (Auto) 0.6 x10^3/uL (0.3-0.8) 01/05/18 05:18 Eos # (Auto) 0.1 x10^3/uL (0.0-0.2) 01/05/18 05:18 Baso # (Auto) 0.0 X10^3/uL (0.0-0.1) 04/28/18 05:18 Absolute Nucleated RBC 0.1 /100WBC 01/05/18 05:18 Plt Morphology Comment Normal (NORMAL) 01/05/18 05:18 RBC Morphology Abnormal (NORMAL) A 01/05/18 05:18 Hypochromasia Slight A 01/04/18 05:10 Anisocytosis Slight A 01/05/18 05:18 Sodium 139 mmol/L (136-145) 01/05/18 05:18 Corrected Sodium 139 mmol/L (136-145) 01/05/18 05:18 Potassium 3.6 mmol/L (3.5-5.1) 01/05/18 05:18 Chloride 108 mmol/L (98-107) H 01/05/18 05:18 Carbon Dioxide 26.9 mmol/L (21-32) 01/05/18 05:18 BUN 5 mg/dL (7-18) L 01/05/18 05:18 Creatinine 1.23 mg/dL (0.55-1.02) H 01/05/18 05:18 Est GFR (MDRD) Af Amer > 60 (>60) 01/05/18 05:18 Est GFR (MDRD) Non-Af 53 (>60) L 01/05/18 05:18 Glucose 114 mg/dL (65-99) H 01/05/18 05:18 POC Glucose (mg/dL) 124 mg/dL (65-99) H 01/05/18 13:36 Calcium 7.8 mg/dL (8.5-10.1) L 01/05/18 05:18 Corrected Calcium 9.7 mg/dL (8.5-10.1) 01/05/18 05:18 Total Bilirubin 0.10 mg/dL (0.2-1.0) L 01/05/18 05:18 AST 13 Units/L (15-37) L 01/05/18 05:18 ALT 11 Units/L (12-78) L 01/05/18 05:18 Alkaline Phosphatase 63 Units/L (46-116) 01/05/18 05:18 Total Protein 5.7 g/dL (6.4-8.2) L 01/05/18 05:18 Albumin 1.6 g/dL (3.4-5.0) L 01/05/18 05:18 Globulin 4.1 g/dL (2.5-4.5) 01/05/18 05:18 Albumin/Globulin Ratio 0.4 Ratio (1.1-2.1) L 01/05/18 05:18 Amylase 40 Units/L (25-115) 01/02/18 14:10 Lipase 47 Units/L (73-393) L 01/02/18 14:10 Specimen Type Clean catch urine 01/02/18 22:19 Urine Color Yellow (YELLOW) 01/02/18 22: Urine Appearance Slightly hazy (CLEAR) 01/02/18 22:19 Urine pH 7.0 (5.0 - 8.0) 01/02/18 22:19 Ur Specific [place] 1.010 (1.000-1.030) 01/02/18 22: Urine Protein 4+ (NEGATIVE) 01/02/18 22:19 Urine Glucose (UA) 1+ (NEGATIVE) 01/02/18 22:19 Urine Ketones Negative (NEGATIVE) 01/02/18 22: Urine Occult Blood 2+ (NEGATIVE) 01/02/18 22: Urine Nitrite Negative (NEGATIVE) 01/02/18 22: Urine Bilirubin Negative (NEGATIVE) 01/02/18 22:19 Urine Urobilinogen Normal (NORMAL) 01/02/18 22:19 Ur Leukocyte Esterase Negative (NEGATIVE) 01/02/18 22:19 Urine RBC 3-5 /HPF (NONE SEEN) 01/02/18 22:19 Urine WBC 5-10 /HPF (NONE SEEN) 01/02/18 22:19 Ur Squamous Epith Cells Moderate /HPF (NEGATIVE) 01/02/18 22:19 Urine Bacteria 2+ /HPF (NEGATIVE) 01/02/18 22:19 Ur Culture Indicated? Yes/culture set up 01/02/18 22:19
[2018-01-05] MEDS: ZOFRAN INJ 4 MG VIAL IVP PRN (20:15)
[2018-01-05] MEDS: PRAVACHOL PO SCH (21:34)
[2018-01-05] MEDS: ELAVIL PO SCH (21:35)
[2018-01-05] MEDS: PERCOCET TAB 5/325 MG PO PRN (21:37)
[2018-01-06] MEDS: DEMEROL INJ IVP PRN ×6 (00:16→20:43)
[2018-01-06] MEDS: NS 1000 ML 1,000 ML IV SCH ×4 (00:48→20:52)
[2018-01-06] MEDS: REGLAN INJ 10 MG VIAL IVP SCH ×6 (04:25→22:15)
[2018-01-06 05:39] LABS: BASOPHILS % (AUTO) 0.5 % (0.2-1.0); EOSINOPHILS # (AUTO) 0.1 x10^3/uL (0.0-0.2); EOSINOPHILS % (AUTO) 2.1 % (0.9-2.9); HEMATOCRIT 30.9 % (36.0-47.0); HEMOGLOBIN 9.6 g/dL (12.0-16.0); LYMPHOCYTES # (AUTO) 1.8 X10^3/uL (1.3-2.9); LYMPHOCYTES % (AUTO) 33.4 % (21.0-51.0); MEAN CORPUSCULAR HGB CONC 31.3 g/dL (33.0-35.0); MEAN CORPUSCULAR VOLUME 79.8 fL (80.0-100.0); MEAN PLATELET VOLUME 9.5 fL (7.4-11.0); MONOCYTES # (AUTO) 0.5 x10^3/uL (0.3-0.8); MONOCYTES % (AUTO) 9.8 % (0.0-13.0); NEUTROPHILS % (AUTO) 54.2 % (42.0-75.0); PLATELET COUNT 247 X10^3/uL (150.0-450.0); RED BLOOD COUNT 3.86 X10^6/uL (3.5-5.4); RED CELL DISTRIBUTION WIDTH 16.1 % (11.6-16.5); WHITE BLOOD COUNT 5.5 X10^3/uL (3.6-10.0)
[2018-01-06 05:53] LABS: ALANINE AMINOTRANSFERASE 9 Units/L (12-78); ALBUMIN 1.5 g/dL (3.4-5.0); ALKALINE PHOSPHATASE 66 Units/L (46-116); ASPARTATE AMINO TRANSFERASE 13 Units/L (15-37); BLOOD UREA NITROGEN 5 mg/dL (7-18); CALCIUM 7.9 mg/dL (8.5-10.1); CARBON DIOXIDE 27.1 mmol/L (21-32); CHLORIDE 109 mmol/L (98-107); COR CA(FOR HYPOALB) 9.9 mg/dL (8.5-10.1); CREATININE 1.15 mg/dL (0.55-1.02); SODIUM 141 mmol/L (136-145); TOTAL PROTEIN 5.6 g/dL (6.4-8.2); eGFR BLACK RACES > 60 (>60); eGFR NON BLACK RACES 58 (>60)
[2018-01-06] MEDS: VISTARIL PO SCH ×3 (06:08→22:15)
[2018-01-06] MEDS: COREG TAB 12.5 MG PO SCH ×2 (06:09→16:44)
[2018-01-06 06:19] LABS: ANISOCYTOSIS SLIGHT; HYPOCHROMASIA SLIGHT; PLATELET MORPHOLOGY COMMENT NORMAL (NORMAL)
[2018-01-06] MEDS: ZESTRIL TAB 40 MG PO SCH (08:36)
[2018-01-06] MEDS: PROTONIX INJ 40 MG VIAL IVP SCH ×2 (08:36→20:43)
[2018-01-06] MEDS: NORVASC TAB 10 MG PO SCH (08:36)
[2018-01-06] MEDS: CIPRO IV 400 MG PREMIX* 400 MG/200 ML IV.SOLN. IV SCH ×2 (08:36→20:42)
[2018-01-06] MEDS: ZyrTEC TAB 10 MG PO SCH (08:37)
--- NOTE | 2018-01-06 19:39 | PCM.PROG ---
Progress Note - Progress Note for Day of Date: 01/06/18 - Subjective Subjective: IS BEING TREATED FOR ABDOMINAL PAIN, NAUSEA/VOMITING, AND HYPERTENSION. TODAY, SHE IS LYING IN BED WITH EYES CLOSED ON MORNING ROUNDS. SHE AWAKENS AND RESPONDS TO VERBAL STIMULI. SHE CONTINUES WITH COMPLAINTS OF ABDOMINAL PAIN AND NAUSEA. ON EXAMINATION, SHE IS NOTED WITH MILD SUPRAPUBIC TENDERNESS TO PALPATION. HER VITALS THIS MORNING ARE 98.8-80-18-97%-121/81. SHE REMAINS HEMODYNAMICALLY STABLE TODAY. SHE IS CURRENTLY RECEIVING CIPRO 400MG IV Q12H FOR A URINARY TRACT INFECTION. WE WILL CONTINUE WITH CURRENT PLAN OF CARE TODAY. OTHERWISE, WE PLAN TO FOLLOW UP WITH AM LABS AND CONTINUE TO MONITOR PATIENT. CONTINUE WITH PAIN CONTROL BP AND GLUCOSE MONITORING. - Past Medical Family Social History Past Med/Fam/Surg Hx: No changes since H&P Allergies: Allergies Penicillins Allergy (Verified 12/25/17 07:18) morphine Adverse Reaction (Verified 12/25/17 07:18) - Review of Systems ROS: No change since H&P - Vital Signs and I&O's Vital Signs: Temperature 98.6 F Pulse Rate [Right Brachial] 84 Respiratory Rate 18 Blood Pressure [Left Arm] 128/77 Blood Pressure [Right Arm] 181/97 Blood Pressure 186/111 O2 Sat by Pulse Oximetry 100 Intake and Output: Intake & Output 01/04/18 01/05/18 01/06/18 01/07/18 11:59 11:59 11:59 11:59 Intake Total 2700 2110 1840 480 Balance 2700 2110 1840 480 - Physical Exam Oriented: Normal Eyes: Normal Ear: Normal Nose: Normal Throat: Normal Respiratory: Diminished Cardiovascular: Normal : Normal Auscultation: Bowel Sounds: Normal Palpation: Normal Tenderness: LUQ, Epigastric, Suprapubic Skin: Normal Musculoskeletal: Normal Psychiatric: Other (Crying) Mood Description: Sad Affect: Angry, Normal Speech Pattern: Clear, Appropriate - Laboratory and Diagnostics Result Diagrams: 01/06/18 04:48 01/06/18 04:48 Labs: 01/02/18 22:19 Urine,Clean Catch Urine Culture - Final Laboratory WBC 5.5 X10^3/uL (3.6-10.0) 01/06/18 04:48 RBC 3.86 X10^6/uL (3.5-5.4) 01/06/18 04:48 Hgb 9.6 g/dL (12.0-16.0) L 01/06/18 04:48 Hct 30.9 % (36.0-47.0) L 01/06/18 04:48 MCV 79.8 fL (80.0-100.0) L 01/06/18 04:48 MCH 25.0 pg (27.0-34.0) L 01/06/18 04:48 MCHC 31.3 g/dL (33.0-35.0) L 01/06/18 04:48 RDW 16.1 % (11.6-16.5) 01/06/18 04:48 Plt Count 247 X10^3/uL (150.0-450.0) 01/06/18 04:48 Plt Count Comment Adequate (ADEQUATE) 01/06/18 04:48 MPV 9.5 fL (7.4-11.0) 01/06/18 04:48 Neut % (Auto) 54.2 % (42.0-75.0) 01/06/18 04:48 Lymph % (Auto) 33.4 % (21.0-51.0) 01/06/18 04:48 Stone % (Auto) 9.8 % (0.0-13.0) 01/06/18 04:48 Eos % (Auto) 2.1 % (0.9-2.9) 01/06/18 04:48 Baso % (Auto) 0.5 % (0.2-1.0) 01/06/18 04:48 Neut # (Auto) 3.0 x10^3/uL (2.2-4.8) 01/06/18 04:48 Lymph # (Auto) 1.8 X10^3/uL (1.3-2.9) 01/06/18 04:48 Stone # (Auto) 0.5 x10^3/uL (0.3-0.8) 01/06/18 04:48 Eos # (Auto) 0.1 x10^3/uL (0.0-0.2) 01/06/18 04:48 Baso # (Auto) 0.0 X10^3/uL (0.0-0.1) 01/06/18 04:48 Absolute Nucleated RBC 0.0 /100WBC 01/06/18 04:48 Plt Morphology Comment Normal (NORMAL) 01/06/18 04:48 RBC Morphology Abnormal (NORMAL) A 01/06/18 04:48 Hypochromasia Slight A 01/06/18 04:48 Anisocytosis Slight A 01/06/18 04:48 Sodium 141 mmol/L (136-145) 01/06/18 04:48 Corrected Sodium TNP 01/06/18 04:48 Potassium 3.5 mmol/L (3.5-5.1) 01/06/18 04:48 Chloride 109 mmol/L (98-107) H 01/06/18 04:48 Carbon Dioxide 27.1 mmol/L (21-32) 01/06/18 04:48 BUN 5 mg/dL (7-18) L 01/06/18 04:48 Creatinine 1.15 mg/dL (0.55-1.02) H 01/06/18 04:48 Est GFR (MDRD) Af Amer > 60 (>60) 01/06/18 04:48 Est GFR (MDRD) Non-Af 58 (>60) L 01/06/18 04:48 Glucose 83 mg/dL (65-99) 01/06/18 04:48 POC Glucose (mg/dL) 84 mg/dL (65-99) 01/06/18 16:59 Calcium 7.9 mg/dL (8.5-10.1) L 01/06/18 04:48 Corrected Calcium 9.9 mg/dL (8.5-10.1) 01/06/18 04:48 Total Bilirubin 0.10 mg/dL (0.2-1.0) L 01/06/18 04:48 AST 13 Units/L (15-37) L 01/06/18 04:48 ALT 9 Units/L (12-78) L 01/06/18 04:48 Alkaline Phosphatase 66 Units/L (46-116) 01/06/18 04:48 Total Protein 5.6 g/dL (6.4-8.2) L 01/06/18 04:48 Albumin 1.5 g/dL (3.4-5.0) L 01/06/18 04:48 Globulin 4.1 g/dL (2.5-4.5) 01/06/18 04:48 Albumin/Globulin Ratio 0.4 Ratio (1.1-2.1) L 01/06/18 04:48 Amylase 40 Units/L (25-115) 01/02/18 14:10 Lipase 47 Units/L (73-393) L 01/02/18 14:10 Specimen Type Clean catch urine 01/02/18 22:19 Urine Color Yellow (YELLOW) 01/02/18 22:19 Urine Appearance Slightly hazy (CLEAR) 01/02/18 22:19 Urine pH 7.0 (5.0 - 8.0) 01/02/18 22:19 Ur Specific Mur[place]ugh 1.010 (1.000-1.030) 01/02/18 22:19 Urine Protein 4+ (NEGATIVE) 01/02/18 22:19 Urine Glucose (UA) 1+ (NEGATIVE) 01/02/18 22:19 Urine Ketones Negative (NEGATIVE) 01/02/18 22:19 Urine Occult Blood 2+ (NEGATIVE) 01/02/18 22:19 Urine Nitrite Negative (NEGATIVE) 01/02/18 22:19 Urine Bilirubin Negative (NEGATIVE) 01/02/18 22:19 Urine Urobilinogen Normal (NORMAL) 01/02/18 22:19 Ur Leukocyte Esterase Negative (NEGATIVE) 01/02/18 22:19 Urine RBC 3-5 /HPF (NONE SEEN) 01/02/18 22:19 Urine WBC 5-10 /HPF (NONE SEEN) 01/02/18 22:19 Ur Squamous Epith Cells Moderate /HPF (NEGATIVE) 01/02/18 22:19 Urine Bacteria 2+ /HPF (NEGATIVE) 01/02/18 22:19 Ur Culture Indicated? Yes/culture set up 01/02/18 22:19
[2018-01-06] MEDS: ELAVIL PO SCH (20:42)
[2018-01-06] MEDS: PRAVACHOL PO SCH (20:42)
[2018-01-06] MEDS: PHENERGAN INJ 25 MG IVP PRN (20:43)
[2018-01-07] MEDS: DEMEROL INJ IVP PRN ×3 (01:00→09:02)
[2018-01-07] MEDS: REGLAN INJ 10 MG VIAL IVP SCH ×3 (01:44→09:02)
[2018-01-07] MEDS: PERCOCET TAB 5/325 MG PO PRN (04:10)
[2018-01-07] MEDS: NS 1000 ML 1,000 ML IV SCH (04:32)
[2018-01-07] MEDS: VISTARIL PO SCH (05:04)
[2018-01-07] MEDS: PHENERGAN INJ 25 MG IVP PRN (05:04)
[2018-01-07 05:25] LABS: BASOPHILS % (AUTO) 0.5 % (0.2-1.0); EOSINOPHILS # (AUTO) 0.2 x10^3/uL (0.0-0.2); EOSINOPHILS % (AUTO) 2.9 % (0.9-2.9); HEMATOCRIT 33.3 % (36.0-47.0); HEMOGLOBIN 10.4 g/dL (12.0-16.0); LYMPHOCYTES # (AUTO) 1.9 X10^3/uL (1.3-2.9); LYMPHOCYTES % (AUTO) 35.2 % (21.0-51.0); MEAN CORPUSCULAR HEMOGLOBIN 24.9 pg (27.0-34.0); MEAN CORPUSCULAR HGB CONC 31.3 g/dL (33.0-35.0); MEAN CORPUSCULAR VOLUME 79.6 fL (80.0-100.0); MEAN PLATELET VOLUME 9.4 fL (7.4-11.0); MONOCYTES # (AUTO) 0.5 x10^3/uL (0.3-0.8); MONOCYTES % (AUTO) 10.1 % (0.0-13.0); NEUTROPHILS # (AUTO) 2.8 x10^3/uL (2.2-4.8); NEUTROPHILS % (AUTO) 51.3 % (42.0-75.0); PLATELET COUNT 266 X10^3/uL (150.0-450.0); RED BLOOD COUNT 4.18 X10^6/uL (3.5-5.4); RED CELL DISTRIBUTION WIDTH 15.9 % (11.6-16.5); WHITE BLOOD COUNT 5.4 X10^3/uL (3.6-10.0)
[2018-01-07 05:32] LABS: ALANINE AMINOTRANSFERASE 10 Units/L (12-78); ALBUMIN 1.6 g/dL (3.4-5.0); ALKALINE PHOSPHATASE 72 Units/L (46-116); ASPARTATE AMINO TRANSFERASE 8 Units/L (15-37); BLOOD UREA NITROGEN 4 mg/dL (7-18); CALCIUM 8.1 mg/dL (8.5-10.1); CARBON DIOXIDE 29.5 mmol/L (21-32); CHLORIDE 108 mmol/L (98-107); CREATININE 1.05 mg/dL (0.55-1.02); SODIUM 142 mmol/L (136-145); eGFR BLACK RACES > 60 (>60); eGFR NON BLACK RACES > 60 (>60)
[2018-01-07] MEDS: COREG TAB 12.5 MG PO SCH (06:14)
[2018-01-07 06:15] LABS: HYPOCHROMASIA SLIGHT; PLATELET MORPHOLOGY COMMENT NORMAL (NORMAL)
[2018-01-07] MEDS: NORVASC TAB 10 MG PO SCH (09:01)
[2018-01-07] MEDS: CIPRO IV 400 MG PREMIX* 400 MG/200 ML IV.SOLN. IV SCH (09:01)
[2018-01-07] MEDS: ZyrTEC TAB 10 MG PO SCH (09:02)
[2018-01-07] MEDS: PROTONIX INJ 40 MG VIAL IVP SCH (09:02)
[2018-01-07] MEDS: ZESTRIL TAB 40 MG PO SCH (09:02)
[2018-01-07 11:22] VITALS: BP 124/84
== END 2018-01-07 11:53 | disposition home or self-care (01) | DRG 392 ==
LOC: MED/SURG 11:54 → UNDOADMOB 11:54 → MED/SURG 12:40 → OBSVTOIN 01-05 09:00
PROVIDERS: ADMIT Internal Medicine; ATTEND Internal Medicine
DX: R10.84 Generalized abdominal pain (principal); R11.2 Nausea with vomiting, unspecified; I10 Essential (primary) hypertension; F41.8 Other specified anxiety disorders; E11.65 Type 2 diabetes mellitus with hyperglycemia; E78.2 Mixed hyperlipidemia; K21.9 Gastro-esophageal reflux disease without esophagitis; N18.3 Chronic kidney disease, stage 3 (moderate); N39.0 Urinary tract infection, site not specified
CPT/HCPCS: 36415; 74022; 80048; 80053; 81001; 82150; 83690; 85025; 87086; A4216; A4222; C9113; Q0177; G0378; J0744; J2175; J2405; J2550; J2765

== ENCOUNTER 2018-01-11 20:40 | Emergency (ER) | payer OTHER ==
[2018-01-11 20:49] VITALS: BMI 38.0
[2018-01-12] MEDS ORDERED: ZOFRAN INJ 4 MG VIAL IVP ONE (00:03)
[2018-01-12] MEDS ORDERED: NS 1000 ML 1,000 ML IV ONE (00:04)
--- NOTE | 2018-01-12 00:08 | ED.ABDFE ---
HPI - Time seen Time seen: 00:05 - PCP Primary Care Physician: Dr. Wynne - Complaint Chief Complaint Doctors Comments: Patient is complaining of diffuse abdominal pain for the past 24 hours getting worst today with nausea, vomiting and not being able to keep anything down. States she has a history of gastroschieisis and has been taking Percocet but she has not been able to get back to the doctor to get a refill. States she has had a hysterectomy in the past. she denies hematuria, deng or diarrhea. She denies any recent trauma. Chief Complaint:: Started having abdominal pain which has became worse today - Nurses notes reviewed Nurses Notes Review: Yes - Source History Provided: Patient - Mode of arrival Mode of Arrival: Ambulatory - Timing Onset of Chief Complaint: 01/10/18 Came on: Gradually - Duration Duration: Intermittent How lon Duration: Days - Location Location: Diffuse, Epigastric, Periumbilical - Severity Severity: Moderate - Quality Quality: Aching, Cramping, Sharp - Context Onset: Gradually History of: Abdominal surgery, Similar pain (dx) - Modifying Worsening Factors: Movement Improving Factors: Nothing - Associated signs and symptoms Associated Signs and Symptoms: Nausea, Vomiting PMH - PMH Past Medical History: Yes Past Medical History: Diabetes, Hypertension Past Medical History Comment: gastroparesis Past Surgical History: Yes Surgical History: , Cholecystectomy, Hysterectomy Past Surgical History Comment: portacath to right cw - Family History History of Family Medical Conditions: Yes Family Medical History: Diabetes Mellitus, Hypertension - Social History Does patient currently use any type of tobacco product: Yes Have you used tobacco products in the last 12 months: Yes Type of Tobacco Use: Cigarettes Does any household member use tobacco: Yes Alcohol Use: None Do you use any recreational Drugs:: No Lives With: Family Lives Where: Home - infectious screening In the last 2 months have you had wt loss of >10#?: NO Have you had fever, night sweats or hemotysis?: No Have you traveled outside the country in the last 6 months?: No Isolation: Standard ROS - Review of Systems Constitutional: No Symptoms Reported, Weakness, Loss of Appetite. negative: See HPI, Chills, Diaphoresis, Fever, Malaise, Irritable, Fatigue, Other Eyes: No Symptoms Reported. negative: See HPI, Eye Pain, Blurred Vision, Tearing, Discharge, Photophobia, Diplopia, Other ENTM: No Symptoms Reported Respiratoy: No Symptoms Reported. negative: See HPI, Productive Cough, Non- Productive Cough, Moist Cough, Dry Cough, Hacking Cough, Barking Cough, Brassy Cough, Orthopnea, Short of Breath, Stridor, Wheezing, Hemoptysis, Other Cardiovascular: No Symptoms Reported Gastrointestinal/Abdominal: No Symptoms Reported, Abdominal Pain, Nausea, Vomiting. negative: See HPI, Constipation, Diarrhea, Food Intolerance, Other Genitourinary: No Symptoms Reported. negative: See HPI, Discharge, Dysuria, Frequency, Hematuria, Pain, Bleeding, Other Neurological: No Symptoms Reported Musculoskeletal: No Symptoms Reported. negative: See HPI, Back Pain, Gout, Joint Pain, Joint Swelling, Muscle Pain, Muscle Stiffness, Neck Pain, Right, Left, Neck, Chest wall, Rib(s), Back, Shoulder, Arm, Elbow, Forearm, Wrist, Hand , Pelvis, Hip, Leg, Knee, Ankle, Foot, Other Integumentary: No Symptoms Reported Hematologic/Lymphatic: No Symptoms Reported. negative: See HPI, Anemia, Blood Clots, Easy Bleeding, Easy Bruising, Swollen Glands, Lymphadenopathy, Other Endocrine: No Symptoms Reported Psychiatric: No Symptoms Reported. negative: See HPI, Anxiety, Depression, Hallucinations, Excessive crying, Suicidal, Other PE - Vital Signs Vitals: Temperature 99.2 F Pulse Rate 118 Respiratory Rate 20 Blood Pressure [Left Arm] 124/84 Blood Pressure [Right Arm] 181/97 Blood Pressure 185/110 O2 Sat by Pulse Oximetry 99 - General Limitations: No Limitations General Appearance: Alert, In Distress (moderate) - Head Head Exam: Normal Inspection, Atraumatic, Normocephalic - Eyes Eye exam: Normal Appearance, PERRL, EOMI. negative: Scleral Icterus, Conjunctival Injection, Nystagmus, Miosis, Mydrasis, Periorbital Swelling, Periorbital Tenderness, Other - ENT ENT Exam: Normal Exam, Normal Oropharynx, Normal External Ear Exam, Mucous Membranes Moist, TM's Normal Bilaterally - Neck Neck Exam: Normal Inspection, Full ROM, Trachea Midline - Chest Chest Inspection: Normal Inspection, Symmetric Chest Wall Rise - Respiratory Respiratory Exam: Normal Lung Sounds Bilat Respiratory Exam: Bilateral Clear to Auscultation - Cardiovascular Cardiovascular Exam: Regular Rate, Normal Rhythm, Normal Heart Sounds - Abdominal Exam Abdominal Exam: Normal Inspection, Normal Bowel Sounds, Soft, Tenderness, Guarding Abdominal Tenderness: Suprapubic, Diffuse, Moderate - Rectal Rectal Exam: Deferred - Back Back Exam: Normal Inspection, Full ROM. negative: Tenderness, (R) CVA Tenderness, (L) CVA Tenderness, Muscle Spasm, Paraspinal Tenderness, Vertebral Tenderness, Rashes, (R) Sciatic Notch Tenderness, (L) Sciatic Notch Tendern, (R ) Straight Leg Raise, (L) Straight Leg Raise, Other - Extremeties Extremities Exam: Normal Inspection, Full ROM, Normal Capillary Refill. negative: Tenderness, Edema, Joint Swelling, Calf Tenderness, Other - External Exam: Female: Deferred : Speculum Exam (Female): Deferred : Bimanual Exam (female): Deferred - Neurologic Neurological Exam: Alert, Oriented X3, CN II-XII Intact, Reflexes Normal. negative: Normal Gait (gait not tested) - Psychiatric Psychiatric Exam: Normal Affect, Normal Mood - Skin Skin Exam: Warm, Dry, Intact, Normal Color ROR - Labs Reviewed Laboratory Results Reviewed?: Yes (all labs and x-ray results reviewed and discussed with patient and mother) Result Diagrams: 01/12/18 00:15 01/12/18 00:15 Laboratory: WBC 9.2 X10^3/uL (3.6-10.0) 01/12/18 00:15 RBC 4.63 X10^6/uL (3.5-5.4) 01/12/18 00:15 Hgb 11.6 g/dL (12.0-16.0) L 01/12/18 00:15 Hct 36.2 % (36.0-47.0) 01/12/18 00:15 MCV 78.3 fL (80.0-100.0) L 01/12/18 00:15 MCH 25.0 pg (27.0-34.0) L 01/12/18 00:15 MCHC 31.9 g/dL (33.0-35.0) L 01/12/18 00:15 RDW 16.0 % (11.6-16.5) 01/12/18 00:15 Plt Count 264 X10^3/uL (150.0-450.0) 01/12/18 00:15 Plt Count Comment Adequate (ADEQUATE) 01/12/18 00:15 MPV 9.1 fL (7.4-11.0) 01/12/18 00:15 Neut % (Auto) 63.4 % (42.0-75.0) 01/12/18 00:15 Lymph % (Auto) 26.0 % (21.0-51.0) 01/12/18 00:15 Waller % (Auto) 8.6 % (0.0-13.0) 01/12/18 00:15 Eos % (Auto) 1.3 % (0.9-2.9) 01/12/18 00:15 Baso % (Auto) 0.7 % (0.2-1.0) 01/12/18 00:15 Neut # (Auto) 5.9 x10^3/uL (2.2-4.8) H 01/12/18 00:15 Lymph # (Auto) 2.4 X10^3/uL (1.3-2.9) 01/12/18 00:15 Waller # (Auto) 0.8 x10^3/uL (0.3-0.8) 01/12/18 00:15 Eos # (Auto) 0.1 x10^3/uL (0.0-0.2) 01/12/18 00:15 Baso # (Auto) 0.1 X10^3/uL (0.0-0.1) 01/12/18 00:15 Absolute Nucleated RBC 0.0 /100WBC 01/12/18 00:15 Plt Morphology Comment Normal (NORMAL) 01/12/18 00:15 RBC Morphology Normal (NORMAL) 01/12/18 00:15 Sodium 142 mmol/L (136-145) 01/12/18 00:15 Corrected Sodium 142 mmol/L (136-145) 01/12/18 00:15 Potassium 3.7 mmol/L (3.5-5.1) 01/12/18 00:15 Chloride 107 mmol/L (98-107) 01/12/18 00:15 Carbon Dioxide 27.7 mmol/L (21-32) 01/12/18 00:15 BUN 9 mg/dL (7-18) 01/12/18 00:15 Creatinine 1.42 mg/dL (0.55-1.02) H 01/12/18 00:15 Est GFR (MDRD) Af Amer 55 (>60) L 01/12/18 00:15 Est GFR (MDRD) Non-Af 45 (>60) L 01/12/18 00:15 Glucose 113 mg/dL (65-99) H 01/12/18 00:15 Calcium 8.6 mg/dL (8.5-10.1) 01/12/18 00:15 Corrected Calcium 10.2 mg/dL (8.5-10.1) H 01/12/18 00:15 Total Bilirubin 0.20 mg/dL (0.2-1.0) 01/12/18 00:15 AST 20 Units/L (15-37) 01/12/18 00:15 ALT 12 Units/L (12-78) 01/12/18 00:15 Alkaline Phosphatase 79 Units/L (46-116) 01/12/18 00:15 Total Protein 7.2 g/dL (6.4-8.2) 01/12/18 00:15 Albumin 2.0 g/dL (3.4-5.0) L 01/12/18 00:15 Globulin 5.2 g/dL (2.5-4.5) H 01/12/18 00:15 Albumin/Globulin Ratio 0.4 Ratio (1.1-2.1) L 01/12/18 00:15 Amylase 32 Units/L (25-115) 01/12/18 00:15 Lipase 40 Units/L (73-393) L 01/12/18 00:15 - XRAY XRAY Interpreted by: Radiologist (CTk abdomen: No acute abnormality. Few cecal diverticula and other incidental findings) - Diagnosis Discharge Problem: Abdominal pain, Nausea & vomiting, Chronic kidney disease, stage 3, Essential hypertension, cecal diverticula, Hyperglycemia - Discharge Plan Disposition: 01 HOME, SELF-CARE Condition: Stable - Follow ups/Referrals Follow ups/Referrals: SUE WYNNE [Primary Care Provider] - 3 days - Instructions Instructions: Hyperglycemia, [id number], Nausea, Adult, Abdominal Pain, Adult , Hypertension, [id number]
[2018-01-12] MEDS ORDERED: NS 1000 ML 1,000 ML ONE (00:16)
[2018-01-12] MEDS ORDERED: ZOFRAN INJ 4 MG VIAL ONE (00:16)
[2018-01-12] MEDS ORDERED: TORADOL 30 MG VIAL IVP STA (00:31)
[2018-01-12 00:35] LABS: BASOPHILS # (AUTO) 0.1 X10^3/uL (0.0-0.1); BASOPHILS % (AUTO) 0.7 % (0.2-1.0); EOSINOPHILS # (AUTO) 0.1 x10^3/uL (0.0-0.2); EOSINOPHILS % (AUTO) 1.3 % (0.9-2.9); HEMATOCRIT 36.2 % (36.0-47.0); HEMOGLOBIN 11.6 g/dL (12.0-16.0); LYMPHOCYTES # (AUTO) 2.4 X10^3/uL (1.3-2.9); MEAN CORPUSCULAR HGB CONC 31.9 g/dL (33.0-35.0); MEAN CORPUSCULAR VOLUME 78.3 fL (80.0-100.0); MEAN PLATELET VOLUME 9.1 fL (7.4-11.0); MONOCYTES # (AUTO) 0.8 x10^3/uL (0.3-0.8); MONOCYTES % (AUTO) 8.6 % (0.0-13.0); NEUTROPHILS # (AUTO) 5.9 x10^3/uL (2.2-4.8); NEUTROPHILS % (AUTO) 63.4 % (42.0-75.0); PLATELET COUNT 264 X10^3/uL (150.0-450.0); RED BLOOD COUNT 4.63 X10^6/uL (3.5-5.4); WHITE BLOOD COUNT 9.2 X10^3/uL (3.6-10.0)
[2018-01-12] MEDS ORDERED: TORADOL 30 MG VIAL ONE (00:35)
[2018-01-12] MEDS ORDERED: BENADRYL INJ 50 MG VIAL IVP ONE (00:54)
[2018-01-12 00:55] LABS: CALCIUM 8.6 mg/dL (8.5-10.1); CARBON DIOXIDE 27.7 mmol/L (21-32); COR CA(FOR HYPOALB) 10.2 mg/dL (8.5-10.1); CREATININE 1.42 mg/dL (0.55-1.02); TOTAL PROTEIN 7.2 g/dL (6.4-8.2)
[2018-01-12] MEDS ORDERED: PHENERGAN INJ 25 MG IM ONE (00:55)
[2018-01-12 00:56] LABS: PLATELET MORPHOLOGY COMMENT NORMAL (NORMAL)
[2018-01-12] MEDS ORDERED: PHENERGAN INJ 25 MG ONE (00:58)
[2018-01-12] MEDS ORDERED: BENADRYL INJ 50 MG VIAL ONE (00:58)
--- NOTE | 2018-01-12 01:33 | CT ---
CT abdomen and pelvis without contrast Indication: Abdominal pain Technique: Helical images through the abdomen and pelvis without contrast. Coronal and sagittal refor mats provided. Findings: Limited images through the lower chest demonstrate no acute abnormality. Review of bone win dows shows no osseous lesion. Abdomen: The liver, spleen, adrenal glands, pancreas, stomach and small bowel are grossly normal. No acute colonic abnormality identified. Diffuse cecum diverticulum incidentally noted. The appendix is normal. Vasculature shows a few tiny calcifications. The kidneys are normal without hydroureteronephr osis. Tiny right upper pole exophytic hypodensities most compatible with a cyst Cholecystectomy clips noted. Pelvis: The urinary bladder, rectum and adnexal regions are normal. Uterus is absent. Impression: 1. No acute abnormality. 2. Few cecal diverticula and other incidental findings as above. Reported By:
[2018-01-12] MEDS ORDERED: CATAPRES TAB 0.2 MG PO ONE (02:09)
[2018-01-12] MEDS ORDERED: CATAPRES TAB 0.2 MG ONE (02:13)
[2018-01-12 02:40] VITALS: BP 158/78
== END 2018-01-12 02:45 | disposition home or self-care (01) ==
LOC: ER 20:51
DX: R10.84 Generalized abdominal pain (principal); R11.2 Nausea with vomiting, unspecified; N18.3 Chronic kidney disease, stage 3 (moderate); I10 Essential (primary) hypertension; K57.30 Diverticulosis of large intestine without perforation or abscess without bleeding; R73.9 Hyperglycemia, unspecified
CPT/HCPCS: 36415; 74176; 80053; 82150; 83690; 85025; 96365; 96372; 96374; 96375; 99283; A4216; J1200; J1885; J2405; J2550

== ENCOUNTER 2018-01-18 07:06 | Emergency (ER) | payer OTHER ==
[2018-01-18 07:11] VITALS: BP 147/108; BMI 38.0
[2018-01-18] MEDS ORDERED: NS 1000 ML 1,000 ML ONE ×2 (07:15→08:17)
[2018-01-18] MEDS ORDERED: PHENERGAN INJ 25 MG ONE (07:17)
[2018-01-18] MEDS ORDERED: PHENERGAN INJ 25 MG IVP ONE (07:23)
[2018-01-18] MEDS ORDERED: NS 1000 ML 1,000 ML IV ONE (07:23)
--- NOTE | 2018-01-18 07:27 | ED.ABDFE ---
HPI - PCP Primary Care Physician: kevin - Complaint Chief Complaint:: Patient c/o abd pain with n/v since sunday. Patient has a history of gastroparesis - Nurses notes reviewed Nurses Notes Review: Yes - Source History Provided: Patient - Mode of arrival Mode of Arrival: Ambulatory - Timing Onset of Chief Complaint: 01/15/18 <MARIA DE JESUS RENTERIA - Last Filed: 01/18/18 08:05> PMH - PMH Past Medical History: Yes Past Medical History: Diabetes, Hypertension Past Medical History Comment: gastroparesis Past Surgical History: Yes Surgical History: , Cholecystectomy, Hysterectomy - Family History History of Family Medical Conditions: Yes Family Medical History: Diabetes Mellitus, Hypertension - Social History Does patient currently use any type of tobacco product: Yes Have you used tobacco products in the last 12 months: Yes Type of Tobacco Use: Cigarettes Does any household member use tobacco: No Do you use any recreational Drugs:: No Lives With: Family Lives Where: Home - infectious screening In the last 2 months have you had wt loss of >10#?: NO Have you had fever, night sweats or hemotysis?: No Have you traveled outside the country in the last 6 months?: No Isolation: Standard <MARIA DE JESUS RENTERIA - Last Filed: 01/18/18 08:05> - Vital Signs Vitals: Temperature 97.2 F Pulse Rate 129 Respiratory Rate 22 Blood Pressure [Left Arm] 158/78 Blood Pressure [Right Arm] 181/97 Blood Pressure 147/108 O2 Sat by Pulse Oximetry 98 ROR - Labs Reviewed Result Diagrams: 01/18/18 07:40 01/18/18 07:40 <MARIA DE JESUS RENTERIA - Last Filed: 01/18/18 08:05> - Labs Reviewed Result Diagrams: 01/18/18 07:40 01/18/18 07:40 <ABIGAIL SAMAYOA - Last Filed: 01/18/18 09:43> - Labs Reviewed Laboratory: WBC 9.4 X10^3/uL (3.6-10.0) 01/18/18 07:40 RBC 4.75 X10^6/uL (3.5-5.4) 01/18/18 07:40 Hgb 12.1 g/dL (12.0-16.0) 01/18/18 07:40 Hct 37.1 % (36.0-47.0) 01/18/18 07:40 MCV 78.0 fL (80.0-100.0) L 01/18/18 07:40 MCH 25.4 pg (27.0-34.0) L 01/18/18 07:40 MCHC 32.5 g/dL (33.0-35.0) L 01/18/18 07:40 RDW 16.3 % (11.6-16.5) 01/18/18 07:40 Plt Count 327 X10^3/uL (150.0-450.0) 01/18/18 07:40 Plt Count Comment Adequate (ADEQUATE) 01/18/18 07:40 MPV 9.5 fL (7.4-11.0) 01/18/18 07:40 Neut % (Auto) 71.2 % (42.0-75.0) 01/18/18 07:40 Lymph % (Auto) 19.5 % (21.0-51.0) L 01/18/18 07:40 Dixie % (Auto) 7.3 % (0.0-13.0) 01/18/18 07:40 Eos % (Auto) 1.2 % (0.9-2.9) 01/18/18 07:40 Baso % (Auto) 0.8 % (0.2-1.0) 01/18/18 07:40 Neut # (Auto) 6.7 x10^3/uL (2.2-4.8) H 01/18/18 07:40 Lymph # (Auto) 1.8 X10^3/uL (1.3-2.9) 01/18/18 07:40 Dixie # (Auto) 0.7 x10^3/uL (0.3-0.8) 01/18/18 07:40 Eos # (Auto) 0.1 x10^3/uL (0.0-0.2) 01/18/18 07:40 Baso # (Auto) 0.1 X10^3/uL (0.0-0.1) 01/18/18 07:40 Absolute Nucleated RBC 0.0 /100WBC 01/18/18 07:40 Plt Morphology Comment Normal (NORMAL) 01/18/18 07:40 RBC Morphology Normal (NORMAL) 01/18/18 07:40 Sodium 141 mmol/L (136-145) 01/18/18 07:40 Corrected Sodium 142 mmol/L (136-145) 01/18/18 07:40 Potassium 3.8 mmol/L (3.5-5.1) 01/18/18 07:40 Chloride 105 mmol/L (98-107) 01/18/18 07:40 Carbon Dioxide 29.8 mmol/L (21-32) 01/18/18 07:40 BUN 8 mg/dL (7-18) 01/18/18 07:40 Creatinine 1.47 mg/dL (0.55-1.02) H 01/18/18 07:40 Est GFR (MDRD) Af Amer 53 (>60) L 01/18/18 07:40 Est GFR (MDRD) Non-Af 44 (>60) L 01/18/18 07:40 Glucose 159 mg/dL (65-99) H 01/18/18 07:40 Calcium 8.8 mg/dL (8.5-10.1) 01/18/18 07:40 Corrected Calcium 10.4 mg/dL (8.5-10.1) H 01/18/18 07:40 Total Bilirubin 0.20 mg/dL (0.2-1.0) 01/18/18 07:40 AST 17 Units/L (15-37) 01/18/18 07:40 ALT 6 Units/L (12-78) L 01/18/18 07:40 Alkaline Phosphatase 80 Units/L (46-116) 01/18/18 07:40 Total Protein 7.1 g/dL (6.4-8.2) 01/18/18 07:40 Albumin 2.0 g/dL (3.4-5.0) L 01/18/18 07:40 Globulin 5.1 g/dL (2.5-4.5) H 01/18/18 07:40 Albumin/Globulin Ratio 0.4 Ratio (1.1-2.1) L 01/18/18 07:40 Amylase 45 Units/L (25-115) 01/18/18 07:40 Lipase 51 Units/L (73-393) L 01/18/18 07:40 <MARIA DE JESUS RENTERIA Last Filed: 01/18/18 08:05> <ABIGAIL SAMAYOA - Last Filed: 01/18/18 09:43> - Discharge Plan Condition: Stable - Follow ups/Referrals Follow ups/Referrals: SUE TAPIA [Primary Care Provider] - 3 days - Instructions Additional Notes - Additional Notes Additional Notes: The pt. was endorsed over to me at [address] Renteria. Plan is to review labs/AAS with her PCP and decide on disposition. I'd seen the pt., her labs and AAS were noted to be grossly bnormal. I did speak with her PCP (Dr. Tapia). Plan is to d/c her home with office f/u. <ABIGAIL SAMAYOA - Last Filed: 01/18/18 09:43> - Transfer Physician Documentation Transfer Agreement: The receiving facility has agreed to accept transfer and to provide appropriate medical treatment as acknowledged by: Reason for Transfer (check): ( ) Patient request ( ) Patient has been stabilized such that within reasonable medical probability, no material deterioration of the patient's condition or the unborn child(brenda) (if ) is likely to result from transfer. ( ) Patient is unstable and requires treatment not offered at [facility] and the medical benefits of transfer outweigh the risks to the patient THE PHYSICIAN CERTIFIES THAT THE BENEFITS OF TRANSFER OUTWEIGH THE POTENTIAL RISK Physician Signature: Physician Signature
[2018-01-18 07:50] LABS: BASOPHILS # (AUTO) 0.1 X10^3/uL (0.0-0.1); BASOPHILS % (AUTO) 0.8 % (0.2-1.0); EOSINOPHILS # (AUTO) 0.1 x10^3/uL (0.0-0.2); EOSINOPHILS % (AUTO) 1.2 % (0.9-2.9); HEMATOCRIT 37.1 % (36.0-47.0); HEMOGLOBIN 12.1 g/dL (12.0-16.0); LYMPHOCYTES # (AUTO) 1.8 X10^3/uL (1.3-2.9); LYMPHOCYTES % (AUTO) 19.5 % (21.0-51.0); MEAN CORPUSCULAR HEMOGLOBIN 25.4 pg (27.0-34.0); MEAN CORPUSCULAR HGB CONC 32.5 g/dL (33.0-35.0); MEAN PLATELET VOLUME 9.5 fL (7.4-11.0); MONOCYTES # (AUTO) 0.7 x10^3/uL (0.3-0.8); MONOCYTES % (AUTO) 7.3 % (0.0-13.0); NEUTROPHILS # (AUTO) 6.7 x10^3/uL (2.2-4.8); NEUTROPHILS % (AUTO) 71.2 % (42.0-75.0); PLATELET COUNT 327 X10^3/uL (150.0-450.0); RED BLOOD COUNT 4.75 X10^6/uL (3.5-5.4); RED CELL DISTRIBUTION WIDTH 16.3 % (11.6-16.5); WHITE BLOOD COUNT 9.4 X10^3/uL (3.6-10.0)
[2018-01-18 07:59] LABS: CALCIUM 8.8 mg/dL (8.5-10.1); CARBON DIOXIDE 29.8 mmol/L (21-32); COR CA(FOR HYPOALB) 10.4 mg/dL (8.5-10.1); CREATININE 1.47 mg/dL (0.55-1.02); PLATELET MORPHOLOGY COMMENT NORMAL (NORMAL); TOTAL PROTEIN 7.1 g/dL (6.4-8.2)
[2018-01-18] MEDS ORDERED: NS 1000 ML 1,000 ML IV SCH (09:00)
--- NOTE | 2018-01-18 09:07 | RAD ---
HISTORY: Abdominal pain. Nausea and vomiting. History of gastroparesis. Study: Upright PA chest with supine and upright abdominal views submitted. Comparison: CT scan 01/12/2018, acute abdominal series, 01/02/2018. Findings: The lungs are clear. The heart size is normal. No acute bony abnormalities are identified. A Port- A-Cath is present on the right and the tip most likely is in the subclavian or brachiocephalic vein, unchanged. No acute bony abnormalities are identified. Examination of the abdomen demonstrates scattered large and small bowel gas. A small to moderate christiano unt of stool is noted in the transverse colon. Minimal is noted elsewhere. I see no evidence of bow el obstruction or pneumoperitoneum. No acute bony abnormalities are identified. Patient is status p ost cholecystectomy. IMPRESSION: 1. No radiographic evidence of acute cardiopulmonary disease or significant change is noted when com pared to the prior examination. 2. No evidence of bowel obstruction or pneumoperitoneum. Reported By:
[2018-01-18] MEDS ORDERED: TORADOL 30 MG VIAL IVP ONE (09:43)
[2018-01-18] MEDS ORDERED: TORADOL 30 MG VIAL ONE (09:46)
== END 2018-01-18 10:02 | disposition home or self-care (01) ==
LOC: ER 07:12
DX: R10.84 Generalized abdominal pain (principal); R11.2 Nausea with vomiting, unspecified; K31.84 Gastroparesis
CPT/HCPCS: 36415; 74022; 80053; 82150; 83690; 85025; 96365; 96367; 96374; 96375; 99282; 99283; J1885; J2550

== ENCOUNTER 2018-04-12 11:35 | Inpatient (IN) ==
--- NOTE | 2018-04-12 12:17 | DR.H&P ---
H&P - History & Physical for Day of: H&P Date: 04/12/18 - Chief Complaint Chief Complaint: Abdominal Pain, Nausea and vomiting. - History of Present Illness History of Present Illness: The patient is a 32-year-old white female who presents to the clinic with complaint of intractable abdominal pain with nausea vomiting. States her stomach flared up March 13. States that she has been in the hospital for 3 days since that time. Did go to the emergency room this morning and received medicine for nausea. States that she's not able to keep anything down. Blood pressure is noted to be 177/140. Patient is noted to have a 5 pound weight loss in 1 week. - Past Medical History Past Medical History: Hypertension, Diabetes Additional Medical History: Pancreatitis, Gastroparesis - Past Surgical History Surgical History: Cholecystectomy, , Hysterectomy - Family History Family Medical History: Diabetes Mellitus, Hypertension - Social History Does patient currently use any type of tobacco product: No Have you used tobacco products in the last 12 months: No Type of Tobacco Use: None Does any household member use tobacco: No Alcohol Use: None Drug Use: None - Medications Home Medications: Penicillins Allergy (Verified 04/06/18 12:22) morphine Adverse Reaction (Verified 04/06/18 12:22) - Review of Systems Constitutional: Weakness, Malaise Eyes: No Symptoms Reported ENT: No Symptoms Reported Respiratory: No Symptoms Reported Cardiovascular: No Symptoms Reported Gastrointestinal: Nausea, Vomiting, Abdominal Pain Genitourinary: No Symptoms Reported Musculoskeletal: No Symptoms Reported Skin: No Symptoms Reported Neurological: No Symptoms Reported - Physical Exam Vital Signs: Blood Pressure [Left Arm] 158/78 Blood Pressure [Right Arm] 143/117 Blood Pressure 143/117 Oriented: Normal Eyes: Normal Ear: Normal Nose: Normal Throat: Normal Respiratory: Clear Throughout Cardiovascular: Normal : Normal Auscultation: Bowel Sounds: Normal Palpation: Normal Tenderness: Diffuse, Epigastric, Moderate (AD the sixth ofand is), Severe Skin: Normal (1 using will is that his effacement) Musculoskeletal: Normal ( the patient had been de) Psychiatric: Other (crying) Mood Description: Anxious Affect: Anxious Speech Pattern: Clear - Assessment/Plan (1) Abdominal pain Qualifiers: Abdominal location: generalized Qualified Code(s): R10.84 - Generalized abdominal pain Status: Acute Plan: Labs, KUB, Zofran (2) Essential hypertension Status: Acute Plan: Monitor BP. Antihypertensives as needed. (3) Gastroparesis Status: Acute Plan: Labs, KUB, Zofran (4) Nausea & vomiting Status: Acute Plan: Labs, KUB, Zofran - Allergies Allergies/Adverse Reactions: Allergies Allergy/AdvReac Type Severity Reaction Status Date / Time Penicillins Allergy Verified 04/06/18 12:22 morphine AdvReac Verified 04/06/18 12:22
[2018-04-12] MEDS ORDERED: ZOFRAN INJ 4 MG VIAL 16 MG, ATIVAN INJ 2 MG VIAL 1 MG, DECADRON INJ 10 MG in NS 50 ML I... IV PRN (13:19)
[2018-04-12] MEDS: DEMEROL INJ IVP PRN ×3 (14:03→23:52)
--- NOTE | 2018-04-12 14:09 | RAD ---
Examination: Abdomen with PA chest, four views History: Abdominal pain Comparison reference 01/18/2018 Findings: PA chest: Essentially normal heart size and clear lungs. A catheter fragment is projected o sebastián the right medial lung as before. Metallic clothing artifacts are projected over the central heart and mediastinum. Additional supine and upright views of abdomen indicate normal gas pattern without evidence for ileus, obstruction or perforation. Surgical clips right upper quadrant. No ascites or ma ss formation demonstrated. Impression: No acute chest or intestinal abnormality noted. Postsurgical findings right upper abdomen . Surgical catheter or catheter fragment projected over the right medial lung; correlate clinically. Reported By:
[2018-04-12] MEDS: NS 1000 ML 1,000 ML IV SCH ×2 (14:13→23:52)
[2018-04-12 14:49] LABS: BASOPHILS # (AUTO) 0.1 X10^3/uL (0.0-0.1); BASOPHILS % (AUTO) 0.8 % (0.2-1.0); EOSINOPHILS % (AUTO) 0.2 % (0.9-2.9); HEMATOCRIT 38.7 % (36.0-47.0); LYMPHOCYTES # (AUTO) 2.9 X10^3/uL (1.3-2.9); LYMPHOCYTES % (AUTO) 18.2 % (21.0-51.0); MEAN CORPUSCULAR HEMOGLOBIN 26.6 pg (27.0-34.0); MEAN CORPUSCULAR HGB CONC 33.7 g/dL (33.0-35.0); MEAN CORPUSCULAR VOLUME 78.9 fL (80.0-100.0); MEAN PLATELET VOLUME 9.5 fL (7.4-11.0); MONOCYTES # (AUTO) 1.1 x10^3/uL (0.3-0.8); MONOCYTES % (AUTO) 6.9 % (0.0-13.0); NEUTROPHILS # (AUTO) 11.6 x10^3/uL (2.2-4.8); NEUTROPHILS % (AUTO) 73.9 % (42.0-75.0); PLATELET COUNT 244 X10^3/uL (150.0-450.0); RED BLOOD COUNT 4.91 X10^6/uL (3.5-5.4); WHITE BLOOD COUNT 15.7 X10^3/uL (3.6-10.0)
[2018-04-12 14:51] LABS: ALBUMIN 2.5 g/dL (3.4-5.0); CALCIUM 8.8 mg/dL (8.5-10.1); CARBON DIOXIDE 26.4 mmol/L (21-32); CREATININE 1.89 mg/dL (0.55-1.02); TOTAL PROTEIN 7.6 g/dL (6.4-8.2)
[2018-04-12 15:48] LABS: PLATELET MORPHOLOGY COMMENT NORMAL (NORMAL)
[2018-04-12] MEDS: PHENERGAN INJ 25 MG IVP PRN (19:34)
[2018-04-12] MEDS: PEPCID 20 MG IV PREMIX* 20 MG/50 ML BAG IV PRN (21:03)
[2018-04-13 00:22] LABS: BILIRUBIN,URINE NEGATIVE (NEGATIVE); BLOOD/HEMOGLOBIN,URINE 3+ (NEGATIVE); GLUCOSE, URINE 2+ (NEGATIVE); KETONES,URINE 1+ (NEGATIVE); LEUKOCYTE ESTERASE ,URINE 1+ (NEGATIVE); NITRITES,URINE NEGATIVE (NEGATIVE); PH,URINE 6.5 (5.0 - 8.0); PROTEIN,URINE 4+ (NEGATIVE); UROBILINOGEN,URINE NORMAL (NORMAL)
[2018-04-13 00:30] LABS: APPEARANCE,URINE CLEAR (CLEAR); BACTERIA,URINE TRACE /HPF (NEGATIVE); COLOR,URINE YELLOW (YELLOW); SQUAMOUS EPITHELIAL CELL,UR MODERATE /HPF (NEGATIVE)
[2018-04-13] MEDS: PHENERGAN INJ 25 MG IVP PRN ×3 (03:55→20:11)
[2018-04-13] MEDS: DEMEROL INJ IVP PRN ×5 (03:55→22:42)
[2018-04-13 06:04] LABS: BASOPHILS % (AUTO) 0.4 % (0.2-1.0); HEMATOCRIT 32.3 % (36.0-47.0); HEMOGLOBIN 10.6 g/dL (12.0-16.0); LYMPHOCYTES # (AUTO) 1.5 X10^3/uL (1.3-2.9); LYMPHOCYTES % (AUTO) 14.6 % (21.0-51.0); MEAN CORPUSCULAR HEMOGLOBIN 25.7 pg (27.0-34.0); MEAN CORPUSCULAR HGB CONC 32.6 g/dL (33.0-35.0); MEAN CORPUSCULAR VOLUME 78.8 fL (80.0-100.0); MEAN PLATELET VOLUME 9.1 fL (7.4-11.0); MONOCYTES # (AUTO) 0.6 x10^3/uL (0.3-0.8); MONOCYTES % (AUTO) 5.9 % (0.0-13.0); NEUTROPHILS # (AUTO) 8.2 x10^3/uL (2.2-4.8); NEUTROPHILS % (AUTO) 79.1 % (42.0-75.0); PLATELET COUNT 221 X10^3/uL (150.0-450.0); RED CELL DISTRIBUTION WIDTH 16.1 % (11.6-16.5); WHITE BLOOD COUNT 10.3 X10^3/uL (3.6-10.0)
[2018-04-13 06:23] LABS: ALBUMIN 1.8 g/dL (3.4-5.0); CALCIUM 8.2 mg/dL (8.5-10.1); CREATININE 1.62 mg/dL (0.55-1.02)
[2018-04-13 06:32] LABS: HYPOCHROMASIA SLIGHT; MICROCYTOSIS SLIGHT; PLATELET MORPHOLOGY COMMENT NORMAL (NORMAL)
[2018-04-13] MEDS: ZOFRAN INJ 4 MG VIAL IVP PRN ×2 (08:20→17:38)
[2018-04-13] MEDS: NS 1000 ML 1,000 ML IV SCH ×3 (08:25→21:40)
[2018-04-13 11:14] VITALS: BMI 39.9
[2018-04-13] MEDS: BENTYL CAP 10 MG PO SCH ×4 (12:41→20:11)
[2018-04-14] MEDS: DEMEROL INJ IVP PRN ×5 (03:12→22:00)
[2018-04-14] MEDS: ZOFRAN INJ 4 MG VIAL IVP PRN ×3 (03:13→23:27)
[2018-04-14] MEDS: NS 1000 ML 1,000 ML IV SCH ×2 (05:26→15:01)
[2018-04-14 06:18] LABS: BASOPHILS % (AUTO) 0.6 % (0.2-1.0); EOSINOPHILS # (AUTO) 0.1 x10^3/uL (0.0-0.2); EOSINOPHILS % (AUTO) 0.9 % (0.9-2.9); HEMATOCRIT 31.3 % (36.0-47.0); HEMOGLOBIN 10.2 g/dL (12.0-16.0); LYMPHOCYTES # (AUTO) 2.7 X10^3/uL (1.3-2.9); LYMPHOCYTES % (AUTO) 33.7 % (21.0-51.0); MEAN CORPUSCULAR HEMOGLOBIN 25.7 pg (27.0-34.0); MEAN CORPUSCULAR HGB CONC 32.5 g/dL (33.0-35.0); MEAN CORPUSCULAR VOLUME 78.9 fL (80.0-100.0); MONOCYTES # (AUTO) 0.7 x10^3/uL (0.3-0.8); MONOCYTES % (AUTO) 8.7 % (0.0-13.0); NEUTROPHILS # (AUTO) 4.4 x10^3/uL (2.2-4.8); NEUTROPHILS % (AUTO) 56.1 % (42.0-75.0); PLATELET COUNT 232 X10^3/uL (150.0-450.0); RED BLOOD COUNT 3.96 X10^6/uL (3.5-5.4); WHITE BLOOD COUNT 7.9 X10^3/uL (3.6-10.0)
[2018-04-14 06:37] LABS: PLATELET MORPHOLOGY COMMENT NORMAL (NORMAL)
[2018-04-14 06:39] LABS: ALANINE AMINOTRANSFERASE 10 Units/L (12-78); ALBUMIN 1.7 g/dL (3.4-5.0); ALKALINE PHOSPHATASE 54 Units/L (46-116); ASPARTATE AMINO TRANSFERASE 15 Units/L (15-37); BLOOD UREA NITROGEN 12 mg/dL (7-18); CARBON DIOXIDE 25.3 mmol/L (21-32); CHLORIDE 108 mmol/L (98-107); COR CA(FOR HYPOALB) 9.8 mg/dL (8.5-10.1); CREATININE 1.44 mg/dL (0.55-1.02); HYPOCHROMASIA SLIGHT; SODIUM 142 mmol/L (136-145); TOTAL PROTEIN 5.7 g/dL (6.4-8.2); eGFR NON BLACK RACES 45 (>60)
[2018-04-14 06:40] LABS: ANISOCYTOSIS SLIGHT; MICROCYTOSIS SLIGHT
[2018-04-14] MEDS: BENTYL CAP 10 MG PO SCH ×6 (07:50→20:46)
--- NOTE | 2018-04-14 09:41 | PCM.PROG ---
Progress Note - Progress Note for Day of Date of Exam: 04/13/18 - Subjective Subjective: WAS ADMITTED ON 04/12 FOR INTRACTABLE ABDOMINAL PAIN, GASTROPARESIS, AND HYPERTENSION. TODAY, SHE CONTINUES WITH COMPLAINTS OF MODERATE, DIFFUSE ABDOMINAL PAIN WELL NAUSEA AND VOMITING. SHE REPORTS THAT HER SYMPTOMS ARE WORSE TODAY. HER VITALS TODAY ARE 98.1-91-20-98%-145/ 105. ABNORMAL LABS INCLUDE THE FOLLOWING: WBC 10.3, HGB 10.6, HCT 32.3, CREATININE 1.62, GLUCOSE 128, CALCIUM 8.2, AST 11, ALT 10, TOTAL PROTEIN 6.0, ALBUMIN 1.8. TODAY, WE WILL CONTINUE WITH IV HYDRATION AND NAUSEA MEDICATIONS. WE WILL START BENTYL 20MG PO QID. OTHERWISE, WE WILL FOLLOW UP WITH AM LABS AND CONTINUE TO MONITOR. - Past Medical Family Social History Past Med/Fam/Surg Hx: No changes since H&P Allergies: Allergies Penicillins Allergy (Verified 04/06/18 12:22) morphine Adverse Reaction (Verified 04/06/18 12:22) - Review of Systems ROS: No change since H&P - Vital Signs and I&O's Vital Signs: Temperature 98.2 F Pulse Rate [Right Brachial] 87 Respiratory Rate 20 Blood Pressure [Left Arm] 158/78 Blood Pressure [Right Arm] 193/94 Blood Pressure 143/117 O2 Sat by Pulse Oximetry 94 Intake and Output: Intake & Output 04/11/18 04/12/18 04/13/18 04/14/18 11:59 11:59 11:59 11:59 Intake Total 1192 / 1192 2406 / 2406 Balance 1192 / 1192 2406 / 2406 - Physical Exam Oriented: Normal Eyes: Normal Ear: Normal Nose: Normal Throat: Normal Respiratory: Diminished Cardiovascular: Normal : Normal Auscultation: Bowel Sounds: Normal Palpation: Normal Tenderness: Diffuse, Epigastric, Moderate, Severe Skin: Normal (1 using will is that his effacement) Musculoskeletal: Normal ( the patient had been de) Psychiatric: Other (crying) Mood Description: Anxious Affect: Anxious Speech Pattern: Clear, Appropriate - Laboratory and Diagnostics Result Diagrams: 04/14/18 05:08 04/14/18 05:08 Labs: Laboratory WBC 7.9 X10^3/uL (3.6-10.0) 04/14/18 05:08 RBC 3.96 X10^6/uL (3.5-5.4) 04/14/18 05:08 Hgb 10.2 g/dL (12.0-16.0) L 04/14/18 05:08 Hct 31.3 % (36.0-47.0) L 04/14/18 05:08 MCV 78.9 fL (80.0-100.0) L 04/14/18 05:08 MCH 25.7 pg (27.0-34.0) L 04/14/18 05:08 MCHC 32.5 g/dL (33.0-35.0) L 04/14/18 05:08 RDW 16.0 % (11.6-16.5) 04/14/18 05:08 Plt Count 232 X10^3/uL (150.0-450.0) 04/14/18 05:08 Plt Count Comment Adequate (ADEQUATE) 04/14/18 05:08 MPV 10.0 fL (7.4-11.0) 04/14/18 05:08 Neut % (Auto) 56.1 % (42.0-75.0) 04/14/18 05:08 Lymph % (Auto) 33.7 % (21.0-51.0) 04/14/18 05:08 [place] % (Auto) 8.7 % (0.0-13.0) 04/14/18 05:08 Eos % (Auto) 0.9 % (0.9-2.9) 04/14/18 05:08 Baso % (Auto) 0.6 % (0.2-1.0) 04/14/18 05:08 Neut # (Auto) 4.4 x10^3/uL (2.2-4.8) 04/14/18 05:08 Lymph # (Auto) 2.7 X10^3/uL (1.3-2.9) 04/14/18 05:08 [place] # (Auto) 0.7 x10^3/uL (0.3-0.8) 04/14/18 05:08 Eos # (Auto) 0.1 x10^3/uL (0.0-0.2) 04/14/18 05:08 Baso # (Auto) 0.0 X10^3/uL (0.0-0.1) 04/14/18 05:08 Absolute Nucleated RBC 0.1 /100WBC 04/14/18 05:08 Plt Morphology Comment Normal (NORMAL) 04/14/18 05:08 RBC Morphology Abnormal (NORMAL) A 04/14/18 05:08 Hypochromasia Slight A 04/14/18 05:08 Anisocytosis Slight A 04/14/18 05:08 Microcytosis Slight A 04/14/18 05:08 Sodium 142 mmol/L (136-145) 04/14/18 05:08 Corrected Sodium TNP 04/14/18 05:08 Potassium 3.5 mmol/L (3.5-5.1) 04/14/18 05:08 Chloride 108 mmol/L (98-107) H 04/14/18 05:08 Carbon Dioxide 25.3 mmol/L (21-32) 04/14/18 05:08 BUN 12 mg/dL (7-18) 04/14/18 05:08 Creatinine 1.44 mg/dL (0.55-1.02) H 04/14/18 05:08 Est GFR (MDRD) Af Amer 54 (>60) L 04/14/18 05:08 Est GFR (MDRD) Non-Af 45 (>60) L 04/14/18 05:08 Glucose 85 mg/dL (65-99) 04/14/18 05:08 Calcium 8.0 mg/dL (8.5-10.1) L 04/14/18 05:08 Corrected Calcium 9.8 mg/dL (8.5-10.1) 04/14/18 05:08 Total Bilirubin 0.10 mg/dL (0.2-1.0) L 04/14/18 05:08 AST 15 Units/L (15-37) 04/14/18 05:08 ALT 10 Units/L (12-78) L 04/14/18 05:08 Alkaline Phosphatase 54 Units/L (46-116) 04/14/18 05:08 Total Protein 5.7 g/dL (6.4-8.2) L 04/14/18 05:08 Albumin 1.7 g/dL (3.4-5.0) L 04/14/18 05:08 Globulin 4.0 g/dL (2.5-4.5) 04/14/18 05:08 Albumin/Globulin Ratio 0.4 Ratio (1.1-2.1) L 04/14/18 05:08 Amylase 31 Units/L (25-115) 04/12/18 14:30 Lipase 66 Units/L (73-393) L 04/12/18 14:30 Specimen Type Clean catch urine 04/13/18 00:07 Urine Color Yellow (YELLOW) 04/13/18 00:07 Urine Appearance Clear (CLEAR) 04/13/18 00:07 Urine pH 6.5 (5.0 - 8.0) 04/13/18 00:07 Ur Specific [place] 1.010 (1.000-1.030) 04/13/18 00:07 Urine Protein 4+ (NEGATIVE) 04/13/18 00:07 Urine Glucose (UA) 2+ (NEGATIVE) 04/13/18 00:07 Urine Ketones 1+ (NEGATIVE) 04/13/18 00:07 Urine Occult Blood 3+ (NEGATIVE) 04/13/18 00:07 Urine Nitrite Negative (NEGATIVE) 04/13/18 00:07 Urine Bilirubin Negative (NEGATIVE) 04/13/18 00:07 Urine Urobilinogen Normal (NORMAL) 04/13/18 00:07 Ur Leukocyte Esterase 1+ (NEGATIVE) 04/13/18 00:07 Urine RBC 5-10 /HPF (NONE SEEN) 04/13/18 00:07 Urine WBC 0-2 /HPF (NONE SEEN) 04/13/18 00:07 Ur Squamous Epith Cells Moderate /HPF (NEGATIVE) 04/13/18 00:07 Urine Bacteria Trace /HPF (NEGATIVE) 04/13/18 00:07 Ur Culture Indicated? No/not indicated 04/13/18 00:07 - Plan (1) Abdominal pain Status: Acute Qualifiers: Abdominal location: generalized Qualified Code(s): R10.84 - Generalized abdominal pain Plan: LabsMATT Zofran (2) Nausea & vomiting Status: Acute Qualifiers: Vomiting type: unspecified Vomiting Intractability: intractable Qualified Code(s): R11.2 - Nausea with vomiting, unspecified Plan: LabsAnnikafran (3) Essential hypertension Status: Acute Plan: Monitor BP. Antihypertensives as needed. (4) Gastroparesis Status: Acute Plan: Labs, Zofran
--- NOTE | 2018-04-14 14:57 | PCM.PROG ---
Progress Note - Progress Note for Day of Date of Exam: 04/14/18 - Subjective Subjective: WAS ADMITTED ON 04/12 FOR INTRACTABLE ABDOMINAL PAIN, GASTROPARESIS, AND HYPERTENSION. TODAY, SHE CONTINUES WITH COMPLAINTS OF ABDOMINAL PAIN AND NAUSEA. SHE REPORTS THAT SYMPTOMS HAVE SLIGHTLY IMPROVED SINCE YESTERDAY. HER VITALS TODAY ARE 98.2-87-20-94%-139/94. ABNORMAL LABS INCLUDE THE FOLLOWING: HGB 10.2, HCT 31.3, CHLORIDE 108, CREATININE 1.44, CALCIUM 8.0, TOTAL BILI 0.10, ALT 10, TOTAL PROTEIN 5.7, ALBUMIN 1.7. TODAY, WE WILL CONTINUE WITH IV HYDRATION, NAUSEA MEDICATIONS, AND PAIN MANAGEMENT. OTHERWISE, WE WILL FOLLOW UP WITH AM LABS AND CONTINUE TO MONITOR. - Past Medical Family Social History Past Med/Fam/Surg Hx: No changes since H&P Allergies: Allergies Penicillins Allergy (Verified 04/06/18 12:22) morphine Adverse Reaction (Verified 04/06/18 12:22) - Review of Systems ROS: No change since H&P - Vital Signs and I&O's Vital Signs: Temperature 98.2 F Pulse Rate [Right Brachial] 87 Respiratory Rate 20 Blood Pressure [Left Arm] 158/78 Blood Pressure [Right Arm] 193/94 Blood Pressure 143/117 O2 Sat by Pulse Oximetry 94 Intake and Output: Intake & Output 04/12/18 04/13/18 04/14/18 04/15/18 11:59 11:59 11:59 11:59 Intake Total 1192 / 1192 2406 / 2406 Balance 1192 / 1192 2406 / 2406 - Physical Exam Oriented: Normal Eyes: Normal Ear: Normal Nose: Normal Throat: Normal Respiratory: Diminished Cardiovascular: Normal : Normal Auscultation: Bowel Sounds: Normal Tenderness: Diffuse, Epigastric, Moderate, Severe Skin: Normal (1 using will is that his effacement) Musculoskeletal: Normal ( the patient had been de) Psychiatric: Other (crying) Mood Description: Anxious Affect: Anxious Speech Pattern: Clear, Appropriate - Laboratory and Diagnostics Result Diagrams: 04/14/18 05:08 04/14/18 05:08 Labs: Laboratory WBC 7.9 X10^3/uL (3.6-10.0) 04/14/18 05:08 RBC 3.96 X10^6/uL (3.5-5.4) 04/14/18 05:08 Hgb 10.2 g/dL (12.0-16.0) L 04/14/18 05:08 Hct 31.3 % (36.0-47.0) L 04/14/18 05:08 MCV 78.9 fL (80.0-100.0) L 04/14/18 05:08 MCH 25.7 pg (27.0-34.0) L 04/14/18 05:08 MCHC 32.5 g/dL (33.0-35.0) L 04/14/18 05:08 RDW 16.0 % (11.6-16.5) 04/14/18 05:08 Plt Count 232 X10^3/uL (150.0-450.0) 04/14/18 05:08 Plt Count Comment Adequate (ADEQUATE) 04/14/18 05:08 MPV 10.0 fL (7.4-11.0) 04/14/18 05:08 Neut % (Auto) 56.1 % (42.0-75.0) 04/14/18 05:08 Lymph % (Auto) 33.7 % (21.0-51.0) 04/14/18 05:08 [place] % (Auto) 8.7 % (0.0-13.0) 04/14/18 05:08 Eos % (Auto) 0.9 % (0.9-2.9) 04/14/18 05:08 Baso % (Auto) 0.6 % (0.2-1.0) 04/14/18 05:08 Neut # (Auto) 4.4 x10^3/uL (2.2-4.8) 04/14/18 05:08 Lymph # (Auto) 2.7 X10^3/uL (1.3-2.9) 04/14/18 05:08 [place] # (Auto) 0.7 x10^3/uL (0.3-0.8) 04/14/18 05:08 Eos # (Auto) 0.1 x10^3/uL (0.0-0.2) 04/14/18 05:08 Baso # (Auto) 0.0 X10^3/uL (0.0-0.1) 04/14/18 05:08 Absolute Nucleated RBC 0.1 /100WBC 04/14/18 05:08 Plt Morphology Comment Normal (NORMAL) 04/14/18 05:08 RBC Morphology Abnormal (NORMAL) A 04/14/18 05:08 Hypochromasia Slight A 04/14/18 05:08 Anisocytosis Slight A 04/14/18 05:08 Microcytosis Slight A 04/14/18 05:08 Sodium 142 mmol/L (136-145) 04/14/18 05:08 Corrected Sodium TNP 04/14/18 05:08 Potassium 3.5 mmol/L (3.5-5.1) 04/14/18 05:08 Chloride 108 mmol/L (98-107) H 04/14/18 05:08 Carbon Dioxide 25.3 mmol/L (21-32) 04/14/18 05:08 BUN 12 mg/dL (7-18) 04/14/18 05:08 Creatinine 1.44 mg/dL (0.55-1.02) H 04/14/18 05:08 Est GFR (MDRD) Af Amer 54 (>60) L 04/14/18 05:08 Est GFR (MDRD) Non-Af 45 (>60) L 04/14/18 05:08 Glucose 85 mg/dL (65-99) 04/14/18 05:08 Calcium 8.0 mg/dL (8.5-10.1) L 04/14/18 05:08 Corrected Calcium 9.8 mg/dL (8.5-10.1) 04/14/18 05:08 Total Bilirubin 0.10 mg/dL (0.2-1.0) L 04/14/18 05:08 AST 15 Units/L (15-37) 04/14/18 05:08 ALT 10 Units/L (12-78) L 04/14/18 05:08 Alkaline Phosphatase 54 Units/L (46-116) 04/14/18 05:08 Total Protein 5.7 g/dL (6.4-8.2) L 04/14/18 05:08 Albumin 1.7 g/dL (3.4-5.0) L 04/14/18 05:08 Globulin 4.0 g/dL (2.5-4.5) 04/14/18 05:08 Albumin/Globulin Ratio 0.4 Ratio (1.1-2.1) L 04/14/18 05:08 Amylase 31 Units/L (25-115) 04/12/18 14:30 Lipase 66 Units/L (73-393) L 04/12/18 14:30 Specimen Type Clean catch urine 04/13/18 00:07 Urine Color Yellow (YELLOW) 04/13/18 00:07 Urine Appearance Clear (CLEAR) 04/13/18 00:07 Urine pH 6.5 (5.0 - 8.0) 04/13/18 00:07 Ur Specific [place] 1.010 (1.000-1.030) 04/13/18 00:07 Urine Protein 4+ (NEGATIVE) 04/13/18 00:07 Urine Glucose (UA) 2+ (NEGATIVE) 04/13/18 00:07 Urine Ketones 1+ (NEGATIVE) 04/13/18 00:07 Urine Occult Blood 3+ (NEGATIVE) 04/13/18 00:07 Urine Nitrite Negative (NEGATIVE) 04/13/18 00:07 Urine Bilirubin Negative (NEGATIVE) 04/13/18 00:07 Urine Urobilinogen Normal (NORMAL) 04/13/18 00:07 Ur Leukocyte Esterase 1+ (NEGATIVE) 04/13/18 00:07 Urine RBC 5-10 /HPF (NONE SEEN) 04/13/18 00:07 Urine WBC 0-2 /HPF (NONE SEEN) 04/13/18 00:07 Ur Squamous Epith Cells Moderate /HPF (NEGATIVE) 04/13/18 00:07 Urine Bacteria Trace /HPF (NEGATIVE) 04/13/18 00:07 Ur Culture Indicated? No/not indicated 04/13/18 00:07 - Plan (1) Abdominal pain Status: Acute Qualifiers: Abdominal location: generalized Qualified Code(s): R10.84 - Generalized abdominal pain Plan: Labs, Nic GUTIERREZ (2) Nausea & vomiting Status: Acute Qualifiers: Vomiting type: unspecified Vomiting Intractability: intractable Qualified Code(s): R11.2 - Nausea with vomiting, unspecified Plan: Labs, Zofran (3) Essential hypertension Status: Acute Plan: Monitor BP. Antihypertensives as needed. (4) Gastroparesis Status: Acute Plan: Labs, Zofran
[2018-04-14] MEDS: PHENERGAN INJ 25 MG IVP PRN ×2 (15:08→22:00)
[2018-04-14] MEDS ORDERED: CATAPRES TAB 0.1 MG PO ONE (19:26)
[2018-04-14] MEDS: ZESTRIL TAB 40 MG PO SCH (20:46)
[2018-04-14] MEDS: COLACE CAP 100 MG PO SCH (20:46)
[2018-04-14] MEDS: COREG TAB 12.5 MG PO SCH (20:46)
[2018-04-14] MEDS: MILK OF MAGNESIA PO SCH (20:46)
[2018-04-14] MEDS: CATAPRES TAB 0.1 MG PO PRN (23:26)
[2018-04-14] MEDS: PEPCID 20 MG IV PREMIX* 20 MG/50 ML BAG IV PRN (23:27)
[2018-04-15] MEDS: NS 1000 ML 1,000 ML IV SCH ×2 (01:19→10:10)
[2018-04-15] MEDS: DEMEROL INJ IVP PRN ×2 (02:08→06:19)
[2018-04-15] MEDS: PHENERGAN INJ 25 MG IVP PRN ×3 (04:12→17:38)
[2018-04-15] MEDS: ZOFRAN INJ 4 MG VIAL IVP PRN (06:20)
[2018-04-15 06:22] LABS: BASOPHILS % (AUTO) 0.5 % (0.2-1.0); EOSINOPHILS # (AUTO) 0.1 x10^3/uL (0.0-0.2); EOSINOPHILS % (AUTO) 0.7 % (0.9-2.9); HEMATOCRIT 39.4 % (36.0-47.0); HEMOGLOBIN 12.5 g/dL (12.0-16.0); LYMPHOCYTES # (AUTO) 1.9 X10^3/uL (1.3-2.9); LYMPHOCYTES % (AUTO) 19.1 % (21.0-51.0); MEAN CORPUSCULAR HEMOGLOBIN 25.2 pg (27.0-34.0); MEAN CORPUSCULAR HGB CONC 31.7 g/dL (33.0-35.0); MEAN CORPUSCULAR VOLUME 79.5 fL (80.0-100.0); MEAN PLATELET VOLUME 9.1 fL (7.4-11.0); MONOCYTES # (AUTO) 0.8 x10^3/uL (0.3-0.8); MONOCYTES % (AUTO) 8.6 % (0.0-13.0); NEUTROPHILS # (AUTO) 6.9 x10^3/uL (2.2-4.8); NEUTROPHILS % (AUTO) 71.1 % (42.0-75.0); PLATELET COUNT 264 X10^3/uL (150.0-450.0); RED BLOOD COUNT 4.96 X10^6/uL (3.5-5.4); WHITE BLOOD COUNT 9.7 X10^3/uL (3.6-10.0)
[2018-04-15 06:38] LABS: ALBUMIN 2.3 g/dL (3.4-5.0); CALCIUM 8.7 mg/dL (8.5-10.1); CARBON DIOXIDE 23.8 mmol/L (21-32); COR CA(FOR HYPOALB) 10.1 mg/dL (8.5-10.1); CREATININE 1.56 mg/dL (0.55-1.02); TOTAL PROTEIN 7.3 g/dL (6.4-8.2)
[2018-04-15 06:57] LABS: HYPOCHROMASIA SLIGHT; PLATELET MORPHOLOGY COMMENT NORMAL (NORMAL)
[2018-04-15] MEDS: MILK OF MAGNESIA PO SCH ×2 (08:48→20:46)
[2018-04-15] MEDS: BENTYL CAP 10 MG PO SCH ×4 (08:48→20:45)
[2018-04-15] MEDS: COREG TAB 12.5 MG PO SCH ×2 (08:48→20:45)
[2018-04-15] MEDS: ZESTRIL TAB 40 MG PO SCH (08:49)
[2018-04-15] MEDS ORDERED: BENADRYL INJ 50 MG VIAL IVP PRN (09:04)
--- NOTE | 2018-04-15 10:08 | RAD ---
History: Nasogastric tube placement study: Lower chest upper abdomen Findings: There is a nasogastric tube in the proximal stomach in satisfactory position. The visualize d abdomen shows no gaseous distention. Impression: Satisfactory nasogastric tube placement Reported By:
[2018-04-15] MEDS: DILAUDID INJ IVP PRN ×2 (11:15→17:26)
[2018-04-15] MEDS: APRESOLINE INJ 20 MG VIAL IVP PRN (14:46)
[2018-04-15] MEDS ORDERED: DULCOLAX SUPPOSITORY 10 MG RECTAL SCH (16:00)
[2018-04-15] MEDS: CATAPRES TAB 0.1 MG PO PRN (20:44)
[2018-04-15] MEDS: COLACE CAP 100 MG PO SCH (20:45)
[2018-04-16] MEDS: PHENERGAN INJ 25 MG IVP PRN ×4 (00:33→20:35)
[2018-04-16] MEDS: DILAUDID INJ IVP PRN ×4 (00:35→19:56)
[2018-04-16] MEDS: CATAPRES TAB 0.1 MG PO PRN ×2 (02:33→09:33)
[2018-04-16] MEDS: NS 1000 ML 1,000 ML IV SCH ×3 (03:11→21:00)
[2018-04-16 05:18] LABS: BASOPHILS % (AUTO) 0.3 % (0.2-1.0); EOSINOPHILS # (AUTO) 0.1 x10^3/uL (0.0-0.2); EOSINOPHILS % (AUTO) 1.3 % (0.9-2.9); HEMATOCRIT 32.8 % (36.0-47.0); HEMOGLOBIN 10.6 g/dL (12.0-16.0); LYMPHOCYTES # (AUTO) 2.4 X10^3/uL (1.3-2.9); LYMPHOCYTES % (AUTO) 30.1 % (21.0-51.0); MEAN CORPUSCULAR HEMOGLOBIN 25.6 pg (27.0-34.0); MEAN CORPUSCULAR HGB CONC 32.3 g/dL (33.0-35.0); MEAN CORPUSCULAR VOLUME 79.2 fL (80.0-100.0); MEAN PLATELET VOLUME 9.3 fL (7.4-11.0); MONOCYTES # (AUTO) 0.7 x10^3/uL (0.3-0.8); MONOCYTES % (AUTO) 9.1 % (0.0-13.0); NEUTROPHILS # (AUTO) 4.7 x10^3/uL (2.2-4.8); NEUTROPHILS % (AUTO) 59.2 % (42.0-75.0); PLATELET COUNT 242 X10^3/uL (150.0-450.0); RED BLOOD COUNT 4.15 X10^6/uL (3.5-5.4); RED CELL DISTRIBUTION WIDTH 16.4 % (11.6-16.5)
[2018-04-16 05:28] LABS: ALBUMIN 1.8 g/dL (3.4-5.0); CARBON DIOXIDE 26.7 mmol/L (21-32); COR CA(FOR HYPOALB) 9.8 mg/dL (8.5-10.1); CREATININE 1.44 mg/dL (0.55-1.02); TOTAL PROTEIN 5.6 g/dL (6.4-8.2)
[2018-04-16 05:53] LABS: ANISOCYTOSIS 1+; HYPOCHROMASIA 1+; MICROCYTOSIS 1+; PLATELET MORPHOLOGY COMMENT NORMAL (NORMAL)
[2018-04-16] MEDS ORDERED: DULCOLAX SUPPOSITORY 10 MG RECTAL ONE (06:00)
[2018-04-16] MEDS: ZESTRIL TAB 40 MG PO SCH (09:32)
[2018-04-16] MEDS: BENTYL CAP 10 MG PO SCH ×4 (09:32→21:26)
[2018-04-16] MEDS: COREG TAB 12.5 MG PO SCH ×2 (09:32→21:26)
[2018-04-16] MEDS: MILK OF MAGNESIA PO SCH ×2 (09:32→21:25)
--- NOTE | 2018-04-16 13:15 | PCM.PROG ---
Progress Note - Progress Note for Day of Date of Exam: 04/15/18 - Subjective Subjective: WAS ADMITTED ON 04/12 FOR INTRACTABLE ABDOMINAL PAIN, GASTROPARESIS, AND HYPERTENSION. TODAY, SHE CONTINUES WITH COMPLAINTS OF ABDOMINAL PAIN AND NAUSEA WITH CONTINUED VOMITING THIS AM. PT UNABLE TO KEEP PO BP MEDICATION DOWN, PT HYPERTENSIVE THIS AM. NPO, NG TUBE AT LIS, IV HYDRALAZINE. BP MONITORING, CONTINUE NARCOTIC PAIN CONTROL - Past Medical Family Social History Past Med/Fam/Surg Hx: No changes since H&P Allergies: Allergies Penicillins Allergy (Verified 04/06/18 12:22) morphine Adverse Reaction (Verified 04/06/18 12:22) - Review of Systems ROS: No change since H&P - Vital Signs and I&O's Vital Signs: Temperature 97.8 F Pulse Rate [Left Brachial] 81 Pulse Rate [Right Brachial] 81 Respiratory Rate 20 Blood Pressure [Left Arm] 138/74 Blood Pressure [Right Arm] 201/130 Blood Pressure 143/117 O2 Sat by Pulse Oximetry 93 Intake and Output: Intake & Output 04/14/18 04/15/18 04/16/18 04/17/18 11:59 11:59 11:59 11:59 Intake Total 2406 / 2406 1000 / 1000 1814 / 1814 Output Total 100 / 100 650 / 650 Balance 2406 / 2406 900 / 900 1164 / 1164 - Physical Exam Oriented: Normal Eyes: Normal Ear: Normal Nose: Normal Throat: Normal Respiratory: Diminished Cardiovascular: Normal : Normal Auscultation: Bowel Sounds: Normal Tenderness: Diffuse, LUQ, Epigastric, Moderate, Severe Skin: Normal (1 using will is that his effacement) Musculoskeletal: Normal ( the patient had been de) Psychiatric: Other (crying) Mood Description: Anxious Affect: Anxious Speech Pattern: Clear, Appropriate - Laboratory and Diagnostics Result Diagrams: 04/16/18 04:54 04/16/18 04:54 Labs: Laboratory WBC 8.0 X10^3/uL (3.6-10.0) 04/16/18 04:54 RBC 4.15 X10^6/uL (3.5-5.4) 04/16/18 04:54 Hgb 10.6 g/dL (12.0-16.0) L 04/16/18 04:54 Hct 32.8 % (36.0-47.0) L 04/16/18 04:54 MCV 79.2 fL (80.0-100.0) L 04/16/18 04:54 MCH 25.6 pg (27.0-34.0) L 04/16/18 04:54 MCHC 32.3 g/dL (33.0-35.0) L 04/16/18 04:54 RDW 16.4 % (11.6-16.5) 04/16/18 04:54 Plt Count 242 X10^3/uL (150.0-450.0) 04/16/18 04:54 Plt Count Comment Adequate (ADEQUATE) 04/16/18 04:54 MPV 9.3 fL (7.4-11.0) 04/16/18 04:54 Neut % (Auto) 59.2 % (42.0-75.0) 04/16/18 04:54 Lymph % (Auto) 30.1 % (21.0-51.0) 04/16/18 04:54 [place] % (Auto) 9.1 % (0.0-13.0) 04/16/18 04:54 Eos % (Auto) 1.3 % (0.9-2.9) 04/16/18 04:54 Baso % (Auto) 0.3 % (0.2-1.0) 04/16/18 04:54 Neut # (Auto) 4.7 x10^3/uL (2.2-4.8) 04/16/18 04:54 Lymph # (Auto) 2.4 X10^3/uL (1.3-2.9) 04/16/18 04:54 [place] # (Auto) 0.7 x10^3/uL (0.3-0.8) 04/16/18 04:54 Eos # (Auto) 0.1 x10^3/uL (0.0-0.2) 04/16/18 04:54 Baso # (Auto) 0.0 X10^3/uL (0.0-0.1) 04/16/18 04:54 Absolute Nucleated RBC 0.1 /100WBC 04/16/18 04:54 Plt Morphology Comment Normal (NORMAL) 04/16/18 04:54 RBC Morphology Abnormal (NORMAL) A 04/16/18 04:54 Hypochromasia 1+ A 04/16/18 04:54 Anisocytosis 1+ A 04/16/18 04:54 Microcytosis 1+ A 04/16/18 04:54 Sodium 139 mmol/L (136-145) 04/16/18 04:54 Corrected Sodium 140 mmol/L (136-145) 04/16/18 04:54 Potassium 3.5 mmol/L (3.5-5.1) 04/16/18 04:54 Chloride 106 mmol/L (98-107) 04/16/18 04:54 Carbon Dioxide 26.7 mmol/L (21-32) 04/16/18 04:54 BUN 11 mg/dL (7-18) 04/16/18 04:54 Creatinine 1.44 mg/dL (0.55-1.02) H 04/16/18 04:54 Est GFR (MDRD) Af Amer 54 (>60) L 04/16/18 04:54 Est GFR (MDRD) Non-Af 45 (>60) L 04/16/18 04:54 Glucose 154 mg/dL (65-99) H 04/16/18 04:54 Calcium 8.0 mg/dL (8.5-10.1) L 04/16/18 04:54 Corrected Calcium 9.8 mg/dL (8.5-10.1) 04/16/18 04:54 Total Bilirubin 0.10 mg/dL (0.2-1.0) L 04/16/18 04:54 AST 12 Units/L (15-37) L 04/16/18 04:54 ALT 10 Units/L (12-78) L 04/16/18 04:54 Alkaline Phosphatase 57 Units/L (46-116) 04/16/18 04:54 Total Protein 5.6 g/dL (6.4-8.2) L 04/16/18 04:54 Albumin 1.8 g/dL (3.4-5.0) L 04/16/18 04:54 Globulin 3.8 g/dL (2.5-4.5) 04/16/18 04:54 Albumin/Globulin Ratio 0.5 Ratio (1.1-2.1) L 04/16/18 04:54 Amylase 31 Units/L (25-115) 04/12/18 14:30 Lipase 66 Units/L (73-393) L 04/12/18 14:30 Specimen Type Clean catch urine 04/13/18 00:07 Urine Color Yellow (YELLOW) 04/13/18 00:07 Urine Appearance Clear (CLEAR) 04/13/18 00:07 Urine pH 6.5 (5.0 - 8.0) 04/13/18 00:07 Ur Specific [place] 1.010 (1.000-1.030) 04/13/18 00:07 Urine Protein 4+ (NEGATIVE) 04/13/18 00:07 Urine Glucose (UA) 2+ (NEGATIVE) 04/13/18 00:07 Urine Ketones 1+ (NEGATIVE) 04/13/18 00:07 Urine Occult Blood 3+ (NEGATIVE) 04/13/18 00:07 Urine Nitrite Negative (NEGATIVE) 04/13/18 00:07 Urine Bilirubin Negative (NEGATIVE) 04/13/18 00:07 Urine Urobilinogen Normal (NORMAL) 04/13/18 00:07 Ur Leukocyte Esterase 1+ (NEGATIVE) 04/13/18 00:07 Urine RBC 5-10 /HPF (NONE SEEN) 04/13/18 00:07 Urine WBC 0-2 /HPF (NONE SEEN) 04/13/18 00:07 Ur Squamous Epith Cells Moderate /HPF (NEGATIVE) 04/13/18 00:07 Urine Bacteria Trace /HPF (NEGATIVE) 04/13/18 00:07 Ur Culture Indicated? No/not indicated 04/13/18 00:07 - Plan (1) Nausea & vomiting Status: Acute Qualifiers: Vomiting type: unspecified Vomiting Intractability: intractable Qualified Code(s): R11.2 - Nausea with vomiting, unspecified Plan: BLOOD SUGAR CONTROL, NG TUBE AT LIS. PAIN CONTROL, CONTINUE ANTIEMETICS. REPEAT AM LABS, PPI THERAPY (2) Essential hypertension Status: Acute Plan: Monitor BP. HYDRALAZINE IV, WILL RESUME PO MEDS WHEN N/V CONTROLLED (3) Gastroparesis Status: Acute Plan: Labs, Zofran (4) Abdominal pain Status: Acute Qualifiers: Abdominal location: generalized Qualified Code(s): R10.84 - Generalized abdominal pain Plan: Labs, BENTYL, Zofran (5) Diabetes mellitus Status: Chronic (6) Chronic kidney disease, stage 3 Status: Chronic
--- NOTE | 2018-04-16 13:17 | PCM.PROG ---
Progress Note - Progress Note for Day of Date of Exam: 04/16/18 - Subjective Subjective: WAS ADMITTED ON 04/12 FOR INTRACTABLE ABDOMINAL PAIN, GASTROPARESIS, AND HYPERTENSION. THIS AM PT REPORTS IMPROVING NAUSEA WITHOUT VOMTING, BM X 2 SINCE YESERDAY. PT STATES PAIN IS BETTER, SHE CAN TOLERATE, BP STABLE. DISCUSSED REMOVING NG TUBE WITH IMPROVING N/V, CLEAR LIQUIDS TOLERATED. - Past Medical Family Social History Past Med/Fam/Surg Hx: No changes since H&P Allergies: Allergies Penicillins Allergy (Verified 04/06/18 12:22) morphine Adverse Reaction (Verified 04/06/18 12:22) - Review of Systems ROS: No change since H&P - Vital Signs and I&O's Vital Signs: Temperature 97.8 F Pulse Rate [Left Brachial] 81 Pulse Rate [Right Brachial] 81 Respiratory Rate 20 Blood Pressure [Left Arm] 138/74 Blood Pressure [Right Arm] 201/130 Blood Pressure 143/117 O2 Sat by Pulse Oximetry 93 Intake and Output: Intake & Output 04/14/18 04/15/18 04/16/18 04/17/18 11:59 11:59 11:59 11:59 Intake Total 2406 / 2406 1000 / 1000 1814 / 1814 Output Total 100 / 100 650 / 650 Balance 2406 / 2406 900 / 900 1164 / 1164 - Physical Exam Oriented: Normal Eyes: Normal Ear: Normal Nose: Normal Throat: Normal Respiratory: Diminished Cardiovascular: Normal : Normal Auscultation: Bowel Sounds: Normal Tenderness: Diffuse, LUQ, Epigastric, Moderate, Severe Skin: Normal (1 using will is that his effacement) Musculoskeletal: Normal ( the patient had been de) Psychiatric: Other (crying) Mood Description: Anxious Affect: Anxious Speech Pattern: Clear, Appropriate - Laboratory and Diagnostics Result Diagrams: 04/16/18 04:54 04/16/18 04:54 Labs: Laboratory WBC 8.0 X10^3/uL (3.6-10.0) 04/16/18 04:54 RBC 4.15 X10^6/uL (3.5-5.4) 04/16/18 04:54 Hgb 10.6 g/dL (12.0-16.0) L 04/16/18 04:54 Hct 32.8 % (36.0-47.0) L 04/16/18 04:54 MCV 79.2 fL (80.0-100.0) L 04/16/18 04:54 MCH 25.6 pg (27.0-34.0) L 04/16/18 04:54 MCHC 32.3 g/dL (33.0-35.0) L 04/16/18 04:54 RDW 16.4 % (11.6-16.5) 04/16/18 04:54 Plt Count 242 X10^3/uL (150.0-450.0) 04/16/18 04:54 Plt Count Comment Adequate (ADEQUATE) 04/16/18 04:54 MPV 9.3 fL (7.4-11.0) 04/16/18 04:54 Neut % (Auto) 59.2 % (42.0-75.0) 04/16/18 04:54 Lymph % (Auto) 30.1 % (21.0-51.0) 04/16/18 04:54 [place] % (Auto) 9.1 % (0.0-13.0) 04/16/18 04:54 Eos % (Auto) 1.3 % (0.9-2.9) 04/16/18 04:54 Baso % (Auto) 0.3 % (0.2-1.0) 04/16/18 04:54 Neut # (Auto) 4.7 x10^3/uL (2.2-4.8) 04/16/18 04:54 Lymph # (Auto) 2.4 X10^3/uL (1.3-2.9) 04/16/18 04:54 [place] # (Auto) 0.7 x10^3/uL (0.3-0.8) 04/16/18 04:54 Eos # (Auto) 0.1 x10^3/uL (0.0-0.2) 04/16/18 04:54 Baso # (Auto) 0.0 X10^3/uL (0.0-0.1) 04/16/18 04:54 Absolute Nucleated RBC 0.1 /100WBC 04/16/18 04:54 Plt Morphology Comment Normal (NORMAL) 04/16/18 04:54 RBC Morphology Abnormal (NORMAL) A 04/16/18 04:54 Hypochromasia 1+ A 04/16/18 04:54 Anisocytosis 1+ A 04/16/18 04:54 Microcytosis 1+ A 04/16/18 04:54 Sodium 139 mmol/L (136-145) 04/16/18 04:54 Corrected Sodium 140 mmol/L (136-145) 04/16/18 04:54 Potassium 3.5 mmol/L (3.5-5.1) 04/16/18 04:54 Chloride 106 mmol/L (98-107) 04/16/18 04:54 Carbon Dioxide 26.7 mmol/L (21-32) 04/16/18 04:54 BUN 11 mg/dL (7-18) 04/16/18 04:54 Creatinine 1.44 mg/dL (0.55-1.02) H 04/16/18 04:54 Est GFR (MDRD) Af Amer 54 (>60) L 04/16/18 04:54 Est GFR (MDRD) Non-Af 45 (>60) L 04/16/18 04:54 Glucose 154 mg/dL (65-99) H 04/16/18 04:54 Calcium 8.0 mg/dL (8.5-10.1) L 04/16/18 04:54 Corrected Calcium 9.8 mg/dL (8.5-10.1) 04/16/18 04:54 Total Bilirubin 0.10 mg/dL (0.2-1.0) L 04/16/18 04:54 AST 12 Units/L (15-37) L 04/16/18 04:54 ALT 10 Units/L (12-78) L 04/16/18 04:54 Alkaline Phosphatase 57 Units/L (46-116) 04/16/18 04:54 Total Protein 5.6 g/dL (6.4-8.2) L 04/16/18 04:54 Albumin 1.8 g/dL (3.4-5.0) L 04/16/18 04:54 Globulin 3.8 g/dL (2.5-4.5) 04/16/18 04:54 Albumin/Globulin Ratio 0.5 Ratio (1.1-2.1) L 04/16/18 04:54 Amylase 31 Units/L (25-115) 04/12/18 14:30 Lipase 66 Units/L (73-393) L 04/12/18 14:30 Specimen Type Clean catch urine 04/13/18 00:07 Urine Color Yellow (YELLOW) 04/13/18 00:07 Urine Appearance Clear (CLEAR) 04/13/18 00:07 Urine pH 6.5 (5.0 - 8.0) 04/13/18 00:07 Ur Specific [place] 1.010 (1.000-1.030) 04/13/18 00:07 Urine Protein 4+ (NEGATIVE) 04/13/18 00:07 Urine Glucose (UA) 2+ (NEGATIVE) 04/13/18 00:07 Urine Ketones 1+ (NEGATIVE) 04/13/18 00:07 Urine Occult Blood 3+ (NEGATIVE) 04/13/18 00:07 Urine Nitrite Negative (NEGATIVE) 04/13/18 00:07 Urine Bilirubin Negative (NEGATIVE) 04/13/18 00:07 Urine Urobilinogen Normal (NORMAL) 04/13/18 00:07 Ur Leukocyte Esterase 1+ (NEGATIVE) 04/13/18 00:07 Urine RBC 5-10 /HPF (NONE SEEN) 04/13/18 00:07 Urine WBC 0-2 /HPF (NONE SEEN) 04/13/18 00:07 Ur Squamous Epith Cells Moderate /HPF (NEGATIVE) 04/13/18 00:07 Urine Bacteria Trace /HPF (NEGATIVE) 04/13/18 00:07 Ur Culture Indicated? No/not indicated 04/13/18 00:07 - Plan (1) Nausea & vomiting Status: Acute Qualifiers: Vomiting type: unspecified Vomiting Intractability: intractable Qualified Code(s): R11.2 - Nausea with vomiting, unspecified Plan: BLOOD SUGAR CONTROL, NG TUBE AT LIS WILL D/C WITH IMPROVED N/V. PAIN CONTROL, CONTINUE ANTIEMETICS. REPEAT AM LABS, PPI THERAPY (2) Essential hypertension Status: Acute Plan: Monitor BP. HYDRALAZINE IV, WILL RESUME PO MEDS WHEN N/V CONTROLLED (3) Gastroparesis Status: Acute Plan: Labs, Zofran (4) Abdominal pain Status: Acute Qualifiers: Abdominal location: generalized Qualified Code(s): R10.84 - Generalized abdominal pain Plan: Labs, BENTYL, Zofran (5) Diabetes mellitus Status: Chronic (6) Chronic kidney disease, stage 3 Status: Chronic
[2018-04-16] MEDS: REGLAN INJ 10 MG VIAL IVP SCH ×3 (17:38→21:26)
[2018-04-16] MEDS: COLACE CAP 100 MG PO SCH (21:26)
[2018-04-17] MEDS: DILAUDID INJ IVP PRN ×4 (02:49→20:25)
[2018-04-17] MEDS: REGLAN INJ 10 MG VIAL IVP SCH ×6 (02:49→22:00)
[2018-04-17] MEDS: NS 1000 ML 1,000 ML IV SCH ×5 (04:24→19:42)
[2018-04-17 05:25] LABS: BASOPHILS % (AUTO) 0.4 % (0.2-1.0); EOSINOPHILS # (AUTO) 0.1 x10^3/uL (0.0-0.2); EOSINOPHILS % (AUTO) 1.6 % (0.9-2.9); HEMATOCRIT 32.2 % (36.0-47.0); HEMOGLOBIN 10.2 g/dL (12.0-16.0); LYMPHOCYTES % (AUTO) 26.7 % (21.0-51.0); MEAN CORPUSCULAR HEMOGLOBIN 25.2 pg (27.0-34.0); MEAN CORPUSCULAR HGB CONC 31.8 g/dL (33.0-35.0); MEAN CORPUSCULAR VOLUME 79.1 fL (80.0-100.0); MEAN PLATELET VOLUME 8.8 fL (7.4-11.0); MONOCYTES # (AUTO) 0.7 x10^3/uL (0.3-0.8); MONOCYTES % (AUTO) 8.7 % (0.0-13.0); NEUTROPHILS # (AUTO) 4.7 x10^3/uL (2.2-4.8); NEUTROPHILS % (AUTO) 62.6 % (42.0-75.0); PLATELET COUNT 242 X10^3/uL (150.0-450.0); RED BLOOD COUNT 4.07 X10^6/uL (3.5-5.4); RED CELL DISTRIBUTION WIDTH 16.1 % (11.6-16.5); WHITE BLOOD COUNT 7.6 X10^3/uL (3.6-10.0)
[2018-04-17 05:45] LABS: ANISOCYTOSIS SLIGHT; HYPOCHROMASIA SLIGHT; MICROCYTOSIS SLIGHT; PLATELET MORPHOLOGY COMMENT NORMAL (NORMAL)
[2018-04-17 05:46] LABS: ALBUMIN 1.7 g/dL (3.4-5.0); CARBON DIOXIDE 28.2 mmol/L (21-32); COR CA(FOR HYPOALB) 9.8 mg/dL (8.5-10.1); CREATININE 1.32 mg/dL (0.55-1.02); TOTAL PROTEIN 5.5 g/dL (6.4-8.2)
[2018-04-17] MEDS: COREG TAB 12.5 MG PO SCH ×2 (08:45→20:24)
[2018-04-17] MEDS: MILK OF MAGNESIA PO SCH ×3 (08:45→20:32)
[2018-04-17] MEDS: ZESTRIL TAB 40 MG PO SCH (08:45)
[2018-04-17] MEDS: BENTYL CAP 10 MG PO SCH ×4 (08:45→20:25)
[2018-04-17] MEDS: PHENERGAN INJ 25 MG IVP PRN ×2 (08:46→16:21)
[2018-04-17] MEDS: APRESOLINE INJ 20 MG VIAL IVP PRN ×2 (16:12→22:30)
[2018-04-17] MEDS: COLACE CAP 100 MG PO SCH (20:24)
[2018-04-17] MEDS: CATAPRES TAB 0.1 MG PO PRN (21:00)
[2018-04-18] MEDS: REGLAN INJ 10 MG VIAL IVP SCH ×4 (03:00→14:08)
[2018-04-18] MEDS: DILAUDID INJ IVP PRN ×2 (04:00→10:19)
[2018-04-18] MEDS: PHENERGAN INJ 25 MG IVP PRN ×2 (05:00→10:19)
[2018-04-18] MEDS: NS 1000 ML 1,000 ML IV SCH ×2 (05:09→11:22)
[2018-04-18 05:26] LABS: ALBUMIN 1.7 g/dL (3.4-5.0); CARBON DIOXIDE 25.8 mmol/L (21-32); COR CA(FOR HYPOALB) 9.8 mg/dL (8.5-10.1); CREATININE 1.42 mg/dL (0.55-1.02); TOTAL PROTEIN 5.5 g/dL (6.4-8.2)
[2018-04-18 05:44] LABS: BASOPHILS # (AUTO) 0.1 X10^3/uL (0.0-0.1); BASOPHILS % (AUTO) 0.8 % (0.2-1.0); EOSINOPHILS # (AUTO) 0.2 x10^3/uL (0.0-0.2); EOSINOPHILS % (AUTO) 1.7 % (0.9-2.9); HEMATOCRIT 32.2 % (36.0-47.0); HEMOGLOBIN 10.4 g/dL (12.0-16.0); LYMPHOCYTES # (AUTO) 2.4 X10^3/uL (1.3-2.9); MEAN CORPUSCULAR HEMOGLOBIN 25.7 pg (27.0-34.0); MEAN CORPUSCULAR HGB CONC 32.4 g/dL (33.0-35.0); MEAN CORPUSCULAR VOLUME 79.3 fL (80.0-100.0); MEAN PLATELET VOLUME 9.5 fL (7.4-11.0); MONOCYTES # (AUTO) 0.7 x10^3/uL (0.3-0.8); NEUTROPHILS # (AUTO) 5.9 x10^3/uL (2.2-4.8); NEUTROPHILS % (AUTO) 63.5 % (42.0-75.0); PLATELET COUNT 269 X10^3/uL (150.0-450.0); RED BLOOD COUNT 4.06 X10^6/uL (3.5-5.4); RED CELL DISTRIBUTION WIDTH 16.2 % (11.6-16.5); WHITE BLOOD COUNT 9.2 X10^3/uL (3.6-10.0)
[2018-04-18 06:09] LABS: ANISOCYTOSIS SLIGHT; HYPOCHROMASIA SLIGHT; MICROCYTOSIS SLIGHT; PLATELET MORPHOLOGY COMMENT NORMAL (NORMAL)
[2018-04-18] MEDS: MILK OF MAGNESIA PO SCH (08:49)
[2018-04-18] MEDS: ZESTRIL TAB 40 MG PO SCH (08:49)
[2018-04-18] MEDS: COREG TAB 12.5 MG PO SCH (08:49)
[2018-04-18] MEDS: BENTYL CAP 10 MG PO SCH ×2 (08:49→14:12)
[2018-04-18 12:36] VITALS: BP 173/93
== END 2018-04-18 14:10 | disposition home or self-care (01) | DRG 392 ==
LOC: MED/SURG
PROVIDERS: ADMIT Internal Medicine; ATTEND Internal Medicine
DX: K31.84 Gastroparesis; N18.3 Chronic kidney disease, stage 3 (moderate); R10.84 Generalized abdominal pain; R11.2 Nausea with vomiting, unspecified; K21.9 Gastro-esophageal reflux disease without esophagitis; E11.65 Type 2 diabetes mellitus with hyperglycemia; I10 Essential (primary) hypertension
CPT/HCPCS: 36415; 74000; 74018; 74022; 80053; 81001; 82150; 83690; 85025; A4216; A4222; S0028; G0378; J0360; J1170; J1642; J2175; J2405; J2550; J2765; J7030

== ENCOUNTER 2018-05-08 13:37 | Observation (INO) ==
[2018-05-08] MEDS ORDERED: PEPCID 20 MG IV PREMIX* 20 MG/50 ML BAG IV PRN ×2 (14:59→19:00)
[2018-05-08] MEDS ORDERED: ZOFRAN INJ 4 MG VIAL IVP PRN (14:59)
[2018-05-08] MEDS ORDERED: LOPRESSOR INJ 5 MG AMP IVP PRN (15:03)
[2018-05-08 15:32] LABS: BASOPHILS # (AUTO) 0.1 X10^3/uL (0.0-0.1); BASOPHILS % (AUTO) 0.7 % (0.2-1.0); EOSINOPHILS # (AUTO) 0.1 x10^3/uL (0.0-0.2); HEMATOCRIT 35.3 % (36.0-47.0); HEMOGLOBIN 11.4 g/dL (12.0-16.0); LYMPHOCYTES # (AUTO) 1.9 X10^3/uL (1.3-2.9); LYMPHOCYTES % (AUTO) 21.8 % (21.0-51.0); MEAN CORPUSCULAR HEMOGLOBIN 25.9 pg (27.0-34.0); MEAN CORPUSCULAR HGB CONC 32.4 g/dL (33.0-35.0); MEAN CORPUSCULAR VOLUME 79.9 fL (80.0-100.0); MEAN PLATELET VOLUME 8.8 fL (7.4-11.0); MONOCYTES # (AUTO) 0.5 x10^3/uL (0.3-0.8); MONOCYTES % (AUTO) 5.9 % (0.0-13.0); NEUTROPHILS # (AUTO) 6.3 x10^3/uL (2.2-4.8); NEUTROPHILS % (AUTO) 70.6 % (42.0-75.0); PLATELET COUNT 266 X10^3/uL (150.0-450.0); RED BLOOD COUNT 4.41 X10^6/uL (3.5-5.4); WHITE BLOOD COUNT 8.9 X10^3/uL (3.6-10.0)
[2018-05-08 15:40] LABS: ALANINE AMINOTRANSFERASE 14 Units/L (12-78); ALBUMIN 1.9 g/dL (3.4-5.0); ALKALINE PHOSPHATASE 84 Units/L (46-116); AMYLASE 38 Units/L (25-115); ASPARTATE AMINO TRANSFERASE 16 Units/L (15-37); BLOOD UREA NITROGEN 10 mg/dL (7-18); CARBON DIOXIDE 31.2 mmol/L (21-32); CHLORIDE 106 mmol/L (98-107); COR CA(FOR HYPOALB) 9.7 mg/dL (8.5-10.1); CREATININE 1.82 mg/dL (0.55-1.02); LIPASE 63 Units/L (73-393); SODIUM 142 mmol/L (136-145); TOTAL PROTEIN 6.3 g/dL (6.4-8.2); eGFR NON BLACK RACES 34 (>60)
[2018-05-08] MEDS: NS 1000 ML 1,000 ML IV SCH (15:48)
[2018-05-08] MEDS: ATIVAN INJ 2 MG VIAL IVP SCH ×2 (15:48→22:04)
[2018-05-08] MEDS: DILAUDID INJ IVP PRN ×2 (15:49→22:05)
[2018-05-08 15:52] VITALS: BMI 38.0
[2018-05-08 16:05] LABS: HYPOCHROMASIA SLIGHT; PLATELET MORPHOLOGY COMMENT NORMAL (NORMAL)
--- NOTE | 2018-05-08 16:30 | RAD ---
HISTORY: Abdominal pain, nausea, vomiting Study: Acute abdominal series Comparison: 04/12/2018 Findings: Stable appearing right-sided port that appears terminating in the region of the proximal SVC or possi kaden subclavian vein. This could possibly represent abandoned catheter, correlate clinically. The lung s are clear without consolidation, effusion or pneumothorax. The cardiac and mediastinal contours are within normal limits. Flat plate and upright evaluation of the abdomen demonstrates a normal bowel gas pattern. No gross fr ee intraperitoneal air. No pathological soft tissue mass or calcification can be observed. The bony structures are grossly intact. Cholecystectomy clips are noted. IMPRESSION: 1. No acute cardiopulmonary disease. Stable right-sided port catheter as above. 2. No evidence of acute abdominal pathology. Reported By:
[2018-05-08] MEDS: PHENERGAN INJ 25 MG IVP PRN ×2 (17:06→22:05)
[2018-05-08] MEDS ORDERED: CATAPRES TAB 0.1 MG PO PRN (17:50)
[2018-05-08] MEDS ORDERED: FLEXERIL TAB 10 MG PO PRN (17:51)
[2018-05-08] MEDS ORDERED: BENTYL CAP 10 MG PO PRN (17:52)
[2018-05-08] MEDS ORDERED: FLONASE NASAL SPRAY ENOSTRIL PRN (18:03)
[2018-05-08] MEDS ORDERED: PERCOCET TAB 5/325 MG PO PRN (18:11)
[2018-05-08] MEDS ORDERED: IMITREX TAB PO PRN (18:17)
[2018-05-08] MEDS ORDERED: HumuLIN R SUBCUT PRN (18:19)
[2018-05-08] MEDS ORDERED: SNACK - Diabetic Appropriate PO SCH (20:00)
[2018-05-08] MEDS ORDERED: ELAVIL PO SCH (21:00)
[2018-05-08] MEDS ORDERED: COLACE CAP 100 MG PO SCH (21:00)
[2018-05-08] MEDS: MILK OF MAGNESIA PO SCH (21:50)
[2018-05-08] MEDS: VISTARIL PO SCH (21:52)
[2018-05-08 23:09] LABS: BILIRUBIN,URINE NEGATIVE (NEGATIVE); BLOOD/HEMOGLOBIN,URINE 1+ (NEGATIVE); GLUCOSE, URINE 2+ (NEGATIVE); KETONES,URINE NEGATIVE (NEGATIVE); LEUKOCYTE ESTERASE ,URINE NEGATIVE (NEGATIVE); NITRITES,URINE NEGATIVE (NEGATIVE); PROTEIN,URINE 4+ (NEGATIVE); UROBILINOGEN,URINE NORMAL (NORMAL)
[2018-05-08 23:18] LABS: APPEARANCE,URINE SLIGHTLY HAZY (CLEAR); COLOR,URINE YELLOW (YELLOW)
[2018-05-08 23:19] LABS: AMORPHOUS SEDIMENT,UR 2+ /HPF (NEGATIVE); BACTERIA,URINE TRACE /HPF (NEGATIVE); PH,URINE 6.5 (5.0 - 8.0); SQUAMOUS EPITHELIAL CELL,UR FEW /HPF (NEGATIVE)
[2018-05-09] MEDS: NS 1000 ML 1,000 ML IV SCH ×2 (01:52→15:33)
[2018-05-09 05:28] LABS: BASOPHILS % (AUTO) 0.5 % (0.2-1.0); EOSINOPHILS # (AUTO) 0.1 x10^3/uL (0.0-0.2); EOSINOPHILS % (AUTO) 1.7 % (0.9-2.9); HEMATOCRIT 31.4 % (36.0-47.0); HEMOGLOBIN 10.2 g/dL (12.0-16.0); LYMPHOCYTES # (AUTO) 2.5 X10^3/uL (1.3-2.9); MEAN CORPUSCULAR HGB CONC 32.5 g/dL (33.0-35.0); MEAN CORPUSCULAR VOLUME 80.1 fL (80.0-100.0); MEAN PLATELET VOLUME 9.2 fL (7.4-11.0); MONOCYTES # (AUTO) 0.6 x10^3/uL (0.3-0.8); MONOCYTES % (AUTO) 7.9 % (0.0-13.0); NEUTROPHILS # (AUTO) 4.2 x10^3/uL (2.2-4.8); NEUTROPHILS % (AUTO) 55.9 % (42.0-75.0); PLATELET COUNT 220 X10^3/uL (150.0-450.0); RED BLOOD COUNT 3.93 X10^6/uL (3.5-5.4); RED CELL DISTRIBUTION WIDTH 16.9 % (11.6-16.5); WHITE BLOOD COUNT 7.4 X10^3/uL (3.6-10.0)
[2018-05-09 05:35] LABS: ALANINE AMINOTRANSFERASE 11 Units/L (12-78); ALBUMIN 1.4 g/dL (3.4-5.0); ALKALINE PHOSPHATASE 71 Units/L (46-116); ASPARTATE AMINO TRANSFERASE 16 Units/L (15-37); BLOOD UREA NITROGEN 10 mg/dL (7-18); CALCIUM 7.8 mg/dL (8.5-10.1); CARBON DIOXIDE 30.6 mmol/L (21-32); CHLORIDE 108 mmol/L (98-107); COR CA(FOR HYPOALB) 9.9 mg/dL (8.5-10.1); CREATININE 1.56 mg/dL (0.55-1.02); SODIUM 142 mmol/L (136-145); eGFR NON BLACK RACES 41 (>60)
[2018-05-09] MEDS: VISTARIL PO SCH ×2 (05:36→15:33)
[2018-05-09] MEDS: REGLAN TAB 10 MG PO SCH ×2 (05:36→11:44)
[2018-05-09] MEDS: PHENERGAN INJ 25 MG IVP PRN ×3 (05:37→17:05)
[2018-05-09] MEDS: DILAUDID INJ IVP PRN ×3 (05:37→17:05)
[2018-05-09] MEDS: ATIVAN INJ 2 MG VIAL IVP SCH ×2 (05:38→15:33)
[2018-05-09] MEDS ORDERED: GLUCOPHAGE PO SCH (07:00)
[2018-05-09] MEDS: MILK OF MAGNESIA PO SCH (08:51)
[2018-05-09] MEDS ORDERED: ZyrTEC TAB 10 MG PO SCH (09:00)
[2018-05-09] MEDS ORDERED: HYDROCHLOROTHIAZIDE 25 MG TAB PO SCH (09:00)
[2018-05-09] MEDS ORDERED: NORVASC TAB 10 MG PO SCH (09:00)
[2018-05-09] MEDS ORDERED: PRAVACHOL PO SCH (09:00)
--- NOTE | 2018-05-09 13:20 | DR.H&P ---
H&P - History & Physical for Day of: H&P Date: 05/08/18 - Chief Complaint Chief Complaint: LEFT UPPER ABDOMINAL PAIN NAUSEA - History of Present Illness History of Present Illness: 32 BF ADMITTED WITH CO LEFT UPPER ABDOMINAL PAIN AND NV, REPORTS PAIN HAS BEEN WORSE OVER THE PAST WEEK, SEEN IN DR DARLING OFFICE, CURRENTLY ON PO PAIN CONTROL WELL PPI, H2 BLOCKERS, REGLAN AND PRN NAUSEA MEDICATION. PT IS UNDER THE CARE OF [employer] DR GARNETT. PT HAS CHRONIC ABDOMINAL PAIN WITH UNCONTROLLED DM AND HTN. PT ADMITTED FOR TREATMENT AND EVALUATION OF ABDOMINAL PAIN N/V, BP CONTROL - Past Medical History Past Medical History: Anxiety, Depression, Diabetes, GERD, Hypertension, PUD Additional Medical History: Pancreatitis, Gastroparesis - Past Surgical History Surgical History: , Cholecystectomy, Hysterectomy - Family History Family Medical History: Diabetes Mellitus, Hypertension - Social History Does patient currently use any type of tobacco product: Yes Have you used tobacco products in the last 12 months: Yes Type of Tobacco Use: Cigarettes How many years tobacco product used: 4 Does any household member use tobacco: No Alcohol Use: None Drug Use: Prescription Drugs - Medications Home Medications: Penicillins Allergy (Verified 05/04/18 12:56) morphine Adverse Reaction (Verified 05/04/18 12:56) CONTINUE taking the following medications carvedilol [Coreg] 25 mg PO BID 05/08/18 [History] - Review of Systems Constitutional: Weakness. denies: Fever Eyes: No Symptoms Reported ENT: No Symptoms Reported Respiratory: No Symptoms Reported Cardiovascular: No Symptoms Reported. denies: Edema Gastrointestinal: Nausea, Vomiting, Abdominal Pain Genitourinary: No Symptoms Reported Musculoskeletal: No Symptoms Reported Skin: No Symptoms Reported Neurological: No Symptoms Reported - Physical Exam Vital Signs: Temperature 98.2 F Pulse Rate [Right Brachial] 87 Respiratory Rate 20 Blood Pressure [Left Arm] 143/88 Blood Pressure [Right Arm] 147/95 Blood Pressure 180/100 O2 Sat by Pulse Oximetry 98 Oriented: Normal Eyes: Normal Ear: Normal Nose: Normal Throat: Normal Respiratory: Clear Throughout Cardiovascular: Normal : Normal Auscultation: Bowel Sounds: Normal Tenderness: LUQ Skin: Normal Musculoskeletal: Normal Psychiatric: Depression Speech Pattern: Clear, Appropriate - Assessment/Plan (1) Abdominal pain Qualifiers: Abdominal location: generalized Qualified Code(s): R10.84 - Generalized abdominal pain Status: Acute Plan: ADMIT, IV HYDRATION. ADMISSION LABS, BLOOD PRESSURE AND BLOOD SUGAR CONTROL. PAIN CONTROL, ADMISSION LABS, ABD XRAY. UA ON ADMISSION. R/O ACUTE ABDOMINAL COMPLICATIONS, PPI THERAPY, REGLAN IV ANTIEMETICS (2) Nausea & vomiting Qualifiers: Vomiting type: unspecified Vomiting Intractability: intractable Qualified Code(s): R11.2 - Nausea with vomiting, unspecified Status: Acute (3) Essential hypertension Status: Acute (4) Gastroparesis Status: Acute (5) Diabetes mellitus Status: Chronic (6) Chronic kidney disease, stage 3 Status: Chronic - Allergies Allergies/Adverse Reactions: Allergies Allergy/AdvReac Type Severity Reaction Status Date / Time Penicillins Allergy Verified 05/04/18 12:56 morphine AdvReac Verified 05/04/18 12:56
[2018-05-09 16:04] VITALS: BP 124/89
[2018-05-11] MEDS ORDERED: ZyrTEC TAB 10 MG PO SCH (09:00)
== END 2018-05-09 17:15 | disposition home or self-care (01) ==
LOC: MED/SURG
PROVIDERS: ADMIT Internal Medicine; ATTEND Internal Medicine
DX: E11.65 Type 2 diabetes mellitus with hyperglycemia; F32.89 Other specified depressive episodes; K21.9 Gastro-esophageal reflux disease without esophagitis; I16.0 Hypertensive urgency; K31.84 Gastroparesis; Z79.899 Other long term (current) drug therapy; R10.12 Left upper quadrant pain; R11.2 Nausea with vomiting, unspecified; N18.3 Chronic kidney disease, stage 3 (moderate); D64.89 Other specified anemias; F41.8 Other specified anxiety disorders; R94.4 Abnormal results of kidney function studies
CPT/HCPCS: 36415; 74022; 80053; 81001; 82150; 83690; 85025; A4216; A4222; Q0177; S0028; G0378; J1170; J1642; J2060; J2405; J2550; J7030

== ENCOUNTER 2018-05-14 10:07 | Observation (INO) ==
[2018-05-14] MEDS ORDERED: ZOFRAN INJ 4 MG VIAL IVP PRN (11:25)
[2018-05-14] MEDS ORDERED: PEPCID 20 MG IV PREMIX* 20 MG/50 ML BAG IV PRN (11:25)
[2018-05-14 11:56] LABS: BASOPHILS % (AUTO) 0.5 % (0.2-1.0); EOSINOPHILS % (AUTO) 0.4 % (0.9-2.9); HEMATOCRIT 40.7 % (36.0-47.0); HEMOGLOBIN 13.2 g/dL (12.0-16.0); LYMPHOCYTES # (AUTO) 2.2 X10^3/uL (1.3-2.9); LYMPHOCYTES % (AUTO) 23.2 % (21.0-51.0); MEAN CORPUSCULAR HEMOGLOBIN 26.2 pg (27.0-34.0); MEAN CORPUSCULAR HGB CONC 32.5 g/dL (33.0-35.0); MEAN CORPUSCULAR VOLUME 80.6 fL (80.0-100.0); MONOCYTES # (AUTO) 0.5 x10^3/uL (0.3-0.8); MONOCYTES % (AUTO) 5.3 % (0.0-13.0); NEUTROPHILS # (AUTO) 6.7 x10^3/uL (2.2-4.8); NEUTROPHILS % (AUTO) 70.6 % (42.0-75.0); PLATELET COUNT 361 X10^3/uL (150.0-450.0); RED BLOOD COUNT 5.04 X10^6/uL (3.5-5.4); RED CELL DISTRIBUTION WIDTH 16.7 % (11.6-16.5); WHITE BLOOD COUNT 9.5 X10^3/uL (3.6-10.0)
[2018-05-14 12:12] LABS: ALANINE AMINOTRANSFERASE 13 Units/L (12-78); ALKALINE PHOSPHATASE 91 Units/L (46-116); AMYLASE 44 Units/L (25-115); ASPARTATE AMINO TRANSFERASE 22 Units/L (15-37); BLOOD UREA NITROGEN 6 mg/dL (7-18); CALCIUM 8.6 mg/dL (8.5-10.1); CARBON DIOXIDE 29.3 mmol/L (21-32); CHLORIDE 107 mmol/L (98-107); COR CA(FOR HYPOALB) 10.2 mg/dL (8.5-10.1); CREATININE 1.45 mg/dL (0.55-1.02); LIPASE 77 Units/L (73-393); SODIUM 143 mmol/L (136-145); TOTAL PROTEIN 6.4 g/dL (6.4-8.2); eGFR NON BLACK RACES 44 (>60)
[2018-05-14] MEDS: DILAUDID INJ IVP PRN ×3 (12:29→23:22)
[2018-05-14] MEDS: ATIVAN INJ 2 MG VIAL IVP PRN ×2 (12:43→20:29)
[2018-05-14] MEDS ORDERED: LOPRESSOR INJ 5 MG AMP IVP PRN (12:50)
[2018-05-14] MEDS: NORVASC TAB 10 MG PO SCH (13:26)
[2018-05-14] MEDS ORDERED: APRESOLINE INJ 20 MG VIAL IVP PRN (13:49)
[2018-05-14] MEDS ORDERED: BENTYL CAP 10 MG PO PRN (13:56)
[2018-05-14 15:09] LABS: BILIRUBIN,URINE NEGATIVE (NEGATIVE); BLOOD/HEMOGLOBIN,URINE 2+ (NEGATIVE); GLUCOSE, URINE 1+ (NEGATIVE); KETONES,URINE NEGATIVE (NEGATIVE); LEUKOCYTE ESTERASE ,URINE NEGATIVE (NEGATIVE); NITRITES,URINE NEGATIVE (NEGATIVE); PROTEIN,URINE 4+ (NEGATIVE); UROBILINOGEN,URINE NORMAL (NORMAL)
--- NOTE | 2018-05-14 15:26 | CT ---
HISTORY: Abdominal pain with nausea and vomiting. Study: CT abdomen without contrast Comparison: CT abdomen/pelvis dated January 12, 2018. Technique: Multiple axial images of the abdomen without the administration of IV contrast. Dose reduction techn iques including Automated Exposure Control (AEC) and adjustment of mA and kV were utilized. Findings: 5 mm subpleural right lower lobe pulmonary nodule (series 3, image 3). Otherwise, the visualized port ions of the lung bases are unremarkable. Small hiatal hernia. The liver, spleen, pancreas, kidneys, a nd adrenal glands are unremarkable in their CT appearance. The gallbladder is surgically absent. No significant mesenteric lymphadenopathy or stranding can be observed. No free fluid or free air is se en within the abdomen. Limited evaluation of the large and small bowel secondary to lack of oral con trast and collapse. Scattered colonic diverticulum without evidence of diverticulitis. The remaining visualized large and small bowel appear normal. The visualized appendix appears normal. The bladder i s not well seen. The osseous structures appear normal for age. No aggressive osseous lesions. IMPRESSION: 1. No CT evidence of acute abdominal/pelvic pathology. 2. 5 mm right lower lobe pulmonary nodule as above. Recommend dedicated CT of the chest for further c haracterization. 3. Other chronic findings as above. Reported By:
[2018-05-14 15:28] LABS: APPEARANCE,URINE CLEAR (CLEAR); BACTERIA,URINE TRACE /HPF (NEGATIVE); COLOR,URINE YELLOW (YELLOW); RBC,URINE 0-2 /HPF (NONE SEEN); SQUAMOUS EPITHELIAL CELL,UR RARE /HPF (NEGATIVE)
[2018-05-14 15:29] LABS: HYALINE CASTS, URINE RARE /LPF (NEGATIVE)
[2018-05-14] MEDS: REGLAN INJ 10 MG VIAL IVP SCH ×3 (15:47→22:30)
[2018-05-14] MEDS: VISTARIL PO SCH ×2 (15:47→22:00)
[2018-05-14] MEDS: FLONASE NASAL SPRAY ENOSTRIL SCH (20:29)
[2018-05-14] MEDS: ELAVIL PO SCH (20:31)
[2018-05-15] MEDS: REGLAN INJ 10 MG VIAL IVP SCH ×6 (02:03→21:44)
[2018-05-15] MEDS: DILAUDID INJ IVP PRN ×4 (04:05→20:29)
[2018-05-15] MEDS: PHENERGAN INJ 25 MG IVP PRN ×3 (04:06→20:30)
[2018-05-15 05:08] LABS: BASOPHILS % (AUTO) 0.6 % (0.2-1.0); EOSINOPHILS # (AUTO) 0.2 x10^3/uL (0.0-0.2); EOSINOPHILS % (AUTO) 2.4 % (0.9-2.9); HEMATOCRIT 34.6 % (36.0-47.0); HEMOGLOBIN 11.3 g/dL (12.0-16.0); LYMPHOCYTES # (AUTO) 2.2 X10^3/uL (1.3-2.9); MEAN CORPUSCULAR HEMOGLOBIN 26.2 pg (27.0-34.0); MEAN CORPUSCULAR HGB CONC 32.5 g/dL (33.0-35.0); MEAN CORPUSCULAR VOLUME 80.5 fL (80.0-100.0); MEAN PLATELET VOLUME 8.9 fL (7.4-11.0); MONOCYTES # (AUTO) 0.5 x10^3/uL (0.3-0.8); MONOCYTES % (AUTO) 7.6 % (0.0-13.0); NEUTROPHILS # (AUTO) 3.6 x10^3/uL (2.2-4.8); NEUTROPHILS % (AUTO) 55.4 % (42.0-75.0); PLATELET COUNT 296 X10^3/uL (150.0-450.0); RED CELL DISTRIBUTION WIDTH 16.8 % (11.6-16.5); WHITE BLOOD COUNT 6.6 X10^3/uL (3.6-10.0)
[2018-05-15 05:17] LABS: ALANINE AMINOTRANSFERASE 10 Units/L (12-78); ALBUMIN 1.4 g/dL (3.4-5.0); ALKALINE PHOSPHATASE 72 Units/L (46-116); ASPARTATE AMINO TRANSFERASE 16 Units/L (15-37); BLOOD UREA NITROGEN 5 mg/dL (7-18); CALCIUM 8.1 mg/dL (8.5-10.1); CARBON DIOXIDE 30.8 mmol/L (21-32); CHLORIDE 107 mmol/L (98-107); COR CA(FOR HYPOALB) 10.2 mg/dL (8.5-10.1); CREATININE 1.39 mg/dL (0.55-1.02); SODIUM 142 mmol/L (136-145); TOTAL PROTEIN 5.5 g/dL (6.4-8.2); eGFR NON BLACK RACES 46 (>60)
[2018-05-15] MEDS: VISTARIL PO SCH ×3 (05:20→22:10)
[2018-05-15] MEDS ORDERED: POTASSIUM CHLORIDE LIQ 20 MEQ UDC PO PRN (05:39)
[2018-05-15] MEDS ORDERED: K-LYTE EFFERVESCENT PO PRN (05:39)
[2018-05-15] MEDS ORDERED: POTASSIUM CHL 60 MEQ/NS 0.45% 500 ML IV PRN (05:39)
[2018-05-15] MEDS ORDERED: POTASSIUM CHL 40 MEQ/NS 0.45% 500 ML IV PRN (05:39)
[2018-05-15] MEDS: ATIVAN INJ 2 MG VIAL IVP PRN (05:53)
[2018-05-15] MEDS ORDERED: NS 1000 ML 1,000 ML ONE (06:05)
[2018-05-15] MEDS ORDERED: NORVASC TAB 10 MG PO SCH (09:00)
[2018-05-15] MEDS: FLONASE NASAL SPRAY ENOSTRIL SCH ×2 (09:36→20:26)
[2018-05-15] MEDS: ZyrTEC TAB 10 MG PO SCH (09:37)
[2018-05-15] MEDS: PRAVACHOL PO SCH (09:37)
[2018-05-15] MEDS: NORVASC TAB 10 MG PO SCH (09:37)
--- NOTE | 2018-05-15 13:00 | DR.H&P ---
H&P - History & Physical for Day of: H&P Date: 05/14/18 - Chief Complaint Chief Complaint: Nausea and VOmiting, Abd pain - History of Present Illness History of Present Illness: The patient is a 32-year-old white female who presented to the [facility] care clinic with complaints of persistent nausea and vomiting and upper abdominal pain. 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 Patient does state that she went to the emergency room on Sunday and was given IV medications that helped for short period of time. Patient has been hospitalized twice in the last 3 weeks with similar complaints. Patient states she is unable to keep any medications down. Blood pressure is elevated. Patient's mother does state that she stays at home and cries very time she talks to her complain of abdominal pain. Patient was previously seen at [facility] for GI issues but has not followed up since then. - Past Medical History Past Medical History: Anxiety, Depression, Diabetes, GERD, Hypertension, PUD Additional Medical History: Pancreatitis, Gastroparesis - Past Surgical History Surgical History: , Cholecystectomy, Hysterectomy - Family History Family Medical History: Diabetes Mellitus, Hypertension - Social History Does patient currently use any type of tobacco product: Yes Have you used tobacco products in the last 12 months: Yes Type of Tobacco Use: Cigarettes How many years tobacco product used: 4 Does any household member use tobacco: No Alcohol Use: None Drug Use: None, Prescription Drugs - Medications Home Medications: Penicillins Allergy (Verified 05/04/18 12:56) morphine Adverse Reaction (Verified 05/04/18 12:56) - Review of Systems Constitutional: Malaise Eyes: No Symptoms Reported ENT: No Symptoms Reported Respiratory: No Symptoms Reported Cardiovascular: No Symptoms Reported Gastrointestinal: Nausea, Vomiting, Abdominal Pain Genitourinary: No Symptoms Reported Musculoskeletal: No Symptoms Reported Skin: No Symptoms Reported Neurological: No Symptoms Reported - Physical Exam Vital Signs: Temperature 98.4 F Pulse Rate [Right Brachial] 100 Pulse Rate [Left Brachial] 95 Respiratory Rate 20 Blood Pressure [Left Arm] 141/87 Blood Pressure [Right Arm] 181/99 Blood Pressure 124/89 O2 Sat by Pulse Oximetry 98 Oriented: Normal Eyes: Normal Ear: Normal Nose: Normal Throat: Normal Respiratory: Clear Throughout Cardiovascular: Normal : Normal Auscultation: Bowel Sounds: Normal Palpation: Normal Tenderness: Diffuse, Epigastric Skin: Normal Musculoskeletal: Normal Psychiatric: Normal Mood Description: Calm Affect: Anxious (Crying) Speech Pattern: Clear - Assessment/Plan (1) Nausea & vomiting Qualifiers: Vomiting type: unspecified Vomiting Intractability: intractable Qualified Code(s): R11.2 - Nausea with vomiting, unspecified Status: Acute Plan: IV Phenergan, Zofran (2) Gastroparesis Status: Acute Plan: IV Dilaudid, Ativan, CT ABD (3) Abdominal pain Qualifiers: Abdominal location: generalized Qualified Code(s): R10.84 - Generalized abdominal pain Status: Acute Plan: CT ABD (4) Diabetes mellitus Qualifiers: Diabetes mellitus type: type 2 Status: Chronic Plan: Monitor BS (5) Hypertension Qualifiers: Hypertension type: essential hypertension Status: Chronic Plan: Monitor B P. Lopressor prn. - Allergies Allergies/Adverse Reactions: Allergies Allergy/AdvReac Type Severity Reaction Status Date / Time Penicillins Allergy Verified 05/04/18 12:56 morphine AdvReac Verified 05/04/18 12:56
[2018-05-15] MEDS ORDERED: NS 100 ML IV 100 ML IV ONE ×2 (14:46→14:55)
--- NOTE | 2018-05-15 16:37 | CT ---
HISTORY: Right lower lobe pulmonary nodule. Study: CT chest with contrast Comparison: CT abdomen/pelvis dated May 14, 2018. Technique: Multiple axial images of the chest were obtained from the thoracic inlet to the upper abdo men after the administration of IV contrast. MIP images were obtained. Dose reduction techniques incl uding Automated Exposure Control (AEC) and adjustment of mA and kV were utilized. Findings: The mediastinum does not demonstrate significant pathological lymphadenopathy. There is no paracardi al effusion observed. The thoracic aorta is normal in its contour without evidence for aneurysmal di latation. Suboptimal timing and inadequate opacification of the pulmonary arteries. However, the siva tral pulmonary arterial system does not demonstrate central filling defects to suggest pulmonary embo li. Right chest Port-A-Cath. 5 mm subpleural right lower lobe pulmonary nodule (series 4, image 27). No other obvious pulmonary no dules, mass, pleural effusion, focal consolidation, or pneumothorax. The upper abdominal structures a ppear unchanged. The osseous structures appear normal for age. No aggressive osseous lesions. IMPRESSION: 1. No CT evidence of acute thoracic pathology. 2. 5 mm right lower lobe pulmonary nodule. Follow-up CT of the chest in 12 months to document stabili ty. Reported By:
[2018-05-15 17:43] VITALS: BMI 38.1
[2018-05-15] MEDS: ELAVIL PO SCH (20:25)
[2018-05-15] MEDS: MAGNESIUM SULFATE 1 GRAM/100 mL PREMIX 1 GM/100 ML BAG IV PRN (23:00)
[2018-05-16] MEDS: MAGNESIUM SULFATE 1 GRAM/100 mL PREMIX 1 GM/100 ML BAG IV PRN
[2018-05-16] MEDS: K-RIDER 10 MEQ/NS 100 ML 10 MEQ/100 ML BAG IV PRN ×2 (00:57→01:59)
[2018-05-16] MEDS: ATIVAN INJ 2 MG VIAL IVP PRN ×4 (02:00→21:46)
[2018-05-16] MEDS: REGLAN INJ 10 MG VIAL IVP SCH ×6 (02:00→21:24)
[2018-05-16] MEDS: DILAUDID INJ IVP PRN ×4 (04:55→23:19)
[2018-05-16] MEDS: PHENERGAN INJ 25 MG IVP PRN ×4 (04:56→23:47)
[2018-05-16 05:13] LABS: BASOPHILS % (AUTO) 0.4 % (0.2-1.0); EOSINOPHILS # (AUTO) 0.1 x10^3/uL (0.0-0.2); EOSINOPHILS % (AUTO) 2.1 % (0.9-2.9); HEMATOCRIT 33.6 % (36.0-47.0); HEMOGLOBIN 10.9 g/dL (12.0-16.0); LYMPHOCYTES # (AUTO) 1.8 X10^3/uL (1.3-2.9); MEAN CORPUSCULAR HEMOGLOBIN 26.1 pg (27.0-34.0); MEAN CORPUSCULAR HGB CONC 32.4 g/dL (33.0-35.0); MEAN CORPUSCULAR VOLUME 80.4 fL (80.0-100.0); MEAN PLATELET VOLUME 8.8 fL (7.4-11.0); MONOCYTES # (AUTO) 0.4 x10^3/uL (0.3-0.8); MONOCYTES % (AUTO) 7.5 % (0.0-13.0); NEUTROPHILS # (AUTO) 3.6 x10^3/uL (2.2-4.8); PLATELET COUNT 295 X10^3/uL (150.0-450.0); RED BLOOD COUNT 4.18 X10^6/uL (3.5-5.4); RED CELL DISTRIBUTION WIDTH 16.5 % (11.6-16.5)
[2018-05-16] MEDS: VISTARIL PO SCH ×3 (05:14→21:19)
[2018-05-16 05:24] LABS: ALANINE AMINOTRANSFERASE 10 Units/L (12-78); ALBUMIN 1.4 g/dL (3.4-5.0); ALKALINE PHOSPHATASE 71 Units/L (46-116); ASPARTATE AMINO TRANSFERASE 17 Units/L (15-37); BLOOD UREA NITROGEN 6 mg/dL (7-18); CALCIUM 8.2 mg/dL (8.5-10.1); CARBON DIOXIDE 28.4 mmol/L (21-32); CHLORIDE 107 mmol/L (98-107); COR CA(FOR HYPOALB) 10.3 mg/dL (8.5-10.1); CREATININE 1.32 mg/dL (0.55-1.02); SODIUM 141 mmol/L (136-145); TOTAL PROTEIN 5.4 g/dL (6.4-8.2); eGFR NON BLACK RACES 49 (>60)
[2018-05-16] MEDS: FLONASE NASAL SPRAY ENOSTRIL SCH ×2 (08:30→21:20)
[2018-05-16] MEDS: NORVASC TAB 10 MG PO SCH (08:31)
[2018-05-16] MEDS: ZyrTEC TAB 10 MG PO SCH (08:31)
[2018-05-16] MEDS: PRAVACHOL PO SCH (08:31)
--- NOTE | 2018-05-16 13:19 | PCM.PROG ---
Progress Note - Progress Note for Day of Date of Exam: 05/15/18 - Subjective Subjective: 32 BF DIRECT ADMIT FROM DR PHONG MG OFFICE WITH CO [place] INTERIANO , [place]. PT HAS BEEN NPO SINCE ADMISSION WITH IV REGLAN, BLOOD PRESSURE AND BLOOD SUGAR CONTROL. PT REPORTS PAIN AND NAUSEA A LITTLE BETTER, STILL CANNOT EAT, REPORT SMALL AMOUNT OF YELLOWISH EMESIS. CT ABD/PELVIS ORDERED FOR THIS AM - Past Medical Family Social History Past Med/Fam/Surg Hx: No changes since H&P Allergies: Allergies Penicillins Allergy (Verified 05/04/18 12:56) morphine Adverse Reaction (Verified 05/04/18 12:56) - Review of Systems ROS: No change since H&P - Vital Signs and I&O's Vital Signs: Temperature 98.4 F Pulse Rate [Right Brachial] 93 Pulse Rate [Left Brachial] 90 Respiratory Rate 20 Blood Pressure [Left Arm] 142/84 Blood Pressure [Right Arm] 145/84 Blood Pressure 124/89 O2 Sat by Pulse Oximetry 98 Intake and Output: Intake & Output 05/14/18 05/15/18 05/16/18 05/17/18 11:59 11:59 11:59 11:59 Intake Total 60 / 60 650 / 650 Balance 60 / 60 650 / 650 - Physical Exam Oriented: Normal Eyes: Normal Ear: Normal Nose: Normal Throat: Normal Respiratory: Diminished Cardiovascular: Normal : Normal Auscultation: Bowel Sounds: Normal Tenderness: Diffuse, LUQ, Epigastric Skin: Normal Musculoskeletal: Normal Psychiatric: Normal Mood Description: Calm Affect: Anxious (Crying) Speech Pattern: Clear, Appropriate - Laboratory and Diagnostics Result Diagrams: 05/16/18 04:46 05/16/18 04:46 Labs: Laboratory WBC 6.0 X10^3/uL (3.6-10.0) 05/16/18 04:46 RBC 4.18 X10^6/uL (3.5-5.4) 05/16/18 04:46 Hgb 10.9 g/dL (12.0-16.0) L 05/16/18 04:46 Hct 33.6 % (36.0-47.0) L 05/16/18 04:46 MCV 80.4 fL (80.0-100.0) 05/16/18 04:46 MCH 26.1 pg (27.0-34.0) L 05/16/18 04:46 MCHC 32.4 g/dL (33.0-35.0) L 05/16/18 04:46 RDW 16.5 % (11.6-16.5) 05/16/18 04:46 Plt Count 295 X10^3/uL (150.0-450.0) 05/16/18 04:46 MPV 8.8 fL (7.4-11.0) 05/16/18 04:46 Neut % (Auto) 60.0 % (42.0-75.0) 05/16/18 04:46 Lymph % (Auto) 30.0 % (21.0-51.0) 05/16/18 04:46 Hill % (Auto) 7.5 % (0.0-13.0) 05/16/18 04:46 Eos % (Auto) 2.1 % (0.9-2.9) 05/16/18 04:46 Baso % (Auto) 0.4 % (0.2-1.0) 05/16/18 04:46 Neut # (Auto) 3.6 x10^3/uL (2.2-4.8) 05/16/18 04:46 Lymph # (Auto) 1.8 X10^3/uL (1.3-2.9) 05/16/18 04:46 Hill # (Auto) 0.4 x10^3/uL (0.3-0.8) 05/16/18 04:46 Eos # (Auto) 0.1 x10^3/uL (0.0-0.2) 05/16/18 04:46 Baso # (Auto) 0.0 X10^3/uL (0.0-0.1) 05/16/18 04:46 Absolute Nucleated RBC 0.0 /100WBC 05/16/18 04:46 Sodium 141 mmol/L (136-145) 05/16/18 04:46 Corrected Sodium TNP 05/16/18 04:46 Potassium 3.9 mmol/L (3.5-5.1) 05/16/18 04:46 Chloride 107 mmol/L (98-107) 05/16/18 04:46 Carbon Dioxide 28.4 mmol/L (21-32) 05/16/18 04:46 BUN 6 mg/dL (7-18) L 05/16/18 04:46 Creatinine 1.32 mg/dL (0.55-1.02) H 05/16/18 04:46 Est GFR (MDRD) Af Amer 60 (>60) 05/16/18 04:46 Est GFR (MDRD) Non-Af 49 (>60) L 05/16/18 04:46 Glucose 71 mg/dL (65-99) 05/16/18 04:46 Calcium 8.2 mg/dL (8.5-10.1) L 05/16/18 04:46 Corrected Calcium 10.3 mg/dL (8.5-10.1) H 05/16/18 04:46 Magnesium 2.0 mg/dL (1.7-2.9) 05/16/18 04:46 Total Bilirubin 0.20 mg/dL (0.2-1.0) 05/16/18 04:46 AST 17 Units/L (15-37) 05/16/18 04:46 ALT 10 Units/L (12-78) L 05/16/18 04:46 Alkaline Phosphatase 71 Units/L (46-116) 05/16/18 04:46 Total Protein 5.4 g/dL (6.4-8.2) L 05/16/18 04:46 Albumin 1.4 g/dL (3.4-5.0) L 05/16/18 04:46 Globulin 4.0 g/dL (2.5-4.5) 05/16/18 04:46 Albumin/Globulin Ratio 0.4 Ratio (1.1-2.1) L 05/16/18 04:46 Amylase 44 Units/L (25-115) 05/14/18 11:37 Lipase 77 Units/L (73-393) 05/14/18 11:37 Specimen Type Clean catch urine 05/14/18 14:49 Urine Color Yellow (YELLOW) 05/14/18 14:49 Urine Appearance Clear (CLEAR) 05/14/18 14:49 Urine pH 8.0 (5.0 - 8.0) 05/14/18 14:49 Ur Specific [place] 1.015 (1.000-1.030) 05/14/18 14:49 Urine Protein 4+ (NEGATIVE) 05/14/18 14:49 Urine Glucose (UA) 1+ (NEGATIVE) 05/14/18 14:49 Urine Ketones Negative (NEGATIVE) 05/14/18 14:49 Urine Occult Blood 2+ (NEGATIVE) 05/14/18 14:49 Urine Nitrite Negative (NEGATIVE) 05/14/18 14:49 Urine Bilirubin Negative (NEGATIVE) 05/14/18 14:49 Urine Urobilinogen Normal (NORMAL) 05/14/18 14:49 Ur Leukocyte Esterase Negative (NEGATIVE) 05/14/18 14:49 Urine RBC 0-2 /HPF (NONE SEEN) 05/14/18 14:49 Urine WBC 0-2 /HPF (NONE SEEN) 05/14/18 14:49 Ur Squamous Epith Cells Rare /HPF (NEGATIVE) 05/14/18 14:49 Urine Bacteria Trace /HPF (NEGATIVE) 05/14/18 14:49 Hyaline Casts Rare /LPF (NEGATIVE) 05/14/18 14:49 Ur Culture Indicated? No/not indicated 05/14/18 14:49 - Plan (1) Gastroparesis Status: Acute Plan: IV PAIN AND NAUSEA CONTROL. AMYLASE AND LIPASE ON ADMISSION, NORMAL. BLOOD PRESSURE AND BLOOD SUGAR CONTROL. NPO, PPI, CT ABD PELVIS (2) Nausea & vomiting Status: Acute Qualifiers: Vomiting type: unspecified Vomiting Intractability: intractable Qualified Code(s): R11.2 - Nausea with vomiting, unspecified Plan: IV Phenergan, Zofran (3) Essential hypertension Status: Acute (4) Abdominal pain Status: Acute Qualifiers: Abdominal location: generalized Qualified Code(s): R10.84 - Generalized abdominal pain Plan: CT ABD (5) Diabetes mellitus Status: Chronic Qualifiers: Diabetes mellitus type: type 2 Plan: Monitor BS
[2018-05-16] MEDS: ELAVIL PO SCH (21:19)
[2018-05-17] MEDS: REGLAN INJ 10 MG VIAL IVP SCH ×4 (01:39→13:28)
[2018-05-17] MEDS: ATIVAN INJ 2 MG VIAL IVP PRN ×2 (05:08→11:00)
[2018-05-17] MEDS: DILAUDID INJ IVP PRN ×2 (05:09→11:00)
[2018-05-17 05:17] LABS: BASOPHILS % (AUTO) 0.4 % (0.2-1.0); EOSINOPHILS # (AUTO) 0.2 x10^3/uL (0.0-0.2); EOSINOPHILS % (AUTO) 2.4 % (0.9-2.9); HEMATOCRIT 36.2 % (36.0-47.0); HEMOGLOBIN 11.6 g/dL (12.0-16.0); LYMPHOCYTES % (AUTO) 29.1 % (21.0-51.0); MEAN CORPUSCULAR HEMOGLOBIN 25.9 pg (27.0-34.0); MEAN CORPUSCULAR HGB CONC 32.1 g/dL (33.0-35.0); MEAN CORPUSCULAR VOLUME 80.6 fL (80.0-100.0); MEAN PLATELET VOLUME 8.7 fL (7.4-11.0); MONOCYTES # (AUTO) 0.6 x10^3/uL (0.3-0.8); MONOCYTES % (AUTO) 8.4 % (0.0-13.0); NEUTROPHILS # (AUTO) 4.1 x10^3/uL (2.2-4.8); NEUTROPHILS % (AUTO) 59.7 % (42.0-75.0); PLATELET COUNT 315 X10^3/uL (150.0-450.0); RED BLOOD COUNT 4.49 X10^6/uL (3.5-5.4); RED CELL DISTRIBUTION WIDTH 16.6 % (11.6-16.5); WHITE BLOOD COUNT 6.8 X10^3/uL (3.6-10.0)
[2018-05-17 05:35] LABS: ALANINE AMINOTRANSFERASE 10 Units/L (12-78); ALBUMIN 1.5 g/dL (3.4-5.0); ALKALINE PHOSPHATASE 78 Units/L (46-116); ASPARTATE AMINO TRANSFERASE 16 Units/L (15-37); BLOOD UREA NITROGEN 6 mg/dL (7-18); CALCIUM 8.5 mg/dL (8.5-10.1); CARBON DIOXIDE 29.9 mmol/L (21-32); CHLORIDE 107 mmol/L (98-107); COR CA(FOR HYPOALB) 10.5 mg/dL (8.5-10.1); CREATININE 1.55 mg/dL (0.55-1.02); SODIUM 142 mmol/L (136-145); TOTAL PROTEIN 5.9 g/dL (6.4-8.2); eGFR NON BLACK RACES 41 (>60)
[2018-05-17] MEDS: VISTARIL PO SCH ×2 (06:10→13:28)
[2018-05-17 06:58] LABS: PLATELET MORPHOLOGY COMMENT NORMAL (NORMAL)
[2018-05-17] MEDS: PHENERGAN INJ 25 MG IVP PRN ×2 (07:00→13:28)
[2018-05-17] MEDS: PRAVACHOL PO SCH (08:41)
[2018-05-17] MEDS: FLONASE NASAL SPRAY ENOSTRIL SCH (08:41)
[2018-05-17] MEDS: NORVASC TAB 10 MG PO SCH (08:41)
[2018-05-17] MEDS: ZyrTEC TAB 10 MG PO SCH (08:41)
[2018-05-17] MEDS ORDERED: HEPARIN SODIUM INJ 5000 UNITS IVP ONE (13:09)
[2018-05-17 13:11] VITALS: BP 156/85
== END 2018-05-17 13:55 | disposition home or self-care (01) ==
LOC: MED/SURG
PROVIDERS: ADMIT Internal Medicine; ATTEND Internal Medicine
DX: F41.8 Other specified anxiety disorders; I10 Essential (primary) hypertension; K21.9 Gastro-esophageal reflux disease without esophagitis; R94.4 Abnormal results of kidney function studies; R11.2 Nausea with vomiting, unspecified; K31.84 Gastroparesis; F32.89 Other specified depressive episodes; R91.1 Solitary pulmonary nodule; R10.84 Generalized abdominal pain; K92.2 Gastrointestinal hemorrhage, unspecified; E11.65 Type 2 diabetes mellitus with hyperglycemia
CPT/HCPCS: 36415; 71260; 74150; 80053; 81001; 82150; 82270; 83690; 83735; 84132; 85025; A4222; Q0177; G0378; J0360; J1170; J1642; J2060; J2405; J2550; J2765; J3475; J3480; J7030; J7050; J8499

== ENCOUNTER 2018-05-24 12:46 | Observation (INO) ==
[2018-05-24] MEDS ORDERED: ZOFRAN INJ 4 MG VIAL IVP PRN (13:45)
[2018-05-24] MEDS ORDERED: TYLENOL 325 MG TAB PO PRN (13:45)
--- NOTE | 2018-05-24 14:03 | DR.H&P ---
H&P - History & Physical for Day of: H&P Date: 05/24/18 - Chief Complaint Chief Complaint: Abd pain/N/V - History of Present Illness History of Present Illness: The patient is a 32-year-old black female who presents as a direct admission from my private practice due to intractable abdominal pain, nausea and vomiting. Patient has a history of severe diabetic gastroparesis and diabetic dysmotility syndrome. Patient has previously been evaluated at the [facility]. The patient was complaining of intractable pain in the office setting and was requesting to have an NG tube placed due to her severe abdominal discomfort. Patient was subsequently admitted for further workup. - Past Medical History Past Medical History: Anxiety, Depression, Diabetes, GERD, Hypertension, PUD Additional Medical History: Pancreatitis, Gastroparesis - Past Surgical History Surgical History: , Cholecystectomy, Hysterectomy - Family History Family Medical History: Diabetes Mellitus, Hypertension - Social History Does patient currently use any type of tobacco product: No Have you used tobacco products in the last 12 months: No Type of Tobacco Use: None Alcohol Use: None Drug Use: None - Medications Home Medications: Penicillins Allergy (Verified 05/04/18 12:56) morphine Adverse Reaction (Verified 05/04/18 12:56) - Review of Systems Constitutional: See HPI Eyes: No Symptoms Reported ENT: No Symptoms Reported Respiratory: No Symptoms Reported Cardiovascular: No Symptoms Reported Gastrointestinal: See HPI Genitourinary: No Symptoms Reported Musculoskeletal: No Symptoms Reported Skin: No Symptoms Reported Neurological: No Symptoms Reported - Physical Exam Vital Signs: Temperature 97.9 F Pulse Rate [Left Brachial] 120 Respiratory Rate 20 Blood Pressure [Left Arm] 132/88 Blood Pressure [Right Arm] 145/84 Blood Pressure 156/85 O2 Sat by Pulse Oximetry 96 Oriented: Normal Eyes: Normal Ear: Normal Nose: Normal Throat: Normal Respiratory: Clear Throughout Cardiovascular: Normal : Normal Auscultation: Bowel Sounds: Normal Palpation: Normal Tenderness: Diffuse (severe diffuse tenderness to palpation. No HSM noted) Skin: Normal Musculoskeletal: Normal Psychiatric: Normal Mood Description: Calm Affect: Normal Speech Pattern: Clear - Assessment/Plan (1) Intractable abdominal pain Status: Acute Plan: 1. Admitted for outpatient observation. 2. Normal saline 100 cc per hour. 3. Abdominal series. 4. NG tube to low intermittent suction. 5. NPO. 6. Protonix 40 mg IV every 12 hours. 7. CMP and CBC. 8. UA C&S. 9. Amylase and lipase levels. 10. Zofran 4 mg IV every 4 hours when necessary for nausea. 11. Phenergan 12.5 mg IV every 6 hours when necessary for breakthrough nausea. 12. Dilaudid 1 mg IV every 6 hours when necessary for breakthrough pain. 13. Fingerstick blood sugars every before meals and daily at bedtime. 14. Sliding scale regular insulin coverage for blood sugars greater than 200. 15. For further orders see chart (2) Intractable nausea and vomiting Status: Acute Plan: as above (3) Diabetic gastroparesis Status: Acute Plan: as above (4) Gastrointestinal dysmotility Status: Acute Plan: as above - Allergies Allergies/Adverse Reactions: Allergies Allergy/AdvReac Type Severity Reaction Status Date / Time Penicillins Allergy Verified 05/04/18 12:56 morphine AdvReac Verified 05/04/18 12:56
[2018-05-24 14:06] LABS: BASOPHILS # (AUTO) 0.1 X10^3/uL (0.0-0.1); BASOPHILS % (AUTO) 0.8 % (0.2-1.0); EOSINOPHILS # (AUTO) 0.2 x10^3/uL (0.0-0.2); EOSINOPHILS % (AUTO) 1.6 % (0.9-2.9); HEMATOCRIT 41.5 % (36.0-47.0); HEMOGLOBIN 13.2 g/dL (12.0-16.0); LYMPHOCYTES # (AUTO) 2.7 X10^3/uL (1.3-2.9); LYMPHOCYTES % (AUTO) 26.7 % (21.0-51.0); MEAN CORPUSCULAR HEMOGLOBIN 26.1 pg (27.0-34.0); MEAN CORPUSCULAR HGB CONC 31.9 g/dL (33.0-35.0); MEAN CORPUSCULAR VOLUME 81.8 fL (80.0-100.0); MEAN PLATELET VOLUME 9.5 fL (7.4-11.0); MONOCYTES # (AUTO) 0.6 x10^3/uL (0.3-0.8); MONOCYTES % (AUTO) 6.3 % (0.0-13.0); NEUTROPHILS # (AUTO) 6.6 x10^3/uL (2.2-4.8); NEUTROPHILS % (AUTO) 64.6 % (42.0-75.0); PLATELET COUNT 308 X10^3/uL (150.0-450.0); RED BLOOD COUNT 5.07 X10^6/uL (3.5-5.4); RED CELL DISTRIBUTION WIDTH 16.8 % (11.6-16.5); WHITE BLOOD COUNT 10.2 X10^3/uL (3.6-10.0)
[2018-05-24 14:18] LABS: ALBUMIN 1.8 g/dL (3.4-5.0); CALCIUM 8.5 mg/dL (8.5-10.1); CARBON DIOXIDE 27.9 mmol/L (21-32); COR CA(FOR HYPOALB) 10.3 mg/dL (8.5-10.1); CREATININE 2.13 mg/dL (0.55-1.02); TOTAL PROTEIN 6.8 g/dL (6.4-8.2)
[2018-05-24 14:19] LABS: SERUM PREGNANCY TEST, QUAL NEGATIVE <10 mIU/mL
[2018-05-24 14:38] VITALS: BMI 36.5
[2018-05-24] MEDS: NS 1000 ML 1,000 ML IV SCH (14:43)
[2018-05-24] MEDS: PHENERGAN INJ 25 MG IVP PRN ×2 (15:28→21:42)
[2018-05-24] MEDS: DILAUDID INJ IVP PRN ×3 (15:30→19:46)
--- NOTE | 2018-05-24 16:23 | RAD ---
HISTORY: NG tube placement Study: Single-view of the abdomen Comparison: Earlier same day Findings: Enteric tube is seen terminating in the mid stomach. There is a partially visualized right-sided CVL. Bowel gas pattern is nonspecific. The gallbladder is removed. IMPRESSION: 1. Enteric tube terminates in the mid stomach. Reported By:
--- NOTE | 2018-05-24 16:40 | RAD ---
HISTORY: Abdominal pain Study: Acute abdominal series Comparison: 05/14/2018 Findings: There is a stable right-sided CVL. The lungs are clear without consolidation, effusion or pneumothora x. The cardiac and mediastinal contours are within normal limits. Flat plate and upright evaluation of the abdomen demonstrates a normal bowel gas pattern. No gross fr ee intraperitoneal air. No pathological soft tissue mass or calcification can be observed. The bony structures are grossly intact. Cholecystectomy clips noted. IMPRESSION: 1. No acute cardiopulmonary disease. 2. No evidence of acute abdominal pathology. Reported By:
[2018-05-24 22:35] LABS: BILIRUBIN,URINE NEGATIVE (NEGATIVE); BLOOD/HEMOGLOBIN,URINE NEGATIVE (NEGATIVE); GLUCOSE, URINE NEGATIVE (NEGATIVE); KETONES,URINE NEGATIVE (NEGATIVE); LEUKOCYTE ESTERASE ,URINE NEGATIVE (NEGATIVE); NITRITES,URINE NEGATIVE (NEGATIVE); PROTEIN,URINE 4+ (NEGATIVE); UROBILINOGEN,URINE NORMAL (NORMAL)
[2018-05-24 22:38] LABS: APPEARANCE,URINE CLEAR (CLEAR); COLOR,URINE YELLOW (YELLOW)
[2018-05-24 22:42] LABS: BACTERIA,URINE NEGATIVE /HPF (NEGATIVE); RBC,URINE 0-2 /HPF (NONE SEEN); SQUAMOUS EPITHELIAL CELL,UR FEW /HPF (NEGATIVE)
[2018-05-25] MEDS: DILAUDID INJ IVP PRN ×4 (01:29→18:35)
[2018-05-25] MEDS: NS 1000 ML 1,000 ML IV SCH ×3 (01:30→22:34)
[2018-05-25] MEDS: PHENERGAN INJ 25 MG IVP PRN ×3 (03:48→18:35)
[2018-05-25 05:15] LABS: BASOPHILS % (AUTO) 0.7 % (0.2-1.0); EOSINOPHILS # (AUTO) 0.2 x10^3/uL (0.0-0.2); EOSINOPHILS % (AUTO) 2.6 % (0.9-2.9); HEMATOCRIT 35.6 % (36.0-47.0); HEMOGLOBIN 11.5 g/dL (12.0-16.0); LYMPHOCYTES # (AUTO) 2.5 X10^3/uL (1.3-2.9); LYMPHOCYTES % (AUTO) 33.7 % (21.0-51.0); MEAN CORPUSCULAR HEMOGLOBIN 26.1 pg (27.0-34.0); MEAN CORPUSCULAR HGB CONC 32.2 g/dL (33.0-35.0); MEAN CORPUSCULAR VOLUME 81.1 fL (80.0-100.0); MEAN PLATELET VOLUME 9.6 fL (7.4-11.0); MONOCYTES # (AUTO) 0.5 x10^3/uL (0.3-0.8); MONOCYTES % (AUTO) 6.7 % (0.0-13.0); NEUTROPHILS # (AUTO) 4.1 x10^3/uL (2.2-4.8); NEUTROPHILS % (AUTO) 56.3 % (42.0-75.0); PLATELET COUNT 240 X10^3/uL (150.0-450.0); RED BLOOD COUNT 4.39 X10^6/uL (3.5-5.4); RED CELL DISTRIBUTION WIDTH 16.7 % (11.6-16.5); WHITE BLOOD COUNT 7.3 X10^3/uL (3.6-10.0)
[2018-05-25 05:41] LABS: ALANINE AMINOTRANSFERASE 11 Units/L (12-78); ALBUMIN 1.5 g/dL (3.4-5.0); ALKALINE PHOSPHATASE 70 Units/L (46-116); ASPARTATE AMINO TRANSFERASE 19 Units/L (15-37); BLOOD UREA NITROGEN 10 mg/dL (7-18); CALCIUM 8.2 mg/dL (8.5-10.1); CARBON DIOXIDE 27.8 mmol/L (21-32); CHLORIDE 108 mmol/L (98-107); COR CA(FOR HYPOALB) 10.2 mg/dL (8.5-10.1); SODIUM 141 mmol/L (136-145); TOTAL PROTEIN 5.5 g/dL (6.4-8.2); eGFR NON BLACK RACES 34 (>60)
[2018-05-25] MEDS ORDERED: COLACE CAP 100 MG PO PRN (05:49)
[2018-05-25] MEDS ORDERED: LINZESS PO STA (12:27)
[2018-05-25] MEDS ORDERED: FLEET ENEMA ADULT PR ONE (12:27)
[2018-05-26] MEDS: DILAUDID INJ IVP PRN ×4 (00:30→18:32)
[2018-05-26] MEDS: PHENERGAN INJ 25 MG IVP PRN ×4 (00:37→18:33)
[2018-05-26] MEDS: NS 1000 ML 1,000 ML IV SCH ×5 (00:37→23:26)
[2018-05-26] MEDS ORDERED: HumuLIN R SC PRN (06:05)
[2018-05-26] MEDS ORDERED: GLUTOSE 15 GEL ORAL PO ONE (06:09)
[2018-05-26] MEDS: GLUTOSE 15 GEL ORAL PO PRN ×2 (06:16→18:34)
--- NOTE | 2018-05-26 07:13 | RAD ---
Examination: Abdomen with PA chest, four views History: Fecal impaction Comparison 05/24/2018 Findings: PA chest demonstrates normal heart size with clear lungs. A surgical catheter is projected over the r ight chest in none usual location. Additional supine and upright views of abdomen indicate normal gas pattern. NG tube in mid stomach. S urgical clips right upper quadrant. No evidence for bowel obstruction, ileus, perforation or ascites. Impression: No acute chest or abdominal abnormality noted. See above regarding right sided surgical c atheter in the chest. Correlate clinically. Reported By:
[2018-05-26] MEDS: APRESOLINE INJ 20 MG VIAL IVP PRN (09:17)
[2018-05-27] MEDS: PHENERGAN INJ 25 MG IVP PRN ×2 (00:40→07:30)
[2018-05-27] MEDS: DILAUDID INJ IVP PRN ×2 (00:40→07:30)
[2018-05-27] MEDS: NS 1000 ML 1,000 ML IV SCH ×3 (03:21→12:19)
[2018-05-27 05:08] LABS: BASOPHILS % (AUTO) 0.4 % (0.2-1.0); EOSINOPHILS # (AUTO) 0.2 x10^3/uL (0.0-0.2); EOSINOPHILS % (AUTO) 1.8 % (0.9-2.9); HEMATOCRIT 33.7 % (36.0-47.0); LYMPHOCYTES # (AUTO) 1.9 X10^3/uL (1.3-2.9); LYMPHOCYTES % (AUTO) 22.4 % (21.0-51.0); MEAN CORPUSCULAR HEMOGLOBIN 26.1 pg (27.0-34.0); MEAN CORPUSCULAR HGB CONC 32.7 g/dL (33.0-35.0); MEAN CORPUSCULAR VOLUME 79.9 fL (80.0-100.0); MEAN PLATELET VOLUME 9.6 fL (7.4-11.0); MONOCYTES # (AUTO) 0.6 x10^3/uL (0.3-0.8); MONOCYTES % (AUTO) 7.7 % (0.0-13.0); NEUTROPHILS # (AUTO) 5.6 x10^3/uL (2.2-4.8); NEUTROPHILS % (AUTO) 67.7 % (42.0-75.0); PLATELET COUNT 280 X10^3/uL (150.0-450.0); RED BLOOD COUNT 4.22 X10^6/uL (3.5-5.4); RED CELL DISTRIBUTION WIDTH 16.4 % (11.6-16.5); WHITE BLOOD COUNT 8.3 X10^3/uL (3.6-10.0)
[2018-05-27 05:17] LABS: ALANINE AMINOTRANSFERASE 10 Units/L (12-78); ALBUMIN 1.4 g/dL (3.4-5.0); ALKALINE PHOSPHATASE 64 Units/L (46-116); ASPARTATE AMINO TRANSFERASE 14 Units/L (15-37); BLOOD UREA NITROGEN 8 mg/dL (7-18); CALCIUM 8.1 mg/dL (8.5-10.1); CARBON DIOXIDE 26.1 mmol/L (21-32); CHLORIDE 109 mmol/L (98-107); COR CA(FOR HYPOALB) 10.2 mg/dL (8.5-10.1); CREATININE 1.33 mg/dL (0.55-1.02); SODIUM 141 mmol/L (136-145); TOTAL PROTEIN 5.5 g/dL (6.4-8.2); eGFR NON BLACK RACES 49 (>60)
[2018-05-27] MEDS: APRESOLINE INJ 20 MG VIAL IVP PRN (07:45)
[2018-05-27] MEDS: GLUTOSE 15 GEL ORAL PO PRN (08:06)
[2018-05-27] MEDS ORDERED: DULCOLAX SUPPOSITORY 10 MG RECTAL SCH (10:00)
[2018-05-27] MEDS ORDERED: COLACE CAP 100 MG PO SCH (10:00)
--- NOTE | 2018-05-27 11:31 | RAD ---
HISTORY: Abdominal pain Study: KUB Comparison: 05/26/2018 Findings: Scattered large and small bowel gas is present. I see no definite evidence of bowel obstruction or p neumoperitoneum. The nasogastric tube has been removed. No acute bony abnormalities are identified. Patient is status post cholecystectomy. IMPRESSION: 1. No evidence of bowel obstruction or pneumoperitoneum. 2. The nasogastric tube has been removed. Reported By:
[2018-05-27] MEDS ORDERED: PHENERGAN INJ 25 MG IVP PRN (12:00)
[2018-05-27] MEDS ORDERED: DILAUDID INJ IVP PRN (12:02)
[2018-05-27] MEDS ORDERED: REGLAN INJ 10 MG VIAL IVP SCH (13:00)
[2018-05-27 13:07] VITALS: BP 149/79
== END 2018-05-27 16:40 | disposition home or self-care (01) ==
LOC: MED/SURG
PROVIDERS: ADMIT Internal Medicine; ATTEND Internal Medicine
DX: K21.9 Gastro-esophageal reflux disease without esophagitis; R11.2 Nausea with vomiting, unspecified; K56.41 Fecal impaction; K30 Functional dyspepsia; E11.43 Type 2 diabetes mellitus with diabetic autonomic (poly)neuropathy; F41.8 Other specified anxiety disorders; I10 Essential (primary) hypertension; R10.84 Generalized abdominal pain; R94.4 Abnormal results of kidney function studies; K31.84 Gastroparesis; E11.65 Type 2 diabetes mellitus with hyperglycemia
CPT/HCPCS: 36415; 74000; 74018; 74022; 80053; 81001; 82150; 82270; 83690; 84703; 85025; 87086; A4216; G0378; J0360; J1170; J1642; J2550; J2765; J3490; J7030

== ENCOUNTER 2018-06-07 10:26 | Observation (INO) ==
[2018-06-07] MEDS ORDERED: PEPCID 20 MG IV PREMIX* 20 MG/50 ML BAG IV PRN (12:57)
[2018-06-07] MEDS ORDERED: DILAUDID INJ IVP PRN (12:57)
[2018-06-07 13:21] LABS: BASOPHILS # (AUTO) 0.1 X10^3/uL (0.0-0.1); BASOPHILS % (AUTO) 1.1 % (0.2-1.0); EOSINOPHILS # (AUTO) 0.1 x10^3/uL (0.0-0.2); EOSINOPHILS % (AUTO) 0.9 % (0.9-2.9); HEMATOCRIT 35.5 % (36.0-47.0); HEMOGLOBIN 11.3 g/dL (12.0-16.0); LYMPHOCYTES # (AUTO) 1.4 X10^3/uL (1.3-2.9); LYMPHOCYTES % (AUTO) 14.8 % (21.0-51.0); MEAN CORPUSCULAR HEMOGLOBIN 26.4 pg (27.0-34.0); MEAN CORPUSCULAR VOLUME 82.5 fL (80.0-100.0); MEAN PLATELET VOLUME 9.5 fL (7.4-11.0); MONOCYTES # (AUTO) 0.7 x10^3/uL (0.3-0.8); MONOCYTES % (AUTO) 7.4 % (0.0-13.0); NEUTROPHILS # (AUTO) 6.9 x10^3/uL (2.2-4.8); NEUTROPHILS % (AUTO) 75.8 % (42.0-75.0); PLATELET COUNT 271 X10^3/uL (150.0-450.0); WHITE BLOOD COUNT 9.1 X10^3/uL (3.6-10.0)
[2018-06-07 13:35] LABS: ALBUMIN 1.9 g/dL (3.4-5.0); CALCIUM 8.5 mg/dL (8.5-10.1); CARBON DIOXIDE 32.3 mmol/L (21-32); COR CA(FOR HYPOALB) 10.2 mg/dL (8.5-10.1); CREATININE 1.68 mg/dL (0.55-1.02); TOTAL PROTEIN 6.6 g/dL (6.4-8.2)
[2018-06-07] MEDS: NS 1000 ML 1,000 ML IV SCH (13:47)
--- NOTE | 2018-06-07 14:58 | RAD ---
HISTORY: Nausea and vomiting Study: Frontal view of the chest, flat and upright views of the abdomen Comparison: None. Findings: Cardiomediastinal silhouette is normal in size. No focal consolidations, pleural effusions or pneumot horax. Port-A-Cath tip terminates over the region of the right subclavian vein Osseous structures are without acute abnormality. Flat and upright views of the abdomen demonstrates a normal bowel gas pattern. Probable gallstones. No abnormal calcifications or abnormal soft tissue shadows. No acute bony abnormalities. IMPRESSION: 1. No acute cardiopulmonary disease. 2. No evidence for acute abdominal pathology. Reported By:
[2018-06-07] MEDS ORDERED: ATIVAN TAB 0.5 MG PO PRN (15:33)
[2018-06-07] MEDS ORDERED: FLONASE NASAL SPRAY ENOSTRIL PRN (15:33)
[2018-06-07] MEDS ORDERED: ZOFRAN TAB 4 MG SL PRN (15:33)
[2018-06-07] MEDS ORDERED: FLEXERIL TAB 10 MG PO PRN (15:33)
[2018-06-07] MEDS: ZyrTEC TAB 10 MG PO SCH (16:30)
[2018-06-07] MEDS: CATAPRES TAB 0.1 MG PO SCH ×2 (16:30→21:28)
[2018-06-07] MEDS: REGLAN TAB 10 MG PO SCH ×2 (16:30→21:29)
[2018-06-07] MEDS ORDERED: HumuLIN R SUBCUT PRN (16:43)
--- NOTE | 2018-06-07 16:47 | DR.H&P ---
H&P - History & Physical for Day of: H&P Date: 06/07/18 - Chief Complaint Chief Complaint: N/V, abdominal pain, low blood sugar - History of Present Illness History of Present Illness: The patient is a 32-year-old black female who presents to the clinic with a 4 day history of nausea vomiting and abdominal pain. Patient states that she has been to the emergency room and received fluids. Was seen in the office setting on Sunday and given Toradol and Phenergan injections. Patient states that she continues to feel bad. Blood sugar in the office is noted to be 64. States she has not taken her insulin in 4 days. Does state that she is to see a GI specialist for a gastric emptying study in [place] on the . Patient will be admitted due to hypoglycemia and inability to maintain by mouth intake. - Past Medical History Past Medical History: Hypertension, Diabetes, Depression, Anxiety, PUD, GERD Additional Medical History: Pancreatitis, Gastroparesis - Past Surgical History Surgical History: Cholecystectomy, , Hysterectomy - Family History Family Medical History: Diabetes Mellitus, Hypertension - Social History Does patient currently use any type of tobacco product: No Have you used tobacco products in the last 12 months: No Type of Tobacco Use: None Alcohol Use: None Drug Use: None - Medications Home Medications: Penicillins Allergy (Verified 05/31/18 17:54) lisinopril Adverse Reaction (Verified 06/07/18 14:23) morphine Adverse Reaction (Verified 05/31/18 17:54) - Review of Systems Constitutional: Malaise Eyes: No Symptoms Reported ENT: No Symptoms Reported Respiratory: No Symptoms Reported Cardiovascular: No Symptoms Reported Gastrointestinal: Nausea, Vomiting, Abdominal Pain Genitourinary: No Symptoms Reported Musculoskeletal: No Symptoms Reported Skin: No Symptoms Reported Neurological: No Symptoms Reported - Physical Exam Vital Signs: Temperature 98.5 F Pulse Rate [Right Brachial] 98 Respiratory Rate 18 Blood Pressure [Left Arm] 159/63 Blood Pressure [Right Arm] 204/118 Blood Pressure 159/63 O2 Sat by Pulse Oximetry 97 Oriented: Normal Eyes: Normal Ear: Normal Nose: Normal Throat: Normal Respiratory: Clear Throughout Cardiovascular: Normal : Normal Auscultation: Bowel Sounds: Normal Palpation: Normal Tenderness: Diffuse Skin: Normal Musculoskeletal: Normal Psychiatric: Normal Mood Description: Calm Affect: Normal Speech Pattern: Clear - Assessment/Plan (1) Hypoglycemia Narrative Support Text: In office 64. Given Glucose Tablet Status: Acute Plan: Monitor BS, Correct as indicated (2) Nausea & vomiting Qualifiers: Status: Acute Plan: Antimetics (3) Intractable abdominal pain Status: Acute Plan: IV DIlaudid, US Abd, Labs (4) Diabetic gastroparesis Status: Acute Plan: As above - Allergies Allergies/Adverse Reactions: Allergies Allergy/AdvReac Type Severity Reaction Status Date / Time Penicillins Allergy Verified 05/31/18 17:54 lisinopril AdvReac Verified 06/07/18 14:23 morphine AdvReac Verified 05/31/18 17:54
[2018-06-07] MEDS ORDERED: ATIVAN INJ 2 MG VIAL IVP PRN (16:49)
[2018-06-07] MEDS: DILAUDID INJ IVP PRN ×2 (17:21→21:36)
[2018-06-07] MEDS: ZOFRAN INJ 4 MG VIAL IVP PRN (17:21)
[2018-06-07] MEDS: PROTONIX INJ 40 MG VIAL IVP SCH ×2 (17:49→21:00)
[2018-06-07 20:46] LABS: BILIRUBIN,URINE NEGATIVE (NEGATIVE); BLOOD/HEMOGLOBIN,URINE 2+ (NEGATIVE); GLUCOSE, URINE 1+ (NEGATIVE); KETONES,URINE NEGATIVE (NEGATIVE); LEUKOCYTE ESTERASE ,URINE NEGATIVE (NEGATIVE); NITRITES,URINE NEGATIVE (NEGATIVE); PH,URINE 6.5 (5.0 - 8.0); PROTEIN,URINE 4+ (NEGATIVE); UROBILINOGEN,URINE NORMAL (NORMAL)
[2018-06-07 21:02] LABS: APPEARANCE,URINE CLEAR (CLEAR); COLOR,URINE YELLOW (YELLOW)
[2018-06-07 21:03] LABS: BACTERIA,URINE NEGATIVE /HPF (NEGATIVE); RBC,URINE 0-2 /HPF (NONE SEEN); SQUAMOUS EPITHELIAL CELL,UR FEW /HPF (NEGATIVE)
[2018-06-07] MEDS: ELAVIL PO SCH (21:27)
[2018-06-07] MEDS: NORVASC TAB 10 MG PO SCH (21:28)
[2018-06-07] MEDS: COREG TAB 25 MG PO SCH (21:28)
[2018-06-08] MEDS: ZOFRAN INJ 4 MG VIAL IVP PRN (04:07)
[2018-06-08] MEDS: DILAUDID INJ IVP PRN (04:07)
[2018-06-08] MEDS: REGLAN TAB 10 MG PO SCH ×4 (06:03→21:02)
[2018-06-08] MEDS: CATAPRES TAB 0.1 MG PO SCH ×3 (06:03→21:02)
[2018-06-08 06:42] LABS: BASOPHILS % (AUTO) 0.6 % (0.2-1.0); EOSINOPHILS # (AUTO) 0.2 x10^3/uL (0.0-0.2); EOSINOPHILS % (AUTO) 3.2 % (0.9-2.9); HEMATOCRIT 28.6 % (36.0-47.0); LYMPHOCYTES # (AUTO) 2.1 X10^3/uL (1.3-2.9); LYMPHOCYTES % (AUTO) 35.4 % (21.0-51.0); MEAN CORPUSCULAR HEMOGLOBIN 26.5 pg (27.0-34.0); MEAN CORPUSCULAR HGB CONC 32.3 g/dL (33.0-35.0); MEAN CORPUSCULAR VOLUME 81.8 fL (80.0-100.0); MONOCYTES # (AUTO) 0.6 x10^3/uL (0.3-0.8); MONOCYTES % (AUTO) 9.2 % (0.0-13.0); NEUTROPHILS # (AUTO) 3.1 x10^3/uL (2.2-4.8); NEUTROPHILS % (AUTO) 51.6 % (42.0-75.0); PLATELET COUNT 198 X10^3/uL (150.0-450.0); RED CELL DISTRIBUTION WIDTH 16.5 % (11.6-16.5)
[2018-06-08 06:51] LABS: HEMOGLOBIN 9.3 g/dL (12.0-16.0)
[2018-06-08 06:55] LABS: ALANINE AMINOTRANSFERASE 13 Units/L (12-78); ALBUMIN 1.3 g/dL (3.4-5.0); ALKALINE PHOSPHATASE 64 Units/L (46-116); ASPARTATE AMINO TRANSFERASE 31 Units/L (15-37); BLOOD UREA NITROGEN 8 mg/dL (7-18); CALCIUM 7.6 mg/dL (8.5-10.1); CARBON DIOXIDE 28.6 mmol/L (21-32); CHLORIDE 108 mmol/L (98-107); COR CA(FOR HYPOALB) 9.8 mg/dL (8.5-10.1); CREATININE 1.43 mg/dL (0.55-1.02); SODIUM 142 mmol/L (136-145); TOTAL PROTEIN 4.9 g/dL (6.4-8.2); eGFR NON BLACK RACES 45 (>60)
[2018-06-08] MEDS ORDERED: K-LYTE EFFERVESCENT PO PRN (08:26)
[2018-06-08] MEDS ORDERED: K-RIDER 10 MEQ/NS 100 ML 10 MEQ/100 ML BAG IV PRN (08:26)
[2018-06-08] MEDS ORDERED: POTASSIUM CHLORIDE LIQ 20 MEQ UDC PO PRN (08:26)
[2018-06-08] MEDS ORDERED: POTASSIUM CHL 40 MEQ/NS 0.45% 500 ML IV PRN (08:26)
[2018-06-08] MEDS ORDERED: POTASSIUM CHL 60 MEQ/NS 0.45% 500 ML IV PRN (08:26)
[2018-06-08] MEDS ORDERED: DILAUDID INJ ONE (09:31)
[2018-06-08] MEDS: COREG TAB 25 MG PO SCH ×2 (09:45→21:02)
[2018-06-08] MEDS: NS 1000 ML 1,000 ML IV SCH ×3 (09:45→18:03)
[2018-06-08] MEDS: PROTONIX INJ 40 MG VIAL IVP SCH ×2 (09:46→21:02)
[2018-06-08] MEDS: PRAVACHOL PO SCH (09:46)
[2018-06-08] MEDS: ZyrTEC TAB 10 MG PO SCH (09:46)
[2018-06-08 12:50] VITALS: BMI 37.7
--- NOTE | 2018-06-08 14:00 | RAD ---
Examination: Abdomen series with PA chest, four views History: Abdominal pain Comparison 06/07/2018 Findings: Essentially normal PA upright chest. A surgical catheter/Port-A-Cath is projected over the right chest in unusual location. Supine and upright views of abdomen indicate normal gas pattern without evidence for bowel obstructio n, perforation, ileus, mass formation or ascites. Surgical clips right upper quadrant. Impression: No acute or significant abdominal process demonstrated. Reported By:
[2018-06-08] MEDS: PHENERGAN INJ 25 MG IV PRN ×3 (14:17→21:13)
[2018-06-08] MEDS: PERCOCET TAB 5/325 MG PO PRN ×2 (15:38→21:10)
[2018-06-08] MEDS ORDERED: DILAUDID INJ IVP PRN (16:52)
[2018-06-08] MEDS: ELAVIL PO SCH (21:02)
[2018-06-08] MEDS: NORVASC TAB 10 MG PO SCH (21:03)
[2018-06-09] MEDS: PHENERGAN INJ 25 MG IV PRN ×4 (02:41→18:17)
[2018-06-09] MEDS: NS 1000 ML 1,000 ML IV SCH ×4 (03:44→14:57)
[2018-06-09] MEDS: CATAPRES TAB 0.1 MG PO SCH ×3 (05:57→21:25)
[2018-06-09] MEDS: REGLAN TAB 10 MG PO SCH ×4 (05:57→21:25)
[2018-06-09 06:13] LABS: BASOPHILS % (AUTO) 0.4 % (0.2-1.0); EOSINOPHILS # (AUTO) 0.2 x10^3/uL (0.0-0.2); EOSINOPHILS % (AUTO) 3.1 % (0.9-2.9); HEMATOCRIT 30.5 % (36.0-47.0); HEMOGLOBIN 9.7 g/dL (12.0-16.0); LYMPHOCYTES # (AUTO) 1.8 X10^3/uL (1.3-2.9); LYMPHOCYTES % (AUTO) 31.4 % (21.0-51.0); MEAN CORPUSCULAR HEMOGLOBIN 26.3 pg (27.0-34.0); MEAN CORPUSCULAR HGB CONC 31.8 g/dL (33.0-35.0); MEAN CORPUSCULAR VOLUME 82.7 fL (80.0-100.0); MONOCYTES # (AUTO) 0.5 x10^3/uL (0.3-0.8); MONOCYTES % (AUTO) 7.9 % (0.0-13.0); NEUTROPHILS # (AUTO) 3.3 x10^3/uL (2.2-4.8); NEUTROPHILS % (AUTO) 57.2 % (42.0-75.0); PLATELET COUNT 220 X10^3/uL (150.0-450.0); RED BLOOD COUNT 3.69 X10^6/uL (3.5-5.4); RED CELL DISTRIBUTION WIDTH 16.6 % (11.6-16.5); WHITE BLOOD COUNT 5.8 X10^3/uL (3.6-10.0)
[2018-06-09 06:33] LABS: ALANINE AMINOTRANSFERASE 13 Units/L (12-78); ALBUMIN 1.4 g/dL (3.4-5.0); ALKALINE PHOSPHATASE 66 Units/L (46-116); ASPARTATE AMINO TRANSFERASE 20 Units/L (15-37); BLOOD UREA NITROGEN 7 mg/dL (7-18); CALCIUM 8.2 mg/dL (8.5-10.1); CARBON DIOXIDE 26.7 mmol/L (21-32); CHLORIDE 111 mmol/L (98-107); COR CA(FOR HYPOALB) 10.3 mg/dL (8.5-10.1); CREATININE 1.35 mg/dL (0.55-1.02); SODIUM 143 mmol/L (136-145); TOTAL PROTEIN 5.2 g/dL (6.4-8.2); eGFR NON BLACK RACES 48 (>60)
[2018-06-09] MEDS: COREG TAB 25 MG PO SCH ×2 (09:02→21:25)
[2018-06-09] MEDS: PRAVACHOL PO SCH (09:02)
[2018-06-09] MEDS: LINZESS PO SCH (09:02)
[2018-06-09] MEDS: PROTONIX INJ 40 MG VIAL IVP SCH ×2 (09:02→21:24)
[2018-06-09] MEDS: ZyrTEC TAB 10 MG PO SCH (09:02)
[2018-06-09] MEDS: PERCOCET TAB 5/325 MG PO PRN (09:03)
[2018-06-09] MEDS: TORADOL 15 MG VIAL IVP PRN ×2 (13:49→21:24)
[2018-06-09] MEDS: NORVASC TAB 10 MG PO SCH (21:25)
[2018-06-09] MEDS: ELAVIL PO SCH (21:25)
[2018-06-10] MEDS: PHENERGAN INJ 25 MG IV PRN ×3 (00:15→09:17)
[2018-06-10] MEDS: NS 1000 ML 1,000 ML IV SCH ×3 (00:15→09:24)
[2018-06-10 05:06] LABS: BASOPHILS % (AUTO) 0.7 % (0.2-1.0); EOSINOPHILS # (AUTO) 0.2 x10^3/uL (0.0-0.2); EOSINOPHILS % (AUTO) 2.8 % (0.9-2.9); HEMATOCRIT 30.9 % (36.0-47.0); HEMOGLOBIN 9.8 g/dL (12.0-16.0); LYMPHOCYTES # (AUTO) 1.4 X10^3/uL (1.3-2.9); LYMPHOCYTES % (AUTO) 24.4 % (21.0-51.0); MEAN CORPUSCULAR HGB CONC 31.6 g/dL (33.0-35.0); MEAN CORPUSCULAR VOLUME 82.2 fL (80.0-100.0); MEAN PLATELET VOLUME 9.7 fL (7.4-11.0); MONOCYTES # (AUTO) 0.4 x10^3/uL (0.3-0.8); MONOCYTES % (AUTO) 7.7 % (0.0-13.0); NEUTROPHILS # (AUTO) 3.7 x10^3/uL (2.2-4.8); NEUTROPHILS % (AUTO) 64.4 % (42.0-75.0); PLATELET COUNT 245 X10^3/uL (150.0-450.0); RED BLOOD COUNT 3.76 X10^6/uL (3.5-5.4); RED CELL DISTRIBUTION WIDTH 16.5 % (11.6-16.5); WHITE BLOOD COUNT 5.7 X10^3/uL (3.6-10.0)
[2018-06-10 05:20] LABS: ALBUMIN 1.4 g/dL (3.4-5.0); CARBON DIOXIDE 27.9 mmol/L (21-32); COR CA(FOR HYPOALB) 10.1 mg/dL (8.5-10.1); CREATININE 1.32 mg/dL (0.55-1.02); TOTAL PROTEIN 5.3 g/dL (6.4-8.2)
[2018-06-10] MEDS: TORADOL 15 MG VIAL IVP PRN ×2 (06:03→12:15)
[2018-06-10] MEDS: REGLAN TAB 10 MG PO SCH ×3 (06:03→17:00)
[2018-06-10] MEDS: CATAPRES TAB 0.1 MG PO SCH ×3 (06:03→14:22)
[2018-06-10] MEDS ORDERED: NS 25 ML IV 25 ML IV ONE (09:08)
[2018-06-10] MEDS: LINZESS PO SCH (09:17)
[2018-06-10] MEDS: ZyrTEC TAB 10 MG PO SCH (09:17)
[2018-06-10] MEDS: COREG TAB 25 MG PO SCH (09:17)
[2018-06-10] MEDS: PROTONIX INJ 40 MG VIAL IVP SCH (09:18)
[2018-06-10] MEDS: PRAVACHOL PO SCH (09:18)
[2018-06-10 11:53] LABS: CRYPTOSPORIDIUM PARVUM ANTIGEN NEGATIVE (NEGATIVE); GIARDIA LAMBLIA ANTIGEN NEGATIVE (NEGATIVE)
[2018-06-10 11:54] LABS: STOOL FOR WBC POSITIVE (NEGATIVE)
[2018-06-10 16:17] VITALS: BP 145/80
== END 2018-06-10 18:30 | disposition home or self-care (01) ==
LOC: MED/SURG
PROVIDERS: ADMIT Internal Medicine; ATTEND Internal Medicine
DX: E11.43 Type 2 diabetes mellitus with diabetic autonomic (poly)neuropathy; R10.84 Generalized abdominal pain; F41.8 Other specified anxiety disorders; E11.649 Type 2 diabetes mellitus with hypoglycemia without coma; R11.2 Nausea with vomiting, unspecified; K21.9 Gastro-esophageal reflux disease without esophagitis; F32.89 Other specified depressive episodes; R94.4 Abnormal results of kidney function studies; I10 Essential (primary) hypertension; K31.84 Gastroparesis
CPT/HCPCS: 36415; 74022; 80053; 81001; 82150; 82270; 83630; 83690; 83735; 85025; 87045; 87328; 87329; 87427; 87449; 87899; A4216; A4222; C9113; S0028; G0378; J1170; J1642; J1885; J2405; J2550; J7030; J7050; J8499; S0181

== ENCOUNTER 2018-07-04 09:04 | Observation (INO) ==
--- NOTE | 2018-07-04 09:48 | DR.H&P ---
H&P - History & Physical for Day of: H&P Date: 07/04/18 - Chief Complaint Chief Complaint: Abd pain with nausea and vomiting, low blood sugar - History of Present Illness History of Present Illness: Patient is a 33 year old female that presents to the clinic with complaints of abdominal pain. Reports that she went to the hospital on and was given Haldol and Benadryl. Does report that she cannot get the pain under control. Reports that she has had nausea and vomiting x1 day. Reports that she hasn't been able to keep anything down since Sunday. Denies fevers. Denies diarrhea. Blood sugar is staying low. Noted to be 67 in office. Glucose tab given. Denies any other complaints. - Past Medical History Past Medical History: Hypertension, Diabetes, Depression, Anxiety, PUD, GERD Additional Medical History: Pancreatitis, Gastroparesis - Past Surgical History Surgical History: Cholecystectomy, , Hysterectomy - Family History Family Medical History: Diabetes Mellitus, Hypertension - Social History Does patient currently use any type of tobacco product: No Have you used tobacco products in the last 12 months: No Type of Tobacco Use: None Does any household member use tobacco: No Alcohol Use: None Drug Use: None - Medications Home Medications: Penicillins Allergy (Verified 05/31/18 17:54) lisinopril Adverse Reaction (Verified 06/07/18 14:23) morphine Adverse Reaction (Verified 05/31/18 17:54) - Review of Systems Constitutional: Malaise Eyes: No Symptoms Reported ENT: No Symptoms Reported Respiratory: No Symptoms Reported Cardiovascular: No Symptoms Reported Gastrointestinal: See HPI, Nausea, Vomiting, Abdominal Pain Genitourinary: No Symptoms Reported Musculoskeletal: No Symptoms Reported Skin: No Symptoms Reported Neurological: No Symptoms Reported - Physical Exam Vital Signs: Blood Pressure [Left Arm] 145/80 Blood Pressure [Right Arm] 114/63 Blood Pressure 145/80 Oriented: Normal Eyes: Normal Ear: Normal Nose: Normal Throat: Normal Respiratory: Clear Throughout Cardiovascular: Normal : Normal Auscultation: Bowel Sounds: Normal Palpation: Normal Tenderness: Diffuse Skin: Normal Musculoskeletal: Normal Psychiatric: Depression Mood Description: Calm Affect: Depressed Speech Pattern: Clear - Assessment/Plan (1) Nausea & vomiting Qualifiers: Status: Acute Plan: Anti-emetics (2) Intractable abdominal pain Status: Acute Plan: Dilaudid as needed (3) Diabetic gastroparesis Status: Acute (4) Hypoglycemia Status: Acute Plan: Monitor BS. - Allergies Allergies/Adverse Reactions: Allergies Allergy/AdvReac Type Severity Reaction Status Date / Time Penicillins Allergy Verified 05/31/18 17:54 lisinopril AdvReac Verified 06/07/18 14:23 morphine AdvReac Verified 05/31/18 17:54
[2018-07-04] MEDS ORDERED: HumuLIN R SUBCUT PRN (10:05)
[2018-07-04] MEDS ORDERED: ZOFRAN INJ 4 MG VIAL 16 MG, ATIVAN INJ 2 MG VIAL 1 MG, DECADRON INJ 10 MG in NS 50 ML I... IV PRN (10:05)
[2018-07-04 10:28] LABS: BASOPHILS # (AUTO) 0.1 X10^3/uL (0.0-0.1); BASOPHILS % (AUTO) 0.8 % (0.2-1.0); EOSINOPHILS % (AUTO) 0.4 % (0.9-2.9); HEMOGLOBIN 12.3 g/dL (12.0-16.0); LYMPHOCYTES # (AUTO) 1.4 X10^3/uL (1.3-2.9); LYMPHOCYTES % (AUTO) 12.4 % (21.0-51.0); MEAN CORPUSCULAR HEMOGLOBIN 26.8 pg (27.0-34.0); MEAN CORPUSCULAR HGB CONC 32.3 g/dL (33.0-35.0); MEAN CORPUSCULAR VOLUME 82.9 fL (80.0-100.0); MEAN PLATELET VOLUME 9.6 fL (7.4-11.0); MONOCYTES # (AUTO) 0.7 x10^3/uL (0.3-0.8); MONOCYTES % (AUTO) 6.3 % (0.0-13.0); NEUTROPHILS # (AUTO) 8.8 x10^3/uL (2.2-4.8); NEUTROPHILS % (AUTO) 80.1 % (42.0-75.0); PLATELET COUNT 343 X10^3/uL (150.0-450.0); RED BLOOD COUNT 4.59 X10^6/uL (3.5-5.4); RED CELL DISTRIBUTION WIDTH 16.4 % (11.6-16.5)
[2018-07-04 10:40] LABS: ALBUMIN 2.1 g/dL (3.4-5.0); CALCIUM 9.1 mg/dL (8.5-10.1); CARBON DIOXIDE 28.3 mmol/L (21-32); COR CA(FOR HYPOALB) 10.6 mg/dL (8.5-10.1); CREATININE 1.9 mg/dL (0.55-1.02); TOTAL PROTEIN 7.6 g/dL (6.4-8.2)
[2018-07-04] MEDS: PHENERGAN INJ 25 MG IV PRN ×4 (10:47→23:39)
[2018-07-04] MEDS: NS 1000 ML 1,000 ML IV SCH ×2 (10:47→23:38)
[2018-07-04] MEDS: DILAUDID INJ IVP PRN ×4 (10:47→23:39)
[2018-07-04 11:47] VITALS: BMI 38.5
[2018-07-04] MEDS: APRESOLINE INJ 20 MG VIAL IVP PRN (12:25)
[2018-07-04] MEDS ORDERED: CATAPRES TAB 0.1 MG PO ONE (13:19)
[2018-07-04 13:38] LABS: BILIRUBIN,URINE NEGATIVE (NEGATIVE); BLOOD/HEMOGLOBIN,URINE 3+ (NEGATIVE); GLUCOSE, URINE 1+ (NEGATIVE); KETONES,URINE NEGATIVE (NEGATIVE); LEUKOCYTE ESTERASE ,URINE NEGATIVE (NEGATIVE); NITRITES,URINE NEGATIVE (NEGATIVE); PROTEIN,URINE 4+ (NEGATIVE); UROBILINOGEN,URINE NORMAL (NORMAL)
[2018-07-04 13:54] LABS: APPEARANCE,URINE CLEAR (CLEAR); BACTERIA,URINE NEGATIVE /HPF (NEGATIVE); COLOR,URINE YELLOW (YELLOW); RBC,URINE 0-2 /HPF (NONE SEEN); SQUAMOUS EPITHELIAL CELL,UR FEW /HPF (NEGATIVE)
[2018-07-04 13:55] LABS: MUCUS,URINE FEW /HPF (NEGATIVE)
[2018-07-05] MEDS: DILAUDID INJ IVP PRN ×3 (04:15→13:38)
[2018-07-05] MEDS: PHENERGAN INJ 25 MG IV PRN ×3 (04:15→13:38)
[2018-07-05 06:24] LABS: BASOPHILS % (AUTO) 0.4 % (0.2-1.0); EOSINOPHILS # (AUTO) 0.2 x10^3/uL (0.0-0.2); EOSINOPHILS % (AUTO) 2.3 % (0.9-2.9); HEMATOCRIT 32.6 % (36.0-47.0); HEMOGLOBIN 10.5 g/dL (12.0-16.0); LYMPHOCYTES # (AUTO) 2.1 X10^3/uL (1.3-2.9); MEAN CORPUSCULAR HEMOGLOBIN 26.7 pg (27.0-34.0); MEAN CORPUSCULAR HGB CONC 32.2 g/dL (33.0-35.0); MEAN PLATELET VOLUME 9.9 fL (7.4-11.0); MONOCYTES # (AUTO) 0.6 x10^3/uL (0.3-0.8); MONOCYTES % (AUTO) 7.9 % (0.0-13.0); NEUTROPHILS % (AUTO) 62.4 % (42.0-75.0); PLATELET COUNT 262 X10^3/uL (150.0-450.0); RED BLOOD COUNT 3.93 X10^6/uL (3.5-5.4); RED CELL DISTRIBUTION WIDTH 16.5 % (11.6-16.5); WHITE BLOOD COUNT 7.9 X10^3/uL (3.6-10.0)
[2018-07-05 06:27] LABS: ALBUMIN 1.6 g/dL (3.4-5.0); CARBON DIOXIDE 25.4 mmol/L (21-32); COR CA(FOR HYPOALB) 9.9 mg/dL (8.5-10.1); CREATININE 1.77 mg/dL (0.55-1.02); TOTAL PROTEIN 6.2 g/dL (6.4-8.2)
[2018-07-05] MEDS: APRESOLINE INJ 20 MG VIAL IVP PRN (11:30)
[2018-07-05 12:14] VITALS: BP 144/78
[2018-07-05] MEDS: NS 1000 ML 1,000 ML IV SCH (12:26)
[2018-07-05 14:06] LABS: AMYLASE 34 Units/L (25-115); LIPASE 62 Units/L (73-393)
--- NOTE | 2018-07-05 16:33 | PCM.PROG ---
Progress Note - Progress Note for Day of Date of Exam: 07/05/18 - Subjective Subjective: 33 BF ADMITTED ON 07/04 WITH HYPERTENSIVE URGENCY, INTRACTABLE LUQ PAIN WITH N/V. PT RECENTLY HAD GE STUDY WITH DR TERRAZAS, RESULTS WERE NORMAL. PT REPORTS SHE HAS HAD ABNORMAL STUDY IN THE PAST AND DIAGNOSED WITH GASTROPARESIS. PT BP SLIGHTLY IMPROVED THIS AM, PT DENIES VOMITING, BUT PEGUERO BEEN NPO. PLAN TO ADD AMYLASE AND LIPASE, CONTINUE BP CONTROL, PAIN AND NAUSEA CONTROL - Past Medical Family Social History Past Med/Fam/Surg Hx: No changes since H&P Allergies: Allergies Penicillins Allergy (Verified 05/31/18 17:54) lisinopril Adverse Reaction (Verified 06/07/18 14:23) morphine Adverse Reaction (Verified 05/31/18 17:54) - Review of Systems ROS: No change since H&P - Vital Signs and I&O's Vital Signs: Temperature 98.1 F Pulse Rate [Left Brachial] 100 Respiratory Rate 18 Blood Pressure [Left Arm] 144/78 Blood Pressure [Right Arm] 114/63 Blood Pressure 145/80 O2 Sat by Pulse Oximetry 100 Intake and Output: Intake & Output 07/03/18 07/04/18 07/05/18 07/06/18 11:59 11:59 11:59 11:59 Intake Total 1521 / 1521 1529 / 1529 Balance 1521 / 1521 1529 / 1529 - Physical Exam Oriented: Normal Eyes: Normal Ear: Normal Nose: Normal Throat: Normal Respiratory: Diminished Cardiovascular: Normal : Normal Auscultation: Bowel Sounds: Normal Tenderness: LUQ, Epigastric Skin: Normal Musculoskeletal: Normal Psychiatric: Depression Mood Description: Calm Affect: Depressed Speech Pattern: Clear, Appropriate - Laboratory and Diagnostics Result Diagrams: 07/05/18 05:16 07/05/18 05:16 Labs: Laboratory WBC 7.9 X10^3/uL (3.6-10.0) 07/05/18 05:16 RBC 3.93 X10^6/uL (3.5-5.4) 07/05/18 05:16 Hgb 10.5 g/dL (12.0-16.0) L 07/05/18 05:16 Hct 32.6 % (36.0-47.0) L 07/05/18 05:16 MCV 83.0 fL (80.0-100.0) 07/05/18 05:16 MCH 26.7 pg (27.0-34.0) L 07/05/18 05:16 MCHC 32.2 g/dL (33.0-35.0) L 07/05/18 05:16 RDW 16.5 % (11.6-16.5) 07/05/18 05:16 Plt Count 262 X10^3/uL (150.0-450.0) 07/05/18 05:16 MPV 9.9 fL (7.4-11.0) 07/05/18 05:16 Neut % (Auto) 62.4 % (42.0-75.0) 07/05/18 05:16 Lymph % (Auto) 27.0 % (21.0-51.0) 07/05/18 05:16 [place] % (Auto) 7.9 % (0.0-13.0) 07/05/18 05:16 Eos % (Auto) 2.3 % (0.9-2.9) 07/05/18 05:16 Baso % (Auto) 0.4 % (0.2-1.0) 07/05/18 05:16 Neut # (Auto) 5.0 x10^3/uL (2.2-4.8) H 07/05/18 05:16 Lymph # (Auto) 2.1 X10^3/uL (1.3-2.9) 07/05/18 05:16 [place] # (Auto) 0.6 x10^3/uL (0.3-0.8) 07/05/18 05:16 Eos # (Auto) 0.2 x10^3/uL (0.0-0.2) 07/05/18 05:16 Baso # (Auto) 0.0 X10^3/uL (0.0-0.1) 07/05/18 05:16 Absolute Nucleated RBC 0.1 /100WBC 07/05/18 05:16 Sodium 141 mmol/L (136-145) 07/05/18 05:16 Corrected Sodium 142 mmol/L (136-145) 07/05/18 05:16 Potassium 4.0 mmol/L (3.5-5.1) 07/05/18 05:16 Chloride 108 mmol/L (98-107) H 07/05/18 05:16 Carbon Dioxide 25.4 mmol/L (21-32) 07/05/18 05:16 BUN 12 mg/dL (7-18) 07/05/18 05:16 Creatinine 1.77 mg/dL (0.55-1.02) H 07/05/18 05:16 Est GFR (MDRD) Af Amer 42 (>60) L 07/05/18 05:16 Est GFR (MDRD) Non-Af 35 (>60) L 07/05/18 05:16 Glucose 123 mg/dL (65-99) H 07/05/18 05:16 POC Glucose (mg/dL) 106 mg/dL (65-99) H 07/05/18 12:26 Calcium 8.0 mg/dL (8.5-10.1) L 07/05/18 05:16 Corrected Calcium 9.9 mg/dL (8.5-10.1) 07/05/18 05:16 Total Bilirubin 0.10 mg/dL (0.2-1.0) L 07/05/18 05:16 AST 20 Units/L (15-37) 07/05/18 05:16 ALT 14 Units/L (12-78) 07/05/18 05:16 Alkaline Phosphatase 72 Units/L (46-116) 07/05/18 05:16 Total Protein 6.2 g/dL (6.4-8.2) L 07/05/18 05:16 Albumin 1.6 g/dL (3.4-5.0) L 07/05/18 05:16 Globulin 4.6 g/dL (2.5-4.5) H 07/05/18 05:16 Albumin/Globulin Ratio 0.3 Ratio (1.1-2.1) L 07/05/18 05:16 Amylase 34 Units/L (25-115) 07/05/18 05:16 Lipase 62 Units/L (73-393) L 07/05/18 05:16 Specimen Type Clean catch urine 07/04/18 13:24 Urine Color Yellow (YELLOW) 07/04/18 13:24 Urine Appearance Clear (CLEAR) 07/04/18 13:24 Urine pH 7.0 (5.0 - 8.0) 07/04/18 13:24 Ur Specific [place] 1.010 (1.000-1.030) 07/04/18 13:24 Urine Protein 4+ (NEGATIVE) 07/04/18 13:24 Urine Glucose (UA) 1+ (NEGATIVE) 07/04/18 13:24 Urine Ketones Negative (NEGATIVE) 07/04/18 13:24 Urine Occult Blood 3+ (NEGATIVE) 07/04/18 13:24 Urine Nitrite Negative (NEGATIVE) 07/04/18 13:24 Urine Bilirubin Negative (NEGATIVE) 07/04/18 13:24 Urine Urobilinogen Normal (NORMAL) 07/04/18 13:24 Ur Leukocyte Esterase Negative (NEGATIVE) 07/04/18 13:24 Urine RBC 0-2 /HPF (NONE SEEN) 07/04/18 13:24 Urine WBC None seen /HPF (NONE SEEN) 07/04/18 13:24 Ur Squamous Epith Cells Few /HPF (NEGATIVE) 07/04/18 13:24 Urine Bacteria Negative /HPF (NEGATIVE) 07/04/18 13:24 Urine Mucus Few /HPF (NEGATIVE) 07/04/18 13:24 Ur Culture Indicated? No/not indicated 07/04/18 13:24 - Plan (1) Hypertensive urgency Status: Acute Plan: IV HYDRALAZINE, PAIN CONTROL, GENTLE HYDRATION. BS CONTROL. PPI, REGLAN. AMYLASE AND LIPASE. ADVANCE DIET TOLERATED (2) Nausea & vomiting Status: Acute Qualifiers: Plan: Anti-emetics (3) Intractable abdominal pain Status: Acute Plan: NARCOTIC PAIN CONTROL (4) Chronic kidney disease, stage 3 Status: Chronic
--- NOTE | 2018-07-12 05:51 | PCM.DCPLAN ---
Discharge Summary - Admission Date Date of Admission: 07/03/18 - Discharge Date Discharge Date: 07/05/18 - Admission Diagnoses (1) Abdominal pain Status: Acute (2) Essential hypertension Status: Acute (3) Intractable abdominal pain Status: Acute (4) Intractable nausea and vomiting Status: Acute (5) Chronic kidney disease, stage 3 Status: Chronic (6) Diabetes mellitus Status: Chronic - Discharge Diagnoses Discharge Diagnosis: SAME ADMISSION DIAGNOSIS - Discharge Medications Discharge Medications: Home Medication List furosemide 20 mg PO DAILY 07/04/18 [History] losartan 100 mg PO DAILY 07/04/18 [History] ondansetron 8 mg TRANSLINGUAL Q8H PRN 07/04/18 [History] oxycodone-acetaminophen [Percocet] 1 tab PO BID PRN 07/04/18 [History] Prescriptions: - Hospital Course Vital Signs: Temperature 98.1 F Pulse Rate [Left Brachial] 100 Respiratory Rate 18 Blood Pressure [Left Arm] 144/78 Blood Pressure [Right Arm] 114/63 Blood Pressure 145/80 O2 Sat by Pulse Oximetry 100 Latest Lab Results: Laboratory Last Values WBC 7.9 X10^3/uL (3.6-10.0) 07/05/18 05:16 RBC 3.93 X10^6/uL (3.5-5.4) 07/05/18 05:16 Hgb 10.5 g/dL (12.0-16.0) L 07/05/18 05:16 Hct 32.6 % (36.0-47.0) L 07/05/18 05:16 MCV 83.0 fL (80.0-100.0) 07/05/18 05:16 MCH 26.7 pg (27.0-34.0) L 07/05/18 05:16 MCHC 32.2 g/dL (33.0-35.0) L 07/05/18 05:16 RDW 16.5 % (11.6-16.5) 07/05/18 05:16 Plt Count 262 X10^3/uL (150.0-450.0) 07/05/18 05:16 MPV 9.9 fL (7.4-11.0) 07/05/18 05:16 Neut % (Auto) 62.4 % (42.0-75.0) 07/05/18 05:16 Lymph % (Auto) 27.0 % (21.0-51.0) 07/05/18 05:16 [place] % (Auto) 7.9 % (0.0-13.0) 07/05/18 05:16 Eos % (Auto) 2.3 % (0.9-2.9) 07/05/18 05:16 Baso % (Auto) 0.4 % (0.2-1.0) 07/05/18 05:16 Neut # (Auto) 5.0 x10^3/uL (2.2-4.8) H 07/05/18 05:16 Lymph # (Auto) 2.1 X10^3/uL (1.3-2.9) 07/05/18 05:16 [place] # (Auto) 0.6 x10^3/uL (0.3-0.8) 07/05/18 05:16 Eos # (Auto) 0.2 x10^3/uL (0.0-0.2) 07/05/18 05:16 Baso # (Auto) 0.0 X10^3/uL (0.0-0.1) 07/05/18 05:16 Absolute Nucleated RBC 0.1 /100WBC 07/05/18 05:16 Sodium 141 mmol/L (136-145) 07/05/18 05:16 Corrected Sodium 142 mmol/L (136-145) 07/05/18 05:16 Potassium 4.0 mmol/L (3.5-5.1) 07/05/18 05:16 Chloride 108 mmol/L (98-107) H 07/05/18 05:16 Carbon Dioxide 25.4 mmol/L (21-32) 07/05/18 05:16 BUN 12 mg/dL (7-18) 07/05/18 05:16 Creatinine 1.77 mg/dL (0.55-1.02) H 07/05/18 05:16 Est GFR (MDRD) Af Amer 42 (>60) L 07/05/18 05:16 Est GFR (MDRD) Non-Af 35 (>60) L 07/05/18 05:16 Glucose 123 mg/dL (65-99) H 07/05/18 05:16 POC Glucose (mg/dL) 106 mg/dL (65-99) H 07/05/18 12:26 Calcium 8.0 mg/dL (8.5-10.1) L 07/05/18 05:16 Corrected Calcium 9.9 mg/dL (8.5-10.1) 07/05/18 05:16 Total Bilirubin 0.10 mg/dL (0.2-1.0) L 07/05/18 05:16 AST 20 Units/L (15-37) 07/05/18 05:16 ALT 14 Units/L (12-78) 07/05/18 05:16 Alkaline Phosphatase 72 Units/L (46-116) 07/05/18 05:16 Total Protein 6.2 g/dL (6.4-8.2) L 07/05/18 05:16 Albumin 1.6 g/dL (3.4-5.0) L 07/05/18 05:16 Globulin 4.6 g/dL (2.5-4.5) H 07/05/18 05:16 Albumin/Globulin Ratio 0.3 Ratio (1.1-2.1) L 07/05/18 05:16 Amylase 34 Units/L (25-115) 07/05/18 05:16 Lipase 62 Units/L (73-393) L 07/05/18 05:16 Specimen Type Clean catch urine 07/04/18 13:24 Urine Color Yellow (YELLOW) 07/04/18 13:24 Urine Appearance Clear (CLEAR) 07/04/18 13:24 Urine pH 7.0 (5.0 - 8.0) 07/04/18 13:24 Ur Specific [place] 1.010 (1.000-1.030) 07/04/18 13:24 Urine Protein 4+ (NEGATIVE) 07/04/18 13:24 Urine Glucose (UA) 1+ (NEGATIVE) 07/04/18 13:24 Urine Ketones Negative (NEGATIVE) 07/04/18 13:24 Urine Occult Blood 3+ (NEGATIVE) 07/04/18 13:24 Urine Nitrite Negative (NEGATIVE) 07/04/18 13:24 Urine Bilirubin Negative (NEGATIVE) 07/04/18 13:24 Urine Urobilinogen Normal (NORMAL) 07/04/18 13:24 Ur Leukocyte Esterase Negative (NEGATIVE) 07/04/18 13:24 Urine RBC 0-2 /HPF (NONE SEEN) 07/04/18 13:24 Urine WBC None seen /HPF (NONE SEEN) 07/04/18 13:24 Ur Squamous Epith Cells Few /HPF (NEGATIVE) 07/04/18 13:24 Urine Bacteria Negative /HPF (NEGATIVE) 07/04/18 13:24 Urine Mucus Few /HPF (NEGATIVE) 07/04/18 13:24 Ur Culture Indicated? No/not indicated 07/04/18 13:24 Hospital Course: 33 BF ADMITTED ON 07/04 WITH HYPERTENSIVE URGENCY, INTRACTABLE LUQ PAIN WITH N/V. PT RECENTLY HAD GE STUDY WITH DR TERRAZAS, RESULTS WERE NORMAL. PT REPORTS SHE HAS HAD ABNORMAL STUDY IN THE PAST AND DIAGNOSED WITH GASTROPARESIS. PATIENT AMYLASE AND LIPASE WERE WNL. SYMPTOMS IMPROVED. BP IMPROVED. BS WERE MONITORED. PATIENT DISCHARGED HOME TO BE FOLLOWED ON OP BASIS. - Discharge Plan Disposition: 01 HOME, SELF-CARE Condition: Stable - Follow ups/Referrals Follow ups/Referrals: SUE TAPIA [Primary Care Provider] - 1 WEEK - Instructions Forms: Patient Portal
== END 2018-07-05 16:35 | disposition home or self-care (01) ==
LOC: OBS
PROVIDERS: ADMIT Internal Medicine; ATTEND Internal Medicine
DX: E11.649 Type 2 diabetes mellitus with hypoglycemia without coma; R53.81 Other malaise; K21.9 Gastro-esophageal reflux disease without esophagitis; Z79.899 Other long term (current) drug therapy; F32.89 Other specified depressive episodes; N18.3 Chronic kidney disease, stage 3 (moderate); E11.43 Type 2 diabetes mellitus with diabetic autonomic (poly)neuropathy; I12.9 Hypertensive chronic kidney disease with stage 1 through stage 4 chronic kidney disease, or unspecified chronic kidney disease; R11.2 Nausea with vomiting, unspecified; R10.84 Generalized abdominal pain; I16.0 Hypertensive urgency; F41.8 Other specified anxiety disorders; R94.4 Abnormal results of kidney function studies
CPT/HCPCS: 36415; 80053; 81001; 82150; 83690; 85025; 96374; G0378; J1170; J1642; J2550; J7030

== ENCOUNTER 2018-07-09 08:32 | Observation (INO) ==
[2018-07-09] MEDS ORDERED: HumuLIN R SUBCUT PRN (09:48)
[2018-07-09] MEDS ORDERED: PEPCID 20 MG IV PREMIX* 20 MG/50 ML BAG IV PRN (09:48)
--- NOTE | 2018-07-09 09:49 | DR.H&P ---
H&P - History & Physical for Day of: H&P Date: 07/09/18 - Chief Complaint Chief Complaint: ABd pain, N/V - History of Present Illness History of Present Illness: the patient is a 33-year-old black female who presents to the clinic with complaints of continued upper abdominal pain. Patient describes pain to be epigastric radiating to the left upper quadrant. Patient does have previous history of pancreatitis. Patient states symptoms have been ongoing for 3 days. Is having nausea vomiting. Denies diarrhea. States bowels movements are daily. Patient's blood sugar is noted to be 59. Blood pressure noted to be 208/137. Patient states that results of gastric emptying study was negative for gastroparesis. Is not to follow up with GI until July. Patient did present to the clinic on 07/08/18 and was given IM Phenergan. Patient has continued to take her routine GI medicines as well as Zofran and Phenergan without improvement of symptoms. No other complaints voiced. - Past Medical History Past Medical History: Hypertension, Diabetes, Depression, Anxiety, PUD, GERD Additional Medical History: Pancreatitis, Gastroparesis - Past Surgical History Surgical History: Cholecystectomy, , Hysterectomy - Family History Family Medical History: Diabetes Mellitus, Hypertension - Social History Does patient currently use any type of tobacco product: No Have you used tobacco products in the last 12 months: No Type of Tobacco Use: None Does any household member use tobacco: No Alcohol Use: None Drug Use: None - Medications Home Medications: Penicillins Allergy (Verified 05/31/18 17:54) lisinopril Adverse Reaction (Verified 06/07/18 14:23) morphine Adverse Reaction (Verified 05/31/18 17:54) - Review of Systems Constitutional: Malaise Eyes: No Symptoms Reported ENT: No Symptoms Reported Respiratory: No Symptoms Reported Cardiovascular: No Symptoms Reported Gastrointestinal: Nausea, Vomiting, Abdominal Pain Genitourinary: No Symptoms Reported Musculoskeletal: No Symptoms Reported Skin: No Symptoms Reported Neurological: No Symptoms Reported - Physical Exam Vital Signs: Blood Pressure [Left Arm] 144/78 Blood Pressure [Right Arm] 114/63 Blood Pressure 144/78 Oriented: Normal Eyes: Normal Ear: Normal Nose: Normal Throat: Normal Respiratory: Clear Throughout Cardiovascular: Normal : Normal Auscultation: Bowel Sounds: Normal Palpation: Normal Tenderness: LUQ, Epigastric Skin: Decreased [place] Musculoskeletal: Normal Psychiatric: Normal Mood Description: Calm, Depressed Affect: Depressed Speech Pattern: Clear - Assessment/Plan (1) Intractable abdominal pain Status: Acute Plan: KUB, Amylase, lipase (2) Intractable nausea and vomiting Status: Acute Plan: labs, kub, pepcid, zofran, phenergan (3) Hypoglycemia Status: Acute Plan: monitor bs (4) Hypertensive urgency Status: Acute Plan: monitor bp, antihypertensives as indicated - Allergies Allergies/Adverse Reactions: Allergies Allergy/AdvReac Type Severity Reaction Status Date / Time Penicillins Allergy Verified 05/31/18 17:54 lisinopril AdvReac Verified 06/07/18 14:23 morphine AdvReac Verified 05/31/18 17:54
[2018-07-09 10:24] LABS: BASOPHILS # (AUTO) 0.1 X10^3/uL (0.0-0.1); BASOPHILS % (AUTO) 0.7 % (0.2-1.0); EOSINOPHILS # (AUTO) 0.1 x10^3/uL (0.0-0.2); EOSINOPHILS % (AUTO) 0.9 % (0.9-2.9); HEMATOCRIT 38.6 % (36.0-47.0); HEMOGLOBIN 12.2 g/dL (12.0-16.0); LYMPHOCYTES # (AUTO) 1.6 X10^3/uL (1.3-2.9); LYMPHOCYTES % (AUTO) 16.9 % (21.0-51.0); MEAN CORPUSCULAR HEMOGLOBIN 26.3 pg (27.0-34.0); MEAN CORPUSCULAR HGB CONC 31.6 g/dL (33.0-35.0); MEAN CORPUSCULAR VOLUME 83.2 fL (80.0-100.0); MEAN PLATELET VOLUME 9.3 fL (7.4-11.0); MONOCYTES # (AUTO) 0.7 x10^3/uL (0.3-0.8); MONOCYTES % (AUTO) 6.9 % (0.0-13.0); NEUTROPHILS # (AUTO) 7.3 x10^3/uL (2.2-4.8); NEUTROPHILS % (AUTO) 74.6 % (42.0-75.0); PLATELET COUNT 317 X10^3/uL (150.0-450.0); RED BLOOD COUNT 4.64 X10^6/uL (3.5-5.4); RED CELL DISTRIBUTION WIDTH 15.9 % (11.6-16.5); WHITE BLOOD COUNT 9.7 X10^3/uL (3.6-10.0)
[2018-07-09 10:30] LABS: ALBUMIN 1.9 g/dL (3.4-5.0); CALCIUM 8.2 mg/dL (8.5-10.1); CARBON DIOXIDE 26.6 mmol/L (21-32); COR CA(FOR HYPOALB) 9.9 mg/dL (8.5-10.1); CREATININE 2.08 mg/dL (0.55-1.02); TOTAL PROTEIN 7.1 g/dL (6.4-8.2)
[2018-07-09] MEDS: LOPRESSOR INJ 5 MG AMP IVP PRN ×2 (10:56→20:27)
[2018-07-09] MEDS: NS 1000 ML 1,000 ML IV SCH ×2 (11:01→20:26)
[2018-07-09] MEDS: DILAUDID INJ IVP PRN ×3 (11:48→20:27)
[2018-07-09] MEDS: ZOFRAN INJ 4 MG VIAL IVP PRN (11:49)
[2018-07-09] MEDS: APRESOLINE INJ 20 MG VIAL IVP PRN ×2 (15:24→22:30)
[2018-07-09] MEDS: PHENERGAN INJ 25 MG IVP PRN (20:28)
[2018-07-09 20:34] LABS: BILIRUBIN,URINE NEGATIVE (NEGATIVE); BLOOD/HEMOGLOBIN,URINE 2+ (NEGATIVE); GLUCOSE, URINE 1+ (NEGATIVE); KETONES,URINE NEGATIVE (NEGATIVE); LEUKOCYTE ESTERASE ,URINE NEGATIVE (NEGATIVE); NITRITES,URINE NEGATIVE (NEGATIVE); PROTEIN,URINE 4+ (NEGATIVE); UROBILINOGEN,URINE NORMAL (NORMAL)
[2018-07-09 20:43] LABS: APPEARANCE,URINE CLEAR (CLEAR); BACTERIA,URINE NEGATIVE /HPF (NEGATIVE); COLOR,URINE YELLOW (YELLOW); RBC,URINE 0-2 /HPF (NONE SEEN); SQUAMOUS EPITHELIAL CELL,UR FEW /HPF (NEGATIVE)
[2018-07-09] MEDS ORDERED: ATIVAN INJ 2 MG VIAL IVP PRN (23:52)
[2018-07-10] MEDS: DILAUDID INJ IVP PRN ×4 (00:25→20:43)
[2018-07-10] MEDS: LOPRESSOR INJ 5 MG AMP IVP PRN (03:50)
[2018-07-10 05:08] LABS: BASOPHILS % (AUTO) 0.4 % (0.2-1.0); EOSINOPHILS # (AUTO) 0.1 x10^3/uL (0.0-0.2); EOSINOPHILS % (AUTO) 0.9 % (0.9-2.9); HEMATOCRIT 34.8 % (36.0-47.0); HEMOGLOBIN 11.1 g/dL (12.0-16.0); LYMPHOCYTES # (AUTO) 1.8 X10^3/uL (1.3-2.9); LYMPHOCYTES % (AUTO) 21.1 % (21.0-51.0); MEAN CORPUSCULAR HEMOGLOBIN 26.4 pg (27.0-34.0); MEAN CORPUSCULAR VOLUME 82.5 fL (80.0-100.0); MEAN PLATELET VOLUME 9.4 fL (7.4-11.0); MONOCYTES # (AUTO) 0.7 x10^3/uL (0.3-0.8); MONOCYTES % (AUTO) 7.9 % (0.0-13.0); NEUTROPHILS # (AUTO) 5.8 x10^3/uL (2.2-4.8); NEUTROPHILS % (AUTO) 69.7 % (42.0-75.0); PLATELET COUNT 285 X10^3/uL (150.0-450.0); RED BLOOD COUNT 4.22 X10^6/uL (3.5-5.4); WHITE BLOOD COUNT 8.4 X10^3/uL (3.6-10.0)
[2018-07-10 05:15] LABS: ALANINE AMINOTRANSFERASE 12 Units/L (12-78); ALBUMIN 1.5 g/dL (3.4-5.0); ALKALINE PHOSPHATASE 69 Units/L (46-116); ASPARTATE AMINO TRANSFERASE 16 Units/L (15-37); BLOOD UREA NITROGEN 6 mg/dL (7-18); CALCIUM 8.1 mg/dL (8.5-10.1); CARBON DIOXIDE 24.8 mmol/L (21-32); CHLORIDE 108 mmol/L (98-107); COR CA(FOR HYPOALB) 10.1 mg/dL (8.5-10.1); SODIUM 141 mmol/L (136-145); eGFR NON BLACK RACES 37 (>60)
[2018-07-10] MEDS: PHENERGAN INJ 25 MG IVP PRN (05:23)
[2018-07-10] MEDS: NS 1000 ML 1,000 ML IV SCH ×2 (06:08→14:59)
[2018-07-10 07:18] VITALS: BMI 37.8
[2018-07-10] MEDS: APRESOLINE INJ 20 MG VIAL IVP PRN (08:16)
[2018-07-10] MEDS ORDERED: PEPCID 20 MG IV PREMIX* 20 MG/50 ML BAG IV PRN (09:00)
[2018-07-10] MEDS: COZAAR PO SCH (10:40)
[2018-07-10] MEDS: COREG TAB 25 MG PO SCH ×2 (10:40→20:43)
[2018-07-10] MEDS: ZOFRAN INJ 4 MG VIAL IVP PRN ×2 (14:53→20:44)
--- NOTE | 2018-07-10 17:42 | PCM.PROG ---
Progress Note - Progress Note for Day of Date of Exam: 07/10/18 - Subjective Subjective: 33 BF DIRECT ADMIT ON 07/09 WITH HYPERTENSIVE URGENCY AND HYPOGLYCEMIA DUE TO INCTRACTABLE N/V LEFT UPPER ABDOMINAL PAIN. PT HAS HX OF CHRONIC ABDOMINAL PAIN, WAS RECENTLY IN [facility] FOR SIMILIAR COMPLAINTS. PT BP CONTINES TO BE ELEVATED THIS AM DESPITE IV LABETALOL AND HYDRALAZINE. PLAN TO RESTART HOME MEDICATION AND CONTINUE PT PAIN AND NAUSEA CONTROL, GENTLE HYDRATION, ABD XRAY WNL. ADDED REGLAN 10MG IV QID AND CARAFATE. CONTINUE WITH NPO, BS MONITORING. LABS OCCULT STOOL O & P, SED RATE AND CRP - Past Medical Family Social History Past Med/Fam/Surg Hx: No changes since H&P Allergies: Allergies Penicillins Allergy (Verified 05/31/18 17:54) lisinopril Adverse Reaction (Verified 06/07/18 14:23) morphine Adverse Reaction (Verified 05/31/18 17:54) - Review of Systems ROS: No change since H&P - Vital Signs and I&O's Vital Signs: Temperature 98.7 F Pulse Rate [Right Brachial] 93 Respiratory Rate 20 Blood Pressure [Left Arm] 168/104 Blood Pressure [Right Arm] 135/80 Blood Pressure 198/110 O2 Sat by Pulse Oximetry 98 Intake and Output: Intake & Output 07/08/18 07/09/18 07/10/18 07/11/18 11:59 11:59 11:59 11:59 Intake Total 579 / 579 0 / 0 Output Total 0 / 0 Balance 579 / 579 0 / 0 - Physical Exam Oriented: Normal Eyes: Normal Ear: Normal Nose: Normal Throat: Normal Respiratory: Normal Cardiovascular: Normal : Normal Auscultation: Bowel Sounds: Normal Tenderness: LUQ, Epigastric Skin: Decreased [place] Musculoskeletal: Normal Psychiatric: Normal Mood Description: Calm, Depressed Affect: Depressed Speech Pattern: Clear, Appropriate - Laboratory and Diagnostics Result Diagrams: 07/10/18 04:31 07/10/18 04:31 Labs: Laboratory WBC 8.4 X10^3/uL (3.6-10.0) 07/10/18 04:31 RBC 4.22 X10^6/uL (3.5-5.4) 07/10/18 04:31 Hgb 11.1 g/dL (12.0-16.0) L 07/10/18 04:31 Hct 34.8 % (36.0-47.0) L 07/10/18 04:31 MCV 82.5 fL (80.0-100.0) 07/10/18 04:31 MCH 26.4 pg (27.0-34.0) L 07/10/18 04:31 MCHC 32.0 g/dL (33.0-35.0) L 07/10/18 04:31 RDW 16.0 % (11.6-16.5) 07/10/18 04:31 Plt Count 285 X10^3/uL (150.0-450.0) 07/10/18 04:31 MPV 9.4 fL (7.4-11.0) 07/10/18 04:31 Neut % (Auto) 69.7 % (42.0-75.0) 07/10/18 04:31 Lymph % (Auto) 21.1 % (21.0-51.0) 07/10/18 04:31 [place] % (Auto) 7.9 % (0.0-13.0) 07/10/18 04:31 Eos % (Auto) 0.9 % (0.9-2.9) 07/10/18 04:31 Baso % (Auto) 0.4 % (0.2-1.0) 07/10/18 04:31 Neut # (Auto) 5.8 x10^3/uL (2.2-4.8) H 07/10/18 04:31 Lymph # (Auto) 1.8 X10^3/uL (1.3-2.9) 07/10/18 04:31 [place] # (Auto) 0.7 x10^3/uL (0.3-0.8) 07/10/18 04:31 Eos # (Auto) 0.1 x10^3/uL (0.0-0.2) 07/10/18 04:31 Baso # (Auto) 0.0 X10^3/uL (0.0-0.1) 07/10/18 04:31 Absolute Nucleated RBC 0.0 /100WBC 07/10/18 04:31 Sodium 141 mmol/L (136-145) 07/10/18 04:31 Corrected Sodium TNP 07/10/18 04:31 Potassium 3.6 mmol/L (3.5-5.1) 07/10/18 04:31 Chloride 108 mmol/L (98-107) H 07/10/18 04:31 Carbon Dioxide 24.8 mmol/L (21-32) 07/10/18 04:31 BUN 6 mg/dL (7-18) L 07/10/18 04:31 Creatinine 1.70 mg/dL (0.55-1.02) H 07/10/18 04:31 Est GFR (MDRD) Af Amer 44 (>60) L 07/10/18 04:31 Est GFR (MDRD) Non-Af 37 (>60) L 07/10/18 04:31 Glucose 97 mg/dL (65-99) 07/10/18 04:31 POC Glucose (mg/dL) 142 mg/dL (65-99) H 07/10/18 17:02 Calcium 8.1 mg/dL (8.5-10.1) L 07/10/18 04:31 Corrected Calcium 10.1 mg/dL (8.5-10.1) 07/10/18 04:31 Total Bilirubin 0.20 mg/dL (0.2-1.0) 07/10/18 04:31 AST 16 Units/L (15-37) 07/10/18 04:31 ALT 12 Units/L (12-78) 07/10/18 04:31 Alkaline Phosphatase 69 Units/L (46-116) 07/10/18 04:31 Total Protein 6.0 g/dL (6.4-8.2) L 07/10/18 04:31 Albumin 1.5 g/dL (3.4-5.0) L 07/10/18 04:31 Globulin 4.5 g/dL (2.5-4.5) 07/10/18 04:31 Albumin/Globulin Ratio 0.3 Ratio (1.1-2.1) L 07/10/18 04:31 Amylase 46 Units/L (25-115) 07/09/18 10:09 Lipase 75 Units/L (73-393) 07/09/18 10:09 Specimen Type Clean catch urine 07/09/18 20:20 Urine Color Yellow (YELLOW) 07/09/18 20:20 Urine Appearance Clear (CLEAR) 07/09/18 20:20 Urine pH 7.0 (5.0 - 8.0) 07/09/18 20:20 Ur Specific [place] 1.010 (1.000-1.030) 07/09/18 20:20 Urine Protein 4+ (NEGATIVE) 07/09/18 20:20 Urine Glucose (UA) 1+ (NEGATIVE) 07/09/18 20:20 Urine Ketones Negative (NEGATIVE) 07/09/18 20:20 Urine Occult Blood 2+ (NEGATIVE) 07/09/18 20:20 Urine Nitrite Negative (NEGATIVE) 07/09/18 20:20 Urine Bilirubin Negative (NEGATIVE) 07/09/18 20:20 Urine Urobilinogen Normal (NORMAL) 07/09/18 20:20 Ur Leukocyte Esterase Negative (NEGATIVE) 07/09/18 20:20 Urine RBC 0-2 /HPF (NONE SEEN) 07/09/18 20:20 Urine WBC 0-2 /HPF (NONE SEEN) 07/09/18 20:20 Ur Squamous Epith Cells Few /HPF (NEGATIVE) 07/09/18 20:20 Urine Bacteria Negative /HPF (NEGATIVE) 07/09/18 20:20 Ur Culture Indicated? No/not indicated 07/09/18 20:20 - Plan (1) Hypertensive urgency Status: Acute Plan: monitor bp, antihypertensives as indicated. RESTARTED HOME MEDICATION, UTILIZE PRN IV ANTIHYPERTENSIVES. CONTINUE BLOOD SUGAR MONITORING. GENTLE IV HYDRATION, PAIN AND NAUSEA CONTROL (2) Abdominal pain Status: Acute Qualifiers: Abdominal location: generalized Qualified Code(s): R10.84 - Generalized abdominal pain Plan: STOOL STUDIES. CARAFATE AND REGLAN, CONTINUE WITH NPO AND PPI THERAPY (3) Nausea & vomiting Status: Acute Qualifiers: Vomiting type: unspecified Vomiting Intractability: non-intractable Qualified Code(s): R11.2 - Nausea with vomiting, unspecified (4) Hypoglycemia Status: Acute Plan: monitor bs (5) Diabetes mellitus Status: Chronic Qualifiers: Diabetes mellitus type: type 2 (6) Chronic kidney disease, stage 3 Status: Chronic
[2018-07-10] MEDS: CARAFATE ORAL SUSP PO SCH (20:43)
[2018-07-10] MEDS: REGLAN INJ 10 MG VIAL IVP SCH (20:43)
[2018-07-10 20:56] LABS: CRYPTOSPORIDIUM PARVUM ANTIGEN NEGATIVE (NEGATIVE); GIARDIA LAMBLIA ANTIGEN NEGATIVE (NEGATIVE)
[2018-07-11] MEDS: DILAUDID INJ IVP PRN ×6 (00:49→21:16)
[2018-07-11] MEDS: REGLAN INJ 10 MG VIAL IVP SCH ×5 (01:46→23:36)
[2018-07-11] MEDS: NS 1000 ML 1,000 ML IV SCH ×3 (04:07→21:10)
[2018-07-11] MEDS: CARAFATE ORAL SUSP PO SCH ×4 (05:31→21:12)
[2018-07-11] MEDS: ZOFRAN INJ 4 MG VIAL IVP PRN ×2 (05:33→13:29)
[2018-07-11 06:10] LABS: BASOPHILS % (AUTO) 0.5 % (0.2-1.0); EOSINOPHILS # (AUTO) 0.2 x10^3/uL (0.0-0.2); HEMATOCRIT 31.1 % (36.0-47.0); HEMOGLOBIN 9.9 g/dL (12.0-16.0); LYMPHOCYTES # (AUTO) 2.4 X10^3/uL (1.3-2.9); LYMPHOCYTES % (AUTO) 29.7 % (21.0-51.0); MEAN CORPUSCULAR HEMOGLOBIN 26.6 pg (27.0-34.0); MEAN CORPUSCULAR HGB CONC 31.9 g/dL (33.0-35.0); MEAN CORPUSCULAR VOLUME 83.2 fL (80.0-100.0); MEAN PLATELET VOLUME 9.8 fL (7.4-11.0); MONOCYTES # (AUTO) 0.6 x10^3/uL (0.3-0.8); MONOCYTES % (AUTO) 7.7 % (0.0-13.0); NEUTROPHILS # (AUTO) 4.9 x10^3/uL (2.2-4.8); NEUTROPHILS % (AUTO) 60.1 % (42.0-75.0); PLATELET COUNT 239 X10^3/uL (150.0-450.0); RED BLOOD COUNT 3.74 X10^6/uL (3.5-5.4); RED CELL DISTRIBUTION WIDTH 16.1 % (11.6-16.5); WHITE BLOOD COUNT 8.1 X10^3/uL (3.6-10.0)
[2018-07-11 06:16] LABS: ALANINE AMINOTRANSFERASE 9 Units/L (12-78); ALBUMIN 1.3 g/dL (3.4-5.0); ALKALINE PHOSPHATASE 58 Units/L (46-116); ASPARTATE AMINO TRANSFERASE 12 Units/L (15-37); BLOOD UREA NITROGEN 8 mg/dL (7-18); CALCIUM 7.7 mg/dL (8.5-10.1); CARBON DIOXIDE 24.7 mmol/L (21-32); CHLORIDE 106 mmol/L (98-107); COR CA(FOR HYPOALB) 9.9 mg/dL (8.5-10.1); CREATININE 1.73 mg/dL (0.55-1.02); SODIUM 138 mmol/L (136-145); TOTAL PROTEIN 5.3 g/dL (6.4-8.2); eGFR NON BLACK RACES 36 (>60)
[2018-07-11] MEDS: COZAAR PO SCH (09:19)
[2018-07-11] MEDS: COREG TAB 25 MG PO SCH ×2 (09:19→21:12)
--- NOTE | 2018-07-11 13:14 | RAD ---
History: Fever Study: PA and lateral chest Comparison: CT chest dated May 15 2018 Findings: The lungs are clear and the heart size is prominent. There is a right subclavian Port-A-Cath barely into the SVC. The lungs are clear. There is no pleural effusion. Graft impression: No evidence for acute cardiopulmonary disease Reported By:
--- NOTE | 2018-07-11 13:45 | PCM.PROG ---
Progress Note - Progress Note for Day of Date of Exam: 07/11/18 - Subjective Subjective: 33 BF ADMITTED ON 07/09 WITH INTRACTABLE LUQ, EPIGASTRIC PAIN, N/V AND HYPERTENSIVE URGENCY. PT BP HAD IMPROVED WITH USE OF IV HYDRALAZINE AND PO HOME MEDICATION AND IV LABETALOL. PT CONTINUES TO CO NAUSEA. SED RATE 91, ADDED FLAGYL THIS AM. BUN 8 CREAT 1.73 PT ENCOURAGED TO HYDRATION AND AMBULATE. PT HAS HAD LOW GRADE TEMP, BC ORDERED, CELIAC PANEL & ANEMIA PANEL. CONTINUE WITH AM LABS AND PAIN AND [place] CONTROL - Past Medical Family Social History Past Med/Fam/Surg Hx: No changes since H&P Allergies: Allergies Penicillins Allergy (Verified 05/31/18 17:54) lisinopril Adverse Reaction (Verified 06/07/18 14:23) morphine Adverse Reaction (Verified 05/31/18 17:54) - Review of Systems ROS: No change since H&P - Vital Signs and I&O's Vital Signs: Temperature 98 F Pulse Rate [Right Brachial] 82 Respiratory Rate 18 Blood Pressure [Left Arm] 168/104 Blood Pressure [Right Arm] 148/84 Blood Pressure 198/110 O2 Sat by Pulse Oximetry 99 Intake and Output: Intake & Output 07/09/18 07/10/18 07/11/18 07/12/18 11:59 11:59 11:59 11:59 Intake Total 579 / 579 0 / 0 Output Total 0 / 0 Balance 579 / 579 0 / 0 - Physical Exam Oriented: Normal Eyes: Normal Ear: Normal Nose: Normal Throat: Normal Respiratory: Normal Cardiovascular: Normal : Normal Auscultation: Bowel Sounds: Normal Tenderness: LUQ, Epigastric Skin: Decreased [place] Musculoskeletal: Normal Psychiatric: Normal Mood Description: Calm, Depressed Affect: Depressed Speech Pattern: Clear, Appropriate - Laboratory and Diagnostics Result Diagrams: 07/11/18 04:48 07/11/18 04:48 Labs: Laboratory WBC 8.1 X10^3/uL (3.6-10.0) 07/11/18 04:48 RBC 3.74 X10^6/uL (3.5-5.4) 07/11/18 04:48 Hgb 9.9 g/dL (12.0-16.0) L 07/11/18 04:48 Hct 31.1 % (36.0-47.0) L 07/11/18 04:48 MCV 83.2 fL (80.0-100.0) 07/11/18 04:48 MCH 26.6 pg (27.0-34.0) L 07/11/18 04:48 MCHC 31.9 g/dL (33.0-35.0) L 07/11/18 04:48 RDW 16.1 % (11.6-16.5) 07/11/18 04:48 Plt Count 239 X10^3/uL (150.0-450.0) 07/11/18 04:48 MPV 9.8 fL (7.4-11.0) 07/11/18 04:48 Neut % (Auto) 60.1 % (42.0-75.0) 07/11/18 04:48 Lymph % (Auto) 29.7 % (21.0-51.0) 07/11/18 04:48 [place] % (Auto) 7.7 % (0.0-13.0) 07/11/18 04:48 Eos % (Auto) 2.0 % (0.9-2.9) 07/11/18 04:48 Baso % (Auto) 0.5 % (0.2-1.0) 07/11/18 04:48 Neut # (Auto) 4.9 x10^3/uL (2.2-4.8) H 07/11/18 04:48 Lymph # (Auto) 2.4 X10^3/uL (1.3-2.9) 07/11/18 04:48 [place] # (Auto) 0.6 x10^3/uL (0.3-0.8) 07/11/18 04:48 Eos # (Auto) 0.2 x10^3/uL (0.0-0.2) 07/11/18 04:48 Baso # (Auto) 0.0 X10^3/uL (0.0-0.1) 07/11/18 04:48 Absolute Nucleated RBC 0.1 /100WBC 07/11/18 04:48 ESR 91 MM/HOUR (0-20) H 07/10/18 17:52 Sodium 138 mmol/L (136-145) 07/11/18 04:48 Corrected Sodium TNP 07/11/18 04:48 Potassium 3.7 mmol/L (3.5-5.1) 07/11/18 04:48 Chloride 106 mmol/L (98-107) 07/11/18 04:48 Carbon Dioxide 24.7 mmol/L (21-32) 07/11/18 04:48 BUN 8 mg/dL (7-18) 07/11/18 04:48 Creatinine 1.73 mg/dL (0.55-1.02) H 07/11/18 04:48 Est GFR (MDRD) Af Amer 43 (>60) L 07/11/18 04:48 Est GFR (MDRD) Non-Af 36 (>60) L 07/11/18 04:48 Glucose 79 mg/dL (65-99) 07/11/18 04:48 POC Glucose (mg/dL) 101 mg/dL (65-99) H 07/11/18 11:31 Calcium 7.7 mg/dL (8.5-10.1) L 07/11/18 04:48 Corrected Calcium 9.9 mg/dL (8.5-10.1) 07/11/18 04:48 Total Bilirubin 0.20 mg/dL (0.2-1.0) 07/11/18 04:48 AST 12 Units/L (15-37) L 07/11/18 04:48 ALT 9 Units/L (12-78) L 07/11/18 04:48 Alkaline Phosphatase 58 Units/L (46-116) 07/11/18 04:48 C-Reactive Protein 2.00 mg/L (0-3.0) 07/10/18 17:52 Total Protein 5.3 g/dL (6.4-8.2) L 07/11/18 04:48 Albumin 1.3 g/dL (3.4-5.0) L 07/11/18 04:48 Globulin 4.0 g/dL (2.5-4.5) 07/11/18 04:48 Albumin/Globulin Ratio 0.3 Ratio (1.1-2.1) L 07/11/18 04:48 Amylase 46 Units/L (25-115) 07/09/18 10:09 Lipase 75 Units/L (73-393) 07/09/18 10:09 Specimen Type Clean catch urine 07/09/18 20:20 Urine Color Yellow (YELLOW) 07/09/18 20:20 Urine Appearance Clear (CLEAR) 07/09/18 20:20 Urine pH 7.0 (5.0 - 8.0) 07/09/18 20:20 Ur Specific [place] 1.010 (1.000-1.030) 07/09/18 20:20 Urine Protein 4+ (NEGATIVE) 07/09/18 20:20 Urine Glucose (UA) 1+ (NEGATIVE) 07/09/18 20:20 Urine Ketones Negative (NEGATIVE) 07/09/18 20:20 Urine Occult Blood 2+ (NEGATIVE) 07/09/18 20:20 Urine Nitrite Negative (NEGATIVE) 07/09/18 20:20 Urine Bilirubin Negative (NEGATIVE) 07/09/18 20:20 Urine Urobilinogen Normal (NORMAL) 07/09/18 20:20 Ur Leukocyte Esterase Negative (NEGATIVE) 07/09/18 20:20 Urine RBC 0-2 /HPF (NONE SEEN) 07/09/18 20:20 Urine WBC 0-2 /HPF (NONE SEEN) 07/09/18 20:20 Ur Squamous Epith Cells Few /HPF (NEGATIVE) 07/09/18 20:20 Urine Bacteria Negative /HPF (NEGATIVE) 07/09/18 20:20 Ur Culture Indicated? No/not indicated 07/09/18 20:20 Stool Description 4g,brown,unformed 07/10/18 20:30 Stl Occult Blood (IFOB) Negative (NEGATIVE) 07/10/18 20:30 Cryptosporid parvum Ag Negative (NEGATIVE) 07/10/18 20:30 Giardia lamblia Ag Negative (NEGATIVE) 07/10/18 20:30 - Plan (1) Hypertensive urgency Status: Acute Plan: monitor bp, antihypertensives as indicated. RESTARTED HOME MEDICATION, UTILIZE PRN IV ANTIHYPERTENSIVES. CONTINUE BLOOD SUGAR MONITORING. GENTLE IV HYDRATION, PAIN AND NAUSEA CONTROL (2) Abdominal pain Status: Acute Qualifiers: Abdominal location: generalized Qualified Code(s): R10.84 - Generalized abdominal pain Plan: STOOL STUDIES. CARAFATE AND REGLAN, CONTINUE WITH NPO AND PPI THERAPY. IV FLAGYL, CELIAC PANEL, ANEMIA PANEL (3) Nausea & vomiting Status: Acute Qualifiers: Vomiting type: unspecified Vomiting Intractability: non-intractable Qualified Code(s): R11.2 - Nausea with vomiting, unspecified (4) Hypoglycemia Status: Acute Plan: monitor bs (5) Diabetes mellitus Status: Chronic Qualifiers: Diabetes mellitus type: type 2 (6) Chronic kidney disease, stage 3 Status: Chronic
[2018-07-11] MEDS: FLAGYL IV PREMIX 500 MG BAG 500 MG/100 ML BAG IV SCH ×3 (15:06→21:10)
[2018-07-11] MEDS ORDERED: TYLENOL 325 MG TAB PO PRN (16:47)
[2018-07-11] MEDS: PHENERGAN INJ 25 MG IVP PRN (21:13)
[2018-07-12] MEDS: FLAGYL IV PREMIX 500 MG BAG 500 MG/100 ML BAG IV SCH ×2 (02:40→08:05)
[2018-07-12] MEDS: ZOFRAN INJ 4 MG VIAL IVP PRN ×2 (02:46→08:06)
[2018-07-12] MEDS: DILAUDID INJ IVP PRN ×2 (02:48→08:05)
[2018-07-12] MEDS: CARAFATE ORAL SUSP PO SCH (05:57)
[2018-07-12] MEDS: REGLAN INJ 10 MG VIAL IVP SCH (05:57)
[2018-07-12 06:32] LABS: BASOPHILS % (AUTO) 0.5 % (0.2-1.0); EOSINOPHILS # (AUTO) 0.1 x10^3/uL (0.0-0.2); EOSINOPHILS % (AUTO) 2.2 % (0.9-2.9); HEMATOCRIT 30.5 % (36.0-47.0); HEMOGLOBIN 9.8 g/dL (12.0-16.0); LYMPHOCYTES # (AUTO) 1.7 X10^3/uL (1.3-2.9); LYMPHOCYTES % (AUTO) 28.1 % (21.0-51.0); MEAN CORPUSCULAR HEMOGLOBIN 26.5 pg (27.0-34.0); MEAN CORPUSCULAR VOLUME 82.8 fL (80.0-100.0); MEAN PLATELET VOLUME 9.7 fL (7.4-11.0); MONOCYTES # (AUTO) 0.6 x10^3/uL (0.3-0.8); MONOCYTES % (AUTO) 9.6 % (0.0-13.0); NEUTROPHILS # (AUTO) 3.6 x10^3/uL (2.2-4.8); NEUTROPHILS % (AUTO) 59.6 % (42.0-75.0); PLATELET COUNT 244 X10^3/uL (150.0-450.0); RED BLOOD COUNT 3.68 X10^6/uL (3.5-5.4); RED CELL DISTRIBUTION WIDTH 15.5 % (11.6-16.5); WHITE BLOOD COUNT 6.1 X10^3/uL (3.6-10.0)
[2018-07-12 07:00] LABS: ALANINE AMINOTRANSFERASE 10 Units/L (12-78); ALBUMIN 1.3 g/dL (3.4-5.0); ALKALINE PHOSPHATASE 59 Units/L (46-116); ASPARTATE AMINO TRANSFERASE 16 Units/L (15-37); BLOOD UREA NITROGEN 7 mg/dL (7-18); CALCIUM 7.7 mg/dL (8.5-10.1); CARBON DIOXIDE 22.4 mmol/L (21-32); CHLORIDE 109 mmol/L (98-107); COR CA(FOR HYPOALB) 9.9 mg/dL (8.5-10.1); SODIUM 140 mmol/L (136-145); TOTAL PROTEIN 5.3 g/dL (6.4-8.2); eGFR NON BLACK RACES 39 (>60)
[2018-07-12] MEDS: COREG TAB 25 MG PO SCH (08:05)
[2018-07-12] MEDS: COZAAR PO SCH (08:05)
[2018-07-12 08:08] VITALS: BP 162/82
[2018-07-17 06:55] LABS: ENDOMYSIAL IGA ANTIBODY <1:10
== END 2018-07-12 12:00 | disposition home or self-care (01) ==
LOC: MED/SURG
PROVIDERS: ADMIT Internal Medicine; ATTEND Internal Medicine
DX: R10.11 Right upper quadrant pain; R70.0 Elevated erythrocyte sedimentation rate; F32.89 Other specified depressive episodes; K29.60 Other gastritis without bleeding; N18.3 Chronic kidney disease, stage 3 (moderate); R94.4 Abnormal results of kidney function studies; K27.9 Peptic ulcer, site unspecified, unspecified as acute or chronic, without hemorrhage or perforation; Z87.898 Personal history of other specified conditions; R11.2 Nausea with vomiting, unspecified; I16.0 Hypertensive urgency; R10.84 Generalized abdominal pain; F41.8 Other specified anxiety disorders; K21.9 Gastro-esophageal reflux disease without esophagitis; I12.9 Hypertensive chronic kidney disease with stage 1 through stage 4 chronic kidney disease, or unspecified chronic kidney disease
CPT/HCPCS: 36415; 71020; 71046; 74022; 80053; 81001; 82150; 82270; 82607; 82728; 82746; 82784; 83516; 83540; 83690; 84466; 85025; 85652; 86140; 86256; 87328; 87329; A4222; S0028; S0030; G0378; J0360; J1170; J1642; J2060; J2405; J2550; J2765; J3490; J7030

== ENCOUNTER 2018-08-20 09:27 | Observation (INO) ==
[2018-08-20] MEDS ORDERED: PEPCID 20 MG IV PREMIX* 20 MG/50 ML BAG IV PRN (10:59)
[2018-08-20] MEDS: NS 1000 ML 1,000 ML IV SCH ×2 (11:30→20:32)
[2018-08-20] MEDS: DILAUDID INJ IVP PRN ×3 (11:31→20:28)
[2018-08-20] MEDS: ZOFRAN INJ 4 MG VIAL IVP PRN (11:36)
[2018-08-20 11:38] LABS: BASOPHILS # (AUTO) 0.1 X10^3/uL (0.0-0.1); BASOPHILS % (AUTO) 0.5 % (0.2-1.0); HEMOGLOBIN 12.8 g/dL (12.0-16.0); LYMPHOCYTES # (AUTO) 1.4 X10^3/uL (1.3-2.9); LYMPHOCYTES % (AUTO) 7.7 % (21.0-51.0); MEAN CORPUSCULAR HEMOGLOBIN 25.8 pg (27.0-34.0); MEAN CORPUSCULAR HGB CONC 31.9 g/dL (33.0-35.0); MEAN PLATELET VOLUME 10.2 fL (7.4-11.0); MONOCYTES # (AUTO) 0.9 x10^3/uL (0.3-0.8); MONOCYTES % (AUTO) 4.8 % (0.0-13.0); NEUTROPHILS # (AUTO) 15.7 x10^3/uL (2.2-4.8); PLATELET COUNT 332 X10^3/uL (150.0-450.0); RED BLOOD COUNT 4.94 X10^6/uL (3.5-5.4); RED CELL DISTRIBUTION WIDTH 15.1 % (11.6-16.5)
--- NOTE | 2018-08-20 11:39 | DR.H&P ---
H&P - History & Physical for Day of: H&P Date: 08/20/18 - Chief Complaint Chief Complaint: Elevated BP, N/V/Abd pain - History of Present Illness History of Present Illness: The patient is a 33-year-old white female who presents to the office with complaint of nausea vomiting abdominal pain. States she went to the emergency room yesterday and was given IV medication. States symptoms have not improved. Continues to have difficulty keeping anything down. Blood pressure is markedly elevated as well. Patient does have chronic history of intractable nausea and vomiting with abdominal pain. Does see castrate in [place]. Most recent gastric emptying study was negative. Patient will be admitted for further evaluation. - Past Medical History Past Medical History: Hypertension, Diabetes, Depression, Anxiety, PUD, GERD Additional Medical History: Pancreatitis, Gastroparesis - Past Surgical History Surgical History: Cholecystectomy, , Hysterectomy - Family History Family Medical History: Diabetes Mellitus, Hypertension - Social History Does patient currently use any type of tobacco product: No Have you used tobacco products in the last 12 months: No Type of Tobacco Use: None Does any household member use tobacco: No Alcohol Use: None Drug Use: None - Medications Home Medications: Penicillins Allergy (Verified 05/31/18 17:54) lisinopril Adverse Reaction (Verified 06/07/18 14:23) morphine Adverse Reaction (Verified 05/31/18 17:54) - Review of Systems Constitutional: Malaise Eyes: No Symptoms Reported ENT: No Symptoms Reported Respiratory: No Symptoms Reported Cardiovascular: No Symptoms Reported Gastrointestinal: Nausea, Vomiting, Abdominal Pain Genitourinary: No Symptoms Reported Musculoskeletal: No Symptoms Reported Skin: No Symptoms Reported Neurological: Other (headache) - Physical Exam Vital Signs: Temperature 98.5 F Pulse Rate [Right Brachial] 116 Respiratory Rate 20 Blood Pressure [Left Arm] 166/87 Blood Pressure [Right Arm] 210/120 Blood Pressure 162/82 O2 Sat by Pulse Oximetry 98 Oriented: Normal Eyes: Normal Ear: Normal Nose: Normal Throat: Normal Respiratory: Clear Throughout Cardiovascular: Normal : Normal Auscultation: Bowel Sounds: Normal Palpation: Normal Tenderness: Diffuse, Epigastric Skin: Normal Musculoskeletal: Normal Psychiatric: Normal Mood Description: Sad Affect: Quiet Speech Pattern: Clear - Assessment/Plan (1) Nausea & vomiting Qualifiers: Status: Acute Plan: ABD series, Pepcid, Labs (2) Essential hypertension Status: Acute Plan: Labetolol prn (3) Intractable abdominal pain Status: Acute Plan: Abd series, labs, Pepcid, anti-emetic - Allergies Allergies/Adverse Reactions: Allergies Allergy/AdvReac Type Severity Reaction Status Date / Time Penicillins Allergy Verified 05/31/18 17:54 lisinopril AdvReac Verified 06/07/18 14:23 morphine AdvReac Verified 05/31/18 17:54
[2018-08-20 11:45] LABS: ALBUMIN 1.8 g/dL (3.4-5.0); CALCIUM 8.5 mg/dL (8.5-10.1); CARBON DIOXIDE 23.3 mmol/L (21-32); COR CA(FOR HYPOALB) 10.3 mg/dL (8.5-10.1); CREATININE 2.38 mg/dL (0.55-1.02); TOTAL PROTEIN 7.2 g/dL (6.4-8.2)
[2018-08-20 11:47] LABS: SERUM PREGNANCY TEST, QUAL NEGATIVE <10 mIU/mL
[2018-08-20] MEDS: NORMODYNE INJ 20 MG VIAL IV PRN (11:54)
[2018-08-20 12:07] LABS: PLATELET MORPHOLOGY COMMENT NORMAL (NORMAL)
[2018-08-20 15:39] VITALS: BMI 39.2
[2018-08-20 16:16] LABS: GASTRIC OCCULT BLOOD POSITIVE (NEGATIVE); PH 2
--- NOTE | 2018-08-20 16:40 | RAD ---
HISTORY: Abdominal pain Study: Upright PA chest with supine and upright abdominal views. Comparison: 07/09/2018 Findings: The lungs are clear. The heart size is normal. There appears to be a Port-A-Cath projected over the right hemithorax. The tip appears to most likely be in the subclavian vein, unchanged. No acute bony abnormalities are identified. Examination of the abdomen demonstrates scattered large and small bowel gas. I see no evidence of bowel obstruction or pneumoperitoneum. Minimal lumbar spondylosis is noted. No abnormal calcifications seen to overlie the renal shadows or expected course of the ureters. IMPRESSION: 1. No radiographic evidence of acute cardiopulmonary disease or significant change is noted when compared to the prior examination. 2. No evidence of bowel obstruction or pneumoperitoneum. Reported By:
[2018-08-20] MEDS: PHENERGAN INJ 25 MG IVP PRN (19:19)
[2018-08-20] MEDS ORDERED: POTASSIUM CHL 60 MEQ/NS 0.45% 500 ML IV PRN (19:56)
[2018-08-20] MEDS ORDERED: POTASSIUM CHL 40 MEQ/NS 0.45% 500 ML IV PRN (19:56)
[2018-08-20] MEDS ORDERED: KLOR-CON PO PRN (19:56)
[2018-08-20] MEDS ORDERED: MICRO K EXTEN CAP 10 MEQ PO PRN (19:56)
[2018-08-20] MEDS ORDERED: K-RIDER 10 MEQ/NS 100 ML 10 MEQ/100 ML BAG IV PRN (19:56)
[2018-08-20] MEDS ORDERED: K-DUR TAB 20 MEQ PO PRN (19:56)
[2018-08-20] MEDS ORDERED: POTASSIUM CHLORIDE LIQ 20 MEQ UDC PO PRN (19:56)
[2018-08-20] MEDS: PROTONIX INJ 40 MG VIAL IVP SCH (20:31)
[2018-08-21] MEDS: DILAUDID INJ IVP PRN ×5 (00:21→22:10)
[2018-08-21] MEDS: PHENERGAN INJ 25 MG IVP PRN ×2 (00:58→08:41)
[2018-08-21 05:24] LABS: BASOPHILS # (AUTO) 0.1 X10^3/uL (0.0-0.1); BASOPHILS % (AUTO) 0.5 % (0.2-1.0); EOSINOPHILS % (AUTO) 0.2 % (0.9-2.9); HEMATOCRIT 34.4 % (36.0-47.0); LYMPHOCYTES # (AUTO) 2.6 X10^3/uL (1.3-2.9); MEAN CORPUSCULAR HEMOGLOBIN 25.7 pg (27.0-34.0); MEAN CORPUSCULAR HGB CONC 31.2 g/dL (33.0-35.0); MEAN CORPUSCULAR VOLUME 82.3 fL (80.0-100.0); MEAN PLATELET VOLUME 10.4 fL (7.4-11.0); MONOCYTES # (AUTO) 0.9 x10^3/uL (0.3-0.8); MONOCYTES % (AUTO) 7.1 % (0.0-13.0); NEUTROPHILS # (AUTO) 8.8 x10^3/uL (2.2-4.8); NEUTROPHILS % (AUTO) 71.2 % (42.0-75.0); PLATELET COUNT 289 X10^3/uL (150.0-450.0); RED BLOOD COUNT 4.18 X10^6/uL (3.5-5.4); RED CELL DISTRIBUTION WIDTH 15.3 % (11.6-16.5); WHITE BLOOD COUNT 12.3 X10^3/uL (3.6-10.0)
[2018-08-21 05:41] LABS: ALANINE AMINOTRANSFERASE 11 Units/L (12-78); ALBUMIN 1.5 g/dL (3.4-5.0); ALKALINE PHOSPHATASE 71 Units/L (46-116); ASPARTATE AMINO TRANSFERASE 17 Units/L (15-37); BLOOD UREA NITROGEN 16 mg/dL (7-18); CALCIUM 8.1 mg/dL (8.5-10.1); CARBON DIOXIDE 25.2 mmol/L (21-32); CHLORIDE 113 mmol/L (98-107); COR CA(FOR HYPOALB) 10.1 mg/dL (8.5-10.1); CREATININE 2.35 mg/dL (0.55-1.02); SODIUM 147 mmol/L (136-145); TOTAL PROTEIN 5.7 g/dL (6.4-8.2); eGFR NON BLACK RACES 25 (>60)
[2018-08-21] MEDS: NS 1000 ML 1,000 ML IV SCH ×3 (05:54→16:16)
[2018-08-21 06:09] LABS: BILIRUBIN,URINE NEGATIVE (NEGATIVE); BLOOD/HEMOGLOBIN,URINE 3+ (NEGATIVE); GLUCOSE, URINE 3+ (NEGATIVE); KETONES,URINE NEGATIVE (NEGATIVE); LEUKOCYTE ESTERASE ,URINE NEGATIVE (NEGATIVE); NITRITES,URINE NEGATIVE (NEGATIVE); PROTEIN,URINE 4+ (NEGATIVE); UROBILINOGEN,URINE NORMAL (NORMAL)
[2018-08-21 06:09] LABS: HEMOGLOBIN 10.7 g/dL (12.0-16.0)
[2018-08-21 06:10] LABS: HYPOCHROMASIA SLIGHT; PLATELET MORPHOLOGY COMMENT NORMAL (NORMAL)
[2018-08-21 06:28] LABS: APPEARANCE,URINE SLIGHTLY HAZY (CLEAR); COLOR,URINE YELLOW (YELLOW)
[2018-08-21 06:29] LABS: AMORPHOUS SEDIMENT,UR 1+ /HPF (NEGATIVE); BACTERIA,URINE NEGATIVE /HPF (NEGATIVE); MUCUS,URINE FEW /HPF (NEGATIVE); SQUAMOUS EPITHELIAL CELL,UR MANY /HPF (NEGATIVE)
[2018-08-21] MEDS ORDERED: PEPCID 20 MG IV PREMIX* 20 MG/50 ML BAG IV PRN (08:00)
[2018-08-21] MEDS: PROTONIX INJ 40 MG VIAL IVP SCH ×2 (08:40→20:08)
[2018-08-21] MEDS: NORMODYNE INJ 20 MG VIAL IV PRN (12:07)
[2018-08-21 19:32] LABS: GASTRIC OCCULT BLOOD POSITIVE (NEGATIVE); PH,GASTRIC FLUID 4
[2018-08-21] MEDS: NS 1/2 1000 ML IV 1,000 ML IV SCH (20:00)
[2018-08-21] MEDS: ZOFRAN INJ 4 MG VIAL IVP PRN (20:08)
[2018-08-21] MEDS ORDERED: NS 1/2 1000 ML IV 1,000 ML IV ONE (20:10)
[2018-08-22] MEDS: DILAUDID INJ IVP PRN ×5 (04:00→20:30)
[2018-08-22 05:20] LABS: BASOPHILS # (AUTO) 0.1 X10^3/uL (0.0-0.1); BASOPHILS % (AUTO) 0.7 % (0.2-1.0); EOSINOPHILS # (AUTO) 0.1 x10^3/uL (0.0-0.2); EOSINOPHILS % (AUTO) 0.9 % (0.9-2.9); HEMATOCRIT 33.1 % (36.0-47.0); HEMOGLOBIN 10.4 g/dL (12.0-16.0); LYMPHOCYTES # (AUTO) 2.9 X10^3/uL (1.3-2.9); LYMPHOCYTES % (AUTO) 27.9 % (21.0-51.0); MEAN CORPUSCULAR HEMOGLOBIN 26.1 pg (27.0-34.0); MEAN CORPUSCULAR HGB CONC 31.4 g/dL (33.0-35.0); MEAN CORPUSCULAR VOLUME 83.3 fL (80.0-100.0); MEAN PLATELET VOLUME 10.2 fL (7.4-11.0); MONOCYTES # (AUTO) 0.9 x10^3/uL (0.3-0.8); MONOCYTES % (AUTO) 8.8 % (0.0-13.0); NEUTROPHILS # (AUTO) 6.5 x10^3/uL (2.2-4.8); NEUTROPHILS % (AUTO) 61.7 % (42.0-75.0); PLATELET COUNT 247 X10^3/uL (150.0-450.0); RED BLOOD COUNT 3.97 X10^6/uL (3.5-5.4); RED CELL DISTRIBUTION WIDTH 15.1 % (11.6-16.5); WHITE BLOOD COUNT 10.5 X10^3/uL (3.6-10.0)
[2018-08-22 05:37] LABS: ALANINE AMINOTRANSFERASE 11 Units/L (12-78); ALBUMIN 1.3 g/dL (3.4-5.0); ALKALINE PHOSPHATASE 61 Units/L (46-116); ASPARTATE AMINO TRANSFERASE 18 Units/L (15-37); BLOOD UREA NITROGEN 13 mg/dL (7-18); CARBON DIOXIDE 24.6 mmol/L (21-32); CHLORIDE 108 mmol/L (98-107); COR CA(FOR HYPOALB) 10.2 mg/dL (8.5-10.1); CREATININE 2.05 mg/dL (0.55-1.02); SODIUM 142 mmol/L (136-145); TOTAL PROTEIN 5.3 g/dL (6.4-8.2); eGFR NON BLACK RACES 29 (>60)
[2018-08-22] MEDS: ZOFRAN INJ 4 MG VIAL IVP PRN (05:53)
[2018-08-22] MEDS: PROTONIX INJ 40 MG VIAL IVP SCH ×2 (08:03→20:42)
[2018-08-22] MEDS: PHENERGAN INJ 25 MG IVP PRN ×3 (08:04→22:30)
[2018-08-22] MEDS: NS 1/2 1000 ML IV 1,000 ML IV SCH ×3 (10:18→21:00)
[2018-08-22] MEDS: REGLAN INJ 10 MG VIAL IVP SCH ×3 (10:56→20:42)
[2018-08-22] MEDS ORDERED: PERCOCET TAB 5/325 MG PO PRN (12:59)
--- NOTE | 2018-08-22 13:04 | PCM.PROG ---
Progress Note - Progress Note for Day of Date of Exam: 08/21/18 - Subjective Subjective: 42 BF ADMITTED ON 08/20 WITH INTRACTABLE N/V, ABDOMINAL PAIN AND UNCONTROLLED HYPERTENSION. PT CURRENTLY NPO WITH IMPROVING NAUSEA AND VOMITING, CONTINUES WITH ELEVATED BUN, CREAT ABOVE BASELINE. PT BLOOD PRESSURE STABLE. PT CONTINUE WITH LUQ TENDERNESS. - Past Medical Family Social History Past Med/Fam/Surg Hx: No changes since H&P Allergies: Allergies Penicillins Allergy (Verified 05/31/18 17:54) lisinopril Adverse Reaction (Verified 06/07/18 14:23) morphine Adverse Reaction (Verified 05/31/18 17:54) - Review of Systems ROS: No change since H&P - Vital Signs and I&O's Vital Signs: Temperature 99.1 F Pulse Rate [Left Brachial] 87 Pulse Rate [Right Brachial] 79 Respiratory Rate 20 Blood Pressure [Left Arm] 163/93 Blood Pressure [Right Arm] 176/86 Blood Pressure 162/82 O2 Sat by Pulse Oximetry 98 Intake and Output: Intake & Output 08/20/18 08/21/18 08/22/18 08/23/18 11:59 11:59 11:59 11:59 Intake Total 0 / 0 1040 / 1040 Output Total 0 / 0 Balance 0 / 0 1040 / 1040 - Physical Exam Oriented: Normal Eyes: Normal Ear: Normal Nose: Normal Throat: Normal Respiratory: Diminished Cardiovascular: Normal : Normal Auscultation: Bowel Sounds: Normal Tenderness: LUQ, Epigastric Skin: Normal Musculoskeletal: Normal Psychiatric: Normal Mood Description: Sad Affect: Quiet Speech Pattern: Clear, Appropriate - Laboratory and Diagnostics Result Diagrams: 08/22/18 04:03 08/22/18 04:03 Labs: Laboratory WBC 10.5 X10^3/uL (3.6-10.0) H 08/22/18 04:03 RBC 3.97 X10^6/uL (3.5-5.4) 08/22/18 04:03 Hgb 10.4 g/dL (12.0-16.0) L 08/22/18 04:03 Hct 33.1 % (36.0-47.0) L 08/22/18 04:03 MCV 83.3 fL (80.0-100.0) 08/22/18 04:03 MCH 26.1 pg (27.0-34.0) L 08/22/18 04:03 MCHC 31.4 g/dL (33.0-35.0) L 08/22/18 04:03 RDW 15.1 % (11.6-16.5) 08/22/18 04:03 Plt Count 247 X10^3/uL (150.0-450.0) 08/22/18 04:03 Plt Count Comment Adequate (ADEQUATE) 08/21/18 04:07 MPV 10.2 fL (7.4-11.0) 08/22/18 04:03 Neut % (Auto) 61.7 % (42.0-75.0) 08/22/18 04:03 Lymph % (Auto) 27.9 % (21.0-51.0) 08/22/18 04:03 [place] % (Auto) 8.8 % (0.0-13.0) 08/22/18 04:03 Eos % (Auto) 0.9 % (0.9-2.9) 08/22/18 04:03 Baso % (Auto) 0.7 % (0.2-1.0) 08/22/18 04:03 Neut # (Auto) 6.5 x10^3/uL (2.2-4.8) H 08/22/18 04:03 Lymph # (Auto) 2.9 X10^3/uL (1.3-2.9) 08/22/18 04:03 [place] # (Auto) 0.9 x10^3/uL (0.3-0.8) H 08/22/18 04:03 Eos # (Auto) 0.1 x10^3/uL (0.0-0.2) 08/22/18 04:03 Baso # (Auto) 0.1 X10^3/uL (0.0-0.1) 08/22/18 04:03 Absolute Nucleated RBC 0.0 /100WBC 08/22/18 04:03 Plt Morphology Comment Normal (NORMAL) 08/21/18 04:07 RBC Morphology Abnormal (NORMAL) A 08/21/18 04:07 Hypochromasia Slight A 08/21/18 04:07 Sodium 142 mmol/L (136-145) 08/22/18 04:03 Corrected Sodium TNP 08/22/18 04:03 Potassium 3.2 mmol/L (3.5-5.1) L 08/22/18 04:03 Chloride 108 mmol/L (98-107) H 08/22/18 04:03 Carbon Dioxide 24.6 mmol/L (21-32) 08/22/18 04:03 BUN 13 mg/dL (7-18) 08/22/18 04:03 Creatinine 2.05 mg/dL (0.55-1.02) H 08/22/18 04:03 Est GFR (MDRD) Af Amer 36 (>60) L 08/22/18 04:03 Est GFR (MDRD) Non-Af 29 (>60) L 08/22/18 04:03 Glucose 78 mg/dL (65-99) 08/22/18 04:03 POC Glucose (mg/dL) 72 mg/dL (65-99) 08/22/18 11:55 Calcium 8.0 mg/dL (8.5-10.1) L 08/22/18 04:03 Corrected Calcium 10.2 mg/dL (8.5-10.1) H 08/22/18 04:03 Magnesium 1.7 mg/dL (1.7-2.9) 08/22/18 04:03 Total Bilirubin 0.20 mg/dL (0.2-1.0) 08/22/18 04:03 AST 18 Units/L (15-37) 08/22/18 04:03 ALT 11 Units/L (12-78) L 08/22/18 04:03 Alkaline Phosphatase 61 Units/L (46-116) 08/22/18 04:03 Total Protein 5.3 g/dL (6.4-8.2) L 08/22/18 04:03 Albumin 1.3 g/dL (3.4-5.0) L 08/22/18 04:03 Globulin 4.0 g/dL (2.5-4.5) 08/22/18 04:03 Albumin/Globulin Ratio 0.3 Ratio (1.1-2.1) L 08/22/18 04:03 Amylase 46 Units/L (25-115) 08/20/18 11:20 Lipase 241 Units/L (73-393) 08/20/18 11:20 HCG, Qual Negative <10 mIU/mL 08/20/18 11:20 Specimen Type Clean catch urine 08/21/18 05:32 Urine Color Yellow (YELLOW) 08/21/18 05:32 Urine Appearance Slightly hazy (CLEAR) 08/21/18 05:32 Urine pH 6.0 (5.0 - 8.0) 08/21/18 05:32 Ur Specific [place] 1.015 (1.000-1.030) 08/21/18 05:32 Urine Protein 4+ (NEGATIVE) 08/21/18 05:32 Urine Glucose (UA) 3+ (NEGATIVE) 08/21/18 05:32 Urine Ketones Negative (NEGATIVE) 08/21/18 05:32 Urine Occult Blood 3+ (NEGATIVE) 08/21/18 05:32 Urine Nitrite Negative (NEGATIVE) 08/21/18 05:32 Urine Bilirubin Negative (NEGATIVE) 08/21/18 05:32 Urine Urobilinogen Normal (NORMAL) 08/21/18 05:32 Ur Leukocyte Esterase Negative (NEGATIVE) 08/21/18 05:32 Urine RBC 3-5 /HPF (NONE SEEN) 08/21/18 05:32 Urine WBC 5-10 /HPF (NONE SEEN) 08/21/18 05:32 Ur Squamous Epith Cells Many /HPF (NEGATIVE) 08/21/18 05:32 Amorphous Sediment 1+ /HPF (NEGATIVE) 08/21/18 05:32 Urine Bacteria Negative /HPF (NEGATIVE) 08/21/18 05:32 Urine Mucus Few /HPF (NEGATIVE) 08/21/18 05:32 Ur Culture Indicated? No/not indicated 08/21/18 05:32 Gastric Fluid pH 4 08/21/18 19:23 Gastric Occult Blood Positive (NEGATIVE) A 08/21/18 19:23 Stool Description 2g,formed,yellow/brn 08/21/18 18:45 Stool pH 2 08/20/18 15:30 Stl Occult Blood (IFOB) Negative (NEGATIVE) 08/21/18 18:45 - Plan (1) Abdominal pain Status: Acute Qualifiers: Abdominal location: generalized Qualified Code(s): R10.84 - Generalized ab dominal pain Plan: CONTINUE GENTLE IV HYDRATION, PAIN AND NAUSEA CONTROL. REGLAN AND PPI THERAPY, STOOL STUDY. BP CONTROL, REPEAT AM LABS, CONTINUE WITH NPO EXCEPT ICE CHIPS (2) Nausea & vomiting Status: Acute Qualifiers: Plan: ABD series, Pepcid, Labs (3) Diabetes mellitus Status: Chronic Qualifiers: Diabetes mellitus type: type 2 (4) Chronic kidney disease, stage 3 Status: Chronic (5) Hypertension Status: Chronic Qualifiers: Hypertension type: essential hypertension
--- NOTE | 2018-08-22 13:32 | PCM.PROG ---
Progress Note - Progress Note for Day of Date of Exam: 08/22/18 - Subjective Subjective: 42 BF ADMITTED ON 08/20 WITH INTRACTABLE N/V, ABDOMINAL PAIN AND UNCONTROLLED HYPERTENSION. PT CURRENTLY NPO WITH IMPROVING NAUSEA AND VOMITING, CONTINUES WITH ELEVATED BUN 13, CREAT 2.05 ABOVE BASELINE. PT BLOOD PRESSURE STABLE. PT CONTINUE WITH LUQ TENDERNESS. PLAN TO ADVANCE TO CLEAR LIQUIDS TODAY, ENCOURAGED ORAL HYDRATION, AND RESTART ORAL ANTI-HYPERTENSIVES - Past Medical Family Social History Past Med/Fam/Surg Hx: No changes since H&P Allergies: Allergies Penicillins Allergy (Verified 05/31/18 17:54) lisinopril Adverse Reaction (Verified 06/07/18 14:23) morphine Adverse Reaction (Verified 05/31/18 17:54) - Review of Systems ROS: No change since H&P - Vital Signs and I&O's Vital Signs: Temperature 99.1 F Pulse Rate [Left Brachial] 87 Pulse Rate [Right Brachial] 79 Respiratory Rate 20 Blood Pressure [Left Arm] 163/93 Blood Pressure [Right Arm] 176/86 Blood Pressure 162/82 O2 Sat by Pulse Oximetry 98 Intake and Output: Intake & Output 08/20/18 08/21/18 08/22/18 08/23/18 11:59 11:59 11:59 11:59 Intake Total 0 / 0 1040 / 1040 Output Total 0 / 0 Balance 0 / 0 1040 / 1040 - Physical Exam Oriented: Normal Eyes: Normal Ear: Normal Nose: Normal Throat: Normal Respiratory: Diminished Cardiovascular: Normal : Normal Auscultation: Bowel Sounds: Normal Tenderness: LUQ, Epigastric Skin: Normal Musculoskeletal: Normal Psychiatric: Normal Mood Description: Sad Affect: Quiet Speech Pattern: Clear, Appropriate - Laboratory and Diagnostics Result Diagrams: 08/22/18 04:03 08/22/18 04:03 Labs: Laboratory WBC 10.5 X10^3/uL (3.6-10.0) H 08/22/18 04:03 RBC 3.97 X10^6/uL (3.5-5.4) 08/22/18 04:03 Hgb 10.4 g/dL (12.0-16.0) L 08/22/18 04:03 Hct 33.1 % (36.0-47.0) L 08/22/18 04:03 MCV 83.3 fL (80.0-100.0) 08/22/18 04:03 MCH 26.1 pg (27.0-34.0) L 08/22/18 04:03 MCHC 31.4 g/dL (33.0-35.0) L 08/22/18 04:03 RDW 15.1 % (11.6-16.5) 08/22/18 04:03 Plt Count 247 X10^3/uL (150.0-450.0) 08/22/18 04:03 Plt Count Comment Adequate (ADEQUATE) 08/21/18 04:07 MPV 10.2 fL (7.4-11.0) 08/22/18 04:03 Neut % (Auto) 61.7 % (42.0-75.0) 08/22/18 04:03 Lymph % (Auto) 27.9 % (21.0-51.0) 08/22/18 04:03 [place] % (Auto) 8.8 % (0.0-13.0) 08/22/18 04:03 Eos % (Auto) 0.9 % (0.9-2.9) 08/22/18 04:03 Baso % (Auto) 0.7 % (0.2-1.0) 08/22/18 04:03 Neut # (Auto) 6.5 x10^3/uL (2.2-4.8) H 08/22/18 04:03 Lymph # (Auto) 2.9 X10^3/uL (1.3-2.9) 08/22/18 04:03 [place] # (Auto) 0.9 x10^3/uL (0.3-0.8) H 08/22/18 04:03 Eos # (Auto) 0.1 x10^3/uL (0.0-0.2) 08/22/18 04:03 Baso # (Auto) 0.1 X10^3/uL (0.0-0.1) 08/22/18 04:03 Absolute Nucleated RBC 0.0 /100WBC 08/22/18 04:03 Plt Morphology Comment Normal (NORMAL) 08/21/18 04:07 RBC Morphology Abnormal (NORMAL) A 08/21/18 04:07 Hypochromasia Slight A 08/21/18 04:07 Sodium 142 mmol/L (136-145) 08/22/18 04:03 Corrected Sodium TNP 08/22/18 04:03 Potassium 3.2 mmol/L (3.5-5.1) L 08/22/18 04:03 Chloride 108 mmol/L (98-107) H 08/22/18 04:03 Carbon Dioxide 24.6 mmol/L (21-32) 08/22/18 04:03 BUN 13 mg/dL (7-18) 08/22/18 04:03 Creatinine 2.05 mg/dL (0.55-1.02) H 08/22/18 04:03 Est GFR (MDRD) Af Amer 36 (>60) L 08/22/18 04:03 Est GFR (MDRD) Non-Af 29 (>60) L 08/22/18 04:03 Glucose 78 mg/dL (65-99) 08/22/18 04:03 POC Glucose (mg/dL) 72 mg/dL (65-99) 08/22/18 11:55 Calcium 8.0 mg/dL (8.5-10.1) L 08/22/18 04:03 Corrected Calcium 10.2 mg/dL (8.5-10.1) H 08/22/18 04:03 Magnesium 1.7 mg/dL (1.7-2.9) 08/22/18 04:03 Total Bilirubin 0.20 mg/dL (0.2-1.0) 08/22/18 04:03 AST 18 Units/L (15-37) 08/22/18 04:03 ALT 11 Units/L (12-78) L 08/22/18 04:03 Alkaline Phosphatase 61 Units/L (46-116) 08/22/18 04:03 Total Protein 5.3 g/dL (6.4-8.2) L 08/22/18 04:03 Albumin 1.3 g/dL (3.4-5.0) L 08/22/18 04:03 Globulin 4.0 g/dL (2.5-4.5) 08/22/18 04:03 Albumin/Globulin Ratio 0.3 Ratio (1.1-2.1) L 08/22/18 04:03 Amylase 46 Units/L (25-115) 08/20/18 11:20 Lipase 241 Units/L (73-393) 08/20/18 11:20 HCG, Qual Negative <10 mIU/mL 08/20/18 11:20 Specimen Type Clean catch urine 08/21/18 05:32 Urine Color Yellow (YELLOW) 08/21/18 05:32 Urine Appearance Slightly hazy (CLEAR) 08/21/18 05:32 Urine pH 6.0 (5.0 - 8.0) 08/21/18 05:32 Ur Specific [place] 1.015 (1.000-1.030) 08/21/18 05:32 Urine Protein 4+ (NEGATIVE) 08/21/18 05:32 Urine Glucose (UA) 3+ (NEGATIVE) 08/21/18 05:32 Urine Ketones Negative (NEGATIVE) 08/21/18 05:32 Urine Occult Blood 3+ (NEGATIVE) 08/21/18 05:32 Urine Nitrite Negative (NEGATIVE) 08/21/18 05:32 Urine Bilirubin Negative (NEGATIVE) 08/21/18 05:32 Urine Urobilinogen Normal (NORMAL) 08/21/18 05:32 Ur Leukocyte Esterase Negative (NEGATIVE) 08/21/18 05:32 Urine RBC 3-5 /HPF (NONE SEEN) 08/21/18 05:32 Urine WBC 5-10 /HPF (NONE SEEN) 08/21/18 05:32 Ur Squamous Epith Cells Many /HPF (NEGATIVE) 08/21/18 05:32 Amorphous Sediment 1+ /HPF (NEGATIVE) 08/21/18 05:32 Urine Bacteria Negative /HPF (NEGATIVE) 08/21/18 05:32 Urine Mucus Few /HPF (NEGATIVE) 08/21/18 05:32 Ur Culture Indicated? No/not indicated 08/21/18 05:32 Gastric Fluid pH 4 08/21/18 19:23 Gastric Occult Blood Positive (NEGATIVE) A 08/21/18 19:23 Stool Description 2g,formed,yellow/brn 08/21/18 18:45 Stool pH 2 08/20/18 15:30 Stl Occult Blood (IFOB) Negative (NEGATIVE) 08/21/18 18:45 - Plan (1) Abdominal pain Status: Acute Qualifiers: Abdominal location: generalized Qualified Code(s): R10.84 - Generalized abdominal pain Plan: CONTINUE GENTLE IV HYDRATION, PAIN AND NAUSEA CONTROL. REGLAN AND PPI THERAPY, STOOL STUDY. BP CONTROL, REPEAT AM LABS, CLEAR LIQUID DIET. RESTART ORAL ANTI HYPERTENSIVES (2) Nausea & vomiting Status: Acute Qualifiers: Plan: ABD series, Pepcid, Labs (3) Diabetes mellitus Status: Chronic Qualifiers: Diabetes mellitus type: type 2 (4) Chronic kidney disease, stage 3 Status: Chronic (5) Hypertension Status: Chronic Qualifiers: Hypertension type: essential hypertension
[2018-08-22] MEDS: COREG TAB 25 MG PO SCH ×2 (14:02→20:42)
[2018-08-22] MEDS: COZAAR PO SCH (14:02)
[2018-08-22] MEDS: SNACK - Diabetic Appropriate PO SCH (20:00)
[2018-08-22] MEDS: MAGNESIUM SULFATE 1 GRAM/100 mL PREMIX 1 GM/100 ML BAG IV PRN ×2 (21:00→22:30)
[2018-08-23] MEDS: DILAUDID INJ IVP PRN ×5 (02:30→23:25)
[2018-08-23] MEDS: REGLAN INJ 10 MG VIAL IVP SCH ×4 (03:55→21:01)
[2018-08-23 05:15] LABS: ALANINE AMINOTRANSFERASE 12 Units/L (12-78); ALBUMIN 1.2 g/dL (3.4-5.0); ALKALINE PHOSPHATASE 59 Units/L (46-116); ASPARTATE AMINO TRANSFERASE 23 Units/L (15-37); BLOOD UREA NITROGEN 10 mg/dL (7-18); CALCIUM 7.8 mg/dL (8.5-10.1); CARBON DIOXIDE 25.2 mmol/L (21-32); CHLORIDE 108 mmol/L (98-107); MAGNESIUM 1.9 mg/dL (1.7-2.9); SODIUM 144 mmol/L (136-145); TOTAL PROTEIN 4.9 g/dL (6.4-8.2); eGFR NON BLACK RACES 30 (>60)
[2018-08-23 05:16] LABS: BASOPHILS # (AUTO) 0.1 X10^3/uL (0.0-0.1); BASOPHILS % (AUTO) 0.8 % (0.2-1.0); EOSINOPHILS # (AUTO) 0.1 x10^3/uL (0.0-0.2); EOSINOPHILS % (AUTO) 1.9 % (0.9-2.9); HEMATOCRIT 32.6 % (36.0-47.0); HEMOGLOBIN 10.4 g/dL (12.0-16.0); LYMPHOCYTES # (AUTO) 2.1 X10^3/uL (1.3-2.9); LYMPHOCYTES % (AUTO) 27.4 % (21.0-51.0); MEAN CORPUSCULAR HEMOGLOBIN 26.5 pg (27.0-34.0); MEAN CORPUSCULAR HGB CONC 31.9 g/dL (33.0-35.0); MEAN CORPUSCULAR VOLUME 83.2 fL (80.0-100.0); MEAN PLATELET VOLUME 10.2 fL (7.4-11.0); MONOCYTES # (AUTO) 0.7 x10^3/uL (0.3-0.8); MONOCYTES % (AUTO) 9.6 % (0.0-13.0); NEUTROPHILS # (AUTO) 4.6 x10^3/uL (2.2-4.8); NEUTROPHILS % (AUTO) 60.3 % (42.0-75.0); PLATELET COUNT 192 X10^3/uL (150.0-450.0); RED BLOOD COUNT 3.92 X10^6/uL (3.5-5.4); RED CELL DISTRIBUTION WIDTH 14.8 % (11.6-16.5); WHITE BLOOD COUNT 7.6 X10^3/uL (3.6-10.0)
[2018-08-23] MEDS: PHENERGAN INJ 25 MG IVP PRN ×3 (05:45→19:20)
[2018-08-23] MEDS ORDERED: NS 1/2 1000 ML IV 1,000 ML IV ONE ×2 (05:58→23:55)
[2018-08-23] MEDS: COZAAR PO SCH (08:41)
[2018-08-23] MEDS: PROTONIX INJ 40 MG VIAL IVP SCH ×2 (08:41→21:01)
[2018-08-23] MEDS: COREG TAB 25 MG PO SCH ×2 (08:41→21:01)
[2018-08-23] MEDS: NS 1/2 1000 ML IV 1,000 ML IV SCH ×2 (10:25→23:59)
[2018-08-23 14:19] LABS: ALBUMIN 1.3 g/dL (3.4-5.0); CALCIUM 8.1 mg/dL (8.5-10.1); CARBON DIOXIDE 24.7 mmol/L (21-32); COR CA(FOR HYPOALB) 10.3 mg/dL (8.5-10.1); CREATININE 2.07 mg/dL (0.55-1.02); TOTAL PROTEIN 5.1 g/dL (6.4-8.2)
[2018-08-23] MEDS ORDERED: NORMODYNE INJ 100 MG VIAL ONE (16:36)
[2018-08-23] MEDS ORDERED: APRESOLINE INJ 20 MG VIAL IVP PRN (17:12)
[2018-08-23] MEDS: SNACK - Diabetic Appropriate PO SCH (21:03)
[2018-08-24] MEDS: PHENERGAN INJ 25 MG IVP PRN ×2 (01:50→09:03)
[2018-08-24] MEDS: REGLAN INJ 10 MG VIAL IVP SCH ×2 (02:27→09:04)
[2018-08-24] MEDS: DILAUDID INJ IVP PRN ×2 (05:15→09:04)
[2018-08-24 06:26] LABS: BASOPHILS % (AUTO) 0.4 % (0.2-1.0); EOSINOPHILS # (AUTO) 0.2 x10^3/uL (0.0-0.2); EOSINOPHILS % (AUTO) 2.2 % (0.9-2.9); HEMATOCRIT 33.6 % (36.0-47.0); HEMOGLOBIN 10.8 g/dL (12.0-16.0); LYMPHOCYTES % (AUTO) 27.5 % (21.0-51.0); MEAN CORPUSCULAR HEMOGLOBIN 26.4 pg (27.0-34.0); MEAN CORPUSCULAR HGB CONC 32.2 g/dL (33.0-35.0); MEAN CORPUSCULAR VOLUME 82.1 fL (80.0-100.0); MEAN PLATELET VOLUME 10.3 fL (7.4-11.0); MONOCYTES # (AUTO) 0.7 x10^3/uL (0.3-0.8); MONOCYTES % (AUTO) 9.8 % (0.0-13.0); NEUTROPHILS # (AUTO) 4.4 x10^3/uL (2.2-4.8); NEUTROPHILS % (AUTO) 60.1 % (42.0-75.0); PLATELET COUNT 229 X10^3/uL (150.0-450.0); RED BLOOD COUNT 4.09 X10^6/uL (3.5-5.4); RED CELL DISTRIBUTION WIDTH 14.9 % (11.6-16.5); WHITE BLOOD COUNT 7.3 X10^3/uL (3.6-10.0)
[2018-08-24 06:40] LABS: ALANINE AMINOTRANSFERASE 11 Units/L (12-78); ALBUMIN 1.2 g/dL (3.4-5.0); ALKALINE PHOSPHATASE 61 Units/L (46-116); ASPARTATE AMINO TRANSFERASE 17 Units/L (15-37); BLOOD UREA NITROGEN 6 mg/dL (7-18); CALCIUM 8.1 mg/dL (8.5-10.1); CARBON DIOXIDE 24.6 mmol/L (21-32); CHLORIDE 113 mmol/L (98-107); COR CA(FOR HYPOALB) 10.3 mg/dL (8.5-10.1); CREATININE 1.95 mg/dL (0.55-1.02); SODIUM 146 mmol/L (136-145); TOTAL PROTEIN 5.1 g/dL (6.4-8.2); eGFR NON BLACK RACES 31 (>60)
[2018-08-24 08:31] VITALS: BP 140/84
[2018-08-24] MEDS: PROTONIX INJ 40 MG VIAL IVP SCH (09:04)
[2018-08-24] MEDS: COREG TAB 25 MG PO SCH (09:05)
[2018-08-24] MEDS: COZAAR PO SCH (09:05)
== END 2018-08-24 11:30 | disposition home or self-care (01) ==
LOC: MED/SURG
PROVIDERS: ADMIT Internal Medicine; ATTEND Internal Medicine
DX: R10.84 Generalized abdominal pain; R11.2 Nausea with vomiting, unspecified; F41.8 Other specified anxiety disorders; N18.3 Chronic kidney disease, stage 3 (moderate); R94.4 Abnormal results of kidney function studies; F32.89 Other specified depressive episodes; K21.9 Gastro-esophageal reflux disease without esophagitis; R88.8 Abnormal findings in other body fluids and substances; Z79.899 Other long term (current) drug therapy; I12.9 Hypertensive chronic kidney disease with stage 1 through stage 4 chronic kidney disease, or unspecified chronic kidney disease; E11.65 Type 2 diabetes mellitus with hyperglycemia
CPT/HCPCS: 36415; 74022; 80053; 81001; 82150; 82270; 82271; 83690; 83735; 84703; 85025; 96367; 96374; A4216; A4222; C9113; G0378; J1170; J1642; J2405; J2550; J2765; J3475; J3490; J7030

== ENCOUNTER 2018-09-16 11:48 | Observation (INO) ==
--- NOTE | 2018-09-16 12:35 | DR.H&P ---
H&P - History & Physical for Day of: H&P Date: 09/16/18 - Chief Complaint Chief Complaint: Abdominal Pain - History of Present Illness History of Present Illness: The patient is a 33 year old black female who presented to the office for complaints of nausea, vomiting, and abdominal pain since 09/12/17. States that abdominal pain has got progressively worse despite symptom management at home. Does have a long standing history of recurrent deonte betic gastroparesis. BP noted to be elevated today in office. Patient will be admitted to [facility] for further evaluation and management. - Past Medical History Past Medical History: Hypertension, Diabetes, Depression, Anxiety, PUD, GERD Additional Medical History: Pancreatitis, Gastroparesis - Past Surgical History Surgical History: , Cholecystectomy, Hysterectomy - Family History Family Medical History: Diabetes Mellitus, Hypertension - Social History Does patient currently use any type of tobacco product: No - Medications Home Medications: Penicillins Allergy (Verified 05/31/18 17:54) lisinopril Adverse Reaction (Verified 06/07/18 14:23) morphine Adverse Reaction (Verified 05/31/18 17:54) - Review of Systems Constitutional: See HPI Eyes: See HPI ENT: See HPI Respiratory: See HPI Cardiovascular: See HPI Gastrointestinal: See HPI Genitourinary: See HPI Musculoskeletal: See HPI Skin: See HPI Neurological: See HPI - Physical Exam Vital Signs: Blood Pressure [Left Arm] 128/73 Blood Pressure [Right Arm] 140/84 Blood Pressure 140/84 Oriented: Normal Eyes: Normal Ear: Normal Nose: Normal Throat: Normal Respiratory: Clear Throughout Cardiovascular: Normal Auscultation: Bowel Sounds: Normal Palpation: Normal Tenderness: Diffuse Skin: Normal Musculoskeletal: Normal Psychiatric: Anxiety Mood Description: Anxious Affect: Anxious Speech Pattern: Clear, Appropriate - Assessment/Plan (1) Abdominal pain Qualifiers: Status: Acute Plan: See chart for orders (2) Nausea & vomiting Qualifiers: Status: Acute Plan: See chart for orders (3) Diabetes mellitus Status: Chronic Plan: See chart for orders (4) Essential hypertension Status: Chronic Plan: See chart for orders - Allergies Allergies/Adverse Reactions: Allergies Allergy/AdvReac Type Severity Reaction Status Date / Time Penicillins Allergy Verified 05/31/18 17:54 lisinopril AdvReac Verified 06/07/18 14:23 morphine AdvReac Verified 05/31/18 17:54
[2018-09-16] MEDS ORDERED: ATIVAN INJ 2 MG VIAL IVP PRN (12:36)
[2018-09-16] MEDS ORDERED: HumuLIN R SUBCUT PRN (13:55)
[2018-09-16 14:15] LABS: BASOPHILS # (AUTO) 0.1 X10^3/uL (0.0-0.1); BASOPHILS % (AUTO) 0.7 % (0.2-1.0); EOSINOPHILS % (AUTO) 0.2 % (0.9-2.9); HEMATOCRIT 38.5 % (36.0-47.0); HEMOGLOBIN 12.4 g/dL (12.0-16.0); LYMPHOCYTES # (AUTO) 2.3 X10^3/uL (1.3-2.9); LYMPHOCYTES % (AUTO) 17.3 % (21.0-51.0); MEAN CORPUSCULAR HEMOGLOBIN 26.1 pg (27.0-34.0); MEAN CORPUSCULAR HGB CONC 32.2 g/dL (33.0-35.0); MEAN CORPUSCULAR VOLUME 81.3 fL (80.0-100.0); MEAN PLATELET VOLUME 9.6 fL (7.4-11.0); MONOCYTES # (AUTO) 0.6 x10^3/uL (0.3-0.8); MONOCYTES % (AUTO) 4.8 % (0.0-13.0); NEUTROPHILS # (AUTO) 10.1 x10^3/uL (2.2-4.8); PLATELET COUNT 400 X10^3/uL (150.0-450.0); RED BLOOD COUNT 4.74 X10^6/uL (3.5-5.4); RED CELL DISTRIBUTION WIDTH 15.1 % (11.6-16.5); WHITE BLOOD COUNT 13.2 X10^3/uL (3.6-10.0)
[2018-09-16 14:27] LABS: ALBUMIN 1.5 g/dL (3.4-5.0); CALCIUM 8.8 mg/dL (8.5-10.1); COR CA(FOR HYPOALB) 10.8 mg/dL (8.5-10.1); CREATININE 2.24 mg/dL (0.55-1.02); TOTAL PROTEIN 6.8 g/dL (6.4-8.2)
[2018-09-16] MEDS: DILAUDID INJ IVP PRN ×3 (14:50→23:33)
[2018-09-16] MEDS: ZOFRAN INJ 4 MG VIAL IVP PRN ×2 (15:18→23:34)
[2018-09-16] MEDS: LOPRESSOR INJ 5 MG AMP IVP PRN ×2 (18:28→20:46)
[2018-09-17] MEDS: PHENERGAN INJ 25 MG IV PRN ×4 (00:45→21:54)
[2018-09-17] MEDS: DILAUDID INJ IVP PRN ×5 (03:45→22:55)
[2018-09-17] MEDS: LOPRESSOR INJ 5 MG AMP IVP PRN (03:46)
[2018-09-17 06:05] LABS: BASOPHILS # (AUTO) 0.1 X10^3/uL (0.0-0.1); EOSINOPHILS # (AUTO) 0.2 x10^3/uL (0.0-0.2); EOSINOPHILS % (AUTO) 2.3 % (0.9-2.9); HEMATOCRIT 36.2 % (36.0-47.0); HEMOGLOBIN 11.6 g/dL (12.0-16.0); LYMPHOCYTES # (AUTO) 3.1 X10^3/uL (1.3-2.9); MEAN CORPUSCULAR HEMOGLOBIN 26.2 pg (27.0-34.0); MEAN CORPUSCULAR HGB CONC 31.9 g/dL (33.0-35.0); MEAN PLATELET VOLUME 9.9 fL (7.4-11.0); MONOCYTES # (AUTO) 0.8 x10^3/uL (0.3-0.8); MONOCYTES % (AUTO) 7.5 % (0.0-13.0); NEUTROPHILS # (AUTO) 6.1 x10^3/uL (2.2-4.8); NEUTROPHILS % (AUTO) 59.2 % (42.0-75.0); PLATELET COUNT 334 X10^3/uL (150.0-450.0); RED BLOOD COUNT 4.42 X10^6/uL (3.5-5.4); RED CELL DISTRIBUTION WIDTH 15.7 % (11.6-16.5); WHITE BLOOD COUNT 10.3 X10^3/uL (3.6-10.0)
[2018-09-17 06:10] LABS: ALANINE AMINOTRANSFERASE 12 Units/L (12-78); ALBUMIN 1.3 g/dL (3.4-5.0); ALKALINE PHOSPHATASE 85 Units/L (46-116); ASPARTATE AMINO TRANSFERASE 21 Units/L (15-37); BLOOD UREA NITROGEN 11 mg/dL (7-18); CALCIUM 8.3 mg/dL (8.5-10.1); CARBON DIOXIDE 29.1 mmol/L (21-32); CHLORIDE 107 mmol/L (98-107); COR CA(FOR HYPOALB) 10.5 mg/dL (8.5-10.1); CREATININE 2.06 mg/dL (0.55-1.02); SODIUM 142 mmol/L (136-145); TOTAL PROTEIN 5.9 g/dL (6.4-8.2); eGFR NON BLACK RACES 29 (>60)
[2018-09-17] MEDS ORDERED: K-RIDER 10 MEQ/NS 100 ML 10 MEQ/100 ML BAG IV PRN (06:23)
[2018-09-17] MEDS ORDERED: K-DUR TAB 20 MEQ PO PRN (06:23)
[2018-09-17] MEDS ORDERED: POTASSIUM CHLORIDE LIQ 20 MEQ UDC PO PRN (06:23)
[2018-09-17] MEDS ORDERED: KLOR-CON PO PRN (06:23)
[2018-09-17] MEDS ORDERED: MICRO K EXTEN CAP 10 MEQ PO PRN (06:23)
[2018-09-17] MEDS ORDERED: POTASSIUM CHL 60 MEQ/NS 0.45% 500 ML IV PRN (06:23)
[2018-09-17] MEDS ORDERED: POTASSIUM CHL 40 MEQ/NS 0.45% 500 ML IV PRN (06:23)
[2018-09-17] MEDS ORDERED: MAGNESIUM SULFATE 1 GRAM/100 mL PREMIX 1 GM/100 ML BAG IV PRN (06:23)
[2018-09-17] MEDS: ZOFRAN INJ 4 MG VIAL IVP PRN (08:01)
[2018-09-17] MEDS: APRESOLINE INJ 20 MG VIAL IVP SCH ×3 (09:29→21:54)
[2018-09-17] MEDS ORDERED: NS 1/2 1000 ML IV 1,000 ML IV SCH (10:00)
[2018-09-17] MEDS ORDERED: FLUVIRIN IM ONE (10:05)
[2018-09-17 10:07] VITALS: BMI 39.6
--- NOTE | 2018-09-17 11:45 | RAD ---
History: Shortness of breath and left upper quadrant pain Study: AP chest Comparison: July 11, 2018 Findings: The lungs are clear and the heart size is normal. There is an unchanged right-sided Port-A-Cath with the tip in the right subclavian vein. There is no edema or effusion. Impression: No evidence for acute cardiopulmonary disease Reported By:
[2018-09-17] MEDS ORDERED: NS 1/2 1000 ML IV 1,000 ML IV ONE (11:57)
[2018-09-17] MEDS ORDERED: BENADRYL INJ 50 MG VIAL IVP ONE (14:00)
[2018-09-17] MEDS ORDERED: BENADRYL INJ 50 MG VIAL ONE (14:03)
[2018-09-17] MEDS ORDERED: D5 1/2 NS + KCL 20 MEQ/L 1,000 ML IV ONE (19:45)
[2018-09-17] MEDS: D5 1/2 NS + KCL 20 MEQ/L 1,000 ML IV SCH (19:56)
[2018-09-17] MEDS ORDERED: D5 1/2 NS 1000 ML 1,000 ML with POTASSIUM CHLORIDE INJ 10 MEQ VIAL 10 MEQ IV SCH ×2 (20:00)
[2018-09-18] MEDS: PHENERGAN INJ 25 MG IV PRN ×5 (02:55→22:03)
[2018-09-18] MEDS: DILAUDID INJ IVP PRN ×5 (02:55→22:03)
[2018-09-18 06:09] LABS: BASOPHILS % (AUTO) 0.6 % (0.2-1.0); EOSINOPHILS # (AUTO) 0.1 x10^3/uL (0.0-0.2); EOSINOPHILS % (AUTO) 1.4 % (0.9-2.9); HEMATOCRIT 34.6 % (36.0-47.0); LYMPHOCYTES # (AUTO) 1.6 X10^3/uL (1.3-2.9); LYMPHOCYTES % (AUTO) 21.2 % (21.0-51.0); MEAN CORPUSCULAR HEMOGLOBIN 25.9 pg (27.0-34.0); MEAN CORPUSCULAR HGB CONC 31.7 g/dL (33.0-35.0); MEAN CORPUSCULAR VOLUME 81.9 fL (80.0-100.0); MEAN PLATELET VOLUME 10.4 fL (7.4-11.0); MONOCYTES # (AUTO) 0.8 x10^3/uL (0.3-0.8); MONOCYTES % (AUTO) 9.8 % (0.0-13.0); NEUTROPHILS # (AUTO) 5.1 x10^3/uL (2.2-4.8); PLATELET COUNT 309 X10^3/uL (150.0-450.0); RED BLOOD COUNT 4.22 X10^6/uL (3.5-5.4); RED CELL DISTRIBUTION WIDTH 15.6 % (11.6-16.5); WHITE BLOOD COUNT 7.7 X10^3/uL (3.6-10.0)
[2018-09-18 06:30] LABS: HYPOCHROMASIA SLIGHT; PLATELET MORPHOLOGY COMMENT NORMAL (NORMAL)
[2018-09-18 06:36] LABS: ALANINE AMINOTRANSFERASE 9 Units/L (12-78); ALBUMIN 1.1 g/dL (3.4-5.0); ALKALINE PHOSPHATASE 78 Units/L (46-116); ASPARTATE AMINO TRANSFERASE 20 Units/L (15-37); BLOOD UREA NITROGEN 10 mg/dL (7-18); CARBON DIOXIDE 25.6 mmol/L (21-32); CHLORIDE 105 mmol/L (98-107); COR CA(FOR HYPOALB) 10.3 mg/dL (8.5-10.1); CREATININE 2.09 mg/dL (0.55-1.02); SODIUM 140 mmol/L (136-145); TOTAL PROTEIN 5.5 g/dL (6.4-8.2); eGFR NON BLACK RACES 29 (>60)
[2018-09-18] MEDS ORDERED: PERCOCET TAB 5/325 MG PO PRN (08:23)
[2018-09-18] MEDS: LASIX PO SCH (09:52)
[2018-09-18] MEDS: COZAAR PO SCH (09:52)
[2018-09-18] MEDS: CELEXA PO SCH (09:53)
[2018-09-18] MEDS: COREG TAB 25 MG PO SCH ×2 (09:53→20:41)
[2018-09-18] MEDS: REGLAN INJ 10 MG VIAL IVP SCH ×2 (09:55→17:58)
--- NOTE | 2018-09-18 18:57 | PCM.PROG ---
Progress Note - Progress Note for Day of Date of Exam: 09/17/18 - Subjective Subjective: 33 BF ADMITTED ON 09/16 WITH HYPERTENSIVE URGENCY, N/V, DIFFUSE EDEMA AND CO INCREAED SOB. PT HTN SLIGHTLY IMPROVED, WILL ADD IV HYDRALAZINE SCHEDULED X 3 DOSES, ECHO AND CXR. ENCOURAGE ORAL INTAKE OF H20, WILL RESTART PO BP MEDICATION. - Past Medical Family Social History Past Med/Fam/Surg Hx: No changes since H&P Allergies: Allergies Penicillins Allergy (Verified 05/31/18 17:54) lisinopril Adverse Reaction (Verified 06/07/18 14:23) morphine Adverse Reaction (Verified 05/31/18 17:54) - Review of Systems ROS: No change since H&P - Vital Signs and I&O's Vital Signs: Temperature 98.5 F Pulse Rate [Right Brachial] 83 Respiratory Rate 18 Blood Pressure [Left Arm] 143/88 Blood Pressure [Right Arm] 183/102 Blood Pressure 178/114 O2 Sat by Pulse Oximetry 98 Intake and Output: Intake & Output 09/16/18 09/17/18 09/18/18 09/19/18 11:59 11:59 11:59 11:59 Intake Total 100 / 100 390 / 390 380 / 380 Balance 100 / 100 390 / 390 380 / 380 - Physical Exam Oriented: Normal Eyes: Normal Ear: Normal Nose: Normal Throat: Normal Respiratory: Diminished Cardiovascular: Normal : Normal Auscultation: Bowel Sounds: Normal Tenderness: Diffuse Skin: Normal Musculoskeletal: Normal Psychiatric: Anxiety Mood Description: Anxious Affect: Anxious Speech Pattern: Clear, Appropriate - Laboratory and Diagnostics Result Diagrams: 09/18/18 04:00 09/18/18 04:00 Labs: Laboratory WBC 7.7 X10^3/uL (3.6-10.0) 09/18/18 04:00 RBC 4.22 X10^6/uL (3.5-5.4) 09/18/18 04:00 Hgb 11.0 g/dL (12.0-16.0) L 09/18/18 04:00 Hct 34.6 % (36.0-47.0) L 09/18/18 04:00 MCV 81.9 fL (80.0-100.0) 09/18/18 04:00 MCH 25.9 pg (27.0-34.0) L 09/18/18 04:00 MCHC 31.7 g/dL (33.0-35.0) L 09/18/18 04:00 RDW 15.6 % (11.6-16.5) 09/18/18 04:00 Plt Count 309 X10^3/uL (150.0-450.0) 09/18/18 04:00 Plt Count Comment Adequate (ADEQUATE) 09/18/18 04:00 MPV 10.4 fL (7.4-11.0) 09/18/18 04:00 Neut % (Auto) 67.0 % (42.0-75.0) 09/18/18 04:00 Lymph % (Auto) 21.2 % (21.0-51.0) 09/18/18 04:00 [place] % (Auto) 9.8 % (0.0-13.0) 09/18/18 04:00 Eos % (Auto) 1.4 % (0.9-2.9) 09/18/18 04:00 Baso % (Auto) 0.6 % (0.2-1.0) 09/18/18 04:00 Neut # (Auto) 5.1 x10^3/uL (2.2-4.8) H 09/18/18 04:00 Lymph # (Auto) 1.6 X10^3/uL (1.3-2.9) 09/18/18 04:00 [place] # (Auto) 0.8 x10^3/uL (0.3-0.8) 09/18/18 04:00 Eos # (Auto) 0.1 x10^3/uL (0.0-0.2) 09/18/18 04:00 Baso # (Auto) 0.0 X10^3/uL (0.0-0.1) 09/18/18 04:00 Absolute Nucleated RBC 0.0 /100WBC 09/18/18 04:00 Plt Morphology Comment Normal (NORMAL) 09/18/18 04:00 RBC Morphology Abnormal (NORMAL) A 09/18/18 04:00 Hypochromasia Slight A 09/18/18 04:00 Sodium 140 mmol/L (136-145) 09/18/18 04:00 Corrected Sodium TNP 09/18/18 04:00 Potassium 3.5 mmol/L (3.5-5.1) 09/18/18 04:00 Chloride 105 mmol/L (98-107) 09/18/18 04:00 Carbon Dioxide 25.6 mmol/L (21-32) 09/18/18 04:00 BUN 10 mg/dL (7-18) 09/18/18 04:00 Creatinine 2.09 mg/dL (0.55-1.02) H 09/18/18 04:00 Est GFR (MDRD) Af Amer 35 (>60) L 09/18/18 04:00 Est GFR (MDRD) Non-Af 29 (>60) L 09/18/18 04:00 Glucose 75 mg/dL (65-99) 09/18/18 04:00 POC Glucose (mg/dL) 90 mg/dL (65-99) 09/18/18 17:32 Calcium 8.0 mg/dL (8.5-10.1) L 09/18/18 04:00 Corrected Calcium 10.3 mg/dL (8.5-10.1) H 09/18/18 04:00 Magnesium 1.7 mg/dL (1.7-2.9) 09/17/18 05:24 Total Bilirubin 0.20 mg/dL (0.2-1.0) 09/18/18 04:00 AST 20 Units/L (15-37) 09/18/18 04:00 ALT 9 Units/L (12-78) L 09/18/18 04:00 Alkaline Phosphatase 78 Units/L (46-116) 09/18/18 04:00 Total Protein 5.5 g/dL (6.4-8.2) L 09/18/18 04:00 Albumin 1.1 g/dL (3.4-5.0) L 09/18/18 04:00 Globulin 4.4 g/dL (2.5-4.5) 09/18/18 04:00 Albumin/Globulin Ratio 0.3 Ratio (1.1-2.1) L 09/18/18 04:00 Amylase 46 Units/L (25-115) 09/16/18 14:05 Lipase 37 Units/L (73-393) L 09/16/18 14:05 - Plan (1) Hypertensive urgency Status: Acute Plan: CONTINUE HOME BP MEDICATION. EKG ECHO AND CXR TODAY. IV HYDRALAZINE (2) Abdominal pain Status: Acute Qualifiers: Plan: See chart for orders (3) Nausea & vomiting Status: Acute Qualifiers: Plan: See chart for orders (4) Diabetes mellitus Status: Chronic Plan: See chart for orders (5) Chronic kidney disease, stage 3 Status: Chronic Plan: GENTLE IV HYDRATION (6) Edema Status: Acute Plan: WITH INCREASED SOB, ECHO, CXR
--- NOTE | 2018-09-18 19:00 | PCM.PROG ---
Progress Note - Progress Note for Day of Date of Exam: 09/18/18 - Subjective Subjective: 33 BF ADMITTED ON 09/16 WITH HYPERTENSIVE URGENCY, N/V, DIFFUSE EDEMA AND CO INCREAED SOB. PT HTN SLIGHTLY IMPROVED. CO WITH MILD ABDOMINAL TENDERNESS, NAUSEA. PLAN TO ADVANCE DIET. CONTINUE GENTLE IV HYDRATION - Past Medical Family Social History Past Med/Fam/Surg Hx: No changes since H&P Allergies: Allergies Penicillins Allergy (Verified 05/31/18 17:54) lisinopril Adverse Reaction (Verified 06/07/18 14:23) morphine Adverse Reaction (Verified 05/31/18 17:54) - Review of Systems ROS: No change since H&P - Vital Signs and I&O's Vital Signs: Temperature 98.5 F Pulse Rate [Right Brachial] 83 Respiratory Rate 18 Blood Pressure [Left Arm] 143/88 Blood Pressure [Right Arm] 183/102 Blood Pressure 178/114 O2 Sat by Pulse Oximetry 98 Intake and Output: Intake & Output 09/16/18 09/17/18 09/18/18 09/19/18 11:59 11:59 11:59 11:59 Intake Total 100 / 100 390 / 390 380 / 380 Balance 100 / 100 390 / 390 380 / 380 - Physical Exam Oriented: Normal Eyes: Normal Ear: Normal Nose: Normal Throat: Normal Respiratory: Diminished Cardiovascular: Normal : Normal Auscultation: Bowel Sounds: Normal Tenderness: Diffuse Skin: Normal Musculoskeletal: Normal Psychiatric: Anxiety Mood Description: Anxious Affect: Anxious Speech Pattern: Clear, Appropriate - Laboratory and Diagnostics Result Diagrams: 09/18/18 04:00 09/18/18 04:00 Labs: Laboratory WBC 7.7 X10^3/uL (3.6-10.0) 09/18/18 04:00 RBC 4.22 X10^6/uL (3.5-5.4) 09/18/18 04:00 Hgb 11.0 g/dL (12.0-16.0) L 09/18/18 04:00 Hct 34.6 % (36.0-47.0) L 09/18/18 04:00 MCV 81.9 fL (80.0-100.0) 09/18/18 04:00 MCH 25.9 pg (27.0-34.0) L 09/18/18 04:00 MCHC 31.7 g/dL (33.0-35.0) L 09/18/18 04:00 RDW 15.6 % (11.6-16.5) 09/18/18 04:00 Plt Count 309 X10^3/uL (150.0-450.0) 09/18/18 04:00 Plt Count Comment Adequate (ADEQUATE) 09/18/18 04:00 MPV 10.4 fL (7.4-11.0) 09/18/18 04:00 Neut % (Auto) 67.0 % (42.0-75.0) 09/18/18 04:00 Lymph % (Auto) 21.2 % (21.0-51.0) 09/18/18 04:00 [place] % (Auto) 9.8 % (0.0-13.0) 09/18/18 04:00 Eos % (Auto) 1.4 % (0.9-2.9) 09/18/18 04:00 Baso % (Auto) 0.6 % (0.2-1.0) 09/18/18 04:00 Neut # (Auto) 5.1 x10^3/uL (2.2-4.8) H 09/18/18 04:00 Lymph # (Auto) 1.6 X10^3/uL (1.3-2.9) 09/18/18 04:00 [place] # (Auto) 0.8 x10^3/uL (0.3-0.8) 09/18/18 04:00 Eos # (Auto) 0.1 x10^3/uL (0.0-0.2) 09/18/18 04:00 Baso # (Auto) 0.0 X10^3/uL (0.0-0.1) 09/18/18 04:00 Absolute Nucleated RBC 0.0 /100WBC 09/18/18 04:00 Plt Morphology Comment Normal (NORMAL) 09/18/18 04:00 RBC Morphology Abnormal (NORMAL) A 09/18/18 04:00 Hypochromasia Slight A 09/18/18 04:00 Sodium 140 mmol/L (136-145) 09/18/18 04:00 Corrected Sodium TNP 09/18/18 04:00 Potassium 3.5 mmol/L (3.5-5.1) 09/18/18 04:00 Chloride 105 mmol/L (98-107) 09/18/18 04:00 Carbon Dioxide 25.6 mmol/L (21-32) 09/18/18 04:00 BUN 10 mg/dL (7-18) 09/18/18 04:00 Creatinine 2.09 mg/dL (0.55-1.02) H 09/18/18 04:00 Est GFR (MDRD) Af Amer 35 (>60) L 09/18/18 04:00 Est GFR (MDRD) Non-Af 29 (>60) L 09/18/18 04:00 Glucose 75 mg/dL (65-99) 09/18/18 04:00 POC Glucose (mg/dL) 90 mg/dL (65-99) 09/18/18 17:32 Calcium 8.0 mg/dL (8.5-10.1) L 09/18/18 04:00 Corrected Calcium 10.3 mg/dL (8.5-10.1) H 09/18/18 04:00 Magnesium 1.7 mg/dL (1.7-2.9) 09/17/18 05:24 Total Bilirubin 0.20 mg/dL (0.2-1.0) 09/18/18 04:00 AST 20 Units/L (15-37) 09/18/18 04:00 ALT 9 Units/L (12-78) L 09/18/18 04:00 Alkaline Phosphatase 78 Units/L (46-116) 09/18/18 04:00 Total Protein 5.5 g/dL (6.4-8.2) L 09/18/18 04:00 Albumin 1.1 g/dL (3.4-5.0) L 09/18/18 04:00 Globulin 4.4 g/dL (2.5-4.5) 09/18/18 04:00 Albumin/Globulin Ratio 0.3 Ratio (1.1-2.1) L 09/18/18 04:00 Amylase 46 Units/L (25-115) 09/16/18 14:05 Lipase 37 Units/L (73-393) L 09/16/18 14:05 - Plan (1) Hypertensive urgency Status: Acute Plan: CONTINUE CURRENT BP MEDICATION. EKG ECHO AND CXR STABLE. IV HYDRALAZINE (2) Abdominal pain Status: Acute Qualifiers: Plan: See chart for orders (3) Nausea & vomiting Status: Acute Qualifiers: Plan: See chart for orders (4) Diabetes mellitus Status: Chronic Plan: See chart for orders (5) Chronic kidney disease, stage 3 Status: Chronic Plan: GENTLE IV HYDRATION (6) Edema Status: Acute Plan: WITH INCREASED SOB, ECHO, CXR
[2018-09-18] MEDS: D5 1/2 NS + KCL 20 MEQ/L 1,000 ML IV SCH (20:41)
[2018-09-19] MEDS: REGLAN INJ 10 MG VIAL IVP SCH ×3 (02:14→17:35)
[2018-09-19] MEDS: PHENERGAN INJ 25 MG IV PRN ×5 (02:15→19:48)
[2018-09-19] MEDS: DILAUDID INJ IVP PRN ×5 (02:15→19:47)
[2018-09-19 05:03] LABS: BASOPHILS % (AUTO) 0.6 % (0.2-1.0); EOSINOPHILS # (AUTO) 0.2 x10^3/uL (0.0-0.2); EOSINOPHILS % (AUTO) 2.8 % (0.9-2.9); HEMATOCRIT 34.1 % (36.0-47.0); HEMOGLOBIN 10.6 g/dL (12.0-16.0); LYMPHOCYTES % (AUTO) 28.3 % (21.0-51.0); MEAN CORPUSCULAR HEMOGLOBIN 25.8 pg (27.0-34.0); MEAN CORPUSCULAR HGB CONC 31.1 g/dL (33.0-35.0); MEAN CORPUSCULAR VOLUME 83.1 fL (80.0-100.0); MONOCYTES # (AUTO) 0.7 x10^3/uL (0.3-0.8); MONOCYTES % (AUTO) 10.5 % (0.0-13.0); NEUTROPHILS % (AUTO) 57.8 % (42.0-75.0); PLATELET COUNT 303 X10^3/uL (150.0-450.0); RED CELL DISTRIBUTION WIDTH 15.4 % (11.6-16.5)
[2018-09-19 05:10] LABS: ALANINE AMINOTRANSFERASE 10 Units/L (12-78); ALBUMIN 1.1 g/dL (3.4-5.0); ALKALINE PHOSPHATASE 75 Units/L (46-116); ASPARTATE AMINO TRANSFERASE 18 Units/L (15-37); BLOOD UREA NITROGEN 10 mg/dL (7-18); CALCIUM 8.1 mg/dL (8.5-10.1); CARBON DIOXIDE 27.3 mmol/L (21-32); CHLORIDE 105 mmol/L (98-107); COR CA(FOR HYPOALB) 10.4 mg/dL (8.5-10.1); CREATININE 2.05 mg/dL (0.55-1.02); SODIUM 140 mmol/L (136-145); TOTAL PROTEIN 5.3 g/dL (6.4-8.2); eGFR NON BLACK RACES 29 (>60)
[2018-09-19 05:38] LABS: PLATELET MORPHOLOGY COMMENT NORMAL (NORMAL)
[2018-09-19 05:39] LABS: HYPOCHROMASIA SLIGHT
[2018-09-19] MEDS: CELEXA PO SCH (08:34)
[2018-09-19] MEDS: COZAAR PO SCH (08:34)
[2018-09-19] MEDS: LASIX PO SCH (08:34)
[2018-09-19] MEDS: COREG TAB 25 MG PO SCH ×2 (08:34→20:33)
[2018-09-19] MEDS: D5 1/2 NS + KCL 20 MEQ/L 1,000 ML IV SCH (20:35)
[2018-09-20] MEDS: DILAUDID INJ IVP PRN ×4 (00:01→12:37)
[2018-09-20] MEDS: REGLAN INJ 10 MG VIAL IVP SCH ×2 (01:46→10:28)
[2018-09-20] MEDS: PHENERGAN INJ 25 MG IV PRN ×4 (04:10→12:37)
[2018-09-20 05:22] LABS: BASOPHILS % (AUTO) 0.4 % (0.2-1.0); EOSINOPHILS # (AUTO) 0.2 x10^3/uL (0.0-0.2); EOSINOPHILS % (AUTO) 2.2 % (0.9-2.9); HEMATOCRIT 34.7 % (36.0-47.0); HEMOGLOBIN 10.8 g/dL (12.0-16.0); LYMPHOCYTES % (AUTO) 26.6 % (21.0-51.0); MEAN CORPUSCULAR HEMOGLOBIN 25.9 pg (27.0-34.0); MEAN CORPUSCULAR HGB CONC 31.1 g/dL (33.0-35.0); MEAN CORPUSCULAR VOLUME 83.3 fL (80.0-100.0); MEAN PLATELET VOLUME 9.9 fL (7.4-11.0); MONOCYTES # (AUTO) 0.8 x10^3/uL (0.3-0.8); MONOCYTES % (AUTO) 10.7 % (0.0-13.0); NEUTROPHILS # (AUTO) 4.5 x10^3/uL (2.2-4.8); NEUTROPHILS % (AUTO) 60.1 % (42.0-75.0); PLATELET COUNT 307 X10^3/uL (150.0-450.0); RED BLOOD COUNT 4.16 X10^6/uL (3.5-5.4); RED CELL DISTRIBUTION WIDTH 15.2 % (11.6-16.5); WHITE BLOOD COUNT 7.5 X10^3/uL (3.6-10.0)
[2018-09-20 05:46] LABS: ALANINE AMINOTRANSFERASE 11 Units/L (12-78); ALBUMIN 1.1 g/dL (3.4-5.0); ALKALINE PHOSPHATASE 78 Units/L (46-116); ASPARTATE AMINO TRANSFERASE 18 Units/L (15-37); BLOOD UREA NITROGEN 11 mg/dL (7-18); CALCIUM 8.3 mg/dL (8.5-10.1); CARBON DIOXIDE 28.4 mmol/L (21-32); CHLORIDE 109 mmol/L (98-107); COR CA(FOR HYPOALB) 10.6 mg/dL (8.5-10.1); CREATININE 2.07 mg/dL (0.55-1.02); SODIUM 144 mmol/L (136-145); TOTAL PROTEIN 5.3 g/dL (6.4-8.2); eGFR NON BLACK RACES 29 (>60)
[2018-09-20 06:32] LABS: HYPOCHROMASIA SLIGHT; PLATELET MORPHOLOGY COMMENT NORMAL (NORMAL)
[2018-09-20] MEDS: LASIX PO SCH (08:26)
[2018-09-20] MEDS: COZAAR PO SCH (08:26)
[2018-09-20] MEDS: COREG TAB 25 MG PO SCH (08:26)
[2018-09-20] MEDS: CELEXA PO SCH (08:26)
[2018-09-20 13:51] VITALS: BP 148/95
== END 2018-09-20 13:40 | disposition home or self-care (01) ==
LOC: MED/SURG → INTOOBSV 13:29 → OBSVTOIN 13:29
PROVIDERS: ADMIT Internal Medicine; ATTEND Internal Medicine
DX: Z87.19 Personal history of other diseases of the digestive system; R60.0 Localized edema; E11.9 Type 2 diabetes mellitus without complications; I12.9 Hypertensive chronic kidney disease with stage 1 through stage 4 chronic kidney disease, or unspecified chronic kidney disease; N18.3 Chronic kidney disease, stage 3 (moderate); R94.4 Abnormal results of kidney function studies; R10.84 Generalized abdominal pain; R11.2 Nausea with vomiting, unspecified; F41.8 Other specified anxiety disorders; I16.0 Hypertensive urgency; K21.9 Gastro-esophageal reflux disease without esophagitis; Z79.899 Other long term (current) drug therapy; D72.828 Other elevated white blood cell count
CPT/HCPCS: 36415; 71010; 71045; 80053; 82150; 83690; 83735; 85025; 93306; 96367; 96374; A4216; G0378; J0360; J1170; J1200; J1642; J2060; J2405; J2550; J2765; J3490

== ENCOUNTER 2018-09-30 13:55 | Inpatient (IN) ==
[2018-09-30 15:17] LABS: BASOPHILS # (AUTO) 0.1 X10^3/uL (0.0-0.1); BASOPHILS % (AUTO) 0.9 % (0.2-1.0); EOSINOPHILS # (AUTO) 0.2 x10^3/uL (0.0-0.2); EOSINOPHILS % (AUTO) 1.4 % (0.9-2.9); HEMATOCRIT 39.7 % (36.0-47.0); HEMOGLOBIN 12.6 g/dL (12.0-16.0); LYMPHOCYTES # (AUTO) 2.5 X10^3/uL (1.3-2.9); LYMPHOCYTES % (AUTO) 22.5 % (21.0-51.0); MEAN CORPUSCULAR HEMOGLOBIN 26.1 pg (27.0-34.0); MEAN CORPUSCULAR HGB CONC 31.9 g/dL (33.0-35.0); MEAN CORPUSCULAR VOLUME 81.8 fL (80.0-100.0); MEAN PLATELET VOLUME 8.9 fL (7.4-11.0); MONOCYTES # (AUTO) 0.8 x10^3/uL (0.3-0.8); NEUTROPHILS # (AUTO) 7.4 x10^3/uL (2.2-4.8); NEUTROPHILS % (AUTO) 68.2 % (42.0-75.0); PLATELET COUNT 287 X10^3/uL (150.0-450.0); RED BLOOD COUNT 4.85 X10^6/uL (3.5-5.4); RED CELL DISTRIBUTION WIDTH 15.5 % (11.6-16.5); WHITE BLOOD COUNT 10.9 X10^3/uL (3.6-10.0)
[2018-09-30 15:30] LABS: ALANINE AMINOTRANSFERASE 16 Units/L (12-78); ALBUMIN 1.6 g/dL (3.4-5.0); ALKALINE PHOSPHATASE 73 Units/L (46-116); AMYLASE 49 Units/L (25-115); ASPARTATE AMINO TRANSFERASE 22 Units/L (15-37); BLOOD UREA NITROGEN 14 mg/dL (7-18); CALCIUM 9.1 mg/dL (8.5-10.1); CARBON DIOXIDE 26.9 mmol/L (21-32); CHLORIDE 108 mmol/L (98-107); CREATININE 2.12 mg/dL (0.55-1.02); LIPASE 40 Units/L (73-393); SODIUM 142 mmol/L (136-145); TOTAL PROTEIN 6.6 g/dL (6.4-8.2); eGFR NON BLACK RACES 28 (>60)
--- NOTE | 2018-09-30 15:59 | RAD ---
History: Abdominal pain and generalized edema and hypertension Study: Acute abdominal series including a lateral chest Comparison: August 20, 2018 Findings: The lungs are clear and the heart size is normal. There is unchanged configuration of a right subclavian Port-A-Cath with the tip of the catheter in the subclavian vein. There is no edema or effusion. No significant bony abnormality is demonstrated. There are cholecystectomy clips. There is a single gaseous distended loop of small bowel in the left upper quadrant measuring up to 3 cm diameter with short air-fluid levels. There is prominent fecal material in the ascending and descending colon. No abnormal calcification is demonstrated. There is no free air. Impression: 1. No acute cardiopulmonary disease 2. Single gaseous distended loop of proximal jejunum that may be from a gastroenteritis or perhaps a mild proximal small bowel obstruction 3. Questionable constipation Reported By:
[2018-09-30] MEDS: PEPCID 20 MG IV PREMIX* 20 MG/50 ML BAG IV PRN (16:10)
[2018-09-30] MEDS: DILAUDID INJ IVP PRN ×2 (16:10→20:10)
[2018-09-30] MEDS: PHENERGAN INJ 25 MG IVP PRN (16:10)
[2018-09-30] MEDS: NS 1000 ML 1,000 ML IV SCH (16:10)
--- NOTE | 2018-09-30 17:04 | DR.H&P ---
H&P - History & Physical for Day of: H&P Date: 09/30/18 - Chief Complaint Chief Complaint: Abdominal Pain - History of Present Illness History of Present Illness: The patient is a 33 -year-old female who is being admitted secondary to abdominal pain. It is noted that the patient was recently discharged from [facility] where she stated she was admitted related to "kidney function". Kidney function noted to be baseline at discharge. Patient s tates that she has noticed she only urinates "a little at a time". Patient c/o swelling in BLE as well as abdominal pain with nausea and vomiting. The patient states that their BP at home has been stable . The patient's BP in the office setting today is noted to be 130/100 . The patient denies PEGUERO, dizziness, CP, or SOB. The patient states that blood sugars at home have been stable . The patient presents without blood sugar diary. The patient denies any open or non-healing wounds. The patient complains of abdominal pain x3 days. Does complain of nausea and vomiting. Denies fever. Patient will be admitted for further evaluation. - Past Medical History Past Medical History: Hypertension, Diabetes, Depression, Anxiety, PUD, GERD Additional Medical History: Pancreatitis, Gastroparesis - Past Surgical History Surgical History: , Cholecystectomy, Hysterectomy - Family History Family Medical History: Diabetes Mellitus, Hypertension - Medications Home Medications: Penicillins Allergy (Verified 05/31/18 17:54) lisinopril Adverse Reaction (Verified 06/07/18 14:23) morphine Adverse Reaction (Verified 05/31/18 17:54) - Review of Systems Constitutional: See HPI Eyes: See HPI ENT: See HPI Respiratory: See HPI Cardiovascular: See HPI Gastrointestinal: See HPI Genitourinary: See HPI Musculoskeletal: See HPI Skin: See HPI Neurological: See HPI - Physical Exam Vital Signs: Temperature 98.9 F Pulse Rate [Left Brachial] 119 Respiratory Rate 22 Blood Pressure [Left Arm] 160/116 Blood Pressure [Right Arm] 188/119 Blood Pressure 148/95 O2 Sat by Pulse Oximetry 97 Oriented: Normal, Time, Person, Place Eyes: Normal Ear: Normal Nose: Normal Throat: Normal Respiratory: Clear Throughout Cardiovascular: Normal : Normal Auscultation: Bowel Sounds: Normal Palpation: Normal Tenderness: Diffuse Skin: Normal Musculoskeletal: Normal Psychiatric: Normal Speech Pattern: Clear - Assessment/Plan (1) Abdominal pain Qualifiers: Status: Acute Plan: See chart for further orders (2) Nausea & vomiting Qualifiers: Status: Acute Plan: See chart for further orders (3) Chronic kidney disease, stage 3 Status: Chronic Plan: See chart for further orders - Allergies Allergies/Adverse Reactions: Allergies Allergy/AdvReac Type Severity Reaction Status Date / Time Penicillins Allergy Verified 05/31/18 17:54 lisinopril AdvReac Verified 06/07/18 14:23 morphine AdvReac Verified 05/31/18 17:54
[2018-09-30] MEDS ORDERED: COZAAR ONE (18:21)
[2018-09-30] MEDS: COZAAR PO SCH (18:24)
[2018-09-30] MEDS: ZOFRAN INJ 4 MG VIAL IVP PRN (20:12)
[2018-09-30] MEDS: COREG TAB 25 MG PO SCH (20:12)
[2018-10-01 00:02] LABS: BILIRUBIN,URINE NEGATIVE (NEGATIVE); BLOOD/HEMOGLOBIN,URINE 2+ (NEGATIVE); GLUCOSE, URINE 1+ (NEGATIVE); KETONES,URINE NEGATIVE (NEGATIVE); LEUKOCYTE ESTERASE ,URINE NEGATIVE (NEGATIVE); NITRITES,URINE NEGATIVE (NEGATIVE); PROTEIN,URINE 4+ (NEGATIVE); UROBILINOGEN,URINE NORMAL (NORMAL)
[2018-10-01 00:09] LABS: APPEARANCE,URINE CLEAR (CLEAR); COLOR,URINE YELLOW (YELLOW)
[2018-10-01 00:10] LABS: BACTERIA,URINE NEGATIVE /HPF (NEGATIVE); RBC,URINE 0-2 /HPF (NONE SEEN); SQUAMOUS EPITHELIAL CELL,UR RARE /HPF (NEGATIVE)
[2018-10-01] MEDS: PHENERGAN INJ 25 MG IVP PRN ×3 (00:10→20:22)
[2018-10-01] MEDS: DILAUDID INJ IVP PRN ×3 (00:10→08:54)
[2018-10-01] MEDS: NS 1000 ML 1,000 ML IV SCH ×5 (00:26→23:16)
[2018-10-01] MEDS: ZOFRAN INJ 4 MG VIAL IVP PRN ×2 (04:10→14:11)
[2018-10-01 05:24] LABS: BASOPHILS % (AUTO) 0.5 % (0.2-1.0); EOSINOPHILS # (AUTO) 0.2 x10^3/uL (0.0-0.2); EOSINOPHILS % (AUTO) 1.9 % (0.9-2.9); HEMATOCRIT 34.9 % (36.0-47.0); HEMOGLOBIN 10.9 g/dL (12.0-16.0); LYMPHOCYTES # (AUTO) 2.6 X10^3/uL (1.3-2.9); LYMPHOCYTES % (AUTO) 32.2 % (21.0-51.0); MEAN CORPUSCULAR HEMOGLOBIN 26.2 pg (27.0-34.0); MEAN CORPUSCULAR HGB CONC 31.3 g/dL (33.0-35.0); MEAN CORPUSCULAR VOLUME 83.5 fL (80.0-100.0); MEAN PLATELET VOLUME 10.2 fL (7.4-11.0); MONOCYTES # (AUTO) 0.8 x10^3/uL (0.3-0.8); MONOCYTES % (AUTO) 9.4 % (0.0-13.0); NEUTROPHILS # (AUTO) 4.5 x10^3/uL (2.2-4.8); PLATELET COUNT 249 X10^3/uL (150.0-450.0); RED BLOOD COUNT 4.18 X10^6/uL (3.5-5.4); RED CELL DISTRIBUTION WIDTH 15.6 % (11.6-16.5); WHITE BLOOD COUNT 8.1 X10^3/uL (3.6-10.0)
[2018-10-01 05:36] LABS: ALANINE AMINOTRANSFERASE 13 Units/L (12-78); ALBUMIN 1.2 g/dL (3.4-5.0); ALKALINE PHOSPHATASE 65 Units/L (46-116); ASPARTATE AMINO TRANSFERASE 23 Units/L (15-37); BLOOD UREA NITROGEN 14 mg/dL (7-18); CALCIUM 8.3 mg/dL (8.5-10.1); CARBON DIOXIDE 26.2 mmol/L (21-32); CHLORIDE 108 mmol/L (98-107); COR CA(FOR HYPOALB) 10.5 mg/dL (8.5-10.1); CREATININE 1.88 mg/dL (0.55-1.02); SODIUM 141 mmol/L (136-145); TOTAL PROTEIN 5.3 g/dL (6.4-8.2); eGFR NON BLACK RACES 33 (>60)
[2018-10-01] MEDS: COREG TAB 25 MG PO SCH ×2 (08:54→20:21)
[2018-10-01] MEDS: COZAAR PO SCH (08:54)
[2018-10-01 09:06] VITALS: BMI 39.8
[2018-10-01] MEDS ORDERED: OFIRMEV IV 1000 MG VIAL 1,000 MG/100 ML VIAL IV PRN (09:18)
[2018-10-01] MEDS ORDERED: PHARMACY CONSULT - DOSE _____ XX SCH (10:00)
[2018-10-01] MEDS ORDERED: DEXFERRUM or INFED 25 MG in NS 100 ML IV 100 ML IV ONE (12:00)
--- NOTE | 2018-10-01 13:48 | PCM.PROG ---
Progress Note - Progress Note for Day of Date of Exam: 10/01/18 - Subjective Subjective: 33 BF ADMITTED ON 09/30 WITH ABDOMINAL PAIN, N/V AND SWELLING ALL OVER. PT HAS HX OF CHRONIC ABDOMINAL PAIN AND RENAL FAILURE, HTN AND DM. CREAT 1.88 THIS AM. DECREASE NS TO 50/CC HR FROM 100 CC/HR. PT CONTINUES WITH FACIAL SWELLING AND BILATERAL LOWER EXTREMITY SWELLING. BP 144/88. PPI BID, BS CONTROL, NPO CT ABD W/O R/O SBO - Past Medical Family Social History Past Med/Fam/Surg Hx: No changes since H&P Allergies: Allergies Penicillins Allergy (Verified 05/31/18 17:54) lisinopril Adverse Reaction (Verified 06/07/18 14:23) morphine Adverse Reaction (Verified 05/31/18 17:54) - Review of Systems ROS: No change since H&P - Vital Signs and I&O's Vital Signs: Temperature 98.0 F Pulse Rate [Left Brachial] 71 Respiratory Rate 18 Blood Pressure [Left Arm] 163/89 Blood Pressure [Right Arm] 144/88 Blood Pressure 148/95 O2 Sat by Pulse Oximetry 98 Intake and Output: Intake & Output 09/29/18 09/30/18 10/01/18 10/02/18 11:59 11:59 11:59 11:59 Intake Total 1345 / 1345 Balance 1345 / 1345 - Physical Exam Oriented: Normal, Time, Person, Place Eyes: Normal Ear: Normal Nose: Normal Throat: Normal Respiratory: Diminished Cardiovascular: Normal : Normal Auscultation: Bowel Sounds: Normal Tenderness: LUQ, LLQ Skin: Normal Musculoskeletal: Normal Psychiatric: Normal Speech Pattern: Clear, Appropriate - Laboratory and Diagnostics Result Diagrams: 10/01/18 04:05 10/01/18 04:05 Labs: Laboratory WBC 8.1 X10^3/uL (3.6-10.0) 10/01/18 04:05 RBC 4.18 X10^6/uL (3.5-5.4) 10/01/18 04:05 Hgb 10.9 g/dL (12.0-16.0) L 10/01/18 04:05 Hct 34.9 % (36.0-47.0) L 10/01/18 04:05 MCV 83.5 fL (80.0-100.0) 10/01/18 04:05 MCH 26.2 pg (27.0-34.0) L 10/01/18 04:05 MCHC 31.3 g/dL (33.0-35.0) L 10/01/18 04:05 RDW 15.6 % (11.6-16.5) 10/01/18 04:05 Plt Count 249 X10^3/uL (150.0-450.0) 10/01/18 04:05 MPV 10.2 fL (7.4-11.0) 10/01/18 04:05 Neut % (Auto) 56.0 % (42.0-75.0) 10/01/18 04:05 Lymph % (Auto) 32.2 % (21.0-51.0) 10/01/18 04:05 [place] % (Auto) 9.4 % (0.0-13.0) 10/01/18 04:05 Eos % (Auto) 1.9 % (0.9-2.9) 10/01/18 04:05 Baso % (Auto) 0.5 % (0.2-1.0) 10/01/18 04:05 Neut # (Auto) 4.5 x10^3/uL (2.2-4.8) 10/01/18 04:05 Lymph # (Auto) 2.6 X10^3/uL (1.3-2.9) 10/01/18 04:05 [place] # (Auto) 0.8 x10^3/uL (0.3-0.8) 10/01/18 04:05 Eos # (Auto) 0.2 x10^3/uL (0.0-0.2) 10/01/18 04:05 Baso # (Auto) 0.0 X10^3/uL (0.0-0.1) 10/01/18 04:05 Absolute Nucleated RBC 0.1 /100WBC 10/01/18 04:05 Sodium 141 mmol/L (136-145) 10/01/18 04:05 Corrected Sodium TNP 10/01/18 04:05 Potassium 4.4 mmol/L (3.5-5.1) 10/01/18 04:05 Chloride 108 mmol/L (98-107) H 10/01/18 04:05 Carbon Dioxide 26.2 mmol/L (21-32) 10/01/18 04:05 BUN 14 mg/dL (7-18) 10/01/18 04:05 Creatinine 1.88 mg/dL (0.55-1.02) H 10/01/18 04:05 Est GFR (MDRD) Af Amer 39 (>60) L 10/01/18 04:05 Est GFR (MDRD) Non-Af 33 (>60) L 10/01/18 04:05 Glucose 82 mg/dL (65-99) 10/01/18 04:05 Calcium 8.3 mg/dL (8.5-10.1) L 10/01/18 04:05 Corrected Calcium 10.5 mg/dL (8.5-10.1) H 10/01/18 04:05 Iron 53 ug/dL (50-175) 09/30/18 15:09 Transferrin 206 mg/dL (202-364) 09/30/18 15:09 Ferritin 24 ng/mL (8-252) 09/30/18 15:09 Total Bilirubin 0.20 mg/dL (0.2-1.0) 10/01/18 04:05 AST 23 Units/L (15-37) 10/01/18 04:05 ALT 13 Units/L (12-78) 10/01/18 04:05 Alkaline Phosphatase 65 Units/L (46-116) 10/01/18 04:05 Total Protein 5.3 g/dL (6.4-8.2) L 10/01/18 04:05 Albumin 1.2 g/dL (3.4-5.0) L 10/01/18 04:05 Globulin 4.1 g/dL (2.5-4.5) 10/01/18 04:05 Albumin/Globulin Ratio 0.3 Ratio (1.1-2.1) L 10/01/18 04:05 Amylase 49 Units/L (25-115) 09/30/18 15:09 Lipase 40 Units/L (73-393) L 09/30/18 15:09 Vitamin B12 848 pg/mL (193-986) 09/30/18 15:09 Folate 7.1 ng/mL (>8.6) L 09/30/18 15:09 Specimen Type Clean catch urine 09/30/18 23:37 Urine Color Yellow (YELLOW) 09/30/18 23:37 Urine Appearance Clear (CLEAR) 09/30/18 23:37 Urine pH 7.0 (5.0 - 8.0) 09/30/18 23:37 Ur Specific [place] 1.005 (1.000-1.030) 09/30/18 23:37 Urine Protein 4+ (NEGATIVE) 09/30/18 23:37 Urine Glucose (UA) 1+ (NEGATIVE) 09/30/18 23:37 Urine Ketones Negative (NEGATIVE) 09/30/18 23:37 Urine Occult Blood 2+ (NEGATIVE) 09/30/18 23:37 Urine Nitrite Negative (NEGATIVE) 09/30/18 23:37 Urine Bilirubin Negative (NEGATIVE) 09/30/18 23:37 Urine Urobilinogen Normal (NORMAL) 09/30/18 23:37 Ur Leukocyte Esterase Negative (NEGATIVE) 09/30/18 23:37 Urine RBC 0-2 /HPF (NONE SEEN) 09/30/18 23:37 Urine WBC None seen /HPF (NONE SEEN) 09/30/18 23:37 Ur Squamous Epith Cells Rare /HPF (NEGATIVE) 09/30/18 23:37 Urine Bacteria Negative /HPF (NEGATIVE) 09/30/18 23:37 Ur Culture Indicated? No/not indicated 09/30/18 23:37 - Plan (1) Abdominal pain Status: Acute Qualifiers: Plan: REGLAN IV, PPI. PAIN AND NAUSEA CONTROL. BP CONTROL, IV HYDRATION. STRICT I & OS. NPO (2) GERD (gastroesophageal reflux disease) Status: Acute (3) Nausea & vomiting Status: Acute Qualifiers: Plan: See chart for further orders (4) Essential hypertension Status: Chronic (5) Diabetes mellitus Status: Chronic (6) Chronic kidney disease, stage 3 Status: Chronic Plan: See chart for further orders
[2018-10-01] MEDS: REGLAN INJ 10 MG VIAL IVP PRN (14:11)
[2018-10-01] MEDS: DEMEROL INJ IVP PRN ×2 (14:11→20:21)
--- NOTE | 2018-10-01 14:24 | CT ---
HISTORY: Abnormal abdominal series Study: CT abdomen pelvis without contrast Comparison: 01/12/2018 Technique: Axial noncontrast images with coronal and sagittal reformats. Dose reduction procedures were used with mA/kv adjusted for body size. THIS EXAMINATION IS LIMITED DUE TO THE LACK OF INTRAVENOUS CONTRAST. The examination was performed in this manner at the sole discretion of the ordering caregiver and without input requested from or accepted from Radiology. Findings: The lung bases are clear with the exception of a 3.9 mm right basilar pulmonary nodule which will require CT follow-up in 1 year. The liver, spleen, adrenal glands, and pancreas are within normal limits to the limitations of an unenhanced examination. The patient is status post cholecystectomy. The kidneys are unobstructed and without stones. No ureteral calculi are identified. The abdominal aorta is normal. No intraperitoneal or retroperitoneal lymphadenopathy of significance is identified. There is no definite evidence for small or large bowel obstruction. There is a moderately large amount of stool within the colon suggestive of constipation. The appendix is normal. Examination of the pelvis demonstrated no evidence for pelvic masses, pelvic fluid, or pelvic lymphadenopathy. No bladder abnormality is identified. No lytic or blastic skeletal lesions are identified. IMPRESSION: No evidence for bowel obstruction No acute intra-abdominal or intrapelvic abnormality to the limitations of an examination performed without intravenous contrast. Constipation 3.9 mm right lower lobe pulmonary nodule requiring CT follow-up in 1 year Reported By:
[2018-10-01] MEDS ORDERED: DEXFERRUM or INFED 975 MG in NS 500 ML IV 500 ML IV ONE (15:00)
[2018-10-01] MEDS ORDERED: COLACE CAP 100 MG PO PRN (20:45)
[2018-10-01] MEDS ORDERED: MILK OF MAGNESIA PO PRN (20:45)
[2018-10-02] MEDS: DEMEROL INJ IVP PRN ×3 (02:58→16:37)
[2018-10-02] MEDS: PHENERGAN INJ 25 MG IVP PRN ×4 (03:01→19:45)
[2018-10-02 07:02] LABS: BASOPHILS % (AUTO) 0.5 % (0.2-1.0); EOSINOPHILS # (AUTO) 0.1 x10^3/uL (0.0-0.2); EOSINOPHILS % (AUTO) 1.1 % (0.9-2.9); HEMATOCRIT 38.4 % (36.0-47.0); HEMOGLOBIN 12.2 g/dL (12.0-16.0); LYMPHOCYTES # (AUTO) 1.7 X10^3/uL (1.3-2.9); MEAN CORPUSCULAR HEMOGLOBIN 26.1 pg (27.0-34.0); MEAN CORPUSCULAR HGB CONC 31.7 g/dL (33.0-35.0); MEAN CORPUSCULAR VOLUME 82.3 fL (80.0-100.0); MONOCYTES # (AUTO) 0.7 x10^3/uL (0.3-0.8); MONOCYTES % (AUTO) 7.5 % (0.0-13.0); NEUTROPHILS # (AUTO) 6.8 x10^3/uL (2.2-4.8); NEUTROPHILS % (AUTO) 72.9 % (42.0-75.0); PLATELET COUNT 300 X10^3/uL (150.0-450.0); RED BLOOD COUNT 4.67 X10^6/uL (3.5-5.4); RED CELL DISTRIBUTION WIDTH 15.2 % (11.6-16.5); WHITE BLOOD COUNT 9.3 X10^3/uL (3.6-10.0)
[2018-10-02 07:20] LABS: ALANINE AMINOTRANSFERASE 15 Units/L (12-78); ALBUMIN 1.5 g/dL (3.4-5.0); ALKALINE PHOSPHATASE 73 Units/L (46-116); BLOOD UREA NITROGEN 12 mg/dL (7-18); CALCIUM 8.8 mg/dL (8.5-10.1); CARBON DIOXIDE 23.4 mmol/L (21-32); CHLORIDE 107 mmol/L (98-107); COR CA(FOR HYPOALB) 10.8 mg/dL (8.5-10.1); CREATININE 2.22 mg/dL (0.55-1.02); SODIUM 140 mmol/L (136-145); TOTAL PROTEIN 6.3 g/dL (6.4-8.2); eGFR NON BLACK RACES 27 (>60)
[2018-10-02 07:46] LABS: ASPARTATE AMINO TRANSFERASE 26 Units/L (15-37)
[2018-10-02] MEDS: COZAAR PO SCH (08:34)
[2018-10-02] MEDS: COREG TAB 25 MG PO SCH ×2 (08:35→22:00)
[2018-10-02] MEDS: PEPCID 20 MG IV PREMIX* 20 MG/50 ML BAG IV PRN (10:55)
[2018-10-02] MEDS ORDERED: DILAUDID INJ IVP ONE (12:15)
[2018-10-02 12:36] LABS: GASTRIC OCCULT BLOOD POSITIVE (NEGATIVE); PH,GASTRIC FLUID 4
[2018-10-02 13:16] LABS: CKMB % 0.5 % (<4); CREATINE KINASE 461 Units/L (26-192); CREATINE KINASE MB 2.2 ng/mL (0-4.0); TROPONIN I < 0.02 ng/mL (0-1.5)
--- NOTE | 2018-10-02 13:47 | PCM.PROG ---
Progress Note - Progress Note for Day of Date of Exam: 10/02/18 - Subjective Subjective: 33 BF ADMITTED ON 09/30 WITH ABDOMINAL PAIN, N/V AND SWELLING ALL OVER. PT HAS HX OF CHRONIC ABDOMINAL PAIN AND RENAL FAILURE, HTN AND DM. CREAT 2.22 THIS AM. PT CONTINUES WITH MILD FACIAL SWELLING AND BILATERAL LOWER EXTREMITY SWELLING. PPI BID, BS CONTROL, NPO CT ABD W/O R/O SBO WITHOUT ACUTE FINDINGS. THIS AM PT KNEELING IN FLOOR BENT OVER CRYING WITH ABDOMINAL PAIN, HAD DEMEROL WITHOUT RELIEF. PT STARTED ON BENTYL, REGLAN IV QID. IV DILAUDID X 1 DOSE AND NG TUBE AT LIS WITH GASTROCULT - Past Medical Family Social History Past Med/Fam/Surg Hx: No changes since H&P Allergies: Allergies Penicillins Allergy (Verified 05/31/18 17:54) lisinopril Adverse Reaction (Verified 06/07/18 14:23) morphine Adverse Reaction (Verified 05/31/18 17:54) - Review of Systems ROS: No change since H&P - Vital Signs and I&O's Vital Signs: Temperature 98.5 F Pulse Rate [Left Brachial] 118 Respiratory Rate 20 Blood Pressure [Left Arm] 186/98 Blood Pressure [Right Arm] 144/88 Blood Pressure 148/95 O2 Sat by Pulse Oximetry 95 Intake and Output: Intake & Output 09/30/18 10/01/18 10/02/18 10/03/18 11:59 11:59 11:59 11:59 Intake Total 1345 / 1345 1700 / 1700 Balance 1345 / 1345 1700 / 1700 - Physical Exam Oriented: Normal, Time, Person, Place Eyes: Normal Ear: Normal Nose: Normal Throat: Normal Respiratory: Diminished Cardiovascular: Normal : Normal Auscultation: Bowel Sounds: Normal Tenderness: Diffuse, LUQ, LLQ Skin: Normal Musculoskeletal: Normal Psychiatric: Normal Speech Pattern: Clear, Appropriate - Laboratory and Diagnostics Result Diagrams: 10/02/18 06:18 10/02/18 06:18 Labs: Laboratory WBC 9.3 X10^3/uL (3.6-10.0) 10/02/18 06:18 RBC 4.67 X10^6/uL (3.5-5.4) 10/02/18 06:18 Hgb 12.2 g/dL (12.0-16.0) 10/02/18 06:18 Hct 38.4 % (36.0-47.0) 10/02/18 06:18 MCV 82.3 fL (80.0-100.0) 10/02/18 06:18 MCH 26.1 pg (27.0-34.0) L 10/02/18 06:18 MCHC 31.7 g/dL (33.0-35.0) L 10/02/18 06:18 RDW 15.2 % (11.6-16.5) 10/02/18 06:18 Plt Count 300 X10^3/uL (150.0-450.0) 10/02/18 06:18 MPV 10.0 fL (7.4-11.0) 10/02/18 06:18 Neut % (Auto) 72.9 % (42.0-75.0) 10/02/18 06:18 Lymph % (Auto) 18.0 % (21.0-51.0) L 10/02/18 06:18 [place] % (Auto) 7.5 % (0.0-13.0) 10/02/18 06:18 Eos % (Auto) 1.1 % (0.9-2.9) 10/02/18 06:18 Baso % (Auto) 0.5 % (0.2-1.0) 10/02/18 06:18 Neut # (Auto) 6.8 x10^3/uL (2.2-4.8) H 10/02/18 06:18 Lymph # (Auto) 1.7 X10^3/uL (1.3-2.9) 10/02/18 06:18 [place] # (Auto) 0.7 x10^3/uL (0.3-0.8) 10/02/18 06:18 Eos # (Auto) 0.1 x10^3/uL (0.0-0.2) 10/02/18 06:18 Baso # (Auto) 0.0 X10^3/uL (0.0-0.1) 10/02/18 06:18 Absolute Nucleated RBC 0.0 /100WBC 10/02/18 06:18 Sodium 140 mmol/L (136-145) 10/02/18 06:18 Corrected Sodium TNP 10/02/18 06:18 Potassium 4.5 mmol/L (3.5-5.1) 10/02/18 06:18 Chloride 107 mmol/L (98-107) 10/02/18 06:18 Carbon Dioxide 23.4 mmol/L (21-32) 10/02/18 06:18 BUN 12 mg/dL (7-18) 10/02/18 06:18 Creatinine 2.22 mg/dL (0.55-1.02) H 10/02/18 06:18 Est GFR (MDRD) Af Amer 33 (>60) L 10/02/18 06:18 Est GFR (MDRD) Non-Af 27 (>60) L 10/02/18 06:18 Glucose 107 mg/dL (65-99) H 10/02/18 06:18 Calcium 8.8 mg/dL (8.5-10.1) 10/02/18 06:18 Corrected Calcium 10.8 mg/dL (8.5-10.1) H 10/02/18 06:18 Iron 53 ug/dL (50-175) 09/30/18 15:09 Transferrin 206 mg/dL (202-364) 09/30/18 15:09 Ferritin 24 ng/mL (8-252) 09/30/18 15:09 Total Bilirubin 0.10 mg/dL (0.2-1.0) L 10/02/18 06:18 AST 26 Units/L (15-37) 10/02/18 06:18 ALT 15 Units/L (12-78) 10/02/18 06:18 Alkaline Phosphatase 73 Units/L (46-116) 10/02/18 06:18 Creatine Kinase 461 Units/L (26-192) H 10/02/18 12:45 CK-MB (CK-2) 2.2 ng/mL (0-4.0) 10/02/18 12:45 CK/CKMB % Calc 0.5 % (<4) 10/02/18 12:45 Troponin I < 0.02 ng/mL (0-1.5) 10/02/18 12:45 Total Protein 6.3 g/dL (6.4-8.2) L 10/02/18 06:18 Albumin 1.5 g/dL (3.4-5.0) L 10/02/18 06:18 Globulin 4.8 g/dL (2.5-4.5) H 10/02/18 06:18 Albumin/Globulin Ratio 0.3 Ratio (1.1-2.1) L 10/02/18 06:18 Amylase 49 Units/L (25-115) 09/30/18 15:09 Lipase 40 Units/L (73-393) L 09/30/18 15:09 Vitamin B12 848 pg/mL (193-986) 09/30/18 15:09 Folate 7.1 ng/mL (>8.6) L 09/30/18 15:09 Specimen Type Clean catch urine 09/30/18 23:37 Urine Color Yellow (YELLOW) 09/30/18 23:37 Urine Appearance Clear (CLEAR) 09/30/18 23:37 Urine pH 7.0 (5.0 - 8.0) 09/30/18 23:37 Ur Specific [place] 1.005 (1.000-1.030) 09/30/18 23:37 Urine Protein 4+ (NEGATIVE) 09/30/18 23:37 Urine Glucose (UA) 1+ (NEGATIVE) 09/30/18 23:37 Urine Ketones Negative (NEGATIVE) 09/30/18 23:37 Urine Occult Blood 2+ (NEGATIVE) 09/30/18 23:37 Urine Nitrite Negative (NEGATIVE) 09/30/18 23:37 Urine Bilirubin Negative (NEGATIVE) 09/30/18 23:37 Urine Urobilinogen Normal (NORMAL) 09/30/18 23:37 Ur Leukocyte Esterase Negative (NEGATIVE) 09/30/18 23:37 Urine RBC 0-2 /HPF (NONE SEEN) 09/30/18 23:37 Urine WBC None seen /HPF (NONE SEEN) 09/30/18 23:37 Ur Squamous Epith Cells Rare /HPF (NEGATIVE) 09/30/18 23:37 Urine Bacteria Negative /HPF (NEGATIVE) 09/30/18 23:37 Ur Culture Indicated? No/not indicated 09/30/18 23:37 Gastric Fluid pH 4 10/02/18 12:20 Gastric Occult Blood Positive (NEGATIVE) A 10/02/18 12:20 - Plan (1) Abdominal pain Status: Acute Qualifiers: Plan: REGLAN IV, PPI. BENTYL, IV NARCOTIC PAIN CONTROL. PAIN AND NAUSEA CONTROL. BP CONTROL, IV HYDRATION. STRICT I & OS. NPO (2) GERD (gastroesophageal reflux disease) Status: Acute (3) Nausea & vomiting Status: Acute Qualifiers: Plan: See chart for further orders (4) Essential hypertension Status: Chronic (5) Diabetes mellitus Status: Chronic (6) Chronic kidney disease, stage 3 Status: Chronic Plan: See chart for further orders
--- NOTE | 2018-10-02 14:25 | RAD ---
HISTORY: NG tube placement Study: Flat views of the abdomen. Comparison: None Findings: Evaluation of the abdomen demonstrates a NG tube coiled in the distal esophagus. No free air. No pathological soft tissue mass or calcification can be observed. The bony structures are grossly intact. IMPRESSION: 1. NG tube coiled in distal esophagus. Recommend removal and replacement. Reported By:
--- NOTE | 2018-10-02 14:29 | RAD ---
HISTORY: 33-year-old female for verification of enteric tube. Study: Two views of the abdomen. Comparison: Abdominal radiographs this date. Findings: Enteric tube with distal tip overlying the left upper quadrant region of the stomach. Proximal side port in the region of the GE junction. No other interval change. IMPRESSION: 1. Enteric tube as above, recommend advancing 20-30 cm. Reported By:
[2018-10-02] MEDS: NS 1000 ML 1,000 ML IV SCH (14:58)
[2018-10-02] MEDS ORDERED: BENTYL I.M. INJ 10 MG IM ONE (15:45)
[2018-10-02] MEDS: BENTYL I.M. INJ 10 MG IM ONE ×2 (15:53→15:54)
[2018-10-02] MEDS: ZOFRAN INJ 4 MG VIAL IVP PRN (16:07)
[2018-10-02] MEDS ORDERED: APRESOLINE INJ 20 MG VIAL ONE (16:28)
[2018-10-02] MEDS: APRESOLINE INJ 20 MG VIAL IVP PRN (16:36)
[2018-10-02] MEDS: DILAUDID INJ IVP PRN (19:45)
[2018-10-02] MEDS: REGLAN INJ 10 MG VIAL IVP PRN (23:15)
[2018-10-03] MEDS: PHENERGAN INJ 25 MG IVP PRN ×2 (02:20→19:39)
[2018-10-03] MEDS: DILAUDID INJ IVP PRN ×3 (02:20→19:39)
[2018-10-03] MEDS: NS 1000 ML 1,000 ML IV SCH ×3 (04:00→23:55)
[2018-10-03 05:30] LABS: BASOPHILS # (AUTO) 0.1 X10^3/uL (0.0-0.1); BASOPHILS % (AUTO) 0.8 % (0.2-1.0); EOSINOPHILS # (AUTO) 0.1 x10^3/uL (0.0-0.2); EOSINOPHILS % (AUTO) 0.7 % (0.9-2.9); HEMOGLOBIN 11.2 g/dL (12.0-16.0); LYMPHOCYTES % (AUTO) 27.1 % (21.0-51.0); MEAN CORPUSCULAR HEMOGLOBIN 26.3 pg (27.0-34.0); MEAN CORPUSCULAR HGB CONC 31.9 g/dL (33.0-35.0); MEAN CORPUSCULAR VOLUME 82.5 fL (80.0-100.0); MEAN PLATELET VOLUME 10.3 fL (7.4-11.0); MONOCYTES # (AUTO) 1.1 x10^3/uL (0.3-0.8); MONOCYTES % (AUTO) 9.9 % (0.0-13.0); NEUTROPHILS # (AUTO) 6.7 x10^3/uL (2.2-4.8); NEUTROPHILS % (AUTO) 61.5 % (42.0-75.0); PLATELET COUNT 289 X10^3/uL (150.0-450.0); RED BLOOD COUNT 4.24 X10^6/uL (3.5-5.4); RED CELL DISTRIBUTION WIDTH 15.8 % (11.6-16.5)
[2018-10-03 05:47] LABS: ALANINE AMINOTRANSFERASE 12 Units/L (12-78); ALBUMIN 1.2 g/dL (3.4-5.0); ALKALINE PHOSPHATASE 63 Units/L (46-116); BLOOD UREA NITROGEN 13 mg/dL (7-18); CALCIUM 8.5 mg/dL (8.5-10.1); CARBON DIOXIDE 24.9 mmol/L (21-32); CHLORIDE 109 mmol/L (98-107); COR CA(FOR HYPOALB) 10.7 mg/dL (8.5-10.1); CREATININE 2.21 mg/dL (0.55-1.02); SODIUM 143 mmol/L (136-145); TOTAL PROTEIN 5.5 g/dL (6.4-8.2); eGFR NON BLACK RACES 27 (>60)
[2018-10-03 05:56] LABS: ASPARTATE AMINO TRANSFERASE 22 Units/L (15-37)
[2018-10-03] MEDS ORDERED: BENTYL I.M. INJ 10 MG IM ONE (08:16)
[2018-10-03] MEDS: COZAAR PO SCH (09:43)
[2018-10-03] MEDS: PERCOCET TAB 5/325 MG PO PRN ×2 (09:43→16:57)
[2018-10-03] MEDS: COREG TAB 25 MG PO SCH ×2 (09:43→22:08)
[2018-10-03] MEDS: APRESOLINE INJ 20 MG VIAL IVP PRN (16:55)
--- NOTE | 2018-10-03 18:03 | PCM.PROG ---
Progress Note - Progress Note for Day of Date of Exam: 10/03/18 - Subjective Subjective: 33 BF ADMITTED ON 09/30 WITH ABDOMINAL PAIN, N/V AND SWELLING ALL OVER. PT HAS HX OF CHRONIC ABDOMINAL PAIN AND RENAL FAILURE, HTN AND DM. CREAT 2.21 THIS AM. WBC 11.0 THIS AM. PT CONTINUES WITH MILD FACIAL SWELLING AND BILATERAL LOWER EXTREMITY SWELLING. PPI BID, BS CONTROL, NPO CT ABD W/O R/O SBO WITHOUT ACUTE FINDINGS. PT ON BENTYL, REGLAN IV QID. CURRENTLY CONTROLLED WITH DILAUDID. GASTROCULT POSITIVE. CONSULT DR HERMAN. - Past Medical Family Social History Past Med/Fam/Surg Hx: No changes since H&P Allergies: Allergies Penicillins Allergy (Verified 05/31/18 17:54) lisinopril Adverse Reaction (Verified 06/07/18 14:23) morphine Adverse Reaction (Verified 05/31/18 17:54) - Review of Systems ROS: No change since H&P - Vital Signs and I&O's Vital Signs: Temperature 98.4 F Pulse Rate [Left Brachial] 95 Respiratory Rate 18 Blood Pressure [Left Arm] 154/78 Blood Pressure [Right Arm] 144/88 Blood Pressure 148/95 O2 Sat by Pulse Oximetry 96 Intake and Output: Intake & Output 10/01/18 10/02/18 10/03/18 10/04/18 11:59 11:59 11:59 11:59 Intake Total 1345 / 1345 1700 / 1700 1436 / 1436 600 / 600 Output Total 650 / 650 Balance 1345 / 1345 1700 / 1700 786 / 786 600 / 600 - Physical Exam Oriented: Normal, Time, Person, Place Eyes: Normal Ear: Normal Nose: Normal Throat: Normal Respiratory: Diminished Cardiovascular: Normal, Edema : Normal Auscultation: Bowel Sounds: Normal Tenderness: Diffuse, LUQ, LLQ Skin: Normal Musculoskeletal: Normal Psychiatric: Normal Speech Pattern: Clear, Appropriate - Laboratory and Diagnostics Result Diagrams: 10/03/18 04:06 10/03/18 04:06 Labs: Laboratory WBC 11.0 X10^3/uL (3.6-10.0) H 10/03/18 04:06 RBC 4.24 X10^6/uL (3.5-5.4) 10/03/18 04:06 Hgb 11.2 g/dL (12.0-16.0) L 10/03/18 04:06 Hct 35.0 % (36.0-47.0) L 10/03/18 04:06 MCV 82.5 fL (80.0-100.0) 10/03/18 04:06 MCH 26.3 pg (27.0-34.0) L 10/03/18 04:06 MCHC 31.9 g/dL (33.0-35.0) L 10/03/18 04:06 RDW 15.8 % (11.6-16.5) 10/03/18 04:06 Plt Count 289 X10^3/uL (150.0-450.0) 10/03/18 04:06 MPV 10.3 fL (7.4-11.0) 10/03/18 04:06 Neut % (Auto) 61.5 % (42.0-75.0) 10/03/18 04:06 Lymph % (Auto) 27.1 % (21.0-51.0) 10/03/18 04:06 [place] % (Auto) 9.9 % (0.0-13.0) 10/03/18 04:06 Eos % (Auto) 0.7 % (0.9-2.9) L 10/03/18 04:06 Baso % (Auto) 0.8 % (0.2-1.0) 10/03/18 04:06 Neut # (Auto) 6.7 x10^3/uL (2.2-4.8) H 10/03/18 04:06 Lymph # (Auto) 3.0 X10^3/uL (1.3-2.9) H 10/03/18 04:06 [place] # (Auto) 1.1 x10^3/uL (0.3-0.8) H 10/03/18 04:06 Eos # (Auto) 0.1 x10^3/uL (0.0-0.2) 10/03/18 04:06 Baso # (Auto) 0.1 X10^3/uL (0.0-0.1) 10/03/18 04:06 Absolute Nucleated RBC 0.0 /100WBC 10/03/18 04:06 Sodium 143 mmol/L (136-145) 10/03/18 04:06 Corrected Sodium TNP 10/03/18 04:06 Potassium 4.2 mmol/L (3.5-5.1) 10/03/18 04:06 Chloride 109 mmol/L (98-107) H 10/03/18 04:06 Carbon Dioxide 24.9 mmol/L (21-32) 10/03/18 04:06 BUN 13 mg/dL (7-18) 10/03/18 04:06 Creatinine 2.21 mg/dL (0.55-1.02) H 10/03/18 04:06 Est GFR (MDRD) Af Amer 33 (>60) L 10/03/18 04:06 Est GFR (MDRD) Non-Af 27 (>60) L 10/03/18 04:06 Glucose 75 mg/dL (65-99) 10/03/18 04:06 POC Glucose (mg/dL) 99 mg/dL (65-99) 10/03/18 17:23 Calcium 8.5 mg/dL (8.5-10.1) 10/03/18 04:06 Corrected Calcium 10.7 mg/dL (8.5-10.1) H 10/03/18 04:06 Iron 53 ug/dL (50-175) 09/30/18 15:09 Transferrin 206 mg/dL (202-364) 09/30/18 15:09 Ferritin 24 ng/mL (8-252) 09/30/18 15:09 Total Bilirubin 0.20 mg/dL (0.2-1.0) 10/03/18 04:06 AST 22 Units/L (15-37) 10/03/18 04:06 ALT 12 Units/L (12-78) 10/03/18 04:06 Alkaline Phosphatase 63 Units/L (46-116) 10/03/18 04:06 Creatine Kinase 461 Units/L (26-192) H 10/02/18 12:45 CK-MB (CK-2) 2.2 ng/mL (0-4.0) 10/02/18 12:45 CK/CKMB % Calc 0.5 % (<4) 10/02/18 12:45 Troponin I < 0.02 ng/mL (0-1.5) 10/02/18 12:45 Total Protein 5.5 g/dL (6.4-8.2) L 10/03/18 04:06 Albumin 1.2 g/dL (3.4-5.0) L 10/03/18 04:06 Globulin 4.3 g/dL (2.5-4.5) 10/03/18 04:06 Albumin/Globulin Ratio 0.3 Ratio (1.1-2.1) L 10/03/18 04:06 Amylase 49 Units/L (25-115) 09/30/18 15:09 Lipase 40 Units/L (73-393) L 09/30/18 15:09 Vitamin B12 848 pg/mL (193-986) 09/30/18 15:09 Folate 7.1 ng/mL (>8.6) L 09/30/18 15:09 Specimen Type Clean catch urine 09/30/18 23:37 Urine Color Yellow (YELLOW) 09/30/18 23:37 Urine Appearance Clear (CLEAR) 09/30/18 23:37 Urine pH 7.0 (5.0 - 8.0) 09/30/18 23:37 Ur Specific [place] 1.005 (1.000-1.030) 09/30/18 23:37 Urine Protein 4+ (NEGATIVE) 09/30/18 23:37 Urine Glucose (UA) 1+ (NEGATIVE) 09/30/18 23:37 Urine Ketones Negative (NEGATIVE) 09/30/18 23:37 Urine Occult Blood 2+ (NEGATIVE) 09/30/18 23:37 Urine Nitrite Negative (NEGATIVE) 09/30/18 23:37 Urine Bilirubin Negative (NEGATIVE) 09/30/18 23:37 Urine Urobilinogen Normal (NORMAL) 09/30/18 23:37 Ur Leukocyte Esterase Negative (NEGATIVE) 09/30/18 23:37 Urine RBC 0-2 /HPF (NONE SEEN) 09/30/18 23:37 Urine WBC None seen /HPF (NONE SEEN) 09/30/18 23:37 Ur Squamous Epith Cells Rare /HPF (NEGATIVE) 09/30/18 23:37 Urine Bacteria Negative /HPF (NEGATIVE) 09/30/18 23:37 Ur Culture Indicated? No/not indicated 09/30/18 23:37 Gastric Fluid pH 4 10/02/18 12:20 Gastric Occult Blood Positive (NEGATIVE) A 10/02/18 12:20 - Plan (1) Abdominal pain Status: Acute Qualifiers: Plan: REGLAN IV, PPI. BENTYL, IV NARCOTIC PAIN CONTROL. PAIN AND NAUSEA CONTROL. BP CONTROL, IV HYDRATION. STRICT I & OS. NPO (2) GERD (gastroesophageal reflux disease) Status: Acute (3) Nausea & vomiting Status: Acute Qualifiers: Plan: See chart for further orders (4) Essential hypertension Status: Chronic (5) Diabetes mellitus Status: Chronic (6) Chronic kidney disease, stage 3 Status: Chronic Plan: See chart for further orders (7) Upper GI bleed Status: Acute Plan: MONITOR H & H, PPI, NG TUBE AT LIS
[2018-10-04] MEDS: DILAUDID INJ IVP PRN ×4 (04:30→23:40)
[2018-10-04] MEDS: PHENERGAN INJ 25 MG IVP PRN ×4 (04:35→23:40)
[2018-10-04 05:17] LABS: BASOPHILS % (AUTO) 0.4 % (0.2-1.0); EOSINOPHILS # (AUTO) 0.2 x10^3/uL (0.0-0.2); HEMATOCRIT 32.8 % (36.0-47.0); HEMOGLOBIN 10.5 g/dL (12.0-16.0); LYMPHOCYTES # (AUTO) 2.7 X10^3/uL (1.3-2.9); LYMPHOCYTES % (AUTO) 32.9 % (21.0-51.0); MEAN CORPUSCULAR HEMOGLOBIN 26.6 pg (27.0-34.0); MEAN CORPUSCULAR HGB CONC 32.1 g/dL (33.0-35.0); MEAN CORPUSCULAR VOLUME 82.7 fL (80.0-100.0); MEAN PLATELET VOLUME 9.9 fL (7.4-11.0); MONOCYTES # (AUTO) 0.7 x10^3/uL (0.3-0.8); MONOCYTES % (AUTO) 8.9 % (0.0-13.0); NEUTROPHILS # (AUTO) 4.6 x10^3/uL (2.2-4.8); NEUTROPHILS % (AUTO) 55.8 % (42.0-75.0); PLATELET COUNT 260 X10^3/uL (150.0-450.0); RED BLOOD COUNT 3.97 X10^6/uL (3.5-5.4); RED CELL DISTRIBUTION WIDTH 15.6 % (11.6-16.5); WHITE BLOOD COUNT 8.2 X10^3/uL (3.6-10.0)
[2018-10-04 05:42] LABS: ALANINE AMINOTRANSFERASE 11 Units/L (12-78); ALBUMIN 1.1 g/dL (3.4-5.0); ALKALINE PHOSPHATASE 61 Units/L (46-116); ASPARTATE AMINO TRANSFERASE 19 Units/L (15-37); BLOOD UREA NITROGEN 9 mg/dL (7-18); CARBON DIOXIDE 24.4 mmol/L (21-32); CHLORIDE 106 mmol/L (98-107); COR CA(FOR HYPOALB) 10.3 mg/dL (8.5-10.1); CREATININE 2.12 mg/dL (0.55-1.02); SODIUM 138 mmol/L (136-145); TOTAL PROTEIN 5.1 g/dL (6.4-8.2); eGFR NON BLACK RACES 28 (>60)
[2018-10-04] MEDS: NS 1000 ML 1,000 ML IV SCH ×3 (06:06→19:46)
[2018-10-04] MEDS: APRESOLINE INJ 20 MG VIAL IVP PRN ×2 (07:40→18:31)
[2018-10-04] MEDS: COZAAR PO SCH (09:00)
[2018-10-04] MEDS: COREG TAB 25 MG PO SCH ×2 (09:00→21:46)
--- NOTE | 2018-10-04 09:51 | DR.PROGNOT ---
Hospital Progress Notes - Progress Note for Day of: Progress Note Date: 10/04/18 - Chief Complaint Chief Complaint: still having frequent vomiting and LUQ and Lt side pain . no bleeding. normal BM . having moderate peripheral edema and elevated Creatinin level. BG is fairly controlled . abdominal CT is normal . - Past Medical Family Social History Past Med/Fam/Surg Hx: No changes since H&P Allergies: Allergies Penicillins Allergy (Verified 05/31/18 17:54) lisinopril Adverse Reaction (Verified 06/07/18 14:23) morphine Adverse Reaction (Verified 05/31/18 17:54) - Review Of Systems ROS: No change since H&P - Vital Signs Vital Signs: Temperature 98.7 F Pulse Rate [Left Brachial] 105 Respiratory Rate 20 Blood Pressure [Left Arm] 237/109 Blood Pressure [Right Arm] 155/95 Blood Pressure 148/95 O2 Sat by Pulse Oximetry 96 - Physical Exam Oriented: Normal, Time, Person, Place Eyes: Normal, Other (moderate edema) Ear: Normal Nose: Normal Throat: Normal Respiratory: Diminished Cardiovascular: Normal, Edema : Normal GI:Auscultation: Normal GI:Palpation: Normal GI: Tenderness: Diffuse, LUQ (moderate epigastric and Lt side tenderness), LLQ, Epigastric Skin: Normal Musculoskeletal: Normal Psychiatric: Normal Speech Pattern: Clear, Appropriate - Laboratory and Diagnostics Result Diagrams: 10/04/18 04:10 10/04/18 04:10 Labs: Laboratory WBC 8.2 X10^3/uL (3.6-10.0) 10/04/18 04:10 RBC 3.97 X10^6/uL (3.5-5.4) 10/04/18 04:10 Hgb 10.5 g/dL (12.0-16.0) L 10/04/18 04:10 Hct 32.8 % (36.0-47.0) L 10/04/18 04:10 MCV 82.7 fL (80.0-100.0) 10/04/18 04:10 MCH 26.6 pg (27.0-34.0) L 10/04/18 04:10 MCHC 32.1 g/dL (33.0-35.0) L 10/04/18 04:10 RDW 15.6 % (11.6-16.5) 10/04/18 04:10 Plt Count 260 X10^3/uL (150.0-450.0) 10/04/18 04:10 MPV 9.9 fL (7.4-11.0) 10/04/18 04:10 Neut % (Auto) 55.8 % (42.0-75.0) 10/04/18 04:10 Lymph % (Auto) 32.9 % (21.0-51.0) 10/04/18 04:10 [place] % (Auto) 8.9 % (0.0-13.0) 10/04/18 04:10 Eos % (Auto) 2.0 % (0.9-2.9) 10/04/18 04:10 Baso % (Auto) 0.4 % (0.2-1.0) 10/04/18 04:10 Neut # (Auto) 4.6 x10^3/uL (2.2-4.8) 10/04/18 04:10 Lymph # (Auto) 2.7 X10^3/uL (1.3-2.9) 10/04/18 04:10 [place] # (Auto) 0.7 x10^3/uL (0.3-0.8) 10/04/18 04:10 Eos # (Auto) 0.2 x10^3/uL (0.0-0.2) 10/04/18 04:10 Baso # (Auto) 0.0 X10^3/uL (0.0-0.1) 10/04/18 04:10 Absolute Nucleated RBC 0.1 /100WBC 10/04/18 04:10 Sodium 138 mmol/L (136-145) 10/04/18 04:10 Corrected Sodium TNP 10/04/18 04:10 Potassium 3.8 mmol/L (3.5-5.1) 10/04/18 04:10 Chloride 106 mmol/L (98-107) 10/04/18 04:10 Carbon Dioxide 24.4 mmol/L (21-32) 10/04/18 04:10 BUN 9 mg/dL (7-18) 10/04/18 04:10 Creatinine 2.12 mg/dL (0.55-1.02) H 10/04/18 04:10 Est GFR (MDRD) Af Amer 34 (>60) L 10/04/18 04:10 Est GFR (MDRD) Non-Af 28 (>60) L 10/04/18 04:10 Glucose 89 mg/dL (65-99) 10/04/18 04:10 POC Glucose (mg/dL) 70 mg/dL (65-99) 10/04/18 06:36 Calcium 8.0 mg/dL (8.5-10.1) L 10/04/18 04:10 Corrected Calcium 10.3 mg/dL (8.5-10.1) H 10/04/18 04:10 Iron 53 ug/dL (50-175) 09/30/18 15:09 Transferrin 206 mg/dL (202-364) 09/30/18 15:09 Ferritin 24 ng/mL (8-252) 09/30/18 15:09 Total Bilirubin 0.10 mg/dL (0.2-1.0) L 10/04/18 04:10 AST 19 Units/L (15-37) 10/04/18 04:10 ALT 11 Units/L (12-78) L 10/04/18 04:10 Alkaline Phosphatase 61 Units/L (46-116) 10/04/18 04:10 Creatine Kinase 461 Units/L (26-192) H 10/02/18 12:45 CK-MB (CK-2) 2.2 ng/mL (0-4.0) 10/02/18 12:45 CK/CKMB % Calc 0.5 % (<4) 10/02/18 12:45 Troponin I < 0.02 ng/mL (0-1.5) 10/02/18 12:45 Total Protein 5.1 g/dL (6.4-8.2) L 10/04/18 04:10 Albumin 1.1 g/dL (3.4-5.0) L 10/04/18 04:10 Globulin 4.0 g/dL (2.5-4.5) 10/04/18 04:10 Albumin/Globulin Ratio 0.3 Ratio (1.1-2.1) L 10/04/18 04:10 Amylase 49 Units/L (25-115) 09/30/18 15:09 Lipase 40 Units/L (73-393) L 09/30/18 15:09 Vitamin B12 848 pg/mL (193-986) 09/30/18 15:09 Folate 7.1 ng/mL (>8.6) L 09/30/18 15:09 Specimen Type Clean catch urine 09/30/18 23:37 Urine Color Yellow (YELLOW) 09/30/18 23:37 Urine Appearance Clear (CLEAR) 09/30/18 23:37 Urine pH 7.0 (5.0 - 8.0) 09/30/18 23:37 Ur Specific [place] 1.005 (1.000-1.030) 09/30/18 23:37 Urine Protein 4+ (NEGATIVE) 09/30/18 23:37 Urine Glucose (UA) 1+ (NEGATIVE) 09/30/18 23:37 Urine Ketones Negative (NEGATIVE) 09/30/18 23:37 Urine Occult Blood 2+ (NEGATIVE) 09/30/18 23:37 Urine Nitrite Negative (NEGATIVE) 09/30/18 23:37 Urine Bilirubin Negative (NEGATIVE) 09/30/18 23:37 Urine Urobilinogen Normal (NORMAL) 09/30/18 23:37 Ur Leukocyte Esterase Negative (NEGATIVE) 09/30/18 23:37 Urine RBC 0-2 /HPF (NONE SEEN) 09/30/18 23:37 Urine WBC None seen /HPF (NONE SEEN) 09/30/18 23:37 Ur Squamous Epith Cells Rare /HPF (NEGATIVE) 09/30/18 23:37 Urine Bacteria Negative /HPF (NEGATIVE) 09/30/18 23:37 Ur Culture Indicated? No/not indicated 09/30/18 23:37 Gastric Fluid pH 4 10/02/18 12:20 Gastric Occult Blood Positive (NEGATIVE) A 10/02/18 12:20 - Assessment and Plan 1: abdominal pain ,. possible cyclic vomiting over the past few years . CKD . to have UGI with SBFT . EGD if wasnt done recently . add Ativan one mg BID . - Problem Patient Problems: Patient Problems GERD (gastroesophageal reflux disease) (Acute) K21.9 Upper GI bleed (Acute) K92.2
[2018-10-04] MEDS ORDERED: ATIVAN TAB 1 MG PO PRN (10:19)
[2018-10-04] MEDS: REGLAN INJ 10 MG VIAL IVP PRN (19:55)
[2018-10-04] MEDS: PEPCID 20 MG IV PREMIX* 20 MG/50 ML BAG IV PRN (20:27)
[2018-10-05 05:23] LABS: BASOPHILS % (AUTO) 0.5 % (0.2-1.0); EOSINOPHILS # (AUTO) 0.2 x10^3/uL (0.0-0.2); EOSINOPHILS % (AUTO) 1.7 % (0.9-2.9); HEMATOCRIT 34.5 % (36.0-47.0); HEMOGLOBIN 10.8 g/dL (12.0-16.0); LYMPHOCYTES % (AUTO) 22.5 % (21.0-51.0); MEAN CORPUSCULAR HEMOGLOBIN 26.1 pg (27.0-34.0); MEAN CORPUSCULAR HGB CONC 31.3 g/dL (33.0-35.0); MEAN CORPUSCULAR VOLUME 83.6 fL (80.0-100.0); MEAN PLATELET VOLUME 9.9 fL (7.4-11.0); MONOCYTES # (AUTO) 0.8 x10^3/uL (0.3-0.8); NEUTROPHILS # (AUTO) 5.9 x10^3/uL (2.2-4.8); NEUTROPHILS % (AUTO) 66.3 % (42.0-75.0); PLATELET COUNT 288 X10^3/uL (150.0-450.0); RED BLOOD COUNT 4.13 X10^6/uL (3.5-5.4); RED CELL DISTRIBUTION WIDTH 15.6 % (11.6-16.5); WHITE BLOOD COUNT 8.9 X10^3/uL (3.6-10.0)
[2018-10-05 05:35] LABS: ALANINE AMINOTRANSFERASE 11 Units/L (12-78); ALBUMIN 1.1 g/dL (3.4-5.0); ALKALINE PHOSPHATASE 61 Units/L (46-116); ASPARTATE AMINO TRANSFERASE 19 Units/L (15-37); BLOOD UREA NITROGEN 9 mg/dL (7-18); CALCIUM 8.5 mg/dL (8.5-10.1); CARBON DIOXIDE 25.7 mmol/L (21-32); CHLORIDE 108 mmol/L (98-107); COR CA(FOR HYPOALB) 10.8 mg/dL (8.5-10.1); CREATININE 1.97 mg/dL (0.55-1.02); SODIUM 142 mmol/L (136-145); TOTAL PROTEIN 5.3 g/dL (6.4-8.2); eGFR NON BLACK RACES 31 (>60)
[2018-10-05] MEDS: DILAUDID INJ IVP PRN ×4 (05:40→23:34)
[2018-10-05] MEDS: PHENERGAN INJ 25 MG IVP PRN ×4 (05:40→23:34)
[2018-10-05] MEDS: NS 1000 ML 1,000 ML IV SCH ×4 (05:56→20:27)
[2018-10-05] MEDS: COZAAR PO SCH (08:46)
[2018-10-05] MEDS: COREG TAB 25 MG PO SCH ×2 (08:46→20:26)
[2018-10-05] MEDS: ZOFRAN INJ 4 MG VIAL IVP PRN (08:51)
[2018-10-05] MEDS: PEPCID 20 MG IV PREMIX* 20 MG/50 ML BAG IV PRN (08:51)
[2018-10-05] MEDS: PEPCID 20 MG IV PREMIX* 20 MG/50 ML BAG IV SCH ×2 (13:07→20:26)
[2018-10-05] MEDS: ATIVAN TAB 1 MG PO SCH ×2 (13:10→20:26)
[2018-10-06] MEDS: NS 1000 ML 1,000 ML IV SCH ×4 (00:09→21:02)
[2018-10-06] MEDS: DILAUDID INJ IVP PRN ×3 (05:33→20:01)
[2018-10-06] MEDS: PHENERGAN INJ 25 MG IVP PRN ×3 (05:33→20:02)
[2018-10-06 06:24] LABS: BASOPHILS # (AUTO) 0.1 X10^3/uL (0.0-0.1); BASOPHILS % (AUTO) 0.7 % (0.2-1.0); EOSINOPHILS # (AUTO) 0.2 x10^3/uL (0.0-0.2); EOSINOPHILS % (AUTO) 2.3 % (0.9-2.9); HEMATOCRIT 34.8 % (36.0-47.0); LYMPHOCYTES % (AUTO) 25.7 % (21.0-51.0); MEAN CORPUSCULAR HEMOGLOBIN 26.2 pg (27.0-34.0); MEAN CORPUSCULAR HGB CONC 31.6 g/dL (33.0-35.0); MEAN PLATELET VOLUME 9.2 fL (7.4-11.0); MONOCYTES # (AUTO) 0.7 x10^3/uL (0.3-0.8); MONOCYTES % (AUTO) 8.5 % (0.0-13.0); NEUTROPHILS # (AUTO) 4.8 x10^3/uL (2.2-4.8); NEUTROPHILS % (AUTO) 62.8 % (42.0-75.0); PLATELET COUNT 258 X10^3/uL (150.0-450.0); RED BLOOD COUNT 4.19 X10^6/uL (3.5-5.4); RED CELL DISTRIBUTION WIDTH 15.3 % (11.6-16.5); WHITE BLOOD COUNT 7.7 X10^3/uL (3.6-10.0)
[2018-10-06 06:54] LABS: ALANINE AMINOTRANSFERASE 14 Units/L (12-78); ALBUMIN 1.1 g/dL (3.4-5.0); ALKALINE PHOSPHATASE 64 Units/L (46-116); ASPARTATE AMINO TRANSFERASE 17 Units/L (15-37); BLOOD UREA NITROGEN 6 mg/dL (7-18); CALCIUM 8.1 mg/dL (8.5-10.1); CARBON DIOXIDE 23.7 mmol/L (21-32); CHLORIDE 107 mmol/L (98-107); COR CA(FOR HYPOALB) 10.4 mg/dL (8.5-10.1); CREATININE 1.78 mg/dL (0.55-1.02); SODIUM 140 mmol/L (136-145); TOTAL PROTEIN 5.3 g/dL (6.4-8.2); eGFR NON BLACK RACES 35 (>60)
[2018-10-06] MEDS: COREG TAB 25 MG PO SCH ×2 (08:16→20:02)
[2018-10-06] MEDS: PEPCID 20 MG IV PREMIX* 20 MG/50 ML BAG IV SCH ×2 (08:16→20:02)
[2018-10-06] MEDS: COZAAR PO SCH (08:16)
[2018-10-06] MEDS: ATIVAN TAB 1 MG PO SCH ×2 (08:16→20:02)
[2018-10-06] MEDS: PERCOCET TAB 5/325 MG PO PRN ×2 (08:17→17:44)
[2018-10-06] MEDS: APRESOLINE INJ 20 MG VIAL IVP PRN (15:39)
[2018-10-06] MEDS: ZOFRAN INJ 4 MG VIAL IVP PRN (17:44)
[2018-10-07] MEDS: DILAUDID INJ IVP PRN (02:00)
[2018-10-07] MEDS: PHENERGAN INJ 25 MG IVP PRN ×2 (02:00→02:33)
[2018-10-07] MEDS: NS 1000 ML 1,000 ML IV SCH (02:34)
[2018-10-07 05:23] LABS: BASOPHILS # (AUTO) 0.1 X10^3/uL (0.0-0.1); BASOPHILS % (AUTO) 0.8 % (0.2-1.0); EOSINOPHILS # (AUTO) 0.2 x10^3/uL (0.0-0.2); EOSINOPHILS % (AUTO) 1.9 % (0.9-2.9); HEMATOCRIT 31.9 % (36.0-47.0); LYMPHOCYTES # (AUTO) 2.1 X10^3/uL (1.3-2.9); LYMPHOCYTES % (AUTO) 24.1 % (21.0-51.0); MEAN CORPUSCULAR HEMOGLOBIN 26.2 pg (27.0-34.0); MEAN CORPUSCULAR HGB CONC 31.4 g/dL (33.0-35.0); MEAN CORPUSCULAR VOLUME 83.7 fL (80.0-100.0); MEAN PLATELET VOLUME 9.8 fL (7.4-11.0); MONOCYTES # (AUTO) 0.7 x10^3/uL (0.3-0.8); MONOCYTES % (AUTO) 8.5 % (0.0-13.0); NEUTROPHILS # (AUTO) 5.6 x10^3/uL (2.2-4.8); NEUTROPHILS % (AUTO) 64.7 % (42.0-75.0); PLATELET COUNT 263 X10^3/uL (150.0-450.0); RED BLOOD COUNT 3.81 X10^6/uL (3.5-5.4); RED CELL DISTRIBUTION WIDTH 15.7 % (11.6-16.5); WHITE BLOOD COUNT 8.7 X10^3/uL (3.6-10.0)
[2018-10-07 05:33] LABS: ALANINE AMINOTRANSFERASE 15 Units/L (12-78); ALBUMIN 0.9 g/dL (3.4-5.0); ALKALINE PHOSPHATASE 65 Units/L (46-116); ASPARTATE AMINO TRANSFERASE 22 Units/L (15-37); BLOOD UREA NITROGEN 6 mg/dL (7-18); CALCIUM 7.6 mg/dL (8.5-10.1); CHLORIDE 110 mmol/L (98-107); COR CA(FOR HYPOALB) 10.1 mg/dL (8.5-10.1); COR NA(FOR HYPERGLY) 141 mmol/L (136-145); CREATININE 1.91 mg/dL (0.55-1.02); SODIUM 140 mmol/L (136-145); TOTAL PROTEIN 4.6 g/dL (6.4-8.2); eGFR NON BLACK RACES 32 (>60)
[2018-10-07] MEDS: COZAAR PO SCH (08:53)
[2018-10-07] MEDS: COREG TAB 25 MG PO SCH (08:53)
[2018-10-07] MEDS: PEPCID 20 MG IV PREMIX* 20 MG/50 ML BAG IV SCH (08:53)
[2018-10-07] MEDS: ATIVAN TAB 1 MG PO SCH (08:53)
[2018-10-07] MEDS: REGLAN INJ 10 MG VIAL IVP PRN (08:54)
[2018-10-07] MEDS: PERCOCET TAB 5/325 MG PO PRN (08:54)
[2018-10-07 14:52] LABS: CREATININE,URINE 39.93 mg/dL (29-226)
[2018-10-07 14:58] LABS: CREATININE 24 HOUR,URINE 0.94 g/24 hr (0.67-1.59)
[2018-10-07 15:37] VITALS: BP 138/80
== END 2018-10-07 15:30 | disposition home or self-care (01) | DRG 378 ==
LOC: MED/SURG
PROVIDERS: ADMIT Internal Medicine; ATTEND Internal Medicine
DX: F41.8 Other specified anxiety disorders; R11.2 Nausea with vomiting, unspecified; E10.65 Type 1 diabetes mellitus with hyperglycemia; N17.8 Other acute kidney failure; R79.1 Abnormal coagulation profile; K21.9 Gastro-esophageal reflux disease without esophagitis; I12.9 Hypertensive chronic kidney disease with stage 1 through stage 4 chronic kidney disease, or unspecified chronic kidney disease; R10.84 Generalized abdominal pain; K92.2 Gastrointestinal hemorrhage, unspecified; N18.3 Chronic kidney disease, stage 3 (moderate); R60.0 Localized edema; E10.22 Type 1 diabetes mellitus with diabetic chronic kidney disease
CPT/HCPCS: 36415; 74000; 74018; 74022; 74176; 80053; 81001; 81003; 81050; 82150; 82271; 82550; 82553; 82570; 82607; 82728; 82746; 83540; 83690; 84157; 84466; 84484; 85025; 93005; 99231; A4216; A4222; S0028; G0378; J0131; J0360; J0500; J1170; J1642; J1750; J2175; J2405; J2550; J2765; J7030; J7040; J7050

== ENCOUNTER 2019-03-04 12:41 | Inpatient (IN) ==
[2019-03-04] MEDS ORDERED: HumuLIN R SC PRN (15:02)
[2019-03-04 15:28] LABS: BASOPHILS # (AUTO) 0.1 X10^3/uL (0.0-0.1); BASOPHILS % (AUTO) 0.8 % (0.2-1.0); EOSINOPHILS # (AUTO) 0.1 x10^3/uL (0.0-0.2); EOSINOPHILS % (AUTO) 1.7 % (0.9-2.9); HEMATOCRIT 30.4 % (36.0-47.0); HEMOGLOBIN 9.9 g/dL (12.0-16.0); LYMPHOCYTES # (AUTO) 1.1 X10^3/uL (1.3-2.9); LYMPHOCYTES % (AUTO) 14.6 % (21.0-51.0); MEAN CORPUSCULAR HEMOGLOBIN 27.7 pg (27.0-34.0); MEAN CORPUSCULAR HGB CONC 32.7 g/dL (33.0-35.0); MEAN CORPUSCULAR VOLUME 84.5 fL (80.0-100.0); MEAN PLATELET VOLUME 8.7 fL (7.4-11.0); MONOCYTES # (AUTO) 0.7 x10^3/uL (0.3-0.8); NEUTROPHILS # (AUTO) 5.8 x10^3/uL (2.2-4.8); NEUTROPHILS % (AUTO) 73.9 % (42.0-75.0); PLATELET COUNT 222 X10^3/uL (150.0-450.0); RED BLOOD COUNT 3.59 X10^6/uL (3.5-5.4); RED CELL DISTRIBUTION WIDTH 14.4 % (11.6-16.5); WHITE BLOOD COUNT 7.8 X10^3/uL (3.6-10.0)
--- NOTE | 2019-03-04 15:38 | RAD ---
History: Shortness of breath Study: AP chest Comparison: September 17, 2018 Findings: The lungs are clear and the heart and mediastinum are unremarkable. There is an unchanged Port-A-Cath from the left. Impression: No evidence for active cardiopulmonary disease Reported By:
--- NOTE | 2019-03-04 15:39 | RAD ---
History: Abdominal pain Study: KUB Findings: The bowel gas pattern is normal. There are cholecystectomy clips. There is no bony abnormality evident. There is no abnormal soft tissue calcification. Impression: Negative Reported By:
[2019-03-04 15:40] LABS: CALCIUM 8.7 mg/dL (8.5-10.1); CARBON DIOXIDE 24.7 mmol/L (21-32); COR CA(FOR HYPOALB) 10.3 mg/dL (8.5-10.1); CREATININE 4.43 mg/dL (0.55-1.02)
[2019-03-04] MEDS: REGLAN INJ 10 MG VIAL IVP SCH ×2 (16:09→20:30)
[2019-03-04] MEDS: NS 1000 ML 1,000 ML IV SCH (16:09)
[2019-03-04] MEDS: DILAUDID INJ IVP PRN ×2 (16:15→20:37)
[2019-03-04] MEDS: PROTONIX INJ 40 MG VIAL IVP SCH ×2 (16:52→21:49)
[2019-03-04 19:50] LABS: BILIRUBIN,URINE NEGATIVE (NEGATIVE); BLOOD/HEMOGLOBIN,URINE 1+ (NEGATIVE); GLUCOSE, URINE 3+ (NEGATIVE); KETONES,URINE NEGATIVE (NEGATIVE); LEUKOCYTE ESTERASE ,URINE NEGATIVE (NEGATIVE); NITRITES,URINE NEGATIVE (NEGATIVE); PROTEIN,URINE 4+ (NEGATIVE); UROBILINOGEN,URINE NORMAL (NORMAL)
[2019-03-04 19:54] LABS: APPEARANCE,URINE SLIGHTLY HAZY (CLEAR); COLOR,URINE YELLOW (YELLOW); RBC,URINE 0-2 /HPF (NONE SEEN)
[2019-03-04 19:55] LABS: BACTERIA,URINE TRACE /HPF (NEGATIVE); SQUAMOUS EPITHELIAL CELL,UR FEW /HPF (NEGATIVE)
[2019-03-05] MEDS: DILAUDID INJ IVP PRN ×3 (03:57→22:50)
[2019-03-05] MEDS: REGLAN INJ 10 MG VIAL IVP SCH ×4 (03:57→21:23)
[2019-03-05 05:39] LABS: BASOPHILS % (AUTO) 0.5 % (0.2-1.0); EOSINOPHILS # (AUTO) 0.2 x10^3/uL (0.0-0.2); EOSINOPHILS % (AUTO) 2.5 % (0.9-2.9); HEMATOCRIT 32.5 % (36.0-47.0); HEMOGLOBIN 10.5 g/dL (12.0-16.0); LYMPHOCYTES % (AUTO) 24.5 % (21.0-51.0); MEAN CORPUSCULAR HEMOGLOBIN 27.8 pg (27.0-34.0); MEAN CORPUSCULAR HGB CONC 32.3 g/dL (33.0-35.0); MEAN PLATELET VOLUME 9.6 fL (7.4-11.0); MONOCYTES # (AUTO) 0.8 x10^3/uL (0.3-0.8); MONOCYTES % (AUTO) 9.8 % (0.0-13.0); NEUTROPHILS # (AUTO) 5.2 x10^3/uL (2.2-4.8); NEUTROPHILS % (AUTO) 62.7 % (42.0-75.0); PLATELET COUNT 235 X10^3/uL (150.0-450.0); RED BLOOD COUNT 3.78 X10^6/uL (3.5-5.4); RED CELL DISTRIBUTION WIDTH 14.3 % (11.6-16.5); WHITE BLOOD COUNT 8.3 X10^3/uL (3.6-10.0)
[2019-03-05 05:50] LABS: ALBUMIN 1.8 g/dL (3.4-5.0); CALCIUM 8.5 mg/dL (8.5-10.1); COR CA(FOR HYPOALB) 10.3 mg/dL (8.5-10.1); CREATININE 3.73 mg/dL (0.55-1.02); TOTAL PROTEIN 6.1 g/dL (6.4-8.2)
[2019-03-05] MEDS: NS 1000 ML 1,000 ML IV SCH ×2 (06:09→15:45)
[2019-03-05] MEDS ORDERED: APRESOLINE INJ 20 MG VIAL ONE (07:58)
[2019-03-05] MEDS ORDERED: APRESOLINE INJ 20 MG VIAL IVP ONE (08:00)
--- NOTE | 2019-03-05 08:04 | DR.H&P ---
H&P - History & Physical for Day of: H&P Date: 03/04/19 - Chief Complaint Chief Complaint: Nausea and Vomiting, abdominal pain, dehydrated - History of Present Illness History of Present Illness: The patient is a 33yo BF who presents to [facility] with complaint of abdominal pain with nausea and vomiting. States she has a headache that she can't get rid of. BP is elevated but states she is unable to keep meds or liquids down. States she knows she is dehydrated. States Dr Goldberg, transportation agent, has been trying to get ahold of her due to labs. States her kidney disease is worse. Sattes she has let herself go due to caring for her who has had a CVA and MS in the last 3 weeks. Initially refused hospitaliztion. Discussed other options but patient crying and holding abdomen with complaints of pain. - Past Medical History Past Medical History: Hypertension, Diabetes, Depression, Anxiety, PUD, GERD Additional Medical History: Pancreatitis, Gastroparesis, CKD - Past Surgical History Surgical History: , Cholecystectomy, Hysterectomy - Family History Family Medical History: Diabetes Mellitus, Hypertension - Social History Does patient currently use any type of tobacco product: Yes Have you used tobacco products in the last 12 months: Yes Type of Tobacco Use: Cigarettes Does any household member use tobacco: No Alcohol Use: None Drug Use: Prescription Drugs Prescription drug monitoring program results: PDMP reviewed and no concerns identified - Medications Home Medications: Penicillins Allergy (Verified 05/31/18 17:54) lisinopril Adverse Reaction (Verified 06/07/18 14:23) morphine Adverse Reaction (Verified 05/31/18 17:54) CONTINUE taking the following medications amitriptyline 50 mg PO HS 03/04/19 [History] amlodipine 2.5 mg PO DAILY 03/04/19 [History] furosemide 40 mg PO DAILY 03/04/19 [History] hydralazine 100 mg PO BID 03/04/19 [History] hydrocodone-acetaminophen 1 tab PO DAILY PRN 03/04/19 [History] insulin glargine [Basaglar KwikPen U-100 Insulin] 10 units SUBCUT DAILY 03/04/19 [History] potassium chloride 10 meq PO DAILYAC 03/04/19 [History] - Review of Systems Constitutional: Weakness, Malaise Eyes: No Symptoms Reported ENT: No Symptoms Reported Respiratory: No Symptoms Reported Cardiovascular: No Symptoms Reported Gastrointestinal: See HPI, Nausea, Vomiting, Abdominal Pain Genitourinary: No Symptoms Reported Musculoskeletal: No Symptoms Reported Skin: No Symptoms Reported Neurological: No Symptoms Reported - Physical Exam Vital Signs: Temperature 98.5 F Pulse Rate [Left Brachial] 90 Respiratory Rate 20 Blood Pressure [Left Arm] 178/94 Blood Pressure [Right Arm] 155/98 Blood Pressure 190/100 O2 Sat by Pulse Oximetry 95 Oriented: Normal Eyes: Normal Ear: Normal Nose: Normal Throat: Normal Respiratory: Clear Throughout Cardiovascular: Normal : Normal Auscultation: Bowel Sounds: Normal Palpation: Normal Tenderness: RUQ, LUQ, Epigastric Skin: Decreased [place] Musculoskeletal: Normal Psychiatric: Agitation Mood Description: Anxious (Crying) Affect: Anxious Speech Pattern: Clear - Assessment/Plan (1) Acute on chronic kidney failure Status: Acute Plan: Labs, IV Hydration (2) Abdominal pain Qualifiers: Status: Acute Plan: Labs, KUB (3) Nausea & vomiting Qualifiers: Status: Acute Plan: Anti-emetics (4) Essential hypertension Status: Chronic Plan: Monitor BP (5) Diabetes mellitus Status: Chronic Plan: Monitor BS - Allergies Allergies/Adverse Reactions: Allergies Allergy/AdvReac Type Severity Reaction Status Date / Time Penicillins Allergy Verified 05/31/18 17:54 lisinopril AdvReac Verified 06/07/18 14:23 morphine AdvReac Verified 05/31/18 17:54
[2019-03-05 08:10] VITALS: BMI 43.3
[2019-03-05] MEDS ORDERED: NORVASC TAB 2.5 MG ONE (08:42)
[2019-03-05] MEDS: PROTONIX INJ 40 MG VIAL IVP SCH ×2 (10:16→21:23)
[2019-03-05] MEDS: COZAAR PO SCH (10:17)
[2019-03-05] MEDS: COREG TAB 25 MG PO SCH ×2 (10:18→21:23)
[2019-03-05] MEDS: APRESOLINE TAB 25 MG PO SCH ×2 (10:18→21:20)
[2019-03-05] MEDS: NORVASC TAB 2.5 MG PO SCH (10:18)
[2019-03-06] MEDS: NS 1000 ML 1,000 ML IV SCH ×4 (00:08→23:55)
[2019-03-06] MEDS: REGLAN INJ 10 MG VIAL IVP SCH ×4 (03:51→20:37)
[2019-03-06 05:27] LABS: BASOPHILS % (AUTO) 0.3 % (0.2-1.0); EOSINOPHILS # (AUTO) 0.2 x10^3/uL (0.0-0.2); EOSINOPHILS % (AUTO) 1.9 % (0.9-2.9); HEMATOCRIT 31.9 % (36.0-47.0); HEMOGLOBIN 10.1 g/dL (12.0-16.0); LYMPHOCYTES # (AUTO) 1.8 X10^3/uL (1.3-2.9); LYMPHOCYTES % (AUTO) 22.3 % (21.0-51.0); MEAN CORPUSCULAR HEMOGLOBIN 27.3 pg (27.0-34.0); MEAN CORPUSCULAR HGB CONC 31.8 g/dL (33.0-35.0); MEAN PLATELET VOLUME 9.6 fL (7.4-11.0); MONOCYTES # (AUTO) 0.8 x10^3/uL (0.3-0.8); MONOCYTES % (AUTO) 10.2 % (0.0-13.0); NEUTROPHILS # (AUTO) 5.1 x10^3/uL (2.2-4.8); NEUTROPHILS % (AUTO) 65.3 % (42.0-75.0); PLATELET COUNT 226 X10^3/uL (150.0-450.0); RED BLOOD COUNT 3.71 X10^6/uL (3.5-5.4); RED CELL DISTRIBUTION WIDTH 14.4 % (11.6-16.5); WHITE BLOOD COUNT 7.9 X10^3/uL (3.6-10.0)
[2019-03-06 05:38] LABS: ALANINE AMINOTRANSFERASE 11 Units/L (12-78); ALBUMIN 1.8 g/dL (3.4-5.0); ALKALINE PHOSPHATASE 54 Units/L (46-116); ASPARTATE AMINO TRANSFERASE 15 Units/L (15-37); BLOOD UREA NITROGEN 21 mg/dL (7-18); CALCIUM 8.4 mg/dL (8.5-10.1); CARBON DIOXIDE 24.6 mmol/L (21-32); CHLORIDE 108 mmol/L (98-107); COR CA(FOR HYPOALB) 10.2 mg/dL (8.5-10.1); CREATININE 3.38 mg/dL (0.55-1.02); SODIUM 139 mmol/L (136-145); TOTAL PROTEIN 5.9 g/dL (6.4-8.2); eGFR NON BLACK RACES 17 (>60)
[2019-03-06] MEDS: DILAUDID INJ IVP PRN ×3 (05:48→18:02)
[2019-03-06] MEDS ORDERED: NORVASC TAB 2.5 MG ONE (07:14)
[2019-03-06] MEDS: NORVASC TAB 2.5 MG PO SCH (08:34)
[2019-03-06] MEDS: APRESOLINE TAB 25 MG PO SCH ×2 (08:34→20:38)
[2019-03-06] MEDS: COREG TAB 25 MG PO SCH ×2 (08:35→20:38)
[2019-03-06] MEDS: COZAAR PO SCH (08:36)
[2019-03-06] MEDS: PROTONIX INJ 40 MG VIAL IVP SCH ×2 (08:36→21:00)
[2019-03-06] MEDS ORDERED: ATIVAN TAB 0.5 MG PO PRN (10:03)
[2019-03-06] MEDS: MICRO K EXTEN CAP 10 MEQ PO SCH (11:25)
[2019-03-06] MEDS: CELEXA PO SCH (11:26)
[2019-03-06] MEDS ORDERED: TYLENOL 325 MG TAB PO PRN (12:53)
[2019-03-06] MEDS ORDERED: AMARYL TAB 4 MG PO SCH (16:30)
[2019-03-06] MEDS ORDERED: SNACK - Diabetic Appropriate PO SCH (20:00)
[2019-03-06] MEDS ORDERED: PRAVACHOL PO SCH (21:00)
[2019-03-06] MEDS ORDERED: ELAVIL PO SCH (21:00)
[2019-03-06] MEDS: PEPCID 20 MG IV PREMIX* 20 MG/50 ML BAG IV SCH (21:58)
[2019-03-07] MEDS: DILAUDID INJ IVP PRN ×3 (01:05→13:10)
[2019-03-07] MEDS: NS 1000 ML 1,000 ML IV SCH ×2 (01:06→08:06)
[2019-03-07] MEDS: REGLAN INJ 10 MG VIAL IVP SCH ×2 (02:04→08:06)
[2019-03-07 05:31] LABS: BASOPHILS % (AUTO) 0.5 % (0.2-1.0); EOSINOPHILS # (AUTO) 0.2 x10^3/uL (0.0-0.2); EOSINOPHILS % (AUTO) 2.1 % (0.9-2.9); HEMATOCRIT 31.1 % (36.0-47.0); LYMPHOCYTES # (AUTO) 1.7 X10^3/uL (1.3-2.9); LYMPHOCYTES % (AUTO) 21.5 % (21.0-51.0); MEAN CORPUSCULAR HEMOGLOBIN 27.6 pg (27.0-34.0); MEAN PLATELET VOLUME 9.5 fL (7.4-11.0); MONOCYTES # (AUTO) 0.7 x10^3/uL (0.3-0.8); NEUTROPHILS # (AUTO) 5.3 x10^3/uL (2.2-4.8); NEUTROPHILS % (AUTO) 66.9 % (42.0-75.0); PLATELET COUNT 244 X10^3/uL (150.0-450.0); RED BLOOD COUNT 3.62 X10^6/uL (3.5-5.4); RED CELL DISTRIBUTION WIDTH 13.9 % (11.6-16.5); WHITE BLOOD COUNT 7.9 X10^3/uL (3.6-10.0)
[2019-03-07 05:47] LABS: ALBUMIN 1.8 g/dL (3.4-5.0); CALCIUM 8.1 mg/dL (8.5-10.1); CARBON DIOXIDE 22.3 mmol/L (21-32); COR CA(FOR HYPOALB) 9.9 mg/dL (8.5-10.1); CREATININE 3.28 mg/dL (0.55-1.02); TOTAL PROTEIN 5.8 g/dL (6.4-8.2)
[2019-03-07] MEDS ORDERED: NORVASC TAB 2.5 MG ONE (06:50)
[2019-03-07] MEDS: NORVASC TAB 2.5 MG PO SCH (08:05)
[2019-03-07] MEDS: APRESOLINE TAB 25 MG PO SCH (08:05)
[2019-03-07] MEDS: CELEXA PO SCH (08:05)
[2019-03-07] MEDS: COREG TAB 25 MG PO SCH (08:05)
[2019-03-07] MEDS: COZAAR PO SCH (08:05)
[2019-03-07] MEDS: PEPCID 20 MG IV PREMIX* 20 MG/50 ML BAG IV SCH (08:06)
[2019-03-07] MEDS: MICRO K EXTEN CAP 10 MEQ PO SCH (08:06)
[2019-03-07 12:12] VITALS: BP 129/69
[2019-03-07] MEDS ORDERED: HEPARIN SODIUM INJ 5000 UNITS IVP ONE ×2 (13:28→13:34)
== END 2019-03-07 13:40 | disposition home or self-care (01) | DRG 684 ==
LOC: MED/SURG
PROVIDERS: ADMIT Internal Medicine; ATTEND Internal Medicine
DX: F41.8 Other specified anxiety disorders; E11.65 Type 2 diabetes mellitus with hyperglycemia; N17.8 Other acute kidney failure; R11.2 Nausea with vomiting, unspecified; K21.9 Gastro-esophageal reflux disease without esophagitis; I12.9 Hypertensive chronic kidney disease with stage 1 through stage 4 chronic kidney disease, or unspecified chronic kidney disease; N18.9 Chronic kidney disease, unspecified; R10.84 Generalized abdominal pain; R60.0 Localized edema; E11.22 Type 2 diabetes mellitus with diabetic chronic kidney disease; R51 Headache; E86.0 Dehydration
CPT/HCPCS: 36415; 71010; 71045; 74000; 74018; 80053; 81001; 82150; 83690; 85025; 87086; A4222; C9113; S0028; G0378; J0360; J1170; J1644; J1815; J2765; J7030